=== PATIENT | male | born 1945 | race Caucasian/White ===

== ENCOUNTER 2024-06-05 08:17 | Emergency (ER) | payer OTHER, SELFPAY ==
[2024-06-05 08:45] VITALS: BP 113/84
[2024-06-05 09:09] LABS: Glucose - Point of Care 108 mg/dl (70-99)
[2024-06-05 09:13] VITALS: BP 130/70
[2024-06-05 09:36] VITALS: BMI 32.6
[2024-06-05 09:45] LABS: % Basophils 0.3 % (0-2); % Eosinophils 1.3 % (0-6); % Immature Granulocytes 0.3 % (0-0.5); % Lymphocytes 20.9 % (20.5-51.1); % Neutrophils 68.2 % (42.2-75.2); Absolute Eosinophils 0.1 10^3/uL (0-0.7); Absolute Lymphocytes 1.5 10^3/uL (1.2-3.4); Absolute Monocytes 0.6 10^3/uL (0.1-0.6); Absolute Neutrophils 4.8 10^3/uL (1.4-6.5); Hematocrit 39.6 % (39.0-52.0); Hemoglobin 13.7 g/dL (13.0-18.0); Mean Corp Hgb Conc. 34.6 g/dL (33.0-37.0); Mean Corpuscular Hgb 30.5 pg (27.0-31.0); Mean Corpuscular Volume 88.2 fL (80.0-94.0); Mean Platelet Volume 9.5 fL (7.4-10.4); Nucleated Red Blood Cells % 0 % (-); Platelet Count 202 10^3/uL (130-400); Red Blood Cell Count 4.49 10^6/uL (4.70-6.10); Red Cell Dist. Width 13.8 % (11.5-14.5); White Blood Cell Count 7.1 10^3/uL (4.8-10.8)
[2024-06-05 10:00] VITALS: BP 118/65
[2024-06-05 10:00] LABS: ALT (SGPT) 27 U/L (0-50); AST (SGOT) 26 U/L (17-59); Albumin 4.3 g/dl (3.5-5.0); Alkaline Phosphatase 67 U/L (38-126); Blood Urea Nitrogen 34 mg/dl (9-20); Carbon Dioxide 20 mmol/L (22-30); Estimated Creatinine Clearance 41 ml/min; Glucose 120 mg/dl (70-99); Sodium 137 mmol/L (135-145); Total Bilirubin 1.7 mg/dl (0.2-1.3); Total Protein 6.8 g/dl (6.3-8.2); eGFR 37.58
[2024-06-05] MEDS: NSS 1000 IV (10:13)
[2024-06-05] MEDS: ZOFRAN 4 MG IV (10:21)
[2024-06-05 10:27] LABS: Chloride 101 mmol/L (98-107)
[2024-06-05 10:30] LABS: TSH Reflex To Free T4 0.42 uIU/ml (0.47-4.68)
--- NOTE | 2024-06-05 10:32 | ED.GENMED ---
History of Present Illness
General
Chief Complaint: Abdominal Symptoms
Source: patient
Exam Limitations: none
Time Seen by Provider: 06/05/24 09:03
Nursing documentation reviewed up to this point in time: agreed with
History of Present Illness
History of Present Illness:
78-year-old male past medical history of hypertension hyperlipidemia, diabetes presenting to the emergency department today with concerns of lack of any oral intake of food over the past 4 weeks. He claims this is because the food is not appetizing
where he is currently living. He does not give any further explanation as to why he cannot retrieve food elsewhere. He claims that he would eat if the appropriate food was given to him. Denies any abdominal pain nausea vomiting diarrhea
constipation any thoughts of harming himself or others.
Past History
Past History
ED Past Medical History: HTN, Hypercholesterolemia and IDDM
ED Past Surgical History: Appendectomy
Social History
Tobacco: Former smoker
Alcohol: Occasional
Drug: None
Personal:
Living: alone
Employment: Other
Family History
Family History: Other
Review of Systems
Review of Systems
Allergies reviewed?: Yes
All Other Systems: ROS reviewed and negative except as documented in HPI and ROS
Phy Exam
Physical Exam
Physical Exam:
GENERAL: Alert , in no apparent distress
EYE: pupils equal and reactive
NECK: Supple, no significant adenopathy.
ENT: o/p clr, mmm.
CARDIAC: Regular rate and rhythm .
LUNGS: Clear breath sounds bilaterally, no acute respiratory distress, no wheezes/rales/rhonchi
ABDOMEN: Some abdominal distention some vague discomfort when palpating.
NEUROLOGICAL: Alert and oriented, no focal neuro deficits
SKIN: Warm and dry, skin intact.
MUSCULOSKELETAL: No edema, well perfused.
PSYCH: Normal and appropriate interaction.
Course
Orders/Labs/Results
Orders:
Orders
06/05/24 09:35
Complete Blood Count/With Diff Urgent
Comprehensive Metabolic Panel Urgent
Free T4 Urgent
Lipase Urgent
Comment: ADD ON
TSH Reflex To Free T4 Urgent
Comment: ADD ON
06/05/24 09:42
CT Abd/Pel (IV only)-DH only Urgent
Comment:
Reason For Exam: abd distension diffuse pain
CT Head W/o Iv Contrast Urgent
Comment:
Reason For Exam: ams
06/05/24 09:43
Add On- LAB Urgent
Tests Added?: tsh free t4
06/05/24 09:44
EKG [Electrocardiogram (*1)] Urgent
Reason for Study: Fatigue / Weakness
EKG- Treatment ONCE
06/05/24 10:06
0.9% Sodium Chloride 1000 ml [Nss] 1,000 ml IV BOLUS
Ondansetron Injectable [Zofran] 4 mg IV NOW STA
06/05/24 10:34
Add On- LAB Urgent
Tests Added?: lipase
06/05/24 11:13
Urinalysis Reflex To Culture Urgent
Date Specimen was Collected: 06/05/24
Time Specimen was Collected: 08:48
Urine Microscopic Reflex Cult Urgent
Abnormal Lab Results
06/05/24 06/05/24 06/05/24
09:07 09:35 11:13
RBC 4.49 L 10^6/uL
(4.70-6.10)
Carbon Dioxide 20 L mmol/L
(22-30)
BUN 34 H mg/dl
(9-20)
Creatinine 1.8 H mg/dL
(0.7-1.3)
Glucose 120 H mg/dl
(70-99)
Total Bilirubin 1.7 H mg/dl
(0.2-1.3)
Lipase 22 L U/L
(23-300)
TSH (Reflex) 0.42 L uIU/ml
(0.47-4.68)
Urine Ketones Trace A
(Negative)
Leukocyte Esterase Rfl Trace A
(Negative)
Urine Bacteria (Reflex) Few A
(Negative)
POC Glucose 108 H mg/dl
(70-99)
06/05/24 09:35
06/05/24 09:35
Vital Signs
Initial and Last Documented VS:
Initial Vital Signs
Temp Pulse Resp BP Pulse Ox
98.0 F 77 16 113/84 98
06/05/24 08:45 06/05/24 08:45 06/05/24 08:45 06/05/24 08:45 06/05/24 08:45
Last Documented Vital Signs
Temp Pulse Resp BP Pulse Ox
98.0 F 70 16 134/65 97
06/05/24 11:50 06/05/24 12:00 06/05/24 12:00 06/05/24 12:00 06/05/24 12:00
MDM/Problems Addressed
MDM/Problems Addressed:
78-year-old male presenting to the emergency department today with concerns of lack of oral intake of food over the past 4 weeks. Vital signs are normal on arrival he is in no distress she does have reproducible discomfort throughout the abdomen
with some distention. Labs showing elevated creatinine and BUN but not far from his baseline. Electrolytes without significant acute abnormalities. Patient no distress here CT scan did not show emergent findings. Normal vital signs throughout ER
stay. No evidence metabolic starvation he was advised to eat he was given food here he claims that he is physically able to eat as an outpatient he was given resources to be able to order food. Otherwise stable for discharge return precautions
given.
*Critical Care Note
Total Time (30-74mins, 75-104mins- exclusive of procedures): Not Applicable
ED Attending Note
-
Portions of this chart may have been created with voice recognition software.� Occasional wrong word or��sound alike� substitutions may have occurred due to the inherent limitations of voice recognition software.
Discharge Plan
Departure
Patient Disposition: Home (Routine Discharge)
Date of Disposition: 06/05/24
Time of Disposition: 12:39
Patient with high blood pressure during this ER visit?: No
Condition: Good
Covid-19: Not Applicable
Discharge Problem:
Decreased oral intake
Prescriptions:
No Action
omeprazole magnesium [Prilosec OTC] 20 MG tablet,delayed release (DR/EC)
20 mg PO DAILY
carvedilol 12.5 MG tablet
12.5 mg PO BID
lisinopril 20 mg Tablet
20 mg PO DAILY
therapeutic multivitamin Tablet
1 tab PO DAILY
aspirin 81 mg Tablet,Delayed Release (Dr/Ec)
81 mg PO DAILY
rosuvastatin 40 mg Tablet
40 mg PO DAILY
Farxiga 5 mg Tablet
5 mg PO DAILY
Patient Comments:
03/13/2023, patient unsure if they take this medication; pharmacy and [facility] records show that it was filled recently (02/20/2023) for a 30 day supply.
insulin aspart U-100 [Novolog FlexPen U-100 Insulin] 100 unit/mL (3 mL) Insulin Pen
12 unit SC AC Qty: 15 0RF
(DME) pen needle, diabetic [BD Benita 2nd Gen Pen Needle] 32 gauge x 5/32' needle
See Rx Instructions .Route Qty: 100 0RF
Rx Instructions:
As directed
(DME) Contour Next Test Strips Strip
Qty: 200 0RF
Rx Instructions:
As Directed
(DME) pen needle, diabetic [BD Benita 2nd Gen Pen Needle] 32 gauge x 5/32' needle
See Rx Instructions .Route Qty: 1200 0RF
Rx Instructions:
As directed
insulin glargine [Lantus Solostar U-100 Insulin] 100 unit/mL (3 mL) Insulin Pen
12 unit SC BID Qty: 15 0RF
Referrals:
Alessandra Ignacio MD [Family Provider] -
Activity Restrictions/Additional Instructions:
You came to the emergency department today with concerns of decreased oral intake. Here you had a reassuring assessment without emergent findings it is very important that you start to consume by mouth and follow-up closely with primary care
doctor. Return for any worsening, new or concerning symptoms.
Interventions
Interventions:
*Risk Screen - Suicide Last Done: 06/05/24 08:45
*General Assessment Last Done: 06/05/24 12:40
*Neglect/Abuse Screening Last Done: 06/05/24 08:45
ED- Fall Risk Assessment Last Done: 06/05/24 12:40
*ED COVID-19 Vaccine History Last Done: 06/05/24 12:40
*Nursing Disposition Last Done: 06/05/24 12:40
VD-Zxrift-Qxbwfoxafg Assessment Last Done: 06/05/24 11:38
Discharge Date and Time
Discharge Date/Time: 06/05/24 12:41
Print Language: ZIMBABWEAN
[2024-06-05 10:51] LABS: Lipase 22 U/L (23-300)
[2024-06-05 10:59] LABS: Free T4 1.23 ng/dl (0.78-2.19)
[2024-06-05 11:00] VITALS: BP 141/65
[2024-06-05 11:49] VITALS: BP 136/66
[2024-06-05 11:55] LABS: Urine Albumin Trace (Neg - Trace); Urine Bilirubin Negative (Negative); Urine Character Clear (Clear); Urine Color Yellow; Urine Glucose Negative (Negative); Urine Ketone Trace (Negative); Urine Leukocyte Trace (Negative); Urine Nitrite Negative (Negative); Urine Occult Blood Negative (Negative); Urine Specific Gravity 1.025 (<1.030); Urine Urobilinogen Negative (Neg - 1+)
[2024-06-05 12:00] VITALS: BP 134/65
[2024-06-05 12:12] LABS: Urine Bacteria Few (Negative); Urine Red Blood Cell None Seen /HPF (0-2); Urine Squamous Cell None seen /LPF (Few); Urine White Cell 0-2 /HPF (0-5)
== END 2024-06-05 12:41 | disposition home or self-care (01) ==
LOC: EMR 08:17
PROVIDERS: Emergency Medicine; EMERGENCY PHYSICIAN Emergency Medicine; FAMILY PHYSICIAN Internal Medicine
DX: R63.0 Anorexia (principal); R14.0 Abdominal distension (gaseous); R79.89 Other specified abnormal findings of blood chemistry; I10 Essential (primary) hypertension; E11.9 Type 2 diabetes mellitus without complications; E78.00 Pure hypercholesterolemia, unspecified; Z79.4 Long term (current) use of insulin; Z79.82 Long term (current) use of aspirin; Z87.891 Personal history of nicotine dependence; Z88.1 Allergy status to other antibiotic agents
CPT/HCPCS: 99285; 96361; 96374; 70450; 74177; 80053; 81003; 81015; 82962; 83690; 84439; 84443; 85025; 93005; Q9967

== ENCOUNTER 2024-06-07 16:28 | Emergency (ER) | payer OTHER, SELFPAY ==
[2024-06-07 16:37] VITALS: BP 152/77
[2024-06-07 16:49] LABS: Glucose - Point of Care 161 mg/dl (70-99)
--- NOTE | 2024-06-07 16:59 | ED.GENMED ---
ED Provider Triage
<Julisa Carbone NP - Last Filed: 06/07/24 17:09>
-
Patient seen by provider in Triage?: Seen in Triage
Attestation: A medical screening examination has been initiated by a qualified medical provider. Based on the assessment performed at this time, it has been determined that an emergent medical condition may exist and the patient has been informed
that further medical evaluation and possible additional diagnostic testing may be needed.
HPI: 78-year-old male with history of IDDM, HTN, HLD presents for
Friends with him: Shahid states when he missed an appointment at 330 today with [facility] internal medicine because he forgot about it, Mayelin Khanna [employer] called the patient to see if he was okay, when told Mayelin he was meeting with some friends and
Mayelin asked to speak to 1 of those friends. So Shahid spoke to Mayelin and she was concerned that his blood sugar levels were very low and they were supposed to bring Jens down here to have his 'levels checked.'
It is reported that pt is suicidal, Crisis has been consulted.
GENERAL: Alert , in no apparent distress
EYE: No visual abnormalities.
NECK: Trachea midline
ENT: No visible abnormalities.
LUNGS: No acute respiratory distress
NEUROLOGICAL: Alert and oriented
SKIN: Skin intact. No visible changes.
MUSCULOSKELETAL: Moving extremities normally
PSYCH: Normal and appropriate interaction.
This is a medical evaluation conducted in person to initiate diagnostic evaluation and provide initial therapeutics. Please see further documentation by the treating clinician.
History of Present Illness
<Julisa Carbone NP - Last Filed: 06/07/24 17:09>
General
Chief Complaint: Blood Sugar Problem
Time Seen by Provider: 06/07/24 17:22
<Neo Conroy MD - Last Filed: 06/08/24 15:42>
General
Source: patient
Exam Limitations: none
Nursing documentation reviewed up to this point in time: agreed with
History of Present Illness
History of Present Illness:
Patient with history of insulin-dependent diabetes, presents to ED for medical evaluation with 302 petition being filed by a friend, with concern for patient's safety. Patient has expressed suicidal thoughts, as he was recently scammed and is
currently in financial difficulties. He is currently in temporary housing, provided by local [facility]. Patient denies any pain. Patient wants to get his blood sugar checked. Denies chest pain or shortness of breath. Denies headache or dizziness.
[facility] police dept currently investigating the situation.
Past History
<Julisa Carbone NP - Last Filed: 06/07/24 17:09>
Past History
ED Past Medical History: HTN, Hypercholesterolemia and IDDM
ED Past Surgical History: Appendectomy
Social History
Tobacco: Former smoker
Alcohol: Occasional
Drug: None
Personal:
Living: alone
Employment: Other
Family History
Family History: Other
Review of Systems
<Neo Conroy MD - Last Filed: 06/08/24 15:42>
Review of Systems
Allergies reviewed?: Yes
All Other Systems: ROS reviewed and negative except as documented in HPI and ROS
Constitutional: Reports no symptoms
EENT: Reports no symptoms
Respiratory: Reports no symptoms
Cardiac: Reports no symptoms
ABD/GI: Reports no symptoms
: Reports no symptoms
Musculoskeletal: Reports no symptoms
Skin: Reports no symptoms
Neurological: Reports no symptoms
Psychiatric: Reports depression and suicidal
Phy Exam
<Neo Conroy MD - Last Filed: 06/08/24 15:42>
Physical Exam
Physical Exam:
Physical Exam
General: mild distress, not acutely ill. afebrile
Head: nc/at. eomi
Neck: supple. normal range of motion
Neuro: alert and oriented x 3. no focal neurological deficits
Skin: no rash
Psychiatric: well kept. interactive and cooperative but agitated.
Extremities: no edema. no calf tenderness.
Course
<Julisa Carbone, [employer] - Last Filed: 06/07/24 17:09>
Orders/Labs/Results
Orders:
Orders
06/07/24 16:42
1:1 Observation - Suicide/ Violent Behavior As Directed
Crisis Consult Urgent
Reason for Consult: depression, +SI
06/07/24 18:09
Complete Blood Count/With Diff Urgent
Comprehensive Metabolic Panel Urgent
06/07/24 23:00
Insulin Glargine Lantus [Lantus] 9 units Subcutaneous Insulin Syringe [Syringe-Insulin] 0 unit SC ONCE
06/07/24 23:52
Carvedilol [Coreg] 12.5 mg PO NOW STA
06/08/24 08:00
Insulin Glargine Lantus [Lantus] 12 units Subcutaneous Insulin Syringe [Syringe-Insulin] 0 unit SC DAILY
Lisinopril [Zestril] 20 mg PO DAILY
Pantoprazole [Protonix] 20 mg PO DAILY
06/08/24 09:09
Insulin Glargine Lantus [Lantus] 12 units Subcutaneous Insulin Syringe [Syringe-Insulin] 0 unit SC NOW
06/08/24 09:10
Rosuvastatin Calcium [Crestor] 40 mg PO NOW STA
06/08/24 09:14
Insulin Aspart [NOVOLOG vial] 6 units SC NOW STA
Abnormal Lab Results
06/07/24 06/07/24 06/08/24
16:47 18:09 00:23
RBC 4.66 L 10^6/uL
(4.70-6.10)
Absolute Monos (auto) 0.7 H 10^3/uL
(0.1-0.6)
Carbon Dioxide 18 L mmol/L
(30)
BUN 31 H mg/dl
(01-28)
Glucose 135 H mg/dl
()
POC Glucose 161 H mg/dl 123 H mg/dl
(99) (70-99)
06/08/24
08:27
RBC
Absolute Monos (auto)
Carbon Dioxide
BUN
Glucose
POC Glucose 108 H mg/dl
(99)
06/07/24 18:09
06/07/24 18:09
Vital Signs
Initial and Last Documented VS:
Initial Vital Signs
Temp Pulse Resp BP Pulse Ox
98.8 F 62 17 152/77 99
06/07/24 16:37 06/07/24 16:37 06/07/24 16:37 06/07/24 16:37 06/07/24 16:37
Last Documented Vital Signs
Temp Pulse Resp BP Pulse Ox
98.8 F 61 18 144/74 98
06/07/24 16:37 06/08/24 08:57 06/07/24 21:42 06/08/24 08:57 06/08/24 08:30
<Neo Conroy MD - Last Filed: 06/08/24 15:42>
Orders/Labs/Results
Orders:
Orders
06/07/24 16:42
1:1 Observation - Suicide/ Violent Behavior As Directed
Crisis Consult Urgent
Reason for Consult: depression, +SI
06/07/24 18:09
Complete Blood Count/With Diff Urgent
Comprehensive Metabolic Panel Urgent
06/07/24 23:00
Insulin Glargine Lantus [Lantus] 9 units Subcutaneous Insulin Syringe [Syringe-Insulin] 0 unit SC ONCE
06/07/24 23:52
Carvedilol [Coreg] 12.5 mg PO NOW STA
06/08/24 08:00
Insulin Glargine Lantus [Lantus] 12 units Subcutaneous Insulin Syringe [Syringe-Insulin] 0 unit SC DAILY
Lisinopril [Zestril] 20 mg PO DAILY
Pantoprazole [Protonix] 20 mg PO DAILY
06/08/24 09:09
Insulin Glargine Lantus [Lantus] 12 units Subcutaneous Insulin Syringe [Syringe-Insulin] 0 unit SC NOW
06/08/24 09:10
Rosuvastatin Calcium [Crestor] 40 mg PO NOW STA
06/08/24 09:14
Insulin Aspart [NOVOLOG vial] 6 units SC NOW STA
Abnormal Lab Results
06/07/24 06/07/24 06/08/24
16:47 18:09 00:23
RBC 4.66 L 10^6/uL
(4.70-6.10)
Absolute Monos (auto) 0.7 H 10^3/uL
(0.1-0.6)
Carbon Dioxide 18 L mmol/L
(-30)
BUN 31 H mg/dl
(9-20)
Glucose 135 H mg/dl
(70-99)
POC Glucose 161 H mg/dl 123 H mg/dl
(70-99) (70-99)
06/08/24
08:27
RBC
Absolute Monos (auto)
Carbon Dioxide
BUN
Glucose
POC Glucose 108 H mg/dl
(70-99)
06/07/24 18:09
06/07/24 18:09
Vital Signs
Initial and Last Documented VS:
Initial Vital Signs
Temp Pulse Resp BP Pulse Ox
98.8 F 62 17 152/77 99
06/07/24 16:37 06/07/24 16:37 06/07/24 16:37 06/07/24 16:37 06/07/24 16:37
Last Documented Vital Signs
Temp Pulse Resp BP Pulse Ox
98.8 F 61 18 144/74 98
06/07/24 16:37 06/08/24 08:57 06/07/24 21:42 06/08/24 08:57 06/08/24 08:30
<Neo Conroy MD - Last Filed: 06/08/24 15:42>
MDM/Problems Addressed
MDM/Problems Addressed:
302 petition filed by patient's friend, Shahid, with concern for his safety, due to irrational thought process with his current situation. I also believe that patient is currently in right state of mind, due to his current circumstances and without an
acute intervention, he may be in danger of harming himself.
<Neo Conroy MD - Last Filed: 06/08/24 15:42>
*Critical Care Note
Total Time (30-74mins, 75-104mins- exclusive of procedures): Not Applicable
ED Attending Note
<Julisa Carbone [employer] - Last Filed: 06/07/24 17:09>
-
Portions of this chart may have been created with voice recognition software.� Occasional wrong word or��sound alike� substitutions may have occurred due to the inherent limitations of voice recognition software.
Discharge Plan
Departure
Patient Disposition: Psych Facility
Date of Disposition: 06/07/24
Time of Disposition: 20:20
Discharge Problem:
Depression, Suicidal ideation
Prescriptions:
No Action
omeprazole magnesium [Prilosec OTC] 20 MG tablet,delayed release (DR/EC)
20 mg PO DAILY
carvedilol 12.5 MG tablet
12.5 mg PO BID
aspirin 81 mg Tablet,Delayed Release (Dr/Ec)
81 mg PO DAILY
rosuvastatin 40 mg Tablet
40 mg PO DAILY
insulin aspart U-100 [Novolog FlexPen U-100 Insulin] 100 unit/mL (3 mL) Insulin Pen
12 unit SC AC Qty: 15 0RF
trazodone 50 mg Tablet
50 mg PO HSPRN PRN (Reason: sleep)
lisinopril 20 mg Tablet
20 mg PO DAILY
insulin glargine [Lantus Solostar U-100 Insulin] 100 unit/mL (3 mL) Insulin Pen
9 unit SC HS
insulin glargine [Lantus Solostar U-100 Insulin] 100 unit/mL (3 mL) insulin pen
12 unit SC DAILY
Referrals:
Alessandra Ignacio MD [Family Provider] -
Interventions
Interventions:
*Risk Screen - Suicide Last Done: 06/07/24 16:40
*General Assessment Last Done: 06/07/24 16:40
*Neglect/Abuse Screening Last Done: 06/07/24 16:40
ED- Fall Risk Assessment Last Done: 06/08/24 09:30
*ED COVID-19 Vaccine History Last Done: 06/07/24 16:40
*Nursing Disposition Last Done: 06/08/24 09:30
ED- Neurological Assessment Last Done: 06/07/24 21:42
Discharge Date and Time
Discharge Date/Time: 06/08/24 09:30
Print Language: UGANDAN
[2024-06-07 18:17] LABS: % Basophils 0.4 % (0-2); % Eosinophils 5.4 % (0-6); % Immature Granulocytes 0.1 % (0-0.5); % Lymphocytes 27.5 % (20.5-51.1); % Monocytes 8.1 % (1.7-9.3); % Neutrophils 58.5 % (42.2-75.2); Absolute Eosinophils 0.4 10^3/uL (0-0.7); Absolute Lymphocytes 2.2 10^3/uL (1.2-3.4); Absolute Monocytes 0.7 10^3/uL (0.1-0.6); Absolute Neutrophils 4.8 10^3/uL (1.4-6.5); Hematocrit 41.8 % (39.0-52.0); Hemoglobin 14.2 g/dL (13.0-18.0); Mean Corpuscular Hgb 30.5 pg (27.0-31.0); Mean Corpuscular Volume 89.7 fL (80.0-94.0); Mean Platelet Volume 9.7 fL (7.4-10.4); Nucleated Red Blood Cells % 0 % (-); Platelet Count 244 10^3/uL (130-400); Red Blood Cell Count 4.66 10^6/uL (4.70-6.10); Red Cell Dist. Width 13.8 % (11.5-14.5); White Blood Cell Count 8.2 10^3/uL (4.8-10.8)
[2024-06-07 18:37] LABS: ALT (SGPT) 33 U/L (0-50); AST (SGOT) 34 U/L (17-59); Albumin 4.6 g/dl (3.5-5.0); Alkaline Phosphatase 67 U/L (38-126); Blood Urea Nitrogen 31 mg/dl (9-20); Calcium 9.4 mg/dl (8.4-10.2); Carbon Dioxide 18 mmol/L (22-30); Chloride 107 mmol/L (98-107); Glucose 135 mg/dl (70-99); Potassium 4.4 mmol/L (3.5-5.1); Sodium 139 mmol/L (135-145); Total Protein 7.4 g/dl (6.3-8.2); eGFR 55.53
[2024-06-07 21:42] VITALS: BP 133/65
[2024-06-07 22:04] LABS: Glucose - Point of Care 92 mg/dl (70-99)
[2024-06-08] MEDS: LANTUS 0.09 UNITS SC (00:20)
[2024-06-08] MEDS: COREG 12.5 MG PO (00:20)
[2024-06-08 00:24] LABS: Glucose - Point of Care 123 mg/dl (70-99)
[2024-06-08 08:29] LABS: Glucose - Point of Care 108 mg/dl (70-99)
[2024-06-08 08:30] VITALS: BP 144/74
[2024-06-08] MEDS: ZESTRIL 20 MG PO (08:57)
== END 2024-06-08 09:30 ==
LOC: EMR 16:28
PROVIDERS: Registered Nurse; EMERGENCY PHYSICIAN Emergency Medicine; FAMILY PHYSICIAN Internal Medicine
DX: R45.851 Suicidal ideations (principal); F32.A Depression, unspecified; G47.9 Sleep disorder, unspecified; Z59.89 Other problems related to housing and economic circumstances; Z59.86 Financial insecurity; E11.9 Type 2 diabetes mellitus without complications; E78.00 Pure hypercholesterolemia, unspecified; I10 Essential (primary) hypertension; Z59.01 Sheltered homelessness; Z87.891 Personal history of nicotine dependence; Z79.4 Long term (current) use of insulin; Z79.82 Long term (current) use of aspirin; Z88.1 Allergy status to other antibiotic agents
CPT/HCPCS: 99285; 96372; 80053; 82962; 85025

== ENCOUNTER 2024-06-18 23:02 | Observation (INO) | payer OTHER, SELFPAY ==
[2024-06-18 19:15] VITALS: BP 127/70
[2024-06-18 20:00] VITALS: BP 118/74
--- NOTE | 2024-06-18 20:00 | ED.GENMED ---
History of Present Illness
<Jose Sylvester PA-C - Last Filed: 06/18/24 22:28>
General
Chief Complaint: Change in Mental Status
Source: patient
Exam Limitations: none
Time Seen by Provider: 06/18/24 19:24
History of Present Illness
History of Present Illness:
78-year-old male insulin-dependent diabetic presents with friend who he currently lives with who states the patient has been more confused and usual starting today. He has been off and confused over the past several months. He was 302 for severe
depression and SI at the end of May. He spent 9 days at a psychiatric hospital. He was started on sertraline. Patient has no complaints currently when asked why he was here in the hospital he pointed to his friend and stated that she brought
me here.
Past History
<Jose Sylvester PA-C - Last Filed: 06/18/24 22:28>
Past History
ED Past Medical History: HTN, Hypercholesterolemia and IDDM
ED Past Surgical History: Appendectomy
Social History
Tobacco: Former smoker
Alcohol: Occasional
Drug: None
Personal:
Living: alone
Employment: Other
Family History
Family History: Other
Phy Exam
<Jose Sylvester PA-C - Last Filed: 06/18/24 22:28>
Physical Exam
Physical Exam:
General: Well-appearing male no acute respiratory distress
HEENT: Normocephalic atraumatic face is symmetric
Heart: Regular rate and rhythm no murmurs
Lungs: Clear no wheeze
Extremities: No cyanosis or edema
Neuro: Alert oriented to person and place and time. No drift on exam finger-nose [id number] intact. Able to identify all objects in the room. Speaks clearly without any aphasia or dysarthria. Had trouble doing serial sevens
Psychiatric exam: Flat affect but denying thoughts of harming self or others
Course
<Jose Sylvester PA-C - Last Filed: 06/18/24 22:28>
Orders/Labs/Results
Orders:
Orders
06/18/24 19:52
Urinalysis Reflex To Culture Urgent
Date Specimen was Collected: 06/18/24
Time Specimen was Collected: 19:59
06/18/24 19:59
CT Head W/o Iv Contrast Urgent
Comment:
Reason For Exam: confusion
06/18/24 20:01
COVID-19 Antigen Urgent
Source: Nasal Swab
Complete Blood Count/With Diff Urgent
Comprehensive Metabolic Panel Urgent
Influenza A+B Rapid Molecular Urgent
DI Source: Nasal Swab
Specimen Description:
06/18/24 21:13
Electrocardiogram (*1) Urgent
Reason for Study: Shortness of Breath
EKG- Treatment ONCE
CR Chest - 2 Views Urgent
Comment:
Reason For Exam: sob
Abnormal Lab Results
06/18/24
20:01
RBC 4.53 L 10^6/uL
(4.70-6.10)
Absolute Monos (auto) 0.7 H 10^3/uL
(0.1-0.6)
BUN 35 H mg/dl
(9-20)
Creatinine 1.5 H mg/dL
(0.7-1.3)
Glucose 135 H mg/dl
(70-99)
Total Bilirubin 1.6 H mg/dl
(0.2-1.3)
06/18/24 20:01
06/18/24 20:01
Vital Signs
Initial and Last Documented VS:
Initial Vital Signs
Temp Pulse Resp BP Pulse Ox
98.5 F 75 16 127/70 98
06/18/24 19:15 06/18/24 19:15 06/18/24 19:15 06/18/24 19:15 06/18/24 19:15
Last Documented Vital Signs
Temp Pulse Resp BP Pulse Ox
98.5 F 67 16 108/74 100
06/18/24 19:15 06/18/24 21:07 06/18/24 21:07 06/18/24 21:07 06/18/24 21:07
<Richie Rogers MD - Last Filed: 06/18/24 21:49>
Orders/Labs/Results
Orders:
Orders
06/18/24 19:52
Urinalysis Reflex To Culture Urgent
Date Specimen was Collected: 06/18/24
Time Specimen was Collected: 19:59
06/18/24 19:59
CT Head W/o Iv Contrast Urgent
Comment:
Reason For Exam: confusion
06/18/24 20:01
COVID-19 Antigen Urgent
Source: Nasal Swab
Complete Blood Count/With Diff Urgent
Comprehensive Metabolic Panel Urgent
Influenza A+B Rapid Molecular Urgent
DI Source: Nasal Swab
Specimen Description:
06/18/24 21:13
Electrocardiogram (*1) Urgent
Reason for Study: Shortness of Breath
EKG- Treatment ONCE
CR Chest - 2 Views Urgent
Comment:
Reason For Exam: sob
Abnormal Lab Results
06/18/24
20:01
RBC 4.53 L 10^6/uL
(4.70-6.10)
Absolute Monos (auto) 0.7 H 10^3/uL
(0.1-0.6)
BUN 35 H mg/dl
(9-20)
Creatinine 1.5 H mg/dL
(0.7-1.3)
Glucose 135 H mg/dl
(70-99)
Total Bilirubin 1.6 H mg/dl
(0.2-1.3)
06/18/24 20:01
06/18/24 20:01
Vital Signs
Initial and Last Documented VS:
Initial Vital Signs
Temp Pulse Resp BP Pulse Ox
98.5 F 75 16 127/70 98
06/18/24 19:15 06/18/24 19:15 06/18/24 19:15 06/18/24 19:15 06/18/24 19:15
Last Documented Vital Signs
Temp Pulse Resp BP Pulse Ox
98.5 F 67 16 108/74 100
06/18/24 19:15 06/18/24 21:07 06/18/24 21:07 06/18/24 21:07 06/18/24 21:07
<Jose Sylvester PA-C - Last Filed: 06/18/24 22:28>
MDM/Problems Addressed
Differential Diagnosis Includes:
Patient with change in mental status differential is large but can include infectious process electrolyte abnormality medication reaction or generalized cognitive decline. Also check CT of head
Labs pending
<Jose Sylvester PA-C - Last Filed: 06/18/24 22:28>
*Critical Care Note
Total Time (30-74mins, 75-104mins- exclusive of procedures): Not Applicable
<Jose Sylvester PA-C - Last Filed: 06/18/24 22:28>
Update Note
Update Note:
Patient reevaluated called back into the room as he was saying he was short of breath however O2 saturation was 100% did not appear to be in any respiratory distress. Chest x-ray done performed which was clear. CT of the head showed no acute
findings. EKG shows sinus rhythm without ischemic changes. Labs reviewed otherwise without significant finding. Upon further questioning of the friend who is taking care of the patient since leaving the psychiatric hospital he was very confused
today unable to perform simple tasks. They do not feel he is safe where he is staying with them as they go to work. Discussed with emergency room attending who saw the patient as well. Patient may benefit from case management involvement and
potential placement. Will keep in hospital for further evaluation
ED Attending Note
<Jose Sylvester PA-C - Last Filed: 06/18/24 22:28>
-
Portions of this chart may have been created with voice recognition software.� Occasional wrong word or��sound alike� substitutions may have occurred due to the inherent limitations of voice recognition software.
<Richie Rogers MD - Last Filed: 06/18/24 21:49>
ED Attending Note
Patient seen and examined by attending physician: Yes
I performed the substantive portion of visit, reviewed & personally made and approve the management plan that is documented in note by myself or DHARA.: Yes
ED Attending Note:
78-year-old male brought in for episodes of confusion. Had trouble finding his car issues with his keys. Patient has had memory issues over the last 6 months. Much worse the last week. He did start sertraline for depression. He is currently
living with his daughter's friend who has been somewhat caring for him.
On exam patient is nontoxic in no distress. He is alert and oriented x 3. He did have trouble with some simple math equations however. He is not focal. Lungs are clear and equal. Heart regular rate and rhythm mild midsystolic murmur. Warm and
dry perfusing well nonfocal.
Testing is unremarkable. I suspect he likely does have some mild dementia that has progressed slowly over the last 6 months. There may be a component of sertraline. He did briefly complain of some shortness of breath when he sat up and was
reevaluated. His lungs are clear pulse ox 100%. And symptoms quickly resolved.
This becomes mostly a ADL social service issue as patient has no family to care watch him. His daughters friend cannot take responsibility for him which is understandable. He will be admitted observation overnight with pending case management and
decisions on ongoing living situation.
Discharge Plan
Departure
Patient Disposition: Admit
Date of Disposition: 06/18/24
Time of Disposition: 22:27
Presentation/result/management discussed w/ accepting MD/DO: Hospitalist
Discharge Problem:
Altered mental status
Prescriptions:
No Action
omeprazole magnesium [Prilosec OTC] 20 MG tablet,delayed release (DR/EC)
20 mg PO DAILY
carvedilol 12.5 MG tablet
12.5 mg PO BID
aspirin 81 mg Tablet,Delayed Release (Dr/Ec)
81 mg PO DAILY
rosuvastatin 40 mg Tablet
40 mg PO DAILY
insulin aspart U-100 [Novolog FlexPen U-100 Insulin] 100 unit/mL (3 mL) Insulin Pen
12 unit SC AC Qty: 15 0RF
trazodone 50 mg Tablet
50 mg PO HSPRN PRN (Reason: sleep)
lisinopril 20 mg Tablet
20 mg PO DAILY
insulin glargine [Lantus Solostar U-100 Insulin] 100 unit/mL (3 mL) Insulin Pen
9 unit SC HS
insulin glargine [Lantus Solostar U-100 Insulin] 100 unit/mL (3 mL) insulin pen
12 unit SC DAILY
Referrals:
Krystin Mackay CRNP [Family Provider] -
Interventions
Interventions:
*General Assessment Last Done: 06/18/24 19:15
ED- Fall Risk Assessment Last Done: 06/18/24 19:29
*ED COVID-19 Vaccine History Last Done: 06/18/24 19:15
ED- Neurological Assessment Last Done: 06/18/24 19:29
ED Swallowing Screen Last Done: 06/18/24 19:29
Discharge Date and Time
Print Language: EAST [place]
[2024-06-18 20:12] LABS: % Basophils 0.5 % (0-2); % Eosinophils 3.8 % (0-6); % Immature Granulocytes 0.4 % (0-0.5); % Lymphocytes 30.8 % (20.5-51.1); % Monocytes 8.4 % (1.7-9.3); % Neutrophils 56.1 % (42.2-75.2); Absolute Eosinophils 0.3 10^3/uL (0-0.7); Absolute Lymphocytes 2.5 10^3/uL (1.2-3.4); Absolute Monocytes 0.7 10^3/uL (0.1-0.6); Absolute Neutrophils 4.5 10^3/uL (1.4-6.5); Hematocrit 39.8 % (39.0-52.0); Hemoglobin 13.8 g/dL (13.0-18.0); Mean Corp Hgb Conc. 34.7 g/dL (33.0-37.0); Mean Corpuscular Hgb 30.5 pg (27.0-31.0); Mean Corpuscular Volume 87.9 fL (80.0-94.0); Mean Platelet Volume 9.9 fL (7.4-10.4); Nucleated Red Blood Cells % 0 % (-); Platelet Count 218 10^3/uL (130-400); Red Blood Cell Count 4.53 10^6/uL (4.70-6.10); Red Cell Dist. Width 13.7 % (11.5-14.5); White Blood Cell Count 8.1 10^3/uL (4.8-10.8)
[2024-06-18 20:32] LABS: ALT (SGPT) 39 U/L (0-50); AST (SGOT) 36 U/L (17-59); Albumin 4.7 g/dl (3.5-5.0); Alkaline Phosphatase 77 U/L (38-126); Blood Urea Nitrogen 35 mg/dl (9-20); Calcium 9.7 mg/dl (8.4-10.2); Carbon Dioxide 22 mmol/L (22-30); Chloride 102 mmol/L (98-107); Glucose 135 mg/dl (70-99); Potassium 4.5 mmol/L (3.5-5.1); Sodium 137 mmol/L (135-145); Total Bilirubin 1.6 mg/dl (0.2-1.3); Total Protein 7.1 g/dl (6.3-8.2); eGFR 46.77
[2024-06-18 20:33] LABS: COVID-19 Antigen Negative (Negative)
[2024-06-18 21:07] VITALS: BP 108/74
--- NOTE | 2024-06-18 23:05 | HPS.HSE ---
Family Physician
-
Family Physician: FAHEEM Dickens
Chief Complaint
-
confusion
History of Present Illness
78-year-old male past medical history of CKD, diabetes, GERD, hypertension, hypercholesteremia, presenting with confusion starting today. Confusion is currently resolved but he was told to come to the hospital. Patient arrives with his friend who
states that patient has been having intermittent confusion for the past 5 months. She thinks this is more of a memory impairment. No low blood sugars.
He was recently 302ed for severe depression and suicidal ideation at the end of May. He spent 9 days at [facility]. He was started on sertraline. His mood is now significantly better.
He denies any symptoms at this time. Denies fevers or chills, cough, shortness of breath, nausea vomiting, abdominal pain, diarrhea or urinary symptoms.
He does not smoke or drink alcohol.
Medical History
Past Medical History
Past Medical History: Reports Other (CKD, diabetes, GERD, hypertension, hypercholesteremia)
Past Surgical History: Reports None
Social History
Tobacco: Non-smoker
Alcohol: None
Drug: None
Family History
Family History: Not pertinent
Allergies / Home Medications
Allergies reflects when Allergies were last updated in [employer].
Home Medications with original date entered in [employer]
Allergy/Medication List:
Allergies
Allergy/AdvReac Type Severity Reaction Status Date / Time
erythromycin base Allergy Unknown Verified 06/18/24 19:31
Home Medications
carvedilol 12.5 mg tablet 12.5 mg PO BID Blood Pressure 04/12/17
omeprazole magnesium 20 mg tablet,delayed release (Prilosec OTC) 20 mg PO DAILY Gastrointestinal Issue 04/12/17
aspirin 81 mg tablet,delayed release 81 mg PO DAILY Blood Clot Prevention/Tx 03/13/23
rosuvastatin 40 mg tablet 40 mg PO DAILY High Cholesterol 03/13/23
insulin aspart U-100 100 unit/mL (3 mL) subcutaneous pen (Novolog FlexPen U-100 Insulin aspart) 12 unit (0.12 mL) SC AC #15 mL 03/20/23
insulin glargine 100 unit/mL (3 mL) subcutaneous pen (Lantus Solostar U-100 Insulin) 9 unit SC HS 06/07/24
insulin glargine 100 unit/mL (3 mL) subcutaneous pen (Lantus Solostar U-100 Insulin) 12 unit SC DAILY Diabetes 06/07/24
lisinopril 20 mg tablet 20 mg PO DAILY 06/07/24
trazodone 50 mg tablet 50 mg PO HSPRN PRN sleep 06/07/24
Review of Systems
-
History Source: Patient
A 12 point ROS was completed and negative except as noted: Yes
Constitutional: Reports No Symptoms
EENT: Reports No Symptoms
Respiratory: Reports No Symptoms
Cardiac: Reports No Symptoms
Abdomen/GI: Reports No Symptoms
: Reports No Symptoms
Musculoskeletal: Reports No Symptoms
Skin: Reports No Symptoms
Neurological: Reports No Symptoms
Endocrine: Reports No Symptoms
Hematologic/Lymphatic: Reports No Symptoms
Psych: Reports No Symptoms
Physical Exam
Vital Signs
Vital Signs
Temp Pulse Resp BP Pulse Ox
98.5 F 67 16 108/74 100
06/18/24 19:15 06/18/24 21:07 06/18/24 21:07 06/18/24 21:07 06/18/24 21:07
Physical Exam
General: Well Developed, Well Nourished and No Apparent Distress
HEENT: NormoCephalic, Moist mucous membranes and Atraumatic
Respiratory: Clear
Cardiac: S1/S2 and Regular Rhythm; No Murmur or Rub
GI: Soft, Non Tender, Non Distended and Normal Bowel Sounds; No Organomegaly
Rectal: Deferred by Provider
Musculoskeletal: No Clubbing, No Cyanosis and No Edema
Skin: No Rash
Neuro: Nonfocal/grossly intact
Laboratory Results
-
06/18/24 20:01
06/18/24 20:01
Laboratory Results
Total Bilirubin 1.6 mg/dl (0.2-1.3) H 06/18/24 20:01
AST 36 U/L (17-59) 06/18/24 20:01
ALT 39 U/L (0-50) 06/18/24 20:01
Alkaline Phosphatase 77 U/L (38-126) 06/18/24 20:01
Data Reviewed
-
Lab Data: Labs Reviewed by me
Old Records: Reviewed
Impression/Plan
-
IMPRESSION:
PLAN:
# Chronic intermittent confusion likely developing cognitive impairment
-Currently not confused
-Labs normal
-CT head negative
-Chest x-ray shows no notable abnormalities, report pending
-Urinalysis pending
-Friend states that she and her are having difficulty caring for the patient so they are looking for case management input for placement
Depression
-Continue sertraline
Type 2 diabetes
-Continue Lantus 12 units
-Insulin sliding scale
Essential hypertension
-Continue Coreg
-Continue lisinopril
Hypercholesterolemia
-Continue statin
CKD 3
-Renal function at baseline
GERD
-Continue Pepcid
Full code
DVT prophylaxis�heparin
Diabetic diet
[2024-06-18 23:20] VITALS: BP 111/55
[2024-06-18 23:30] LABS: Urine Albumin Negative (Neg - Trace); Urine Bilirubin Negative (Negative); Urine Color Yellow; Urine Glucose Negative (Negative); Urine Ketone Negative (Negative); Urine Leukocyte Negative (Negative); Urine Nitrite Negative (Negative); Urine Occult Blood Negative (Negative); Urine Specific Gravity 1.015 (<1.030); Urine Urobilinogen Negative (Neg - 1+)
[2024-06-18 23:44] LABS: Urine Character Clear (Clear)
[2024-06-19 01:23] VITALS: BP 140/63; BMI 32.4
[2024-06-19 07:31] LABS: % Basophils 0.6 % (0-2); % Immature Granulocytes 0.3 % (0-0.5); % Lymphocytes 34.1 % (20.5-51.1); % Monocytes 9.3 % (1.7-9.3); % Neutrophils 51.7 % (42.2-75.2); Absolute Eosinophils 0.3 10^3/uL (0-0.7); Absolute Lymphocytes 2.3 10^3/uL (1.2-3.4); Absolute Monocytes 0.6 10^3/uL (0.1-0.6); Absolute Neutrophils 3.5 10^3/uL (1.4-6.5); Hematocrit 36.5 % (39.0-52.0); Mean Corp Hgb Conc. 35.6 g/dL (33.0-37.0); Mean Corpuscular Hgb 31.4 pg (27.0-31.0); Mean Corpuscular Volume 88.2 fL (80.0-94.0); Mean Platelet Volume 10.7 fL (7.4-10.4); Nucleated Red Blood Cells % 0 % (-); Platelet Count 202 10^3/uL (130-400); Red Blood Cell Count 4.14 10^6/uL (4.70-6.10); Red Cell Dist. Width 13.7 % (11.5-14.5); White Blood Cell Count 6.8 10^3/uL (4.8-10.8)
[2024-06-19 07:50] VITALS: BP 124/61
[2024-06-19 08:04] LABS: ALT (SGPT) 35 U/L (0-50); AST (SGOT) 34 U/L (17-59); Albumin 3.9 g/dl (3.5-5.0); Alkaline Phosphatase 79 U/L (38-126); Blood Urea Nitrogen 32 mg/dl (9-20); Calcium 9.4 mg/dl (8.4-10.2); Carbon Dioxide 22 mmol/L (22-30); Chloride 106 mmol/L (98-107); Estimated Creatinine Clearance 46 ml/min; Glucose 98 mg/dl (70-99); Potassium 4.4 mmol/L (3.5-5.1); Sodium 137 mmol/L (135-145); Total Bilirubin 1.5 mg/dl (0.2-1.3); Total Protein 6.6 g/dl (6.3-8.2); eGFR 46.77
[2024-06-19] MEDS: CRESTOR 80 MG PO (08:48)
[2024-06-19] MEDS: ZESTRIL 20 MG PO (08:48)
[2024-06-19] MEDS: PEPCID 20 MG PO (08:48)
[2024-06-19] MEDS: COREG 12.5 MG PO ×2 (08:50→20:25)
[2024-06-19] MEDS: HEPARIN 5000 UNITS SC ×2 (08:50→20:25)
[2024-06-19] MEDS: NOVOLOG FLEXPEN-LOW RESISTANCE SC ×3 (08:51→17:24)
[2024-06-19 08:53] LABS: Glucose - Point of Care 111 mg/dl (70-99)
[2024-06-19] MEDS: LANTUS 0.12 UNITS SC (08:54)
--- NOTE | 2024-06-19 10:03 | W.PN.HOSP.TC ---
Today's Communication/Plan
-
Psychiatry consulted, pending evaluation
Case management consulted
Assessment / Plan
Assessment / Plan
#Altered mental status
Currently not confused, potential developing cognitive impairment
Labs negative
A CT head negative
CT chest negative
UA pending
Case management consulted
Psychiatry consulted
#Depression
Continue sertraline
Continue to monitor for suicidal homicidal ideation
#Type 2 diabetes
Continue Lantus 12 units
Continue sliding scale insulin
#Essential hypertension
Continue Coreg
Continue lisinopril
#hyperCholesterolemia
Continue statin
#CKD 3
Currently at baseline
#GERD
Continue Pepcid
Full code
DVT prophylaxis�heparin
Continue diabetic diet
Anticipated Discharge: > 48 hours
Subjective/Interval History
-
Date of Service: June 19, 2024
Patient reports that he is confused why he is here. He is unsure how long he has been here. He is severely depressed with no motivation. He denies any suicidal or homicidal ideation
Objective Data
-
Labs:
Laboratory Results
06/19/24
06:24
WBC 6.8
Hgb 13.0
Hct 36.5 L
Plt Count 202
Sodium 137
Potassium 4.4
Chloride 106
Carbon Dioxide 22
BUN 32 H
Creatinine 1.5 H
Glucose 98
Calcium 9.4
Total Bilirubin 1.5 H
AST 34
ALT 35
Alkaline Phosphatase 79
Vital Signs:
Vital Signs
Temp Pulse Resp BP Pulse Ox
98.3 F 63 16 124/61 96
06/19/24 07:50 06/19/24 08:48 06/19/24 07:50 06/19/24 08:48 06/19/24 07:50
Review of Systems
-
History Source: Patient
Constitutional: Reports No Appetite and Sleep Disturbance
EENT: Reports No Symptoms Reported
Respiratory: Reports No Symptoms
Cardiac: Reports No Symptoms
Abdomen/GI: Reports No Symptoms
Psych: Reports Depressed and Sad
Physical Exam
-
General: Well Developed, Well Nourished, No Apparent Distress, Comfortable and Conversant
HEENT: Normocephalic and Atraumatic
Respiratory: Clear to Auscultation
Cardiac: Regular Rhythm and S1/S2
GI: Soft, Nontender, Nondistended and Normal Bowel Sounds
Musculoskeletal: No Clubbing, No Cyanosis and No Edema
Skin: Warm and Dry
Neuro: Awake and Alert
Psych: Depressed
Data Reviewed
-
Labs: Labs Reviewed by me and Discussed with Physician
Old Records: Reviewed
[2024-06-19 12:03] LABS: Glycohemoglobin (HgbA1c) 6.2 % (4.0-5.6)
[2024-06-19 12:28] LABS: Glucose - Point of Care 112 mg/dl (70-99)
--- NOTE | 2024-06-19 12:45 | W.PN.UPDATE ---
Update Note
Progress Note Update
I saw and evaluated the patient. I reviewed the resident�s note and agree with findings and plan as documented in the resident�s note.
No new complaints.
Gen: NAD, awake and alert
Eyes: EOMI, PERRLA, no scleral icterus.
Neck: supple.
CV: RRR, +S1/S2, no m/r/g.
Resp: CTAB, no rales, wheezes, or rhonchi.
Abd: +BS, soft, NT, ND
Skin: No rashes.
Neuro: CN 2-12 intact, non-focal.
Psych: Normal mood and affect.
Chronic intermittent confusion likely developing cognitive impairment:
-with underlying depression
-Currently not confused
-Labs normal
-CT head negative
-Chest x-ray shows no notable abnormalities, report pending
-There was no indication for urinalysis to be ordered but, nonetheless, it was negative
-Friend states that she and her are having difficulty caring for the patient so they are looking for case management input for placement
-psych c/s
-Continue sertraline
Type 2 diabetes
-Continue Lantus 12 units
-Insulin sliding scale
Essential hypertension
-Continue Coreg
-Continue lisinopril
Hypercholesterolemia
-Continue statin
CKD3a
-Renal function at baseline
GERD
-Continue Pepcid
Obesity due to excess calories
FULL/heparin
There is no medical indication for continued hospitalization. Case management aware.
--- NOTE | 2024-06-19 13:37 | CS.PSYCHR ---
Consult Summary - Psychiatry
-
Pt is an 78 yo male past medical history of CKD, diabetes, GERD, hypertension, hypercholesteremia, who presented with intermittent confusion, reportedly going on for several months, with memory impairment. Pt was recently admitted at [facility] on a 302 for severe depression, was there for 9 days, reportedly started on Sertraline, with improved mood. Pt seen standing by his bed, arranging his sheets. Pt stated he has been here for 3 days, although admitted last night. Pt
complains of not being fed here. Reviewed with nursing, who set pt up with the menu and connected him with the dining service. Pt is not able to give detailed information, is aware he has been on an antidepressant at home, but not able to give
specifics. No agitation or signs of psychosis on interview. Pt states he is going to watch the Superbowl, offers no active complaints.
Psych Hx: as noted above, started on Sertraline in May at [facility], does not confirmed
SH: unable to obtain
MSE: alert, calm, cooperative, with sensorium intact. Speech coherent, though not able to give detailed information, appears disoriented. No delusions or hallucinations evident. Mood good, affect stable/appropriate
Imp: Intermittent confusion, R/o delirium, likely dementia
Recent depressive episode, reportedly stabilized on Sertraline
Rec: Will continue Sertraline 50 mg daily, monitor response
Will follow
[2024-06-19 15:55] VITALS: BP 120/61
--- NOTE | 2024-06-19 15:56 | CM ---
Patient who lost his housing with Dx Chronic intermittent confusion likely developing cognitive impairment. PT/OT Pritials pending.
Met with patient and Cathy Gaines, friend/POA;
the patient had resided at [facility]. He had been scammed online out of $800,000 savings so had to leave [employer], and had been staying temporarily at his sabianist. Scammers made additional efforts to follow him in his car and on
his phone and Cathy shares that police have been involved. Patient then here in ED and made statement of thoughts of harming himself and was sent on a 302 to [facility], where he was for about 9 days, until discharged, which was not a good
experience. Patient now brought to hospital by his 2 POAs (Ladi Chacon, also POA ph [phone]) due to cognitive issues and need for placement.
The patient is . He had 2 children who of cystic fibrosis.
The patient had been assisted with ADLs and was ambulating independently without the use of an assistive device.
He has no DME, prior VN or SNF.
PCP - Krystin Mackay
Pharmacy - [facility] [address], [place]
KUMAR Letter completed with POA.
Discussed SNF options if patient has rehab needs. Provided NH List and reviewed ratings for local SNFs.
Suggested POA determine how much patient is receiving through SS or other sources to determine ability to private pay for LTC.
Discussed salvage determiner care placement options without skilled SNF needs; private pay SNF vs assisted living vs independent living.
Discussed that [facility] SNF may be most cost effective local SNF.
Plan follow up after seen by PT/OT.
[2024-06-19 16:42] LABS: Glucose - Point of Care 125 mg/dl (70-99)
[2024-06-19 21:20] LABS: Glucose - Point of Care 135 mg/dl (70-99)
[2024-06-19] MEDS: MELATONIN 5 MG PO (22:45)
[2024-06-19] MEDS: TUMS CHEWABLE TABLET 400 MG PO (22:45)
[2024-06-19 23:34] VITALS: BP 98/42
[2024-06-20 07:02] VITALS: BP 114/63
[2024-06-20 08:07] LABS: Glucose - Point of Care 106 mg/dl (70-99)
[2024-06-20] MEDS: NOVOLOG FLEXPEN-LOW RESISTANCE SC ×3 (08:15→17:20)
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
[2024-06-20 09:05] VITALS: BP 155/76; PULSE 63; O2SAT 97
[2024-06-20] MEDS: COREG 12.5 MG PO ×2 (09:11→20:51)
[2024-06-20] MEDS: CRESTOR 80 MG PO (09:11)
[2024-06-20] MEDS: ZESTRIL 20 MG PO (09:11)
[2024-06-20] MEDS: PEPCID 20 MG PO (09:12)
[2024-06-20] MEDS: HEPARIN 5000 UNITS SC ×2 (09:12→20:52)
[2024-06-20] MEDS: ZOLOFT 50 MG PO (09:12)
[2024-06-20] MEDS: LANTUS 0.12 UNITS SC (09:20)
[2024-06-20 10:48] VITALS: BP 122/58; PULSE 61; O2SAT 97
--- NOTE | 2024-06-20 10:55 | PTOTSP ---
pt currently demonstrates ability to complete simple ADLs, functional transfers, ambulation with supervision to no assistance. pt following simple one step directions to complete simple ADLs. no acute OT needs identified at this time, will sign off.
[2024-06-20 12:26] LABS: Glucose - Point of Care 127 mg/dl (70-99)
[2024-06-20 13:06] VITALS: BMI 32.4
--- NOTE | 2024-06-20 13:07 | PTOTSP ---
PATIENT O X 3, WAS ABLE TO MOBILIZE INDEPENDENTLY ON LEVEL SURFACES WELL ELEVATIONS REQUIRING NO FURTHER ACUTE CARE SKILLED P.T. AT THIS TIME. WILL DISCHARGE FROM P.T. SERVICES.
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
[2024-06-20 15:02] VITALS: BP 113/59
[2024-06-20 17:18] LABS: Glucose - Point of Care 108 mg/dl (70-99)
[2024-06-20 19:00] VITALS: BP 116/62
[2024-06-20 21:32] LABS: Glucose - Point of Care 109 mg/dl (70-99)
[2024-06-20 23:00] VITALS: BP 121/65
[2024-06-20] MEDS: MELATONIN 5 MG PO (23:05)
[2024-06-21 08:05] VITALS: BP 115/61
[2024-06-21 08:09] LABS: % Basophils 0.7 % (0-2); % Eosinophils 5.9 % (0-6); % Immature Granulocytes 0.2 % (0-0.5); % Lymphocytes 36.6 % (20.5-51.1); % Monocytes 9.4 % (1.7-9.3); % Neutrophils 47.2 % (42.2-75.2); Absolute Eosinophils 0.4 10^3/uL (0-0.7); Absolute Lymphocytes 2.2 10^3/uL (1.2-3.4); Absolute Monocytes 0.6 10^3/uL (0.1-0.6); Absolute Neutrophils 2.8 10^3/uL (1.4-6.5); Hematocrit 37.4 % (39.0-52.0); Hemoglobin 12.9 g/dL (13.0-18.0); Mean Corp Hgb Conc. 34.5 g/dL (33.0-37.0); Mean Corpuscular Hgb 30.4 pg (27.0-31.0); Mean Corpuscular Volume 88.2 fL (80.0-94.0); Mean Platelet Volume 10.3 fL (7.4-10.4); Nucleated Red Blood Cells % 0 % (-); Platelet Count 183 10^3/uL (130-400); Red Blood Cell Count 4.24 10^6/uL (4.70-6.10); Red Cell Dist. Width 13.5 % (11.5-14.5)
[2024-06-21] MEDS: COREG 12.5 MG PO ×2 (08:11→21:30)
[2024-06-21] MEDS: ZOLOFT 50 MG PO (08:11)
[2024-06-21] MEDS: CRESTOR 80 MG PO (08:11)
[2024-06-21] MEDS: ZESTRIL 20 MG PO (08:12)
[2024-06-21] MEDS: PEPCID 20 MG PO (08:12)
[2024-06-21] MEDS: HEPARIN 5000 UNITS SC ×2 (08:12→21:30)
[2024-06-21 08:14] LABS: Glucose - Point of Care 94 mg/dl (70-99)
[2024-06-21] MEDS: LANTUS 0.12 UNITS SC (08:15)
[2024-06-21] MEDS: NOVOLOG FLEXPEN-LOW RESISTANCE SC ×2 (08:15→17:58)
[2024-06-21 08:31] LABS: ALT (SGPT) 27 U/L (0-50); AST (SGOT) 26 U/L (17-59); Albumin 3.8 g/dl (3.5-5.0); Alkaline Phosphatase 74 U/L (38-126); Blood Urea Nitrogen 31 mg/dl (9-20); Calcium 9.3 mg/dl (8.4-10.2); Carbon Dioxide 23 mmol/L (22-30); Chloride 104 mmol/L (98-107); Estimated Creatinine Clearance 46 ml/min; Glucose 100 mg/dl (70-99); Potassium 4.5 mmol/L (3.5-5.1); Sodium 137 mmol/L (135-145); Total Bilirubin 1.4 mg/dl (0.2-1.3); Total Protein 6.2 g/dl (6.3-8.2); eGFR 46.77
[2024-06-21 08:49] LABS: Vitamin D, 25-OH*** 29.6 ng/mL (30-80)
[2024-06-21 09:02] LABS: TSH Reflex To Free T4 1.82 uIU/ml (0.47-4.68)
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
--- NOTE | 2024-06-21 12:09 | W.PN.UPDATE ---
Addendum entered and electronically signed by Mishel Ramos MD 06/21/24 13:03:
friend of the family expressed concern that patient had dementia. he scored 25/26 on the moca. he remembered one of the five words only w a prompt so strictly speaking it does not count but....he corrected himself on the trailmaking. it is in the
paper chart. this score does not constitute dementia. i would say there is mild cognitive impairment but i would not say he has dementia. for more comprehensive testing would need neuropsychiatric testing as an out patient.
Original Note:
Update Note
Progress Note Update
patient seen chart reviewed. patient looks very well this am. he is very cogent. i saw no evidence of confusion in my conversation with him. he told me about his children a boy and a girl who of cf. he kept abreast for many years of the
advances in cf treatment which arrived too late for his children. he has remained friends with two of his kids' close friends and they are a great support to him. he also told me of his years working for [employer] . 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 aatient had mri this am which prompted discussion of mri technology. noted results of mri which i did not discuss with him. the acute confusion has
now subsided. would continue w zoloft. at this point patient's mood seems euthymic. psych will sign off.
[2024-06-21 12:31] LABS: Glucose - Point of Care 160 mg/dl (70-99)
[2024-06-21] MEDS: NOVOLOG FLEXPEN-LOW RESISTANCE 1 UNITS SC (13:27)
[2024-06-21] MEDS: TYLENOL 650 MG PO (14:31)
[2024-06-21 15:54] LABS: Syphilis/T. pallidum Ab Reflex Negative (Negative)
[2024-06-21 15:55] VITALS: BP 115/60
[2024-06-21 17:01] LABS: Glucose - Point of Care 84 mg/dl (70-99)
[2024-06-21 17:39] LABS: Folate 9.9 ng/ml (2.76-20); Vitamin B12 505 pg/ml (239-931)
[2024-06-21 21:29] VITALS: BP 134/70
[2024-06-21] MEDS: MELATONIN 5 MG PO (21:30)
[2024-06-21 22:02] LABS: Glucose - Point of Care 107 mg/dl (70-99)
[2024-06-21 23:52] VITALS: BP 118/60
[2024-06-22] MEDS: ZESTRIL 20 MG PO (07:29)
[2024-06-22] MEDS: ASPIR LOW (ENTERIC COATED) 81 MG PO (07:29)
[2024-06-22] MEDS: ZOLOFT 50 MG PO (07:29)
[2024-06-22] MEDS: CRESTOR 80 MG PO (07:29)
[2024-06-22] MEDS: LANTUS 0.12 UNITS SC (07:29)
[2024-06-22] MEDS: VITAMIN D3 (cholecalciferol) 50 MCG PO (07:29)
[2024-06-22] MEDS: COREG 12.5 MG PO ×2 (07:29→19:52)
[2024-06-22] MEDS: PEPCID 20 MG PO (07:29)
[2024-06-22] MEDS: HEPARIN 5000 UNITS SC ×2 (07:30→19:52)
[2024-06-22 07:41] VITALS: BP 129/63
[2024-06-22 08:00] LABS: Glucose - Point of Care 106 mg/dl (70-99)
[2024-06-22] MEDS: NOVOLOG FLEXPEN-LOW RESISTANCE SC ×3 (08:05→16:38)
[2024-06-22] MEDS: TYLENOL 650 MG PO (09:20)
[2024-06-22 12:01] LABS: Glucose - Point of Care 140 mg/dl (70-99)
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
[2024-06-22 15:04] VITALS: BP 119/59
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
[2024-06-22 16:36] LABS: Glucose - Point of Care 108 mg/dl (70-99)
[2024-06-22] MEDS: MELATONIN 5 MG PO (20:51)
[2024-06-22 21:14] LABS: Glucose - Point of Care 116 mg/dl (70-99)
[2024-06-22 23:23] VITALS: BP 115/55
[2024-06-23 07:46] VITALS: BP 129/64
[2024-06-23 08:02] LABS: Glucose - Point of Care 96 mg/dl (70-99)
[2024-06-23] MEDS: NOVOLOG FLEXPEN-LOW RESISTANCE SC ×3 (08:10→16:45)
[2024-06-23] MEDS: ASPIR LOW (ENTERIC COATED) 81 MG PO (08:11)
[2024-06-23] MEDS: COREG 12.5 MG PO ×2 (08:11→20:35)
[2024-06-23] MEDS: CRESTOR 80 MG PO (08:11)
[2024-06-23] MEDS: ZOLOFT 50 MG PO (08:12)
[2024-06-23] MEDS: VITAMIN D3 (cholecalciferol) 50 MCG PO (08:12)
[2024-06-23] MEDS: HEPARIN 5000 UNITS SC ×2 (08:12→20:35)
[2024-06-23] MEDS: ZESTRIL 20 MG PO (08:12)
[2024-06-23] MEDS: PEPCID 20 MG PO (08:12)
[2024-06-23] MEDS: LANTUS 0.12 UNITS SC (08:17)
--- NOTE | 2024-06-23 10:45 | W.PN.HOSP.TC ---
Addendum entered and electronically signed by Neo Dyer MD 06/23/24 22:36:
Attending Addendum-
I saw and evaluated the patient. I reviewed the resident�s note and agree with findings and plan as documented in the resident�s note. Sub: NAEON No complaints. 'cathy doesn't want me at her place but i have no other place to go. i hope you find
something for me!' Full 12 point ROS reviewed and negative except as documented Exam: Vitals reviewed in chart GEN-NAD heart RRR lungs clear abd soft LE no edema Neuro MS 09/12 AAO x 3
Plan:
# Acute on Chronic intermittent confusion underlying mild cognitive impairment
- back to baseline mentation
-MRI brain 06/21- reviewed-No evidence of acute intracranial abnormality. Loss of flow void involving the right internal carotid artery, compatible with chronic occlusion.Mild to moderate diffuse atrophy
-folate TSH and vit b12- WNL
-psych c/s appreciated
-Continue sertraline
-urgently awaiting placement - AL
# Type 2 diabetes
-Continue Lantus 12 units
-Insulin sliding scale
-hba1c 6.2
# Chronic LOUIS sten
- no intervention as likely has collaterals
- cont asa and continue atorvastatin
# Essential hypertension
-Continue Coreg
-Continue lisinopril
# Vitamin D insufficiency
- cont new D3
# Hypercholesterolemia
-Continue atorvastatin
# CKD3a
-cr @ baseline
# GERD
-Continue Pepcid
Obesity due to excess calories
FULL/heparin
Dispo- unable to live on own apparently attempt to find AL/LTC- medically stable for DC at anytime
POA- Friend Cathy
Time spent coordinating care, review of plan of care with resident, personally reviewed records in EMR, med rec, consults, notes, labs, radiology, d/w nursing and CM� 36 mins
Original Note:
Today's Communication/Plan
-
Follow with CM for placement
Assessment / Plan
Assessment / Plan
Pt is an 78 yo male who who was brought in by two friend, Cathy and Shahid (who are his POA's) due to concerns of worsening confusion and memory impairment, reportedly going on for several months. Patient previously lived independently; however
during an online scam, he lost $800,000 of his savings, so he had to leave [place], and stay temporarily at his [employer]. Patient was recently admitted at [facility] on a 302 for severe depression, was there for 9 days, reportedly started on
Sertraline, with improved mood. No agitation or signs of psychosis during admission. Friends are concerned about patient's safety living alone and would like to consider placement into SNF or long-term care facility. The patient is . He
had 2 children who of cystic fibrosis.
Chronic conditions prior to admission:
CKD, diabetes, GERD, hypertension, hypercholesteremia
#Altered mental status/Possible cognitive impairment
Currently not confused, disoriented or agitated
His mood has improved during stay
His friend has found out that Jens has some savings left in his bank account and is searching available funds
Follows commands and provides appropriate answers
Labs negative for any acute pathology including electrolyte abnormalities-TSH normal
CT head negative
CT chest negative
U/A negative
Appreciate OT PT�patient does not need rehab
Case management involved; Case management has placed requests for LTC and awaiting financial review
Psychiatry signed off-MCI but no dementia, recommend continuing sertraline 50
-vitamin B12, folate normal
-vitamin D borderline normal-started vitamin D
Brain MRI:
Loss of flow void involving the right internal carotid artery, compatible with chronic occlusion.
Mild to moderate diffuse atrophy. Mild to moderate T2 and FLAIR white matter hyperintensities, commonly seen with aging and usually attributed to small vessel ischemic disease
#Right internal carotid occlusion
Started aspirin
#Depression
Continue sertraline
Continue to monitor for thoughts of self-harm
#Type 2 diabetes
Blood glucose well-controlled
Continue Lantus 12 units
Continue sliding scale insulin
Accu-Chek
#Essential hypertension
Continue Coreg
Continue lisinopril
#Hypercholesterolemia
Continue statin
#CKDIII
No signs of acute kidney injury
Currently at baseline
#GERD
Continue famotidine
DVT prophylaxis�heparin
Full code
Medically stable for discharge- awaiting LTC placement
Anticipated Discharge: Today
Subjective/Interval History
-
Date of Service: June 23, 2024
No compliants. Alert, oriented and not confused. Not agitated.
Objective Data
-
Vital Signs:
Vital Signs
Temp Pulse Resp BP Pulse Ox
97.9 F 60 20 129/64 96
06/23/24 07:46 06/23/24 08:12 06/23/24 07:46 06/23/24 08:12 06/23/24 07:46
I&O
06/22/24 06/23/24 06/24/24
06:59 06:59 06:59
Intake Total 840 / 840 1080 / 1080
Balance 840 / 840 1080 / 1080
Review of Systems
-
History Source: Patient
Constitutional: Reports No Appetite and Sleep Disturbance
EENT: Reports No Symptoms Reported
Respiratory: Reports No Symptoms
Cardiac: Reports No Symptoms
Abdomen/GI: Reports No Symptoms
Physical Exam
-
General: Well Developed, Well Nourished, No Apparent Distress, Comfortable and Conversant
HEENT: Normocephalic and Atraumatic
Respiratory: Clear to Auscultation
Cardiac: Regular Rhythm and S1/S2
GI: Soft, Nontender, Nondistended and Normal Bowel Sounds
Musculoskeletal: No Clubbing, No Cyanosis and No Edema
Skin: Warm and Dry
Neuro: Awake, Alert and Oriented (Oriented to time, place , person (does remember that I am one of the doctors))
Psych: Calm and Intact Judgement/Insight; Negative Confused or Agitated
[2024-06-23] MEDS: TYLENOL 650 MG PO ×2 (10:47→18:53)
--- NOTE | 2024-06-23 11:36 | CM ---
DAVE spoke w/ Amisha/[facility] agency on aging regarding pt's lack of housing. Amisha confirmed she has been following pt and speaking w/ Shahid BENITEZ. SKIPAugusto was provided three potential assisted living facilities ([facility], [facility],
and [facility]). Per Amisha, these facilities are within the pt's budget as he receives social security and a little pension per month that comes together to about $3,200/ month. Amisha stated she hasn't spoken w/ Shahid since she provided those
facilities.
DAVE attempted call to Cathy to follow up, left message
[2024-06-23 11:39] LABS: Glucose - Point of Care 146 mg/dl (70-99)
[2024-06-23 15:20] VITALS: BP 104/54
[2024-06-23 16:46] LABS: Glucose - Point of Care 111 mg/dl (70-99)
[2024-06-23 21:24] LABS: Glucose - Point of Care 125 mg/dl (70-99)
[2024-06-23] MEDS: MELATONIN 5 MG PO (22:22)
[2024-06-23 23:27] VITALS: BP 124/56
[2024-06-24 06:50] LABS: Hemoglobin 12.6 g/dL (13.0-18.0); Mean Corpuscular Hgb 30.6 pg (27.0-31.0); Mean Corpuscular Volume 87.4 fL (80.0-94.0); Mean Platelet Volume 10.4 fL (7.4-10.4); Platelet Count 172 10^3/uL (130-400); Red Blood Cell Count 4.12 10^6/uL (4.70-6.10); Red Cell Dist. Width 13.7 % (11.5-14.5); White Blood Cell Count 6.2 10^3/uL (4.8-10.8)
[2024-06-24 07:18] LABS: Blood Urea Nitrogen 26 mg/dl (9-20); Calcium 9.4 mg/dl (8.4-10.2); Carbon Dioxide 24 mmol/L (22-30); Chloride 102 mmol/L (98-107); Estimated Creatinine Clearance 49 ml/min; Glucose 105 mg/dl (70-99); Potassium 4.3 mmol/L (3.5-5.1); Sodium 134 mmol/L (135-145); eGFR 50.81
[2024-06-24 07:35] VITALS: BP 131/60
[2024-06-24] MEDS: NOVOLOG FLEXPEN-LOW RESISTANCE SC ×3 (08:00→17:17)
[2024-06-24] MEDS: ZOLOFT 50 MG PO (08:01)
[2024-06-24] MEDS: HEPARIN 5000 UNITS SC ×2 (08:01→20:14)
[2024-06-24] MEDS: VITAMIN D3 (cholecalciferol) 50 MCG PO (08:01)
[2024-06-24] MEDS: ZESTRIL 20 MG PO (08:01)
[2024-06-24] MEDS: CRESTOR 80 MG PO (08:01)
[2024-06-24] MEDS: COREG 12.5 MG PO ×2 (08:01→20:14)
[2024-06-24] MEDS: ASPIR LOW (ENTERIC COATED) 81 MG PO (08:01)
[2024-06-24] MEDS: PEPCID 20 MG PO (08:01)
[2024-06-24 08:02] LABS: Glucose - Point of Care 98 mg/dl (70-99)
[2024-06-24] MEDS: LANTUS 0.12 UNITS SC (08:02)
--- NOTE | 2024-06-24 08:24 | W.PN.HOSP.TC ---
Addendum entered and electronically signed by Neo Dyer MD 06/24/24 20:56:
Attending Addendum-
I saw and evaluated the patient. I reviewed the resident�s note and agree with findings and plan as documented in the resident�s note. Sub: No complaints. No episoed of confusion or hallucintions. Full 12 point ROS reviewed and negative except as
documented Exam: Vitals reviewed in chart GEN-NAD heart RRR lungs clear abd soft LE no edema Neuro MS 09/12 AAO x 3
Plan:
# Acute Delirium on Mild cognitive impairment
- back to baseline mentation
- MRI brain 06/21-No evidence of acute intracranial abnormality
- folate TSH and vit b12- WNL
- psych c/s appreciated
- Continue sertraline
- placement in AM
# Type 2 diabetes
-Continue Lantus 12 units
-Insulin sliding scale
-hba1c 6.2
# Chronic LOUIS sten
- no intervention
- cont asa and atorvastatin
# Essential hypertension
-Continue Coreg
-Continue lisinopril
# Vitamin D insufficiency
- cont new D3
# Hypercholesterolemia
-Continue atorvastatin
# CKD3a
-cr @ baseline
# GERD
-Continue Pepcid
Obesity due to excess calories
FULL/heparin
Dispo- unable to live on own apparently, requires AL/LTC- medically stable for DC x days- finally has bed available 06/25 at [facility]
POA- Friend Cathy
Time spent coordinating care, review of plan of care with resident, personally reviewed records in EMR, med rec, consults, notes, labs, radiology, d/w nursing and CM at great length� 51 mins
Original Note:
Today's Communication/Plan
-
Medically stable
Can be discharged as soon as placement is finalized
Assessment / Plan
Assessment / Plan
Pt is an 78 yo male who who was brought in by two friend, Cathy and Shahid (who are his POA's) due to concerns of worsening confusion and memory impairment, reportedly going on for several months. Patient previously lived independently; however
during an online scam, he lost $800,000 of his savings, so he had to leave [employer], and stay temporarily at his [employer]. Patient was recently admitted at [facility] on a 302 for severe depression, was there for 9 days, reportedly started on
Sertraline, with improved mood. No agitation or signs of psychosis during admission. Friends are concerned about patient's safety living alone and would like to consider placement into SNF or long-term care facility. The patient is . He
had 2 children who of cystic fibrosis.
Chronic conditions prior to admission:
CKD, diabetes, GERD, hypertension, hypercholesteremia
#Altered mental status/Possible cognitive impairment
Currently not confused, disoriented or agitated
Has 2 POA's; Cathy is medical POA and Shahid is financial POA
Follows commands and provides appropriate answers
Labs negative for any acute pathology including electrolyte abnormalities-TSH normal
CT head negative
CT chest negative
U/A negative
Appreciate OT PT�patient does not need rehab/SNF
Case management involved; anticipate placement tomorrow
Psychiatry signed off-MCI but no dementia, recommend continuing sertraline 50
-vitamin B12, folate normal
-vitamin D borderline normal-cont vitamin D
Brain MRI:
Loss of flow void involving the right internal carotid artery, compatible with chronic occlusion.
Mild to moderate diffuse atrophy. Mild to moderate T2 and FLAIR white matter hyperintensities, commonly seen with aging and usually attributed to small vessel ischemic disease
#Right internal carotid occlusion
Continue aspirin
Continue atorvastatin 80
#Depression
Mood is stable and slowly improving
Continue sertraline
#Type 2 diabetes
Blood glucose well-controlled
Continue Lantus 12 units
Continue sliding scale insulin
Accu-Chek
#Essential hypertension
Continue Coreg
Continue lisinopril
#Hypercholesterolemia
Continue atorvastatin 80
#CKDIII
No signs of acute kidney injury
Currently at baseline
#GERD
Continue famotidine
DVT prophylaxis�heparin
Full code
Medically stable for discharge- awaiting LTC placement tomorrow
Send medication to [facility]
Anticipated Discharge: 24 - 48 hours
Subjective/Interval History
-
Date of Service: June 24, 2024
Does not offer any complaints.
Objective Data
-
Labs:
Laboratory Results
06/24/24
06:05
WBC 6.2
Hgb 12.6 L
Hct 36.0 L
Plt Count 172
Sodium 134 L
Potassium 4.3
Chloride 102
Carbon Dioxide 24
BUN 26 H
Creatinine 1.4 H
Glucose 105 H
Calcium 9.4
Vital Signs:
Vital Signs
Temp Pulse Resp BP Pulse Ox
98.6 F 60 18 124/56 96
06/23/24 23:27 06/23/24 23:27 06/23/24 23:27 06/23/24 23:27 06/24/24 08:00
I&O
06/23/24 06/24/24 06/25/24
06:59 06:59 06:59
Intake Total 1080 / 1080 1160 / 1160
Balance 1080 / 1080 1160 / 1160
Review of Systems
-
History Source: Patient
Constitutional: Reports No Appetite and Sleep Disturbance
EENT: Reports No Symptoms Reported
Respiratory: Reports No Symptoms
Cardiac: Reports No Symptoms
Abdomen/GI: Reports No Symptoms
Physical Exam
-
General: Well Developed, Well Nourished, No Apparent Distress, Comfortable and Conversant
HEENT: Normocephalic and Atraumatic
Respiratory: Clear to Auscultation
Cardiac: Regular Rhythm and S1/S2
GI: Soft, Nontender, Nondistended and Normal Bowel Sounds
Musculoskeletal: No Clubbing, No Cyanosis and No Edema
Skin: Warm and Dry
Neuro: Awake, Alert and Oriented (Oriented to time, place , person (does remember that I am one of the doctors))
Psych: Calm, Intact Judgement/Insight and Other (Flat affect); Negative Confused or Agitated
[2024-06-24] MEDS: TYLENOL 650 MG PO ×2 (09:28→20:15)
[2024-06-24 12:28] LABS: Glucose - Point of Care 145 mg/dl (70-99)
[2024-06-24 15:35] VITALS: BP 120/56
[2024-06-24 17:09] LABS: Glucose - Point of Care 111 mg/dl (70-99)
--- NOTE | 2024-06-24 17:28 | CM ---
Spoke with Cathy friend POA and pt .
IMM given reviewed signed on chart.
Pt will be dc tomorrow to [facility] [phone].
Cathy will transport at 12noon.
Md aware.
PLAN To [facility] tomorrow. CM Please call [phone] for dc summary fax
[2024-06-24 17:33] LABS: Glucose - Point of Care 138 mg/dl (70-99)
[2024-06-24 21:10] LABS: Glucose - Point of Care 123 mg/dl (70-99)
[2024-06-24] MEDS: MELATONIN 5 MG PO (21:18)
[2024-06-24 22:45] VITALS: BP 123/63
[2024-06-25 07:35] VITALS: BP 127/63
--- NOTE | 2024-06-25 07:51 | W.PN.HOSP.TC ---
Today's Communication/Plan
-
Discharge today
Assessment / Plan
Assessment / Plan
Pt is an 78 yo male who who was brought in by two friend, Cathy and Shahid (who are his POA's) due to concerns of worsening confusion and memory impairment, reportedly going on for several months. Patient previously lived independently; however
during an online scam, he lost $800,000 of his savings, so he had to leave [employer], and stay temporarily at his [employer]. Patient was recently admitted at [facility] on a 302 for severe depression, was there for 9 days, reportedly started on
Sertraline, with improved mood. No agitation or signs of psychosis during admission. Friends are concerned about patient's safety living alone and would like to consider placement into SNF or long-term care facility. The patient is . He
had 2 children who of cystic fibrosis.
Chronic conditions prior to admission:
CKD, diabetes, GERD, hypertension, hypercholesteremia
#Altered mental status/Possible cognitive impairment
Currently not confused, disoriented or agitated
Has 2 POA's; Cathy is medical POA and Shahid is financial POA
Follows commands and provides appropriate answers
Labs negative for any acute pathology including electrolyte abnormalities-TSH normal
CT head negative
CT chest negative
U/A negative
Appreciate OT PT�patient does not need rehab/SNF
Case management involved; medically stable for discharge to [facility] today
Psychiatry signed off-MCI but no dementia, recommend continuing sertraline 50
-vitamin B12, folate normal
-vitamin D borderline normal-cont vitamin D
Brain MRI:
Loss of flow void involving the right internal carotid artery, compatible with chronic occlusion.
Mild to moderate diffuse atrophy. Mild to moderate T2 and FLAIR white matter hyperintensities, commonly seen with aging and usually attributed to small vessel ischemic disease
#Right internal carotid occlusion
Continue aspirin
Continue atorvastatin 80
#Depression
Mood is stable and slowly improving
Continue sertraline
#Type 2 diabetes
Blood glucose well-controlled
Continue Lantus 12 units
Continue sliding scale insulin
Accu-Chek
#Essential hypertension
Continue Coreg
Continue lisinopril
#Hypercholesterolemia
Continue atorvastatin 80
#CKDIII
No signs of acute kidney injury
Currently at baseline
#GERD
Continue famotidine
DVT prophylaxis�heparin
Full code
Medically stable for discharge-
Send medication to [facility]
Physical Exam
General: Obese, no acute distress
HEENT: Normocephalic, Atraumatic, EOMI, MMM
Respiratory: Clear to Auscultation bilaterally
Cardiac: Normal S1/S2, Regular Rate and Rhythm
GI: Soft, Nontender, Nondistended, Normal Bowel Sounds
Extremities: No Clubbing, Cyanosis, or Edema
Neuro: Nonfocal/Grossly Intact
Psych: Calm, Cooperative
Derm: No Visible lesions
Anticipated Discharge: Today
Subjective/Interval History
-
Date of Service: June 25, 2024
Patient denies chest pain, shortness of breath, or palpitations. No fever, no vomiting.
Objective Data
-
Vital Signs:
Vital Signs
Temp Pulse Resp BP Pulse Ox
97.5 F 67 18 123/63 98
06/24/24 22:45 06/24/24 22:45 06/24/24 22:45 06/24/24 22:45 06/24/24 22:45
I&O
06/24/24 06/25/24 06/26/24
06:59 06:59 06:59
Intake Total 1160 / 1160 840 / 840
Balance 1160 / 1160 840 / 840
[2024-06-25 08:02] LABS: Glucose - Point of Care 128 mg/dl (70-99)
[2024-06-25] MEDS: NOVOLOG FLEXPEN-LOW RESISTANCE SC ×2 (08:23→11:39)
--- NOTE | 2024-06-25 08:52 | CM ---
Patient going to [facility] please call report to [phone] and fax clinicals to [phone]. friend to transport at noon per prior CM. CM will continue to follow for discharge planning needs.
Plan; transfer to [facility];
[2024-06-25] MEDS: COREG 12.5 MG PO (09:21)
[2024-06-25] MEDS: ASPIR LOW (ENTERIC COATED) 81 MG PO (09:21)
[2024-06-25] MEDS: CRESTOR 80 MG PO (09:21)
[2024-06-25] MEDS: PEPCID 20 MG PO (09:22)
[2024-06-25] MEDS: HEPARIN 5000 UNITS SC (09:22)
[2024-06-25] MEDS: LANTUS 0.12 UNITS SC (09:22)
[2024-06-25] MEDS: ZESTRIL 20 MG PO (09:23)
[2024-06-25] MEDS: VITAMIN D3 (cholecalciferol) 50 MCG PO (09:23)
[2024-06-25] MEDS: ZOLOFT 50 MG PO (09:23)
[2024-06-25] MEDS: FLUSH (NSS) 1 FLUSH IV (09:23)
[2024-06-25 11:37] LABS: Glucose - Point of Care 135 mg/dl (70-99)
[2024-06-25 12:01] VITALS: BP 119/65
--- NOTE | 2024-06-26 09:22 | W.DCSUMMARY ---
Discharge Summary
Discharge Data
Date of Admission: 06/18/24
Date of Discharge: 06/25/24
-
Pending Results: No
Hospital Course
Patient is an 78 yo male who who was brought in by two friends, Cathy and Shahid (who are his POA's) due to concerns of depression, and worsening confusion and memory impairment, reportedly going on for several months. Patient had lost his savings
during an online scam and was temporarily living at his [employer]. Patient was recently admitted at [facility] on a 302 for severe depression, and started on Sertraline, with improved mood. Friends were concerned about patient's safety living
alone and wanted to consider placement into SNF or long-term care facility. Evaluation including labs, head CT, chest CT were negative for any acute pathology. TSH, vit B12 and folate were within normal limits. MRI brain showed chronic LOUIS
occlusion but no evidence of acute intracranial abnormality. Psychiatry was consulted and performed a MOCA test with a score of 25/26, indicating mild cognitive impairment but no dementia. Based on OT PT, patient did not need rehab/SNF. Patient
remained medically stable and at baseline mentation during stay but since there was a risk to patient living alone as well as not having a safe place to stay after discharge, CM looked for AL/LTC placement. Patient finally had a bed available on
06/25 at [facility]. Friend Cathy is aware of this placement.
Recommendations after discharge:
Continue newly started Vit D d/t borderline low vitamin D
Continue Sertraline 50
Continue newly started Atorvastatin 80 and Aspirin d/t chronic LOUIS occlusion
Continue rest of medications as before
Discharge Plan
-
Patient Disposition: Home (Routine Discharge)
Discharge Diagnosis/Procedures: Acute on Chronic intermittent confusion with underlying mild cognitive impairment
Condition: Good
Diet: Diabetic, Carb Controlled
Activity: No restrictions
Driving Restrictions: As prior to admission
Bathing Restrictions: None
Referrals:
Krystin Mackay CRNP [Family Provider] - in one week
Prescriptions:
New
aspirin 81 mg Tablet,Delayed Release (Dr/Ec)
81 mg PO DAILY 30 Days Qty: 30 0RF
sertraline 50 mg Tablet
50 mg PO DAILY Qty: 30 0RF
cholecalciferol (vitamin D3) 50 mcg (2,000 unit) Tablet
50 mcg PO DAILY Qty: 30 0RF
Continued
carvedilol 12.5 MG tablet
12.5 mg PO BID
lisinopril 20 mg Tablet
20 mg PO DAILY
atorvastatin 80 mg Tablet
80 mg PO DAILY
famotidine 20 mg Tablet
20 mg PO DAILY
insulin aspart U-100 [Novolog FlexPen U-100 Insulin] 100 unit/mL (3 mL) insulin pen
12 unit SC ACHS
Discontinued
sertraline
50 mg PO DAILY
Discharge Orders:
Discharge Patient (As Directed); Ordered 06/25/24
Ordered By: Travis Almanza
Discharge Date and Time
Discharge Date/Time: 06/25/24 14:33
Print Language: CITIZEN [place]
== END 2024-06-25 14:33 | disposition home or self-care (01) ==
LOC: 4 EAST ACU 23:02
PROVIDERS: Family Medicine; Physician Assistant; Psychiatry & Neurology Psychiatry; ADMITTING PHYSICIAN Hospitalist; ATTENDING PHYSICIAN Family Medicine; EMERGENCY PHYSICIAN Emergency Medicine; FAMILY PHYSICIAN Nurse Practitioner Adult Health; OTHER PHYSICIAN Psychiatry & Neurology Psychiatry
DX: G31.84 Mild cognitive impairment of uncertain or unknown etiology (principal); R41.82 Altered mental status, unspecified; Z87.891 Personal history of nicotine dependence; Z11.52 Encounter for screening for COVID-19; F32.A Depression, unspecified; E11.22 Type 2 diabetes mellitus with diabetic chronic kidney disease; I12.9 Hypertensive chronic kidney disease with stage 1 through stage 4 chronic kidney disease, or unspecified chronic kidney disease; E78.00 Pure hypercholesterolemia, unspecified; N18.31 Chronic kidney disease, stage 3a; K21.9 Gastro-esophageal reflux disease without esophagitis; Z60.2 Problems related to living alone; I65.21 Occlusion and stenosis of right carotid artery; I67.82 Cerebral ischemia; E55.9 Vitamin D deficiency, unspecified; Z79.4 Long term (current) use of insulin; Z79.899 Other long term (current) drug therapy; E66.09 Other obesity due to excess calories; Z68.32 Body mass index [BMI] 32.0-32.9, adult
CPT/HCPCS: 70450; 70551; 71046; 80048; 80053; 81003; 82306; 82607; 82746; 82962; 83036; 84443; 85025; 85027; 86780; 87502; 87811; 93005; 97116; 97162; 97166; 99285; G0378

== ENCOUNTER 2024-07-10 22:09 | Observation (INO) | payer OTHER, SELFPAY ==
[2024-07-10 18:18] VITALS: BP 136/67
--- NOTE | 2024-07-10 18:44 | ED.GENMED ---
History of Present Illness
General
Chief Complaint: Abnormal Lab Value
Source: patient and family
Exam Limitations: none
Time Seen by Provider: 07/10/24 18:39
History of Present Illness
History of Present Illness:
See MDM
Past History
Past History
ED Past Medical History: HTN, Hypercholesterolemia and IDDM
ED Past Surgical History: Appendectomy
Social History
Tobacco: Former smoker
Alcohol: Occasional
Drug: None
Personal:
Living: alone
Employment: Other
Family History
Family History: Other
Phy Exam
Physical Exam
Physical Exam:
See MDM
Course
Orders/Labs/Results
Orders:
Orders
07/10/24 18:32
CT Head W/o Iv Contrast Urgent
Comment:
Reason For Exam: confusion
07/10/24 19:00
Complete Blood Count/With Diff Urgent
Comprehensive Metabolic Panel Urgent
Urinalysis Reflex To Culture Urgent
Date Specimen was Collected: 07/10/24
Time Specimen was Collected: 18:55
Abnormal Lab Results
07/10/24
19:00
RBC 4.04 L 10^6/uL
(4.70-6.10)
Hgb 12.5 L g/dL
(13.0-18.0)
Hct 35.5 L %
(39.0-52.0)
BUN 23 H mg/dl
(9-20)
Creatinine 1.5 H mg/dL
(0.7-1.3)
Glucose 105 H mg/dl
(70-99)
07/10/24 19:00
07/10/24 19:00
Vital Signs
Initial and Last Documented VS:
Initial Vital Signs
Temp Pulse Resp BP Pulse Ox
98.4 F 64 18 136/67 98
07/10/24 18:18 07/10/24 18:18 07/10/24 18:18 07/10/24 18:18 07/10/24 18:18
Last Documented Vital Signs
Temp Pulse Resp BP Pulse Ox
98.4 F 73 16 130/65 98
07/10/24 18:18 07/10/24 20:53 07/10/24 20:53 07/10/24 20:53 07/10/24 20:53
MDM/Problems Addressed
Differential Diagnosis Includes:
HPI and MDM Narrative:
78-year-old male presenting for evaluation of altered mental status. His daughter at bedside states that he has been 'off' for several days. They are unsure if this is related to undiagnosed dementia. He lives independently at a facility but
apparently 5 days worth of his prescribed medicine over the past 48 hours. Due to the ongoing symptoms, they went to urgent care and had blood work drawn. He was sent to the emergency department for evaluation of elevated kidney enzymes. His
parent home medication prescription includes lisinopril, carvedilol, aspirin, vitamin D3, Crestor and omeprazole
Patient blames his altered mental status on age
Physical exam
General: Well appearing and non-toxic
HEENT: protecting airway
Neck: appears supple
CV: No evidence of cyanosis
Resp: No accessory muscle use
Abd: Non-distended
Extremities: No deformities
Neuro: alert. No focal deficits
Psych: Normal affect
Skin: Intact
Problems Addressed including Acute and Chronic Conditions affecting care:
1. Altered mental status
Acuity: acute
Prognosis: stable
Details: Potentially related to accidental drug overdose versus dementia
Updates
CT head negative. Labs without clinical significance. His elevated creatinine appears to be at baseline. Urinalysis negative. Will admit for case management evaluation for possible placement
Differential Diagnosis (but not limited to): Dementia, UTI, accidental drug overdose
Testing considered: EKG but has EKG at bedside performed at urgent care which is normal sinus rhythm
Drug therapy (if applicable): OTC meds, please see d/c instruction regarding Rx drugs
Amount and/or Complexity of Data Reviewed
Clinical info obtained from: Patient
External data reviewed: N/A
Labs I independently reviewed (but not limited to): Creatinine 1.5
Radiology: The CT scan was personally and independently reviewed. In addition, official CT report reviewed.
Pulse Ox: not hypoxic
EKG independently reviewed: N/A
Planned Giving Officer: N/A
Critical Care: N/A
Risk of Complication:
Social Determinants of health: Good social support
Discussed with other providers: Hospitalist
Escalation of Care includes Admit/Obs: given patient's inability to appropriately care for self, will admit for possible placement
Occasional wrong word or 'sound a like' substitutions may have occurred due to the inherent limitations of voice recognition software. Read the chart carefully and recognize, using context, where substitutions have occurred.
*Critical Care Note
Total Time (30-74mins, 75-104mins- exclusive of procedures): Not Applicable
ED Attending Note
-
Portions of this chart may have been created with voice recognition software.� Occasional wrong word or��sound alike� substitutions may have occurred due to the inherent limitations of voice recognition software.
Discharge Plan
Departure
Patient Disposition: Admit
Date of Disposition: 07/10/24
Time of Disposition: 21:15
Admit to: Med/Surg
Presentation/result/management discussed w/ accepting MD/DO: Hospitalist
Discharge Problem:
Confusion, Accidental overdose
Prescriptions:
No Action
carvedilol 12.5 MG tablet
12.5 mg PO BID
lisinopril 20 mg Tablet
20 mg PO DAILY
famotidine 20 mg Tablet
20 mg PO DAILY
insulin aspart U-100 [Novolog FlexPen U-100 Insulin] 100 unit/mL (3 mL) insulin pen
12 unit SC ACHS
aspirin 81 mg Tablet,Delayed Release (Dr/Ec)
81 mg PO DAILY 30 Days Qty: 30 0RF
cholecalciferol (vitamin D3) 50 mcg (2,000 unit) Tablet
50 mcg PO DAILY Qty: 30 0RF
rosuvastatin 40 mg Tablet
40 mg PO DAILY
Referrals:
Krystin Mackay CRNP [Family Provider] -
Interventions
Interventions:
*Risk Screen - Suicide Last Done: 07/10/24 18:18
*General Assessment Last Done: 07/10/24 18:18
*Neglect/Abuse Screening Last Done: 07/10/24 18:43
*ED COVID-19 Vaccine History Last Done: 07/10/24 18:18
Discharge Date and Time
Print Language: GE[place]GI[place]
[2024-07-10 19:09] VITALS: BP 134/121
[2024-07-10 19:18] VITALS: BMI 39.0
[2024-07-10 19:20] LABS: % Basophils 0.4 % (0-2); % Eosinophils 4.5 % (0-6); % Immature Granulocytes 0.3 % (0-0.5); % Lymphocytes 28.6 % (20.5-51.1); % Monocytes 7.9 % (1.7-9.3); % Neutrophils 58.3 % (42.2-75.2); Absolute Eosinophils 0.3 10^3/uL (0-0.7); Absolute Lymphocytes 1.9 10^3/uL (1.2-3.4); Absolute Monocytes 0.5 10^3/uL (0.1-0.6); Absolute Neutrophils 3.9 10^3/uL (1.4-6.5); Hematocrit 35.5 % (39.0-52.0); Hemoglobin 12.5 g/dL (13.0-18.0); Mean Corp Hgb Conc. 35.2 g/dL (33.0-37.0); Mean Corpuscular Hgb 30.9 pg (27.0-31.0); Mean Corpuscular Volume 87.9 fL (80.0-94.0); Mean Platelet Volume 9.5 fL (7.4-10.4); Nucleated Red Blood Cells % 0 % (-); Platelet Count 175 10^3/uL (130-400); Red Blood Cell Count 4.04 10^6/uL (4.70-6.10); Red Cell Dist. Width 13.8 % (11.5-14.5); White Blood Cell Count 6.7 10^3/uL (4.8-10.8)
[2024-07-10 19:28] LABS: Urine Albumin Negative (Neg - Trace); Urine Bilirubin Negative (Negative); Urine Character Clear (Clear); Urine Color Yellow; Urine Glucose Negative (Negative); Urine Ketone Negative (Negative); Urine Leukocyte Negative (Negative); Urine Nitrite Negative (Negative); Urine Occult Blood Negative (Negative); Urine Urobilinogen Negative (Neg - 1+)
--- NOTE | 2024-07-10 19:30 | EDRN ---
Patient ambulated into the restroom and back in bed resting comfortably with family friend at bedside
[2024-07-10 19:51] LABS: ALT (SGPT) 21 U/L (0-50); AST (SGOT) 27 U/L (17-59); Albumin 4.5 g/dl (3.5-5.0); Alkaline Phosphatase 67 U/L (38-126); Blood Urea Nitrogen 23 mg/dl (9-20); Calcium 9.7 mg/dl (8.4-10.2); Carbon Dioxide 25 mmol/L (22-30); Chloride 101 mmol/L (98-107); Estimated Creatinine Clearance 43 ml/min; Glucose 105 mg/dl (70-99); Potassium 4.4 mmol/L (3.5-5.1); Sodium 135 mmol/L (135-145); Total Bilirubin 1.3 mg/dl (0.2-1.3); Total Protein 6.7 g/dl (6.3-8.2); eGFR 46.77
--- NOTE | 2024-07-10 20:30 | EDRN ---
Patient was able to eat a turkey sandwich without issues, resting with family at bedside
[2024-07-10 20:40] VITALS: BP 130/65
[2024-07-10 20:53] VITALS: BP 130/65
--- NOTE | 2024-07-10 21:18 | HPS.HSE ---
Family Physician
<FAHEEM Bonner - Last Filed: 07/10/24 21:59>
-
Family Physician: FAHEEM Dickens
Chief Complaint
<FAHEEM Bonner - Last Filed: 07/10/24 21:59>
-
unintentional overdose
History of Present Illness
Patient is a 78-year-old male with past medical history significant for essential hypertension, hyperlipidemia, DM II, GERD, and CAD who presented to [facility] ED for evaluation of unintentional overdose. Patient friend Cathy and ELI at
bedside to assist with HPI. Patient reports he felt like he was going to as he ws unable to eat for a week but started eating today and now feels fine. Patients friend stated that patient is known to have eaten 3 meals the past 2 days and at
least 1 today. She reports filling patient medication life care planner on and when she returned today 5 full days of medication are missing. Patient does not recall taking 5 days worth of medication but the pill box has 2 days of medication
remaining. Patient denies any recent illness, fever, chills, cough, shortness of breath, chest pain, nausea, vomiting, constipation, diarrhea or urinary symptoms. Patient states he went golfing yesterday with a friend and did trip over a curb,
denies hitting head, any LOC or injury. Cathy reports that friend patient was accompanied with noticed a significant decline in ability to remember normal things he should know, she was unable to supply a example.
Medical History
<FAHEEM Bonner - Last Filed: 07/10/24 21:59>
Past Medical History
Past Medical History: Reports Other
Additional Past Medical History:
essential hypertension
hyperlipidemia
DM II
GERD
CAD
mild cognitive impairment
Hx colon polyps
Hx right carotid occlusion
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
Past Surgical History: Reports Other
Additional Past Surgical History:
hernia repair (2007)
appendectomy (1981)
Social History
Tobacco: Former Smoker
Alcohol: Occasional
Drug: None
Personal: Single
Living: Alone ([facility] )
Employment: Retired
Allergies / Home Medications
Allergies reflects when Allergies were last updated in [employer].
Home Medications with original date entered in [employer]
Allergy/Medication List:
Allergies
Allergy/AdvReac Type Severity Reaction Status Date / Time
erythromycin base Allergy 'i felt Verified 07/10/24 18:28
terrible'
Home Medications
carvedilol 12.5 mg tablet 12.5 mg PO BID Blood Pressure 04/12/17
lisinopril 20 mg tablet 20 mg PO DAILY 06/07/24
famotidine 20 mg tablet 20 mg PO DAILY 06/18/24
insulin aspart U-100 100 unit/mL (3 mL) subcutaneous pen (Novolog FlexPen U-100 Insulin aspart) 12 unit SC ACHS 06/18/24
aspirin 81 mg tablet,delayed release 81 mg PO DAILY 30 days #30 tabs 06/24/24
cholecalciferol (vitamin D3) 50 mcg (2,000 unit) tablet 50 mcg PO DAILY #30 tabs 06/24/24
rosuvastatin 40 mg tablet 40 mg PO DAILY 07/10/24
<Modesto Castaneda MD - Last Filed: 07/11/24 00:45>
Family History
Family History: Not pertinent
Review of Systems
<FAHEEM Bonner - Last Filed: 07/10/24 21:59>
-
History Source: Family
Constitutional: Reports No Symptoms
EENT: Reports No Symptoms
Respiratory: Reports No Symptoms
Cardiac: Reports No Symptoms
Abdomen/GI: Reports No Symptoms
: Reports No Symptoms
Musculoskeletal: Reports No Symptoms
Skin: Reports No Symptoms
Neurological: Reports No Symptoms
Endocrine: Reports No Symptoms
Hematologic/Lymphatic: Reports No Symptoms
Psych: Reports Other (confusion )
Physical Exam
<FAHEEM Bonner - Last Filed: 07/10/24 21:59>
Vital Signs
Vital Signs
Temp Pulse Resp BP Pulse Ox
98.4 F 73 16 130/65 98
07/10/24 18:18 07/10/24 20:53 07/10/24 20:53 07/10/24 20:53 07/10/24 20:53
Physical Exam
General: Well Developed, Well Nourished, No Apparent Distress, Comfortable and Conversant
HEENT: NormoCephalic, Moist mucous membranes, Atraumatic, Lillian Conjunctivae, Nose Appears Normal and Ears Appear Normal
Respiratory: Clear and Non Labored Respirations
Cardiac: S1/S2, Regular Rhythm and Murmur; No Rub or Gallop
Breast: Deferred by me
GI: Soft, Non Tender, Non Distended and Normal Bowel Sounds; No Organomegaly
Rectal: Deferred by Provider
Genito-urinary: Deferred by me
Musculoskeletal: No Clubbing, No Cyanosis and No Edema
Skin: No Rash
Neuro: Awake, Alert and Nonfocal/grossly intact
Psych: Calm and Confused
Laboratory Results
<FAHEEM Bonner - Last Filed: 07/10/24 21:59>
-
07/10/24 19:00
07/10/24 19:00
Laboratory Results
Total Bilirubin 1.3 mg/dl (0.2-1.3) 07/10/24 19:00
AST 27 U/L (17-59) 07/10/24 19:00
ALT 21 U/L (0-50) 07/10/24 19:00
Alkaline Phosphatase 67 U/L (38-126) 07/10/24 19:00
Data Reviewed
<FAHEEM Bonner - Last Filed: 07/10/24 21:59>
-
CT Scan: Report Reviewed by me (Head: No acute intracranial abnormality. No interval change in comparison to recent prior studies.)
Lab Data: Labs Reviewed by me (BUN 23, Creat 1.5, GFR 46.77)
Impression/Plan
<FAHEEM Bonner - Last Filed: 07/10/24 21:59>
-
IMPRESSION/PLAN:
#change in mental status 2/2 unintentional overdose
reported patient ingested 5 days worth of prescription medication in 48-hours
Head CT: No acute intracranial abnormality.
No interval change in comparison to recent prior studies.
- admit to telemetry
- consult PT/OT
- consult case mangement
#essential hypertension
- continue carvedilol and lisinopril
#hyperlipidemia
- continue rosuvastatin
#DM II
- AccuCheck AC & HS
- SSI
- continue insulin aspart
#GERD
- continue famotidine
#CAD
- continue aspirin
#mild cognitive impairment
- recent diagnosis
- follow up out patient
#Hx colon polyps
#Hx right carotid occlusion
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
Code status: full code
DVT Prophylaxis: lovenox sq
--- NOTE | 2024-07-10 21:32 | EDRN ---
Hospitalist at bedside working on admission
--- NOTE | 2024-07-10 22:06 | W.PN.UPDATE ---
Update Note
Progress Note Update
Patient seen in conjunction with FAHEEM. I agree with the findings on history and physical and concur with the assessment and plan.
Briefly, this is a 78-year-old male with past medical history significant for insulin-dependent diabetes, hypertension, hyperlipidemia, GERD presenting to the emergency department for ongoing confusion and mismanagement of his oral medications.
Patient was recently admitted to the hospital approximately 2 weeks ago with confusion and at the time was diagnosed with her early cognitive decline. He had extensive workup including vitamin panel, MRI, and psychiatric consult. Chronic ischemic
findings on the imaging but otherwise no identifiable cause of his cognitive deficit. He was discharged to independent living facility.
The staff members as well as his caregivers (friends were POA) identified that the patient has been mismanaging his medications. He apparently took 5 days worth of medications in 2 days over the last 5 days. Patient is aware of his memory issues
and confusion. He denies any acute physical changes such as shortness of breath cough or wheezing. He denies nausea vomiting or abdominal discomfort. He denies any urinary symptoms. He denies having any headache. There have been no significant
changes in his degree of mentation. He has a pleasant and cooperative demeanor.
His exam was nonfocal.
He was afebrile, hemodynamically stable with a blood pressure of 130/65 with a pulse of 73. UA was negative, CT of the head was negative, CBC was all within normal limits. Electrolytes were all within normal limits. BUN/creatinine were stably at
23 and 1.5 respectively. Glucose was not elevated.
Assessment and plan
Patient essentially returns to the emergency department for failure to manage at the independent living facility where he was discharged during his last admission.
- admit to med/surg obs
- continue usual medications
- no new TME w/u indicated
- PT evaluation
- CM for placement in assisted living
DVT PPX - lovenox sq
Code Status - Full Code
--- NOTE | 2024-07-10 22:44 | EDRN ---
Patient provided with a brief to change, no further complaints at this time
[2024-07-10 23:24] VITALS: BP 129/61; BMI 30.8
[2024-07-10] MEDS: NOVOLOG FLEXPEN SC (23:37)
[2024-07-10 23:39] LABS: Glucose - Point of Care 142 mg/dl (70-99)
[2024-07-11] MEDS: MELATONIN 3 MG PO (01:30)
[2024-07-11 07:21] LABS: Glucose - Point of Care 115 mg/dl (70-99)
[2024-07-11 07:40] VITALS: BP 149/70
--- NOTE | 2024-07-11 08:17 | W.PN.HOSP.TC ---
Today's Communication/Plan
-
see PN - placement
Assessment / Plan
Assessment / Plan
78yo M with PMHX of HTN, CAD, DM, HLD, apparent dementia brought to the hospital with concern for consusion. Had same issues 1 mo ago when he was admitted [facility] and workup, including MRI brain, showed no acute findings, but age-related changes.
Patient with Hx of loosing his savings due to online scam, and resulted depression.
As per POA - patient called yesterday to their POA saying that he did not eat for over a week and he has to go to the hospital, however patient was consuming his food as per POA. POA found that he took 2 days worth of medicine. He has progressive
dementia and POA concerned that patient needs independent living
A/P:
#Concern for acute metabolic encephalopathy, but rather presenting like worsening dementia
#unintentional medication overdose
Asymptomatic overdose. Obviously needs supervised settings for medication and assistance - CM consult
Outpatient neurology
Afebrile, urine without UTI, no respiratory symptoms and no leukocytosis
#MDD
not suicidal
Cont meds
#Essential HTN
#CAD, stable
#GERD
#HLD
cont home meds
DVT ppx lovenox
Full code
I have spent at least 56min reviewing chart, test results, communication to POA and providing direct patient care
Anticipated Discharge: Within 24 hours
Subjective/Interval History
-
Date of Service: July 11, 2024
Objective Data
-
Vital Signs:
Vital Signs
Temp Pulse Resp BP Pulse Ox
97.9 F 66 17 149/70 95
07/11/24 07:40 07/11/24 07:40 07/11/24 07:40 07/11/24 07:40 07/11/24 07:40
I&O
07/10/24 07/11/24 07/12/24
06:59 06:59 06:59
Intake Total 480 / 480
Balance 480 / 480
Review of Systems
-
History Source: Patient
All other systems: Reviewed and negative
Physical Exam
-
General: No Apparent Distress
HEENT: Normocephalic
Respiratory: Clear to Auscultation
Cardiac: Regular Rhythm and Murmur (midsystolic)
GI: Soft, Nontender and Nondistended
Genito-urinary: No Costovertebral Tender
Musculoskeletal: No Clubbing, No Cyanosis and No Edema
Neuro: Awake, Alert, Oriented and AO x 3
Psych: Calm
[2024-07-11] MEDS: NOVOLOG FLEXPEN SC ×3 (08:50→17:25)
[2024-07-11] MEDS: ZESTRIL 20 MG PO (08:52)
[2024-07-11] MEDS: VITAMIN D3 (cholecalciferol) 50 MCG PO (08:52)
[2024-07-11] MEDS: CRESTOR 40 MG PO (08:52)
[2024-07-11] MEDS: ASPIR LOW (ENTERIC COATED) 81 MG PO (08:52)
[2024-07-11] MEDS: COREG 12.5 MG PO ×2 (08:52→19:54)
[2024-07-11] MEDS: PEPCID 20 MG PO (08:52)
--- NOTE | 2024-07-11 10:10 | PTCARENOTE ---
Pt asking for medications, states he did have a bowel movement, pt c/o hard stool, reported to this nurse 'dug himself out'. Conversation was difficult to navigate d/t pt's forgetfulness...pt stating he did have BM but then stating he 'feels like he
may ' because his 'intestines are dry'. provider notified, N/O PRN, see MAR. encourage fluids. pt tolerated breakfast +BS x4 abd is round obese but soft and NT. CB in reach,
[2024-07-11] MEDS: MIRALAX 17 GRAMS PO (10:39)
[2024-07-11 11:14] LABS: Glucose - Point of Care 192 mg/dl (70-99)
--- NOTE | 2024-07-11 11:48 | PTCARENOTE ---
pt coming out to nurses station, agitated appears confused. asking if this nurse has 'gotten anything for [him] yet'. clarifying questions unsuccessful. pt reports he did have BM this morning and recalls this nurse did give him Mirlax but then is
agitated stating 'I'm just laying around here'. This nurse asked pt if he felt like he needed to move his bowels, pt stated no...this nurse attempted to ascertain what kind of intervention or medication pt is looking for he becomes more agitated and
stated 'I don't know you are the nurse you are supposed to know' pt frustrated and returns to his room with no clarification of symptoms or expectations. will reassess
--- NOTE | 2024-07-11 12:39 | PTCARENOTE ---
pt becoming more agitated, states he does not need to have a bowel movement but continues to complain his intestines are dry, and he is dying. full assessment repeated, he is able to answer year location name and . Pt denies any pain. Pt denies
SOB but states his 'breathing is shallow' LCTA B/L on RA 95%. murmur, pt reports is known by investigative assistant Dr. Donahue. abd round and distended, NT, +BS x4. pt reports no issues passing urine, reports last BM this morning was hard stool. skin CDI, no
edema. +PP b/l. pt appears to be having trouble articulating exactly what his chief complaint is, attending notified. CB in reach.
--- NOTE | 2024-07-11 12:51 | CM ---
Addendum entered by Meryl Cifuentes RN 07/11/24 16:17:
CM spoke with Merary at [facility]. She is attempting to send the DME over via email for CM to assist with completing.
Addendum entered by Meryl Cifuentes RN 07/11/24 13:15:
CM spoke with patient's POA and she is meeting with [facility] today for transition to Personal Care.
Original Note:
CM was consulted for Personal Care Placement. CM spoke with Merary from [facility] to assist with transition to Personal Care. Merary is requesting a DME be filled out for placement. Patient's POA will meet with [facility] and discuss transition to
Personal Care.
Merary stated that [facility] Personal Care RN will come to [facility] for evaluation.
CM will assist with DME form. CM will await fax.
[2024-07-11] MEDS: OMNIPAQUE 50 ML PO (13:43)
--- NOTE | 2024-07-11 14:15 | PTCARENOTE ---
pt complaining oral contrast is 'binding his body together' and causing his tongue to stick to the back of his teeth. pt states he will continue to attempt to complete contrast requirement
[2024-07-11 15:28] VITALS: BP 177/87
[2024-07-11 16:59] LABS: Glucose - Point of Care 115 mg/dl (70-99)
--- NOTE | 2024-07-11 17:26 | PTCARENOTE ---
pt wandering to roommate's side, wandering out to nurses station. Redirectable but limited retention
[2024-07-11] MEDS: LOVENOX 40 MG SC (17:49)
[2024-07-11 21:36] LABS: Glucose - Point of Care 118 mg/dl (70-99)
[2024-07-11] MEDS: MELATONIN 5 MG PO (21:39)
[2024-07-11] MEDS: NOVOLOG FLEXPEN 12 UNITS SC (22:48)
--- NOTE | 2024-07-11 23:19 | PTCARENOTE ---
2229- pt t/f from 1-acute to 424. pt ambulated to bed, belongings with pt at bs. pt Ox3, answers questions accurately however he continues to state his 'teeth are dry' and when offered a drink he states 'your not understanding my teeth are sticking
and dry and I need to get hydrated' again offered drink and he had a few sips, then repeats same thing. pt repeatedly coming out of room, redirected to room but limited retention. Bed alarm in place. pt agitated at times, yelling and is angry when
asked questions.
[2024-07-11 23:30] VITALS: BP 170/85
[2024-07-12] VITALS: BP 144/80
[2024-07-12 07:18] VITALS: BP 151/72
[2024-07-12 07:48] LABS: Glucose - Point of Care 87 mg/dl (70-99)
[2024-07-12] MEDS: CRESTOR 40 MG PO (09:11)
[2024-07-12] MEDS: ASPIR LOW (ENTERIC COATED) 81 MG PO (09:12)
[2024-07-12] MEDS: COREG 12.5 MG PO (09:13)
[2024-07-12] MEDS: PEPCID 20 MG PO (09:13)
[2024-07-12] MEDS: ZESTRIL 20 MG PO (09:15)
[2024-07-12] MEDS: VITAMIN D3 (cholecalciferol) 50 MCG PO (09:16)
[2024-07-12] MEDS: NOVOLOG FLEXPEN 12 UNITS SC ×2 (09:18→12:46)
--- NOTE | 2024-07-12 10:53 | W.PN.HOSP.TC ---
Today's Communication/Plan
-
medially stable for d/c to personal care level
Assessment / Plan
Assessment / Plan
78yo M with PMHX of HTN, CAD, DM, HLD, apparent dementia brought to the hospital with concern for confusion. Had same issues 1 mo ago when he was admitted [facility] and workup, including MRI brain, showed no acute findings, but age-related changes.
Patient with Hx of loosing his savings due to online scam, and resulted depression.
As per POA - patient called yesterday to their POA saying that he did not eat for over a week and he has to go to the hospital, however patient was consuming his food as per POA. POA found that he took 2 days worth of medicine. He has progressive
dementia and POA concerned that patient needs assisted living - CM started paperwork to transition to personal care.
Obviously patient with advancing dementia and will benefit from higher level of care. Otherwise - medically stable for d/c
A/P:
#Concern for acute metabolic encephalopathy, but rather presenting like worsening dementia
#unintentional medication overdose
Asymptomatic overdose. Obviously needs supervised settings for medication and assistance - CM consult
Outpatient neurology
Afebrile, urine without UTI, no respiratory symptoms and no leukocytosis
#MDD
not suicidal
Cont meds
#Constipation
#Abdominal tenderness
resolved
CT abd without acute findings
#Diverticulosis
High fiber diet
#Essential HTN
#CAD, stable
#GERD
#HLD
#BPH
cont home meds
watch for retention
start tamsulosin
DVT ppx lovenox
Full code
I have spent at least 36min reviewing chart, test results, communication to POA and providing direct patient care
Anticipated Discharge: Today
Subjective/Interval History
-
Date of Service: July 12, 2024
Objective Data
-
Vital Signs:
Vital Signs
Temp Pulse Resp BP Pulse Ox
98.8 F 61 18 151/72 97
07/12/24 07:18 07/12/24 09:13 07/12/24 07:18 07/12/24 09:13 07/12/24 07:18
I&O
07/11/24 07/12/24 07/13/24
06:59 06:59 06:59
Intake Total 480 / 480 1320 / 1320
Balance 480 / 480 1320 / 1320
Review of Systems
-
History Source: Patient
All other systems: Reviewed and negative
Physical Exam
-
General: No Apparent Distress
HEENT: Normocephalic
Respiratory: Clear to Auscultation
Cardiac: Regular Rhythm
GI: Soft, Nontender and Nondistended
Musculoskeletal: No Clubbing, No Cyanosis and No Edema
Psych: Calm
--- NOTE | 2024-07-12 11:00 | W.DCSUMMARY ---
Discharge Summary
Discharge Data
Date of Admission: 07/10/24
Date of Discharge: 07/12/24
-
Pending Results: No
Hospital Course
78yo M with PMHX of HTN, CAD, DM, HLD, apparent dementia brought to the hospital with concern for confusion. Had same issues 1 mo ago when he was admitted [facility] and workup, including MRI brain, showed no acute findings, but age-related changes.
Patient with Hx of loosing his savings due to online scam, and resulted depression.
As per POA - patient called yesterday to their POA saying that he did not eat for over a week and he has to go to the hospital, however patient was consuming his food as per POA. POA found that he took 2 days worth of medicine. He has progressive
dementia and POA concerned that patient needs assisted living - CM started paperwork to transition to personal care.
Obviously patient with advancing dementia and will benefit from higher level of care. Otherwise - medically stable for d/c
I have spent at least 36min reviewing chart, test results, communication to POA and providing direct patient care
Patient was managed for:
#Concern for acute metabolic encephalopathy, but rather presenting like worsening dementia
#unintentional medication overdose
#MDD
#Constipation
#Abdominal tenderness
#Diverticulosis
#Essential HTN
#CAD, stable
#GERD
#HLD
#BPH
Discharge Plan
-
Patient Disposition: Assisted Living
Discharge Diagnosis/Procedures: dementia
Diet: Other diet
Additional Diets: High fiber, use Metamucil daily
Activity: As tolerated
Driving Restrictions: No driving
Referrals:
Oren Valenzuela MD [Active] - in four to six weeks (Prostate hyperplasia)
Krystin Mackay CRNP [Family Provider] -
Prescriptions:
New
tamsulosin 0.4 mg Capsule
0.4 mg PO DAILY Qty: 30 0RF
Continued
carvedilol 12.5 MG tablet
12.5 mg PO BID
lisinopril 20 mg Tablet
20 mg PO DAILY
famotidine 20 mg Tablet
20 mg PO DAILY
insulin aspart U-100 [Novolog FlexPen U-100 Insulin] 100 unit/mL (3 mL) insulin pen
12 unit SC ACHS
aspirin 81 mg Tablet,Delayed Release (Dr/Ec)
81 mg PO DAILY 30 Days Qty: 30 0RF
cholecalciferol (vitamin D3) 50 mcg (2,000 unit) Tablet
50 mcg PO DAILY Qty: 30 0RF
rosuvastatin 40 mg Tablet
40 mg PO DAILY
Discharge Orders:
Discharge Patient (As Directed); Ordered 07/12/24
Ordered By: Anthony Hernandez
Discharge Date and Time
Print Language: CHINESE
--- NOTE | 2024-07-12 11:24 | CM ---
Addendum entered by Miroslava Huffman 07/12/24 12:33:
Call to [facility] to discuss transport time, scheduled for 5:00 p.m.
Original Note:
CM reviewed chart, DME forms faxed to [facility] [phone], able to accept patient today. Call to patients friend/POA to discuss transport needs. Report can be called to [phone]. CM will submit transport forms for
ambulance. CM will continue to follow for all discharge planning needs.
Plan; [facility], ambulance transport
Report: [phone]
[2024-07-12 11:41] VITALS: BP 114/68
[2024-07-12 11:44] LABS: Glucose - Point of Care 240 mg/dl (70-99)
[2024-07-12 15:16] VITALS: BP 121/62
[2024-07-12 16:28] LABS: Glucose - Point of Care 84 mg/dl (70-99)
[2024-07-12] MEDS: NOVOLOG FLEXPEN SC (16:34)
== END 2024-07-12 16:56 | disposition home or self-care (01) ==
LOC: 4 WEST ACU 22:09
PROVIDERS: ADMITTING PHYSICIAN Internal Medicine; ATTENDING PHYSICIAN Internal Medicine; EMERGENCY PHYSICIAN Student in an Organized Health Care Education/Training Program; FAMILY PHYSICIAN Nurse Practitioner Adult Health
DX: F03.93 Unspecified dementia, unspecified severity, with mood disturbance (principal); R79.89 Other specified abnormal findings of blood chemistry; R41.0 Disorientation, unspecified; F32.9 Major depressive disorder, single episode, unspecified; T50.911A Poisoning by multiple unspecified drugs, medicaments and biological substances, accidental (unintentional), initial encounter; Y92.099 Unspecified place in other non-institutional residence as the place of occurrence of the external cause; K21.9 Gastro-esophageal reflux disease without esophagitis; I25.10 Atherosclerotic heart disease of native coronary artery without angina pectoris; N40.0 Benign prostatic hyperplasia without lower urinary tract symptoms; K57.30 Diverticulosis of large intestine without perforation or abscess without bleeding; K59.00 Constipation, unspecified; I10 Essential (primary) hypertension; E78.00 Pure hypercholesterolemia, unspecified; E11.9 Type 2 diabetes mellitus without complications; Z86.0100 Personal history of colon polyps, unspecified; Z88.1 Allergy status to other antibiotic agents; Z60.2 Problems related to living alone; Z79.4 Long term (current) use of insulin; Z79.899 Other long term (current) drug therapy; Z79.82 Long term (current) use of aspirin; Z75.1 Person awaiting admission to adequate facility elsewhere; Z87.891 Personal history of nicotine dependence
CPT/HCPCS: 70450; 74176; 80053; 81003; 82962; 85025; 87070; 97162; 97166; 99285; G0378

== ENCOUNTER 2024-07-22 15:37 | Inpatient (IN) | payer OTHER, SELFPAY ==
[2024-07-14 20:00] VITALS: BMI 30.9
[2024-07-14 20:14] VITALS: BP 123/76
[2024-07-14 20:42] LABS: % Basophils 0.5 % (0-2); % Eosinophils 3.8 % (0-6); % Immature Granulocytes 0.1 % (0-0.5); % Lymphocytes 30.9 % (20.5-51.1); % Monocytes 7.2 % (1.7-9.3); % Neutrophils 57.5 % (42.2-75.2); Absolute Eosinophils 0.3 10^3/uL (0-0.7); Absolute Lymphocytes 2.4 10^3/uL (1.2-3.4); Absolute Monocytes 0.6 10^3/uL (0.1-0.6); Absolute Neutrophils 4.4 10^3/uL (1.4-6.5); Hematocrit 36.6 % (39.0-52.0); Hemoglobin 13.1 g/dL (13.0-18.0); Mean Corp Hgb Conc. 35.8 g/dL (33.0-37.0); Mean Corpuscular Hgb 31.2 pg (27.0-31.0); Mean Corpuscular Volume 87.1 fL (80.0-94.0); Mean Platelet Volume 9.8 fL (7.4-10.4); Nucleated Red Blood Cells % 0 % (-); Platelet Count 214 10^3/uL (130-400); Red Cell Dist. Width 14.2 % (11.5-14.5); White Blood Cell Count 7.7 10^3/uL (4.8-10.8)
[2024-07-14 20:56] LABS: ALT (SGPT) 21 U/L (0-50); AST (SGOT) 27 U/L (17-59); Albumin 4.5 g/dl (3.5-5.0); Alkaline Phosphatase 71 U/L (38-126); Blood Urea Nitrogen 30 mg/dl (9-20); Calcium 10.2 mg/dl (8.4-10.2); Carbon Dioxide 25 mmol/L (22-30); Chloride 102 mmol/L (98-107); Glucose 143 mg/dl (70-99); Potassium 4.4 mmol/L (3.5-5.1); Sodium 136 mmol/L (135-145); Total Bilirubin 1.3 mg/dl (0.2-1.3); Total Protein 7.2 g/dl (6.3-8.2); eGFR 40.25
[2024-07-14 21:01] LABS: Troponin I < 0.012 ng/ml
[2024-07-14 22:14] LABS: Glucose - Point of Care 117 mg/dl (70-99)
[2024-07-14 22:19] VITALS: BP 159/88
[2024-07-14 23:39] LABS: Urine Albumin 1+ (Neg - Trace); Urine Bilirubin Negative (Negative); Urine Character Clear (Clear); Urine Color Yellow; Urine Glucose Negative (Negative); Urine Ketone Negative (Negative); Urine Leukocyte 1+ (Negative); Urine Nitrite Negative (Negative); Urine Occult Blood 1+ (Negative); Urine Urobilinogen Negative (Neg - 1+)
[2024-07-15] VITALS (17 sets, daily range): BP systolic 141–188; BP diastolic 65–97
[2024-07-15 00:20] LABS: Urine Amorphous Seen
[2024-07-15 00:21] LABS: Urine Bacteria Moderate (Negative)
--- NOTE | 2024-07-15 03:45 | ED.GENMED ---
History of Present Illness
General
Chief Complaint: Breathing Problem
Time Seen by Provider: 07/14/24 22:36
History of Present Illness
History of Present Illness:
78-year-old male brought in by EMS for altered mental status. Patient lives alone and states that he was at restoration today. He had '3 episodes of dying while in restoration '. He was unable to elaborate what that meant. Upon arrival, he went
'unresponsive '. It took a brisk sternal rub to awaken the patient. When he came to, he repeated his story saying that he ' 3 times in charge '. Denies chest pain. He did state he had some shortness of breath. History is extremely limited
due to patient condition.
Past History
Past History
ED Past Medical History: HTN, Hypercholesterolemia and IDDM
ED Past Surgical History: Appendectomy
Social History
Tobacco: Former smoker
Alcohol: Occasional
Drug: None
Personal:
Living: alone
Employment: Other
Family History
Family History: Other
Review of Systems
Review of Systems
Unable to obtain full review of systems at this time due to: dementia (Questionable dementia. Patient does have a history of memory loss)
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
All Other Systems: Not applicable
Psychiatric: Reports anxiety
Phy Exam
General Physical Exam
General Presentation: well appearing and mild distress
General age: appears stated age
General Skin: warm and dry
General Habitus: elderly
General Mental: confused
General Hydration: appears well hydrated
ENT Exam
ENT Exam: EOMI, pharynx normal, neck supple and normocephalic
Eye Exam
Eye Exam: PERRL, cornea clear and conjunctiva normal
Cardiovascular Exam
Cardiovascular Exam: regular rate/rhythm, no edema, no murmur and normal peripheral pulses
Pulmonary Exam
Pulmonary Exam: lungs clear, no respiratory distress, no rales, no crackles, no rhonchi, no stridor, no wheezing and no cough
Gastrointestinal Exam
Gastrointestinal Exam: normal bowel sounds, non tender, soft, no organomegaly, no pulsatile mass and non distended
Neurological Exam
Neurological Exam: alert, no motor deficits and speech normal
Musculoskeletal Exam
Musculoskeletal Exam: full ROM and no edema
Skin Exam
Skin Exam: normal color, warm/dry, no rash and no petechia
Psychiatric Exam
Psychiatric Exam: labile
Scores
Heart Failure Risk
Heart Failure Risk Score: Not Applicable
Course
Orders/Labs/Results
Orders:
Orders
07/14/24 20:16
EKG [Electrocardiogram (*1)] Urgent
Reason for Study: Shortness of Breath
07/14/24 20:17
EKG- Treatment ONCE
07/14/24 20:26
Complete Blood Count/With Diff Urgent
Comprehensive Metabolic Panel Urgent
Troponin I Urgent
07/14/24 21:10
Chest [CR Chest - 2 Views ] Urgent
Comment:
Reason For Exam: SOB
07/14/24 23:30
Urinalysis Reflex To Culture Urgent
Date Specimen was Collected: 07/14/24
Time Specimen was Collected: 22:51
Urine Microscopic Reflex Cult Urgent
Urine Culture Urgent
DI Source: U
Specimen Description:
Date Specimen was Collected: 07/14/24
Time Specimen was Collected: 22:51
07/15/24 00:30
CT Head W/o Iv Contrast Urgent
Reason For Exam: AMS
07/15/24 04:06
0.9% Sodium Chloride 1000 ml [Nss] 1,000 ml IV BOLUS
07/15/24 04:09
CefTRIAXone [Rocephin] 1,000 mg IV NOW STA
07/15/24 04:24
Sterile Water [Sterile Water For Injection] 10 ml .[address]TE .[facility] ONE
07/15/24 04:56
Admit/Transfer Patient As Directed
Co-Sign Provider:
Level of Care: Observation services
Assign to:: Telemetry
Physician / Group: Jose Manuel
Diagnosis: Acute Encephalopathy
Reason for Telemetry: CVA/TIA
Date to Stop Telemetry: 07/18/24
Time to Stop Telemetry: 11:00
PRN Pain Medication Management As Directed
May give lesser potent ordered pain med per pt: Yes
preference::
Protocol:: Medication orders for pain may be administered in a
manner that supports deferring to patient preference
when the pt is:
- Requesting an ordered lesser potent pain medication.
Least to most potent pain medications are defined
as: acetaminophen < NSAID < tramadol < opioids
(morphine, oxycodone, hydromorphone).
- Requesting a lesser dose of the same medication IF
ORDERED.
- Requesting a less intrusive route of administration
if both routes are prescribed by the provider (PO <
IV).
07/15/24 04:57
Code Status As Directed
Resuscitation Status: Full Code
07/15/24 Breakfast
Regular
At Your Request: Limited, [employer] Required
07/15/24 06:17
Acetaminophen [Tylenol] 650 mg PO Q4HPRN PRN
Dextrose 50%-Water [Dextrose 50% Syringe] 12.5 grams IV [id number] PRN
Glucagon [GlucaGen] 1 mg IM PRN PRN
07/15/24 06:17
Case Management Consult ONCE
Case Management Consult: Discharge Planning
Consult Notification Routine
Specialty to Notify: Neurology
Date consulting provider notified: 07/15/24
Time consulting provider notified: 07:21
Notified:: Service
NEUROLOGY CONSULT Routine
Consulting Provider: Mitra Castaneda
Was physician already notified: No
Reason for consult: AMS
Activity As Directed
Activity Level: Ambulate
With Assistance
Bedside Glucose Monitoring As Directed
Frequency: AC&HS
Additional Instructions:: Change to q6h if pt on TPN, tube feeding or not eating
Bladder Scan As Directed
Follow Bladder Retention/Intermittent Cath Algorithm?: Yes
PRN if no void in __ hours: 6
Frequency: Per Retention Algorithm
If Bladder Scan Result >: 400
then:: Straight cath
I/O [Intake/ Output] As Directed
Frequency: Per unit guidelines
Neurological Checks As Directed
Frequency: q4h
Pneumatic Compression Sleeves As Directed
Type: Knee high
Straight Cath As Directed
Frequency: Per Retention Algorithm
Additional Instructions: straight cath as needed per acute urinary retention algorithm for 24 hrs
Additional Instructions: for bladder scan greater than 400 mL
Vital Signs As Directed
Frequency: Per unit guidelines
Weight As Directed
Frequency: Daily
Oxygen Therapy [O2 Therapy] [RESP] Routine
Titrate/Wean O2 to maintain O2 sat greater than (%): 94
Ot Eval And Treat Routine
PT Consult [Pt Eval And Treat] Routine
Activity Level: Ambulate
With Assistance
DX Deep Vein Thrombosis Video Routine
07/15/24 07:30
Insulin Aspart Corrective Low [Novolog Flexpen-Low Resistance] See Protocol SC AC
07/15/24 08:00
Aspirin Low Dose EC [Aspir Low (Enteric Coated)] 81 mg PO DAILY
Carvedilol [Coreg] 12.5 mg PO BID
Cholecalciferol (Vitamin D3) [VITAMIN D3 (cholecalciferol)] 50 mcg PO DAILY
Heparin 5,000 units SC Q12
Lisinopril [Zestril] 20 mg PO DAILY
Rosuvastatin Calcium [Crestor] 40 mg PO DAILY
Sertraline HCl [Zoloft] 50 mg PO DAILY
07/16/24 06:00
Basic Metabolic Panel IN AM
Complete Blood Count/No Diff IN AM
Glycohemoglobin (HgbA1c) IN AM
07/18/24 11:00
DC Protocol for Telemetry ONCE
Abnormal Lab Results
07/14/24 07/14/24 07/14/24
20:26 22:12 23:30
RBC 4.20 L 10^6/uL
(4.70-6.10)
Hct 36.6 L %
(39.0-52.0)
MCH 31.2 H pg
(27.0-31.0)
BUN 30 H mg/dl
(9-20)
Creatinine 1.7 H mg/dL
(0.7-1.3)
Glucose 143 H mg/dl
(70-99)
Ur Occult Blood Reflex 1+ A
(Negative)
Leukocyte Esterase Rfl 1+ A
(Negative)
Urine RBC 7-10 A /HPF
(0-2)
Urine Bacteria (Reflex) Moderate A
(Negative)
Urine Albumin (Reflex) 1+ A
(Neg - Trace)
POC Glucose 117 H mg/dl
(70-99)
07/14/24 20:26
07/14/24 20:26
Vital Signs
Initial and Last Documented VS:
Initial Vital Signs
Temp Pulse Resp BP Pulse Ox
98.5 F 73 18 123/76 99
07/14/24 20:14 07/14/24 20:14 07/14/24 20:14 07/14/24 20:14 07/14/24 20:14
Last Documented Vital Signs
Temp Pulse Resp BP Pulse Ox
98.5 F 60 11 141/65 97
07/14/24 20:14 07/15/24 07:02 07/15/24 07:02 07/15/24 07:02 07/15/24 07:02
*Radiology
Radiology exam reviewed: radiology read reviewed
*Pulse Oximetry
Patient hypoxic: no
*Critical Care Note
Total Time (30-74mins, 75-104mins- exclusive of procedures): 45 (Critical care statement: A total of 45 minutes of critical care time was provided for this patient. This time is separate from time utilized to perform the aforementioned documented
procedures. Aggregate critical care time includes only time during which I was engaged in work directl)
Update Note
Update Note:
Urinalysis is weakly positive for UTI. Will treat due to patient's confusion.
Glucose is [address] scan is negative[address]
BUN and creatinine are slightly elevated from baseline.
CT HEAD
IMPRESSION:
No acute hemorrhage, herniation, or hydrocephalus.
No calvarial fracture.
The visualized paranasal sinuses and mastoid air cells are clear.
ED Attending Note
-
Portions of this chart may have been created with voice recognition software.� Occasional wrong word or��sound alike� substitutions may have occurred due to the inherent limitations of voice recognition software.
Discharge Plan
Departure
Patient Disposition: Admit
Date of Disposition: 07/15/24
Time of Disposition: 04:08
Admit to: Telemetry
Presentation/result/management discussed w/ accepting MD/DO: Hospitalist
Condition: Good
Discharge Problem:
Acute alteration in mental status, Acute UTI
Interventions
Interventions:
*Risk Screen - Suicide Last Done: 07/14/24 20:14
*General Assessment Last Done: 07/14/24 20:14
*Neglect/Abuse Screening Last Done: 07/14/24 20:14
*ED- Fall Risk Assessment Last Done: 07/14/24 20:14
*ED COVID-19 Vaccine History Last Done: 07/14/24 20:14
ED- Cardiac Assessment Last Done: 07/15/24 03:07
ED- Pulmonary Assessment Last Done: 07/15/24 03:07
[2024-07-15] MEDS: NSS 1000 IV (04:29)
[2024-07-15] MEDS: ROCEPHIN 1000 MG IV (04:29)
--- NOTE | 2024-07-15 05:03 | HPS.HSE ---
Family Physician
-
Family Physician: FAHEEM Dickens
Chief Complaint
-
Altered Mental Status
History of Present Illness
Patient is an 78y M with PMH significant for senile dementia, major depression and DM-II who presents to ED for evaluation of altered mental status. History obtained from prior records and from ED staff / records. Patient presented today via
EMS reporting that he ' 3 times in nondenominational' today. He was unable to elaborate. During his ED evaluation, patient had repeated episodes of unresponsiveness. He appeared comfortable and his vitals remained stable - but he was unresponsive except
to noxious / painful stimuli.
Patient has had multiple recent admissions for mental status change here at (most recently 07/10 - 07/12) and was admitted to [facility] in May for severe depression.
Medical History
Past Medical History
Past Medical History: Reports Other
Additional Past Medical History:
essential hypertension
hyperlipidemia
DM II
GERD
CAD
mild cognitive impairment
Hx colon polyps
Hx right carotid occlusion
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
Past Surgical History: Reports Other
Additional Past Surgical History:
hernia repair (2007)
appendectomy (1981)
Social History
Tobacco: Former Smoker
Alcohol: Occasional
Drug: None
Personal: Single
Living: Alone ([facility] )
Employment: Retired
Family History
Family History: Not pertinent
Allergies / Home Medications
Allergies reflects when Allergies were last updated in [facility].
Home Medications with original date entered in [employer]
Allergy/Medication List:
Allergies
Allergy/AdvReac Type Severity Reaction Status Date / Time
erythromycin base Allergy 'i felt Verified 07/10/24 18:28
terrible'
Home Medications
carvedilol 12.5 mg tablet 12.5 mg PO BID Blood Pressure 04/12/17
lisinopril 20 mg tablet 20 mg PO DAILY 06/07/24
famotidine 20 mg tablet 20 mg PO DAILY 06/18/24
insulin aspart U-100 100 unit/mL (3 mL) subcutaneous pen (Novolog FlexPen U-100 Insulin aspart) 12 unit SC ACHS 06/18/24
aspirin 81 mg tablet,delayed release 81 mg PO DAILY 30 days #30 tabs 06/24/24
cholecalciferol (vitamin D3) 50 mcg (2,000 unit) tablet 50 mcg PO DAILY #30 tabs 06/24/24
rosuvastatin 40 mg tablet 40 mg PO DAILY 07/10/24
tamsulosin 0.4 mg capsule 0.4 mg PO DAILY #30 caps 07/12/24
Review of Systems
-
Unable to obtain full review of systems at this time due to: Patient Non-verbal
Physical Exam
Vital Signs
Vital Signs
Temp Pulse Resp BP Pulse Ox
98.5 F 73 12 167/78 98
07/14/24 20:14 07/15/24 04:30 07/15/24 04:30 07/15/24 04:00 07/15/24 04:30
Physical Exam
General: Other (78y M appears to be resting comfortably. Poorly responsive requirnig noxious / painful stimuli to elicit response.)
HEENT: Moist mucous membranes and PERRLA
Respiratory: Clear; No Wheezes, Rales or Rhonchi
Cardiac: S1/S2, Regular Rhythm and Murmur (II/ WILD)
GI: Soft, Non Tender, Non Distended and Normal Bowel Sounds
Musculoskeletal: No Clubbing, No Cyanosis and No Edema
Laboratory Results
-
07/14/24 20:26
07/14/24 20:26
Laboratory Results
Total Bilirubin 1.3 mg/dl (0.2-1.3) 07/14/24 20:26
AST 27 U/L (17-59) 07/14/24 20:26
ALT 21 U/L (0-50) 07/14/24 20:26
Alkaline Phosphatase 71 U/L (38-126) 07/14/24 20:26
Troponin I < 0.012 ng/ml 07/14/24 20:26
Impression/Plan
-
A/P: Patient is an 78Y m with PMH significant for recent cognitive decline / dementia and severe depression requiring hospitalization who presents to ED via EMS with unresponsive episodes and noting that he ' 3 times' in nondenominational today.
Acute Encephalopathy
Senile Dementia
Major Depression
- Observe overnight for further evaluation and treatment.
- Follow for any new symptoms / focal symptoms / etc.
- CT head with no acute findings in the ED this evening.;
- Had MRI brain in May without significant abnormality.
- Patient appears comfortable and all labs, vitals, etc are unremarkable.
- ? manifestation of worsening dementia and / or major depression.
- Follow for changes in responsiveness.
- Neuro evaluation for any additional recommendations - ? EEG to rule out absence type seizure, etc?
- Restart sertraline (was on this after psych hospitalization in May - but not during most recent visit here).
- Was reportedly placed in personal care after last hospitalization (07/12/24).
ASCVD
Carotid Stenosis / Chronic R Carotid Occlusion
Benign Hypertension
- Stable. Continue current medications.
DM-II
- Stable. Follow glucose and cover with SSI as needed.
CKD III
- Stable. Renal function is near known baseline.
- Follow for any changes.
Abnormal UA
- Neither urinalysis nor patient presentation is consistent with UTI.
- Observe off of further abx and follow for fevers, urinary complaints, etc.
BPH
- Hold tamsulosin acutely.
DVT Prophylaxis: Subcut Heparin
Code Status: Full
[2024-07-15] MEDS: HEPARIN 5000 UNITS SC ×2 (08:50→19:54)
[2024-07-15] MEDS: ASPIR LOW (ENTERIC COATED) 81 MG PO (08:51)
[2024-07-15] MEDS: VITAMIN D3 (cholecalciferol) 50 MCG PO (08:51)
[2024-07-15] MEDS: ZOLOFT 50 MG PO (08:51)
[2024-07-15] MEDS: CRESTOR 40 MG PO (08:51)
[2024-07-15] MEDS: COREG 12.5 MG PO ×2 (08:51→20:36)
[2024-07-15] MEDS: ZESTRIL 20 MG PO (08:51)
[2024-07-15 09:26] LABS: Glucose - Point of Care 141 mg/dl (70-99)
[2024-07-15] MEDS: NOVOLOG FLEXPEN-LOW RESISTANCE SC ×3 (09:26→18:03)
--- NOTE | 2024-07-15 09:45 | W.PN.HOSP.TC ---
Today's Communication/Plan
-
See plan
Assessment / Plan
Assessment / Plan
Impression
86 years old male with history of depression, mild cognitive decline, ASCVD, diabetes and chronic kidney disease stage IIIb presents with altered mental status.
Altered mental status
� Differential diagnosis severe depression with possible catatonic state, versus toxic metabolic encephalopathy
Other conditions:
ASCVD
Diabetes type 2
CKD stage III with baseline creatinine 1.5.
BPH
Plan:
Altered mental status
Presents with episodes of unresponsiveness. Noted for statement ' I have 3 times while in [facility]'
No evidence of distress.
Neurologic exam and admission with no focal abnormalities.
According to nursing notes of unresponsiveness alternating with normal cognitive state when patient was able to take his oral medications and food.
On my current exam patient is unresponsive to voice or sternal rub
Multiple brain imaging including CT scan with no acute abnormalities suggestive of possible organic problem.
Clinical presentation and workup is not consistent with acute metabolic abnormalities or infection
Recent TFT and B12 level within normal limits
Recent psychiatric assessment including MoCa score was not consistent with dementia, possibly mild cognitive abnormalities.
Patient is not on any sedative medications at home
Possibly depression with catatonic state
Check urine drug screen (reported intentional overdose with multiple pills over prior admissions)
Continue neurologic monitoring.
Neuropsychiatric evaluation.
Continue Zoloft (prescribed, although was not discharge on that)
ASCVD
Carotid stenosis/chronic right carotid occlusion
Benign hypertension.
Continue preadmission regimen including Coreg, lisinopril.
CKD stage III with baseline creatinine 1.5.
Continue lisinopril with caution monitor renal function
Diabetes type 2.
Recent hemoglobin A1c at 6
Preadmission regimen Lantus 12 units at bedtime.
Given current mental status and and predictable oral intake, hold standing dose of insulin
Continue basal bolus protocol
BPH.
Monitor for retention
Hold tamsulosin acutely
DVT Prophylaxis: Subcut Heparin
Code Status: Full
Anticipated Discharge: 24 - 48 hours
Subjective/Interval History
-
Date of Service: July 15, 2024
Objective Data
-
Vital Signs:
Vital Signs
Temp Pulse Resp BP Pulse Ox
98.5 F 62 16 169/73 99
07/14/24 20:14 07/15/24 08:00 07/15/24 08:55 07/15/24 08:00 07/15/24 07:30
Physical Exam
-
General: Well Developed and No Apparent Distress
HEENT: Normocephalic, Atraumatic and Moist Mucous Membranes
Respiratory: Clear to Auscultation
Cardiac: Regular Rhythm and S1/S2; Negative Murmur, Rub or Gallop
GI: Soft, Nontender, Nondistended and Normal Bowel Sounds; Negative Organomegaly
Rectal: Deferred by Provider
Musculoskeletal: No Clubbing, No Cyanosis and No Edema
Skin: Negative Rash
Neuro: Nonfocal/Grossly Intact
--- NOTE | 2024-07-15 10:54 | CM ---
Addendum entered by Meryl Cifuentes RN 07/15/24 15:14:
CM updated patient's POA Cathy.
Original Note:
CM received call from patient's POA Cathy who stated that she was not aware that patient was in the hospital. She spoke with [facility] saying that patient was driven to [facility] and at [facility] proceeded to not feel well. Patient was then
brought to the hospital.
POA is requesting call back from hospitalist with update.
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
[2024-07-15 11:14] LABS: Glucose - Point of Care 134 mg/dl (70-99)
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
[2024-07-15 11:43] LABS: B.E. -1.7 mmol/L; HCO3 21.9 mmol/L (21-28); O2 Saturation % 99.1 % (94-98); PCO2 33 mmHg (35-48); PO2 137 mmHg (83-108); pH 7.43 (7.35-7.45)
[2024-07-15 12:03] LABS: Amphetamines Negative (Negative); Barbiturates Negative (Negative); Benzodiazepines Negative (Negative); Buprenorphine Negative (Negative); Cocaine Negative (Negative); Marijuana Negative (Negative); Methadone Negative (Negative); Methamphetamines Negative (Negative); Opiates Negative (Negative); Phencyclidine Negative (Negative); Tricyclic Antidepressants Negative (Negative)
[2024-07-15 12:37] LABS: HDL Cholesterol 40 mg/dl; LDL Cholesterol, Calculated 56 mg/dl; Total Cholesterol 120 mg/dl (50-199); Triglyceride 122 mg/dl (10-149); Very Low Density Lipoprotein 24 mg/dl (0-30)
[2024-07-15 13:01] LABS: Creatine Phosphokinase 183 U/L (55-170)
--- NOTE | 2024-07-15 15:48 | CM ---
spoke with Thi at [facility] [phone]. Thi stated that patient was adjusting to moving into Personal Care. Yesterday, patient appeared increasingly anxious and upset with staff which was out of character for the patient. Patient
apparently called a [facility] friend to have him pick patient up to go to [facility] choir practice. Thi did not know who picked patient up from personal care. Patient while at [facility] was attended to by EMS. Patient's friend Shahid from [facility] called
[facility] stating that patient was at [facility].
Thi is requesting updates on patient's condition.
[2024-07-15] MEDS: APRESOLINE 10 MG IV (18:00)
--- NOTE | 2024-07-15 18:00 | PTCARENOTE ---
Addendum entered by Carmella Chand RN 07/15/24 20:20:
1800 checked blood sugar result 121, continue to monitor.
Original Note:
1715 Pt arrived from ER via stretcher, noted non responsive, may blink eyes when verbalize pt's name. Noted MD orders, place on telemetry (normal sinus rhythm) heart rate 70's. Pulse ox on room air 97%, afebrile, BP 183/97. Pt 's (POA) Cathy at
bedside.
1730 Pt unable to take po meds at this time. Notified Dr. hO regarding high BP, MD ordered Hydralyzine 10mg IV, given as ordered,continue to monitor closely.
[2024-07-15 18:02] LABS: Glucose - Point of Care 121 mg/dl (70-99)
[2024-07-15] MEDS: COREG PO (20:29)
[2024-07-15 21:25] LABS: Glucose - Point of Care 127 mg/dl (70-99)
[2024-07-16 03:09] VITALS: BP 146/74
[2024-07-16] MEDS: TYLENOL 650 MG PO (03:15)
[2024-07-16 06:00] VITALS: BMI 29.3
[2024-07-16 07:25] VITALS: BP 170/86
--- NOTE | 2024-07-16 07:31 | W.PN.NEURO.1 ---
Today's Communication / Plan
-
.
Subjective/Objective
Subjective Data
Date of Service: July 16, 2024
Neurology follow-up note.
24-hour events. Hypertensive, afebrile.
The patient continues to be unresponsive.
Brain MRI, EEG- pending.
CTA head-no basilar artery occlusion or stenosis.
According to EMG as per Thi at from [facility] the patient appeared increasingly anxious and upset with staff on 07/14/2024. Patient apparently called a [facility] friend to have him pick patient up to go to [facility] choir practice.
Thi did not know who picked patient up from personal care. Patient while at [facility] was attended to by EMS for unknown reasons.
LDL 56 ua tox-neg, CK�183
PMH: R ICA stenosis, HTN, DLP, DM, CKD, GERD, BPH, BMI 30, MDD, Vitamin D deficiency.
PSH: appendectomy, hernia repair
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
FH: lost to 2children to cystic fibrosis, retired , remote smoker; no history of excessive ETOH use
All: erythromycin, amlodipine, losartan.
ROS: Unable to obtain
General: Well developed. In no acute distress.
Cardio: Regular rate and rhythm without murmur. Extremities are without cyanosis or edema.
Neuro:
Mental Status: Eyes closed. Does not grimace to sternal rub. Does not follow requests(including looking up/down). No verbal output.
Cranial Nerves: Orthophoric primary gaze. Pupils are equally round and reactive to light. Positive corneals. No facial weakness.
Motor:quarding face with with arm drop test bilateral.
Reflexes: 2+ in upper and lower extremities. No clonus.
Sensory: Does not localize noxious stimuli. Does not grimace
Coordination: No tremors myoclonic movements.
Gait: deferred
Assessment and Plan:
I. Encephalopathy. Differential diagnosis includes vascular, vs ictal vs behavioral.
II. Chronic R ICA occlusion, mod L ICA stenosis.
III. MDD
-Aspiration precautions.
-Start Keppra before EEG is recorded. process technician is aware and is on the way.
-ASA 81 mg QD
-Brain MRI wo dawit stat.
-DVT prophylaxis.
I personally reviewed all radiology and labs along with past medical records pertinent to current medical problems. Time spent in patient care is 35 minutes.
Thank you for allowing us to participate in the care of this patient. We will continue to follow. Please do not hesitate to contact us with any questions or concerns.
Objective Data
Vital Signs
Temp Pulse Resp BP Pulse Ox
36.3 C 88 16 146/74 98
07/16/24 03:09 07/16/24 03:09 07/16/24 03:09 07/16/24 03:09 07/15/24 23:13
Sodium 136 mmol/L (135-145) 07/14/24 20:26
Potassium 4.4 mmol/L (3.5-5.1) 07/14/24 20:26
BUN 30 mg/dl (9-20) H 07/14/24 20:26
Glucose 143 mg/dl (70-99) H 07/14/24 20:26
Calcium 10.2 mg/dl (8.4-10.2) 07/14/24 20:26
LDL Cholesterol, Calc 56 mg/dl 07/15/24 12:00
Ur Buprenorphine Negative (Negative) 07/15/24 11:10
Patient Allergies
erythromycin base Allergy (Verified 07/10/24 18:28)
'i felt terrible'
Vital Signs and Labs
-
Vital Signs and Labs:
Vital Signs
Temp Pulse Resp BP Pulse Ox
36.8 C 78 18 163/79 97
07/16/24 11:34 07/16/24 11:34 07/16/24 11:34 07/16/24 11:34 07/16/24 11:34
Lab Results
07/16/24 06:45
07/16/24 06:45
Sodium 137 mmol/L (135-145) 07/16/24 06:45
Potassium 4.3 mmol/L (3.5-5.1) 07/16/24 06:45
BUN 23 mg/dl (9-20) H 07/16/24 06:45
Glucose 106 mg/dl (70-99) H 07/16/24 06:45
Calcium 9.9 mg/dl (8.4-10.2) 07/16/24 06:45
LDL Cholesterol, Calc 56 mg/dl 07/15/24 12:00
Ur Buprenorphine Negative (Negative) 07/15/24 11:10
Medications
-
Medications:
Generic Name Dose Route Start Last Admin
Trade Name Freq PRN Reason Stop Dose Admin
Acetaminophen 650 mg 07/15/24 06:17 07/16/24 03:15
Acetaminophen 325 Mg Tablet PO 08/12/24 06:16 650 mg
Q4HPRN PRN Administration
Mild Pain / Temp > 101
Aspirin 81 mg 07/15/24 08:00 07/16/24 10:28
Aspirin 81 Mg (Enteric Coated) Tablet PO 08/12/24 07:59 Not Given
DAILY [facility]
Carvedilol 12.5 mg 07/15/24 08:00 07/16/24 10:28
Carvedilol 12.5 Mg Tablet PO 08/12/24 07:59 Not Given
BID [facility]
Cholecalciferol 50 mcg 07/15/24 08:00 07/16/24 10:29
Cholecalciferol (Vitamin D3) 50 Mcg Tablet (2,000 Units) PO 08/12/24 07:59 Not Given
DAILY [facility]
Dextrose 12.5 grams 07/15/24 06:17
Dextrose 50% (0.5 Grams/Ml) 50 Ml Syringe IV 08/12/24 06:16
[id number] PRN
hypoglycemia
Protocol
Glucagon 1 mg 07/15/24 06:17
Glucagon 1 Mg Vial IM 08/12/24 06:16
PRN PRN
hypoglycemia
Protocol
Heparin Sodium 5,000 units 07/15/24 08:00 07/16/24 10:31
Heparin 5,000 Units/Ml 1 Ml Vial SC 08/12/24 07:59 5,000 units
Q12 [facility] Administration
Hydralazine HCl 10 mg 07/15/24 17:20 07/16/24 10:24
Hydralazine 20 Mg/Ml Vial IV 08/12/24 17:19 10 mg
Q4HPRN PRN Administration
SBP>160
Insulin Aspart 0 units 07/15/24 07:30 07/16/24 12:00
Insulin Aspart Low Resistance 300 Units/3 Ml Pen.Injctr SC 08/12/24 07:29 Not Given
AC [facility]
Protocol
Lisinopril 20 mg 07/15/24 08:00 07/16/24 10:29
Lisinopril 20 Mg Tablet PO 08/12/24 07:59 Not Given
DAILY [facility]
Rosuvastatin Calcium 40 mg 07/15/24 08:00 07/16/24 10:28
Rosuvastatin (Crestor) 40 Mg Tablet PO 08/12/24 07:59 Not Given
DAILY [facility]
Sertraline HCl 50 mg 07/15/24 08:00 07/16/24 10:29
Sertraline 50 Mg Tablet PO 08/12/24 07:59 Not Given
DAILY [facility]
Home Medications
-
Home Medications
carvedilol 12.5 mg tablet 12.5 mg PO BID Blood Pressure 04/12/17
lisinopril 20 mg tablet 20 mg PO DAILY 06/07/24
famotidine 20 mg tablet 20 mg PO DAILY 06/18/24
insulin aspart U-100 100 unit/mL (3 mL) subcutaneous pen (Novolog FlexPen U-100 Insulin aspart) 12 unit SC ACHS 06/18/24
aspirin 81 mg tablet,delayed release 81 mg PO DAILY 30 days #30 tabs 06/24/24
cholecalciferol (vitamin D3) 50 mcg (2,000 unit) tablet 50 mcg PO DAILY #30 tabs 06/24/24
rosuvastatin 40 mg tablet 40 mg PO DAILY 07/10/24
tamsulosin 0.4 mg capsule 0.4 mg PO DAILY #30 caps 07/12/24
[2024-07-16 07:34] LABS: Glucose - Point of Care 112 mg/dl (70-99)
[2024-07-16] MEDS: NOVOLOG FLEXPEN-LOW RESISTANCE SC ×3 (07:42→17:14)
[2024-07-16 07:53] LABS: Hematocrit 38.2 % (39.0-52.0); Hemoglobin 13.6 g/dL (13.0-18.0); Mean Corp Hgb Conc. 35.6 g/dL (33.0-37.0); Mean Corpuscular Hgb 31.1 pg (27.0-31.0); Mean Corpuscular Volume 87.4 fL (80.0-94.0); Mean Platelet Volume 10.3 fL (7.4-10.4); Platelet Count 199 10^3/uL (130-400); Red Blood Cell Count 4.37 10^6/uL (4.70-6.10); Red Cell Dist. Width 14.2 % (11.5-14.5); White Blood Cell Count 7.6 10^3/uL (4.8-10.8)
[2024-07-16 08:15] LABS: Blood Urea Nitrogen 23 mg/dl (9-20); Calcium 9.9 mg/dl (8.4-10.2); Carbon Dioxide 21 mmol/L (22-30); Chloride 102 mmol/L (98-107); Estimated Creatinine Clearance 48 ml/min; Glucose 106 mg/dl (70-99); Sodium 137 mmol/L (135-145); eGFR 55.53
[2024-07-16 08:21] LABS: Potassium 4.3 mmol/L (3.5-5.1)
[2024-07-16] MEDS: APRESOLINE 10 MG IV (10:24)
[2024-07-16] MEDS: ASPIR LOW (ENTERIC COATED) PO (10:28)
[2024-07-16] MEDS: COREG PO ×2 (10:28→19:24)
[2024-07-16] MEDS: CRESTOR PO (10:28)
[2024-07-16] MEDS: ZOLOFT PO (10:29)
[2024-07-16] MEDS: VITAMIN D3 (cholecalciferol) PO (10:29)
[2024-07-16] MEDS: ZESTRIL PO (10:29)
[2024-07-16] MEDS: HEPARIN 5000 UNITS SC ×2 (10:31→19:34)
[2024-07-16 11:34] VITALS: BP 163/79
[2024-07-16 11:55] LABS: Glucose - Point of Care 127 mg/dl (70-99)
[2024-07-16] MEDS: KEPPRA 1000 MG IV (13:34)
[2024-07-16 13:46] LABS: Ammonia < 9 umol/L (9-30)
--- NOTE | 2024-07-16 15:09 | PTCARENOTE ---
Assumed care of pt from previous nurse. pt only responsive at this time with sternal rubbing. Dr. Bellamy in to see pt. Pt awaiting EEG and results of MRI. Pt call robins is within reach, pt does not ring, rounding in place, bed alarm in place. will
cont to monitor.
[2024-07-16 15:15] VITALS: BP 154/81
--- NOTE | 2024-07-16 15:25 | W.PN.HOSP.TC ---
Addendum entered and electronically signed by Kalpesh Bellamy DO 07/16/24 17:37:
EEG and MRI were unremarkable. Question if this is catatonia as he has had episodes where, when responsive, has exhibited anxiety symptoms. Will trial Ativan 2 mg IV as needed x 1 for suspected catatonia to assess for improvement following
benzodiazepine
Original Note:
Today's Communication/Plan
-
MRI brain
EEG today
Antiepileptics per neuro
NIHSS/neurochecks
Consider LP, RPR
Assessment / Plan
Assessment / Plan
#Altered mental status
#Intermittent unresponsive states
-Differentials include acute CVA versus status epilepticus versus metabolic encephalopathy of unclear origin
-Infectious workup thus far unyielding; CT head unremarkable; no signs of hypercapnia; UDS negative; B12 and thyroid function normal
-No focal deficits on exam; has had intermittent episodes of unresponsiveness, other times where he communicates
-Multiple brain imaging including CT scan with no acute abnormalities suggestive of possible organic problem.
-Clinical presentation and workup is not consistent with acute metabolic abnormalities or infection
-Recent psychiatric assessment including MoCa score was not consistent with dementia, possibly mild cognitive abnormalities.
-Patient is not on any sedative medications at home; s/p psych eval with low suspicion for psychiatric process
-Does have a history of medication overdoses
-Neuro following, order EEG
Plan
-Ordered MRI brain without contrast
-Follow-up EEG results
-Antiepileptic regimen prior to EEG per neuro
-monitor neurochecks and NIHSS
-Consider LP, RPR if other testing unyielding
#ASCVD
#Carotid stenosis/chronic right carotid occlusion
-Home regimen includes aspirin and high intensity statin
-No signs of any acute vascular phenomenon at this time
-Continued on home medications when alert enough to swallow
#Benign hypertension
-No known history of hypertensive systemic disease
-Home regimen includes carvedilol and lisinopril
-Blood pressure currently elevated
-IV hydralazine as needed
#CKD stage III
-Baseline creatinine 1.5 per previous labs in system
-Unclear etiology, may be related with diabetes and hypertension
-No chronic acidemia, anemia, BMD noted
-Home medications include lisinopril, monitor closely with CKD
-Trend BMP
#IDDM 2
-Home regimen includes Lantus 12 units nightly; most recent A1c 6%
-Possibly related with CKD, no known history of neuropath; likely retinopathy
-Due to mental state and reduced oral intake Lantus currently held
-Continue with ISS and Accu-Cheks for now
#BPH
-Monitor for retention
-Hold tamsulosin acutely
DVT Prophylaxis: Subcut Heparin
Diet: Regular when mental status permits
Code Status: Full
Anticipated Discharge: > 48 hours
Subjective/Interval History
-
Date of Service: July 16, 2024
Seen and examined at the bedside. No acute events reported overnight. AFVSS this morning
Has had intermittent periods of unresponsiveness. Per nursing prior to breakfast was weaning bowel and able to communicate, after breakfast nonresponsive to sternal rub. Maintaining airway and breathing adequately
ROS limited by his mental state
Objective Data
-
Labs:
Laboratory Results
07/16/24
06:45
WBC 7.6
Hgb 13.6
Hct 38.2 L
Plt Count 199
Sodium 137
Potassium 4.3
Chloride 102
Carbon Dioxide 21 L
BUN 23 H
Creatinine 1.3
Glucose 106 H
Calcium 9.9
Vital Signs:
Vital Signs
Temp Pulse Resp BP Pulse Ox
98.3 F 78 18 163/79 97
07/16/24 11:34 07/16/24 11:34 07/16/24 11:34 07/16/24 11:34 07/16/24 11:34
I&O
07/15/24 07/16/24 07/17/24
06:59 06:59 07:59
Intake Total 240 / 240
Output Total 480 / 480
Balance -240 / -240
Review of Systems
-
Unable to obtain full review of systems at this time due to: Acuity
Physical Exam
-
General: Well Developed, Well Nourished and No Apparent Distress
HEENT: Normocephalic, Atraumatic and Moist Mucous Membranes
Respiratory: Clear to Auscultation and Non Labored Respirations
Cardiac: Regular Rhythm and S1/S2; Negative Murmur, Rub or Gallop
GI: Soft, Nontender, Nondistended and Normal Bowel Sounds
Musculoskeletal: No Clubbing, No Cyanosis and No Edema
Skin: Warm and Dry; Negative Rash
Neuro: Other (Nonresponsive to stimuli; opens eyes spontaneously x 1, PERRL; maintaining airway)
Psych: Calm
Data Reviewed
-
MRI: Discussed with Physician (Neurology)
Labs: Labs Reviewed by me
--- NOTE | 2024-07-16 16:30 | EEGC.RPT ---
Continuous EEG Report
Recording
Start Date of Data Reviewed: 07/16/24
End Date of Data Reviewed: 07/16/24
Report
TECHNICAL REMARKS: This is a technically satisfactory eighteen channel record employing 21 disc electrodes applied according to a measured international 10-20 electrode placement system. There were no significant technical difficulties. The study
was done on a [employer] System.
CLINICAL HISTORY: This is an 78-year-old man with unresponsiveness. This study was requested to look for epileptiform abnormalities.
STUDY DURATION: 23 min, 29 secs.
REPORT: At the onset of the EEG, the patient is awake. The background activity consists of 9.5-10 Hz, persistent, posteriorly dominant, moderate amplitude, symmetric and rhythmic activity that is reactive to eye-opening. Anteriorly, it consists of
a mixture of low voltage indeterminate activity and 20-25 Hz, persistent, low amplitude, symmetric and rhythmic activity. Stepwise intermittent photic stimulation (1-31 Hz) does not induce any abnormalities. Hyperventilation was not performed.
Drowsiness is characterized by low amplitude mixed frequency activity, decreased eye blinking, and muscle artifact.
IMPRESSION: This is a normal awake and drowsy EEG. There is no evidence of focal slowing or epileptiform activity. A normal EEG does not rule out epilepsy. If the clinical picture warrants, a sleep-deprived awake and sleep record may be helpful.
--- NOTE | 2024-07-16 16:33 | W.PN.UPDATE ---
Update Note
Progress Note Update
Routine EEG was normal.
Brain MRI showed no acute abnormalities.
Recommend psychiatry follow-up
Please recall neurology services any questions or concerns
Mitra Castaneda MD
Neurology.
[2024-07-16 16:53] LABS: Glucose - Point of Care 129 mg/dl (70-99)
[2024-07-16] MEDS: ATIVAN 2 MG IV (19:32)
[2024-07-16 19:33] VITALS: BP 146/77
--- NOTE | 2024-07-16 19:36 | PTCARENOTE ---
TT to Jennifer Seymour and Amy Quesada to update on pt presentation from obtunded to agitated. no new orders
--- NOTE | 2024-07-16 20:37 | PTCARENOTE ---
Neuro assessment performed at 1900. Patient is obtunded, not arousable to sternal rub. Pupils are a 2 and equal. Pupils are sluggish to light. PRN Ativan given for unresponsiveness/catatonia with no change in assessment after an hour. Patient is
normal sinus rhythm with heart rate in the 80`s on telemetry. Respirations are even and equal. Kenia Soto MENTAL TELEPATHIST made aware of assessment. No new orders. Bed alarm remains in place. Call robins in reach.
[2024-07-16 21:34] LABS: Glucose - Point of Care 124 mg/dl (70-99)
--- NOTE | 2024-07-16 23:27 | PTCARENOTE ---
Patient is more alert and arousable. Patient is now oriented x3, but still drowsy. Heart rate is in the 70`s, normal sinus rhythm. Respirations are equal and even. Pupils remain unchanged from last assessment. Bed alarm remains in place. Call robins
within reach.
[2024-07-16 23:45] VITALS: BP 117/62
[2024-07-17 03:33] VITALS: BP 127/76
[2024-07-17 06:00] VITALS: BMI 29.3
[2024-07-17 07:05] VITALS: BP 115/75
[2024-07-17 07:06] LABS: Glucose - Point of Care 105 mg/dl (70-99)
[2024-07-17] MEDS: NOVOLOG FLEXPEN-LOW RESISTANCE SC ×2 (07:08→16:22)
[2024-07-17 07:14] LABS: % Basophils 0.6 % (0-2); % Eosinophils 4.3 % (0-6); % Immature Granulocytes 0.4 % (0-0.5); % Lymphocytes 27.9 % (20.5-51.1); % Monocytes 8.7 % (1.7-9.3); % Neutrophils 58.1 % (42.2-75.2); Absolute Basophils 0.1 10^3/uL (0-0.2); Absolute Eosinophils 0.4 10^3/uL (0-0.7); Absolute Lymphocytes 2.5 10^3/uL (1.2-3.4); Absolute Monocytes 0.8 10^3/uL (0.1-0.6); Absolute Neutrophils 5.2 10^3/uL (1.4-6.5); Hematocrit 39.7 % (39.0-52.0); Hemoglobin 14.2 g/dL (13.0-18.0); Mean Corp Hgb Conc. 35.8 g/dL (33.0-37.0); Mean Corpuscular Hgb 31.4 pg (27.0-31.0); Mean Corpuscular Volume 87.8 fL (80.0-94.0); Mean Platelet Volume 10.2 fL (7.4-10.4); Nucleated Red Blood Cells % 0 % (-); Platelet Count 224 10^3/uL (130-400); Red Blood Cell Count 4.52 10^6/uL (4.70-6.10); Red Cell Dist. Width 14.3 % (11.5-14.5)
[2024-07-17 07:38] LABS: Blood Urea Nitrogen 27 mg/dl (9-20); Calcium 9.9 mg/dl (8.4-10.2); Carbon Dioxide 21 mmol/L (22-30); Chloride 103 mmol/L (98-107); Estimated Creatinine Clearance 42 ml/min; Glucose 105 mg/dl (70-99); Potassium 4.4 mmol/L (3.5-5.1); Sodium 136 mmol/L (135-145); eGFR 46.77
[2024-07-17] MEDS: ZOLOFT 50 MG PO (08:26)
[2024-07-17] MEDS: COREG 12.5 MG PO ×2 (08:26→19:46)
[2024-07-17] MEDS: HEPARIN 5000 UNITS SC ×2 (08:26→19:46)
[2024-07-17] MEDS: ZESTRIL 20 MG PO (08:26)
[2024-07-17] MEDS: ASPIR LOW (ENTERIC COATED) 81 MG PO (08:26)
[2024-07-17] MEDS: VITAMIN D3 (cholecalciferol) 50 MCG PO (08:26)
[2024-07-17] MEDS: CRESTOR 40 MG PO (08:26)
--- NOTE | 2024-07-17 09:53 | CM ---
Addendum entered by Miroslava Huffman 07/17/24 11:04:
CM met with patient and ELI Morgan, bedside. Cathy provided POA paperwork, copy made and will be scanned into chart. Per Cathy, patient was in independent living at [facility], recently transitioned to personal care. Cathy reports patient is ambulatory
without device. KUMAR form reviewed, refused to sign, requesting to speak to Hospitalist when able. CM will continue to follow for all discharge planning needs.
Original Note:
CM reviewed chart, patient recently discharged from Hospital last week to [facility]. Voicemail left for patients Cathy BENITEZ, to discuss KUMAR form. CM will continue to follow for all discharge planning needs.
Plan; return to [facility] likely
[facility]
Report: [phone]
[2024-07-17 11:06] VITALS: BP 90/54
--- NOTE | 2024-07-17 11:28 | W.PN.HOSP.TC ---
Addendum entered and electronically signed by Kalpesh Bellamy DO 07/17/24 13:52:
Patient's power of assistant prosecuting attorney brought in his advanced directive that states he is DNR. CODE STATUS changed in the system
Original Note:
Today's Communication/Plan
-
As needed Ativan, consider standing order
Further psych recommendations appreciated
IV maintenance fluid and encourage oral intake
Hold lisinopril
Assessment / Plan
Assessment / Plan
#Altered mental status
#Intermittent unresponsive states
-Concern for catatonia/psychiatric process; neurologic workup unremarkable; metabolic workup unyielding; no signs of infection
-No focal deficits on exam; has had intermittent episodes of unresponsiveness, other times where he communicates
-Recent psychiatric assessment including MoCa score was not consistent with dementia, possibly mild cognitive abnormalities.
-Patient is not on any sedative medications at home; states that he does have high anxiety at baseline
-Does have a history of medication overdoses
-Psychiatry follow
Plan
-Continue 2 mg IV Ativan as needed for unresponsiveness
-Consider 0.5 mg Ativan BID daily standing
-monitor neurochecks and NIHSS
#Hypotension
-Most recent blood pressure 90/54 mmHg, likely hypovolemic with unresponsiveness at times
-Will hold lisinopril for now; consider holding carvedilol if BP remains low
-Start IV maintenance fluids
-Trend BMP
#ASCVD
#Carotid stenosis/chronic right carotid occlusion
-Home regimen includes aspirin and high intensity statin
-No signs of any acute vascular phenomenon at this time
-Continued on home medications when alert enough to swallow
#Benign hypertension
-No known history of hypertensive systemic disease
-Home regimen includes carvedilol and lisinopril
-Blood pressure currently elevated
-IV hydralazine as needed
#CKD stage III
-Baseline creatinine 1.5 per previous labs in system
-Unclear etiology, may be related with diabetes and hypertension
-No chronic acidemia, anemia, BMD noted
-Home medications include lisinopril, monitor closely with CKD
-Trend BMP
#IDDM 2
-Home regimen includes Lantus 12 units nightly; most recent A1c 6%
-Possibly related with CKD, no known history of neuropath; likely retinopathy
-Due to mental state and reduced oral intake Lantus currently held
-Continue with ISS and Accu-Cheks for now
#BPH
-Monitor for retention
-Hold tamsulosin acutely
DVT Prophylaxis: Subcut Heparin
Diet: Regular when mental status permits
Code Status: Full
Anticipated Discharge: 24 - 48 hours
Subjective/Interval History
-
Date of Service: July 17, 2024
Seen and examined at the bedside. No acute events reported overnight. AFVSS this morning
As of time of my evaluation he was alert and responding to questions appropriately. States that over the last couple days he ' and went to hell' and it all started with extremely severe pain that he could not localize, states that it felt like
it was all over. Denies any chronic pain issues. States he does feel like he has high anxiety levels
He denies any acute complaints this morning
Objective Data
-
Labs:
Laboratory Results
07/17/24
06:29
WBC 9.0
Hgb 14.2
Hct 39.7
Plt Count 224
Sodium 136
Potassium 4.4
Chloride 103
Carbon Dioxide 21 L
BUN 27 H
Creatinine 1.5 H
Glucose 105 H
Calcium 9.9
Vital Signs:
Vital Signs
Temp Pulse Resp BP Pulse Ox
97.7 F 93 18 90/54 97
07/17/24 11:06 07/17/24 11:06 07/17/24 11:06 07/17/24 11:06 07/17/24 11:06
I&O
07/16/24 07/17/24 07/18/24
05:59 06:59 06:59
Intake Total 180 / 180
Output Total
Balance 180 / 180
Review of Systems
-
History Source: Patient
All other systems: Reviewed and negative
Physical Exam
-
General: Well Developed, Well Nourished and No Apparent Distress
HEENT: Normocephalic, Atraumatic and Moist Mucous Membranes
Respiratory: Clear to Auscultation and Non Labored Respirations
Cardiac: Regular Rhythm and S1/S2; Negative Murmur, Rub or Gallop
GI: Soft, Nontender, Nondistended and Normal Bowel Sounds
Musculoskeletal: No Clubbing, No Cyanosis and No Edema
Skin: Warm, Dry and Normal Turgor; Negative Rash
Neuro: AO x 3 and Nonfocal/Grossly Intact
Psych: Calm
[2024-07-17 11:42] LABS: Glucose - Point of Care 186 mg/dl (70-99)
[2024-07-17] MEDS: NSS 1000 IV ×2 (11:47→19:46)
[2024-07-17] MEDS: NOVOLOG FLEXPEN-LOW RESISTANCE 1 UNITS SC (11:49)
[2024-07-17 15:28] VITALS: BP 146/73
[2024-07-17] MEDS: ATIVAN 2 MG IV (15:47)
--- NOTE | 2024-07-17 16:07 | PTCARENOTE ---
Addendum entered by Davi Chapman RN 07/17/24 17:01:
Pt now alert and oriented, moving all extremities with no acute complaints at this time. Episode seems to have lasted about 2 hours.
Original Note:
PT informed nursing of patient being unresponsive. Pt is arousable to sternal rub with eyes slightly opening and mumbling 'I have a DNR,' before drifting back to sleep. VSS, respirations even and nonlabored. MD Bellamy made aware, instructed to give
PRN ativan dose. No further orders at this time.
[2024-07-17 16:21] LABS: Glucose - Point of Care 144 mg/dl (70-99)
[2024-07-17 16:56] LABS: Glucose - Point of Care 144 mg/dl (70-99)
[2024-07-17 19:24] VITALS: BP 127/57
[2024-07-17 22:06] LABS: Glucose - Point of Care 135 mg/dl (70-99)
[2024-07-17 23:47] VITALS: BP 117/53
[2024-07-18] VITALS (8 sets, daily range): BP systolic 124–154; BP diastolic 51–77; PULSE 73; O2SAT 98; BMI 30.3
[2024-07-18] MEDS: NSS 1000 IV ×3 (03:50→20:33)
[2024-07-18 07:17] LABS: Glucose - Point of Care 112 mg/dl (70-99)
[2024-07-18] MEDS: NOVOLOG FLEXPEN-LOW RESISTANCE SC (07:20)
[2024-07-18] MEDS: HEPARIN 5000 UNITS SC ×2 (08:14→20:34)
[2024-07-18] MEDS: VITAMIN D3 (cholecalciferol) 50 MCG PO (08:15)
[2024-07-18] MEDS: ASPIR LOW (ENTERIC COATED) 81 MG PO (08:15)
[2024-07-18] MEDS: ZOLOFT 50 MG PO (08:15)
[2024-07-18] MEDS: COREG 12.5 MG PO ×2 (08:15→20:34)
[2024-07-18] MEDS: CRESTOR 40 MG PO (08:15)
[2024-07-18 11:42] LABS: Glucose - Point of Care 297 mg/dl (70-99)
[2024-07-18] MEDS: NOVOLOG FLEXPEN-LOW RESISTANCE 3 UNITS SC (12:21)
--- NOTE | 2024-07-18 15:49 | W.PN.HOSP.TC ---
Today's Communication/Plan
-
Monitor for recurrent episodes of unresponsiveness.
Hold sedatives.
Psychiatry to reevaluate
IV fluids
Monitor oral intake.
Hold JUNIOR
Follow BMP
Assessment / Plan
Assessment / Plan
#Altered mental status
#Intermittent unresponsive states
-Concern for catatonia/psychiatric process; neurologic workup unremarkable; metabolic workup unyielding; no signs of infection
-No focal deficits on exam; has had intermittent episodes of unresponsiveness, other times where he communicates
-Recent psychiatric assessment including MoCa score was not consistent with dementia, possibly mild cognitive abnormalities.
-Patient is not on any sedative medications at home; states that he does have high anxiety at baseline
-Does have a history of medication overdoses
Unrevealing neurologic workup including EEG and MRI
07/18. Patient is alert awake and oriented. No focal neurologic findings on exam. Overall with flat affect and seems to be concerned only with bowel movement. He could not recall any episodes of unresponsiveness since admission. Nursing report
similar episodes day before which was self-limited. IV lorazepam had not been administered at that time
Hold further lorazepam.
Monitor cognitive status closely.
Will ask psychiatry to reevaluate
#Hypotension
-Most recent blood pressure 90/54 mmHg, likely hypovolemic with unresponsiveness at times
-Will hold lisinopril for now; consider holding carvedilol if BP remains low
Noted mild SIL with creatinine 1.5
Continue holding JUNIOR
IV fluids
Follow BMP.
#ASCVD
#Carotid stenosis/chronic right carotid occlusion
-Home regimen includes aspirin and high intensity statin
-No signs of any acute vascular phenomenon at this time
-Continued on home medications when alert enough to swallow
#Benign hypertension
-No known history of hypertensive systemic disease
-Home regimen includes carvedilol and lisinopril
-Blood pressure currently elevated
-IV hydralazine as needed
#CKD stage III
-Baseline creatinine 1.5 per previous labs in system
-Unclear etiology, may be related with diabetes and hypertension
-No chronic acidemia, anemia, BMD noted
-Home medications include lisinopril, monitor closely with CKD
-Trend BMP
#IDDM 2
-Home regimen includes Lantus 12 units nightly; most recent A1c 6%
-Possibly related with CKD, no known history of neuropath; likely retinopathy
-Due to mental state and reduced oral intake Lantus currently held
-Continue with ISS and Accu-Cheks for now
#BPH
-Monitor for retention
-Hold tamsulosin acutely
DVT Prophylaxis: Subcut Heparin
Diet: Regular when mental status permits
Code Status: Full
Anticipated Discharge: 24 - 48 hours
Subjective/Interval History
-
Date of Service: July 18, 2024
Objective Data
-
Vital Signs:
Vital Signs
Temp Pulse Resp BP Pulse Ox
98.3 F 63 18 124/51 94
07/18/24 11:15 07/18/24 11:15 07/18/24 11:15 07/18/24 11:15 07/18/24 11:15
I&O
07/17/24 07/18/24 07/19/24
06:59 06:59 06:59
Intake Total 420 / 1137 717 / 717
Output Total 200 / 500 300 / 300
Balance 220 / 637 417 / 417
Physical Exam
-
General: Well Developed and No Apparent Distress
HEENT: Normocephalic, Atraumatic and Moist Mucous Membranes
Respiratory: Clear to Auscultation
Cardiac: Regular Rhythm and S1/S2; Negative Murmur, Rub or Gallop
GI: Soft, Nontender, Nondistended and Normal Bowel Sounds; Negative Organomegaly
Rectal: Deferred by Provider
Musculoskeletal: No Clubbing, No Cyanosis and No Edema
Skin: Negative Rash
Neuro: Nonfocal/Grossly Intact
[2024-07-18 16:08] LABS: Glucose - Point of Care 153 mg/dl (70-99)
[2024-07-18] MEDS: NOVOLOG FLEXPEN-LOW RESISTANCE 1 UNITS SC (17:27)
[2024-07-18] MEDS: TYLENOL 650 MG PO (20:41)
[2024-07-18 21:51] LABS: Glucose - Point of Care 160 mg/dl (70-99)
[2024-07-19] VITALS (10 sets, daily range): BP systolic 134–179; BP diastolic 62–89; BMI 30.6
[2024-07-19] MEDS: NSS 1000 IV ×2 (06:24→16:20)
[2024-07-19 07:22] LABS: Glucose - Point of Care 125 mg/dl (70-99)
[2024-07-19] MEDS: NOVOLOG FLEXPEN-LOW RESISTANCE SC (07:23)
[2024-07-19] MEDS: APRESOLINE 10 MG IV (08:38)
[2024-07-19 08:43] LABS: Blood Urea Nitrogen 21 mg/dl (9-20); Carbon Dioxide 19 mmol/L (22-30); Chloride 108 mmol/L (98-107); Estimated Creatinine Clearance 64 ml/min; Glucose 105 mg/dl (70-99); Potassium 3.8 mmol/L (3.5-5.1); Sodium 137 mmol/L (135-145); eGFR > 60.00
[2024-07-19] MEDS: ASPIR LOW (ENTERIC COATED) PO ×2 (09:57→10:11)
[2024-07-19] MEDS: COREG PO ×3 (09:58→20:14)
[2024-07-19] MEDS: ZOLOFT PO ×2 (09:58→10:12)
[2024-07-19] MEDS: CRESTOR PO ×2 (09:58→10:11)
[2024-07-19] MEDS: HEPARIN 5000 UNITS SC ×2 (09:58→20:12)
[2024-07-19] MEDS: VITAMIN D3 (cholecalciferol) PO ×2 (10:00→10:11)
--- NOTE | 2024-07-19 10:01 | PTCARENOTE ---
At 0830, pt flatly stating 'I can't breathe'. Respirations were even and nonlabored, SpO2 96% on RA, pt in no apparent distress. A few minutes later, pt unresponsive, not arousable to sternal rub. BP 176/86, otherwise VSS. PRN IV hydralazine given.
Hospitalist and psychiatry notified, instructed to observe at this point. At 0930, pt now rousable to voice but still drowsy, stating he feels weak. Psychiatry in to see patient now.
--- NOTE | 2024-07-19 10:47 | W.PN.UPDATE ---
Update Note
Progress Note Update
Patient seen at bedside with Dr. Woo, chart reviewed, discussed with staff. Mr. Quintana had reportedly been doing fairly well since Thursday up until this morning when he had another 'episode' of what is being called unresponsiveness. It is reported
that patient was seen this AM, had vital signs done with hypertension noted. At this time, he was responding and interacting appropriately. Staff went to get his morning meds and when they returned, he began to withdraw and would not respond to his
name nor to sternal rub but to mumble. When staff pried his eyes open, he was looking at them but continued to not respond. No changes reported on telemetry. Psychiatry went to see him shortly after the episode began. Mr. Quintana did briefly open his
eyes to our voice. He gave very brief answers to our questions. He refused to open his eyes on command. He did report he was feeling weak all over, had tingling in his hands and feet and felt like he could not breathe. He denied any specific
anxiety/panic but did state he was scared of dying. He admits to feeling depressed but would not elaborate any further. He knows he is in the hospital. Does not appear to be disoriented nor are there any hallucinations, delusions, or paranoia
evident at this time. He is slow to respond, limited with answers, seemingly refusing to follow command but not necessarily unable to do so. I do question if the fluctuation in BP plays a role in these episodes. They do not appear to be primarily
psychiatric in nature nor do they appear to be catatonia. Benzodiazepines had been administered with previous episode with no change noted which would be the appropriate treatment for true catatonia. There does appear to be a depressive element and
possibly an anxiety component but it does not seem to explain these episodes entirely and continued work up would be warranted in my opinion.
Impression/Recommendations: Intermittent unresponsive episodes of unknown cause; Recent depressive episode, started on Sertraline. Will increase Zoloft in hopes to target depressive symptoms. This does not appear to be consistent with catatonia and
further investigation should continue. Psych will follow.
[2024-07-19 11:25] LABS: Glucose - Point of Care 164 mg/dl (70-99)
[2024-07-19] MEDS: NOVOLOG FLEXPEN-LOW RESISTANCE 1 UNITS SC ×2 (12:55→16:20)
--- NOTE | 2024-07-19 15:33 | CM ---
Chart reviewed. Care ongoing at this time. Per chart, cont to monitor for episodes of unresponsiveness.
Psych following at this time
Therapy recommending home PT at d/c
CM updated patient's friend/POA, Cathy, no definitive d/c date at this time. Cathy shared she or other POA, Shahid, will transport patient at d/c
[facility]
Report: [phone]

Plan: Return to [facility] when stable.
--- NOTE | 2024-07-19 15:33 | W.PN.HOSP.TC ---
Today's Communication/Plan
-
Another episode of unresponsiveness described by RN.
Currently awake, although seems to be lethargic and slow in response. Flat affect.
Psychiatry input appreciated
Assessment / Plan
Assessment / Plan
#Altered mental status
#Intermittent unresponsive states
-Concern for catatonia/psychiatric process; neurologic workup unremarkable; metabolic workup unyielding; no signs of infection
-No focal deficits on exam; has had intermittent episodes of unresponsiveness, other times where he communicates
-Recent psychiatric assessment including MoCa score was not consistent with dementia, possibly mild cognitive abnormalities.
-Patient is not on any sedative medications at home; states that he does have high anxiety at baseline
-Does have a history of medication overdoses
Unrevealing neurologic workup including EEG and MRI
07/18. Patient is alert awake and oriented. No focal neurologic findings on exam. Overall with flat affect and seems to be concerned only with bowel movement. He could not recall any episodes of unresponsiveness since admission. Nursing report
similar episodes day before which was self-limited. IV lorazepam had not been administered at that time
Hold further lorazepam.
Monitor cognitive status closely.
Will ask psychiatry to reevaluate
#Hypotension
-Most recent blood pressure 90/54 mmHg, likely hypovolemic with unresponsiveness at times
-Will hold lisinopril for now; consider holding carvedilol if BP remains low
Noted mild SIL with creatinine 1.5
Continue holding JUNIOR
IV fluids
Follow BMP.
#ASCVD
#Carotid stenosis/chronic right carotid occlusion
-Home regimen includes aspirin and high intensity statin
-No signs of any acute vascular phenomenon at this time
-Continued on home medications when alert enough to swallow
#Benign hypertension
-No known history of hypertensive systemic disease
-Home regimen includes carvedilol and lisinopril
-Blood pressure currently elevated
-IV hydralazine as needed
#CKD stage III
-Baseline creatinine 1.5 per previous labs in system
-Unclear etiology, may be related with diabetes and hypertension
-No chronic acidemia, anemia, BMD noted
-Home medications include lisinopril, monitor closely with CKD
-Trend BMP
#IDDM 2
-Home regimen includes Lantus 12 units nightly; most recent A1c 6%
-Possibly related with CKD, no known history of neuropath; likely retinopathy
-Due to mental state and reduced oral intake Lantus currently held
-Continue with ISS and Accu-Cheks for now
#BPH
-Monitor for retention
-Hold tamsulosin acutely
DVT Prophylaxis: Subcut Heparin
Diet: Regular when mental status permits
Code Status: Full
Anticipated Discharge: 24 - 48 hours
Subjective/Interval History
-
Date of Service: July 19, 2024
Objective Data
-
Labs:
Laboratory Results
07/19/24
05:58
Sodium 137
Potassium 3.8
Chloride 108 H
Carbon Dioxide 19 L
BUN 21 H
Creatinine 1.1
Glucose 105 H
Calcium 9.0
Vital Signs:
Vital Signs
Temp Pulse Resp BP Pulse Ox
98.6 F 69 18 158/70 99
07/19/24 15:05 07/19/24 15:05 07/19/24 15:05 07/19/24 15:05 07/19/24 15:05
I&O
07/18/24 07/19/24 07/20/24
06:59 06:59 06:59
Intake Total 420 / 1137 3117 / 3117 60 / 60
Output Total 200 / 500 2950 / 2950
Balance 220 / 637 167 / 167 60 / 60
Physical Exam
-
General: Well Developed and No Apparent Distress
HEENT: Normocephalic, Atraumatic and Moist Mucous Membranes
Respiratory: Clear to Auscultation
Cardiac: Regular Rhythm and S1/S2; Negative Murmur, Rub or Gallop
GI: Soft, Nontender, Nondistended and Normal Bowel Sounds; Negative Organomegaly
Rectal: Deferred by Provider
Musculoskeletal: No Clubbing, No Cyanosis and No Edema
Skin: Negative Rash
Neuro: Nonfocal/Grossly Intact
[2024-07-19 16:15] LABS: Glucose - Point of Care 158 mg/dl (70-99)
[2024-07-19 21:41] LABS: Glucose - Point of Care 95 mg/dl (70-99)
[2024-07-20 03:00] VITALS: BP 144/71
--- NOTE | 2024-07-20 04:25 | PTCARENOTE ---
Patient alert to lethargic. Orientation waxes and wanes--see neuro flow sheets. BP elevated. Patient refused his evening dose of Coreg. Evening blood sugar 95. NSR on telemetry; murmur heard on auscultation. IV fluids completed. Patient with poor PO
intake. This RN continues to encourage PO intake. Condom cath, size 25, intact draining clear yellow urine. Patient did not get OOB overnight. Patient changes positions independently. Bed in lowest position. Bed alarm on. Call robins and personal
belongings within reach
[2024-07-20 05:53] VITALS: BMI 30.1
[2024-07-20 07:00] VITALS: BP 147/81
[2024-07-20 07:19] LABS: Glucose - Point of Care 111 mg/dl (70-99)
[2024-07-20] MEDS: NOVOLOG FLEXPEN-LOW RESISTANCE SC ×3 (09:09→17:54)
[2024-07-20 10:59] LABS: Syphilis/T. pallidum Ab Reflex Negative (Negative)
[2024-07-20 11:00] VITALS: BP 178/89
[2024-07-20 11:30] LABS: Glucose - Point of Care 113 mg/dl (70-99)
[2024-07-20] MEDS: COREG PO (11:41)
[2024-07-20] MEDS: ASPIR LOW (ENTERIC COATED) PO (11:41)
[2024-07-20] MEDS: CRESTOR PO (11:41)
[2024-07-20] MEDS: VITAMIN D3 (cholecalciferol) PO (11:42)
[2024-07-20] MEDS: ZOLOFT PO (11:42)
[2024-07-20] MEDS: HEPARIN SC (11:42)
[2024-07-20 15:00] VITALS: BP 143/74
--- NOTE | 2024-07-20 16:04 | W.PN.UPDATE ---
Update Note
Progress Note Update
patient seen chart reviewed. discussed w nursing and with dr patricia. when i initially saw mr benavides w dr patricia he was not rousable. he remained still in his bed w eyes closed. attempted sternal rub shaking loud voice pressing against his arms
to no avail. i came back later with nursing and this time used small ice cubes against his arm and chest. i am not sure it was the cold that provoked a response as i was also beseeching him to help us to help him and mentioned psych
hospitalization but he opened his eyes and said 'i can't breathe' i pointed out to him that he did not appear to be in respiratory distress and his o2 sats were good. he then closed his eyes. the dx of catatonia has been raised although not much
impact from 2 mg ativan. given his pronouncement that he can't breathe in the face of no respiratory distress i am now wondering if this is psychosis. workup so far is negative. we do know he has hx of depression does this represent depression w
psychosis. will add risperdal one mg bid and the ativan one mg tid given ? catatonia . this is a low dose of ativan for catatonia but will start low for now. will follow
--- NOTE | 2024-07-20 16:07 | W.PN.HOSP.TC ---
Today's Communication/Plan
-
07/20: Discussed with psychiatry
Unresponsive on the first evaluation later responding to ice applied to the face by psychiatry. At time of responsiveness gives her statement: 'I cannot believe', although with no clinical evidence of respiratory distress. Later back to
unresponsiveness. Concern for possible psychosis. Plan is to start benzodiazepines and Risperdal.
Assessment / Plan
Assessment / Plan
#Altered mental status
#Intermittent unresponsive states
-Concern for catatonia/psychiatric process; neurologic workup unremarkable; metabolic workup unyielding; no signs of infection
-No focal deficits on exam; has had intermittent episodes of unresponsiveness, other times where he communicates
-Recent psychiatric assessment including MoCa score was not consistent with dementia, possibly mild cognitive abnormalities.
-Patient is not on any sedative medications at home; states that he does have high anxiety at baseline
-Does have a history of medication overdoses
Unrevealing neurologic workup including EEG and MRI
07/18. Patient is alert awake and oriented. No focal neurologic findings on exam. Overall with flat affect and seems to be concerned only with bowel movement. He could not recall any episodes of unresponsiveness since admission. Nursing report
similar episodes day before which was self-limited. IV lorazepam had not been administered at that time
Hold further lorazepam.
07/20: Discussed with psychiatry
Unresponsive on the first evaluation later responding to ice applied to the face by psychiatry. At time of responsiveness gives her statement: 'I cannot believe', although with no clinical evidence of respiratory distress. Later back to
unresponsiveness. Concern for possible psychosis. Plan is to start benzodiazepines and Risperdal.
#Hypotension
-Most recent blood pressure 90/54 mmHg, likely hypovolemic with unresponsiveness at times
-Will hold lisinopril for now; consider holding carvedilol if BP remains low
Noted mild SIL with creatinine 1.5
Continue holding JUNIOR
IV fluids
Follow BMP.
#ASCVD
#Carotid stenosis/chronic right carotid occlusion
-Home regimen includes aspirin and high intensity statin
-No signs of any acute vascular phenomenon at this time
-Continued on home medications when alert enough to swallow
#Benign hypertension
-No known history of hypertensive systemic disease
-Home regimen includes carvedilol and lisinopril
-Blood pressure currently elevated
-IV hydralazine as needed
#CKD stage III
-Baseline creatinine 1.5 per previous labs in system
-Unclear etiology, may be related with diabetes and hypertension
-No chronic acidemia, anemia, BMD noted
-Home medications include lisinopril, monitor closely with CKD
-Trend BMP
#IDDM 2
-Home regimen includes Lantus 12 units nightly; most recent A1c 6%
-Possibly related with CKD, no known history of neuropath; likely retinopathy
-Due to mental state and reduced oral intake Lantus currently held
-Continue with ISS and Accu-Cheks for now
#BPH
-Monitor for retention
-Hold tamsulosin acutely
DVT Prophylaxis: Subcut Heparin
Diet: Regular when mental status permits
Code Status: Full
Anticipated Discharge: 24 - 48 hours
Subjective/Interval History
-
Date of Service: July 20, 2024
Objective Data
-
Vital Signs:
Vital Signs
Temp Pulse Resp BP Pulse Ox
97.5 F 67 16 143/74 95
07/20/24 15:00 07/20/24 15:00 07/20/24 15:00 07/20/24 15:00 07/20/24 15:00
I&O
07/19/24 07/20/24 07/21/24
06:59 06:59 06:59
Intake Total 3117 / 3117 1540 / 1540
Output Total 2950 / 2950 2300 / 2300
Balance 167 / 167 -760 / -760
Physical Exam
-
General: Well Developed and No Apparent Distress
HEENT: Normocephalic, Atraumatic and Moist Mucous Membranes
Respiratory: Clear to Auscultation
Cardiac: Regular Rhythm and S1/S2; Negative Murmur, Rub or Gallop
GI: Soft, Nontender, Nondistended and Normal Bowel Sounds; Negative Organomegaly
Rectal: Deferred by Provider
Musculoskeletal: No Clubbing, No Cyanosis and No Edema
Skin: Negative Rash
Neuro: Nonfocal/Grossly Intact
[2024-07-20 16:53] LABS: Glucose - Point of Care 136 mg/dl (70-99)
[2024-07-20] MEDS: RISPERDAL 1 MG PO (19:55)
[2024-07-20] MEDS: HEPARIN 5000 UNITS SC (19:55)
[2024-07-20] MEDS: COREG 12.5 MG PO (19:56)
[2024-07-20 20:04] LABS: Arsenic, Blood <10.0 ug/L (<=12.0); Lead - Venous <2.0 ug/dL (<=4.9); Mercury, Blood <2.5 ug/L (<=10.0)
[2024-07-20 21:47] LABS: Glucose - Point of Care 122 mg/dl (70-99)
[2024-07-20] MEDS: ATIVAN 1 MG PO (22:12)
[2024-07-20 23:23] VITALS: BP 132/76
--- NOTE | 2024-07-21 03:01 | PTCARENOTE ---
Patient alert to lethargic. Oriented x 4 and anxious. Patient adherent to taking evening medications. BP elevated--scheduled coreg administered--BP responded positively AEB BP of 132/76. Patient independently changing positions in bed. Condom
catheter intact and draining clear, yellow urine. Bed in lowest position. Bed alarm on. Call robins and personal belongings within reach.
[2024-07-21 06:00] VITALS: BMI 29.3
[2024-07-21 07:00] VITALS: BP 134/78
[2024-07-21 07:27] LABS: Glucose - Point of Care 134 mg/dl (70-99)
[2024-07-21] MEDS: NOVOLOG FLEXPEN-LOW RESISTANCE SC ×2 (08:15→17:23)
[2024-07-21] MEDS: CRESTOR 40 MG PO (08:18)
[2024-07-21] MEDS: ZOLOFT 75 MG PO (08:18)
[2024-07-21] MEDS: ATIVAN 1 MG PO ×3 (08:18→21:54)
[2024-07-21] MEDS: HEPARIN 5000 UNITS SC ×2 (08:19→20:48)
[2024-07-21] MEDS: VITAMIN D3 (cholecalciferol) 50 MCG PO (08:19)
[2024-07-21] MEDS: ASPIR LOW (ENTERIC COATED) 81 MG PO (08:20)
[2024-07-21] MEDS: COREG 12.5 MG PO ×2 (08:20→20:48)
[2024-07-21] MEDS: RISPERDAL 1 MG PO ×2 (10:31→20:49)
--- NOTE | 2024-07-21 11:31 | W.PN.UPDATE ---
Update Note
Progress Note Update
patient seen chart reviewed. spoke with nursing who report mr benavides is at this point eating, he is conversant. he is known to me from prior admits so i have something to compare to.....i found him to be back to his normal self this morning. he
could not really explain the change in his behavior except to tell me that no matter what others thought he felt short of breath. letting that go and moving on to other issues he was able to tell me about his new living arrangement...the plusses
and minuses (he does not like the food) how he has arranged his room, the support of the three people closest to him. we branched out on the issue of food and he told me about the things he liked to cook and the things is mom used to cook that he
misses. all in all he was pretty much the douglas benavides i had known on the last admit. the only change is the risperdal and the ativan added to his meds. it would seem too soon for impact but i cannot argue with what i see here. would continue them
for a week or so then consider whether to slowly cut back and monitor. i don't know if his residence has a psychiatrist or psych technical writer and editor. perhaps that could be checked out and if not some psych followup found for him . will follow
[2024-07-21 11:59] LABS: Glucose - Point of Care 185 mg/dl (70-99)
[2024-07-21] MEDS: NOVOLOG FLEXPEN-LOW RESISTANCE 1 UNITS SC (12:21)
--- NOTE | 2024-07-21 14:36 | WOUNDNOTE ---
[facility] RN NOTE: Reviewed chart and met with patient. Per RN, Walker skin tear discovered after condom cath removed. Wound bed is pink, no erythema noted and patient denies pain. Wound was cleaned with saline and Vaseline applied. Patient turns easily
in bed and sacrum and heels are intact. He reports fair appetite. Orders, discharge and careplan updated. Will sign off.
[2024-07-21 15:00] VITALS: BP 111/51
--- NOTE | 2024-07-21 15:00 | W.PN.HOSP.TC ---
Today's Communication/Plan
-
Mental status improved and back to baseline with addition of standing dose of Risperdal and lorazepam.
Monitor for recurrence
PT assessment
Discharge planning
Will need outpatient follow-up with psychiatry.
Assessment / Plan
Assessment / Plan
#Altered mental status
#Intermittent unresponsive states
-Concern for catatonia/psychiatric process; neurologic workup unremarkable; metabolic workup unyielding; no signs of infection
-No focal deficits on exam; has had intermittent episodes of unresponsiveness, other times where he communicates
-Recent psychiatric assessment including MoCa score was not consistent with dementia, possibly mild cognitive abnormalities.
-Patient is not on any sedative medications at home; states that he does have high anxiety at baseline
-Does have a history of medication overdoses
Unrevealing neurologic workup including EEG and MRI
07/18. Patient is alert awake and oriented. No focal neurologic findings on exam. Overall with flat affect and seems to be concerned only with bowel movement. He could not recall any episodes of unresponsiveness since admission. Nursing report
similar episodes day before which was self-limited. IV lorazepam had not been administered at that time
Hold further lorazepam.
07/20: Discussed with psychiatry
Unresponsive on the first evaluation later responding to ice applied to the face by psychiatry. At time of responsiveness gives her statement: 'I cannot believe', although with no clinical evidence of respiratory distress. Later back to
unresponsiveness. Concern for possible psychosis.
Mental status improved and back to baseline with addition of standing dose of Risperdal and lorazepam on 07/20. Monitor for recurrent episodes.
#Hypotension
-Most recent blood pressure 90/54 mmHg, likely hypovolemic with unresponsiveness at times
-Will hold lisinopril for now; consider holding carvedilol if BP remains low
Noted mild SIL with creatinine 1.5
Continue holding JUNIOR
IV fluids
Follow BMP.
#ASCVD
#Carotid stenosis/chronic right carotid occlusion
-Home regimen includes aspirin and high intensity statin
-No signs of any acute vascular phenomenon at this time
-Continued on home medications when alert enough to swallow
#Benign hypertension
-No known history of hypertensive systemic disease
-Home regimen includes carvedilol and lisinopril
-Blood pressure currently elevated
-IV hydralazine as needed
#CKD stage III
-Baseline creatinine 1.5 per previous labs in system
-Unclear etiology, may be related with diabetes and hypertension
-No chronic acidemia, anemia, BMD noted
-Home medications include lisinopril, monitor closely with CKD
-Trend BMP
#IDDM 2
-Home regimen includes Lantus 12 units nightly; most recent A1c 6%
-Possibly related with CKD, no known history of neuropath; likely retinopathy
-Due to mental state and reduced oral intake Lantus currently held
-Continue with ISS and Accu-Cheks for now
#BPH
-Monitor for retention
-Hold tamsulosin acutely
DVT Prophylaxis: Subcut Heparin
Diet: Regular when mental status permits
Code Status: Full
Anticipated Discharge: 24 - 48 hours
Subjective/Interval History
-
Date of Service: July 21, 2024
Objective Data
-
Vital Signs:
Vital Signs
Temp Pulse Resp BP Pulse Ox
98.8 F 82 20 134/78 95
07/21/24 07:00 07/21/24 07:00 07/21/24 07:00 07/21/24 07:00 07/21/24 07:00
I&O
07/20/24 07/21/24 07/22/24
06:59 06:59 06:59
Intake Total 1540 / 1540 240 / 240 240 / 240
Output Total 2300 / 2300 1150 / 1150
Balance -760 / -760 -910 / -910 240 / 240
Physical Exam
-
General: Well Developed and No Apparent Distress
HEENT: Normocephalic, Atraumatic and Moist Mucous Membranes
Respiratory: Clear to Auscultation
Cardiac: Regular Rhythm and S1/S2; Negative Murmur, Rub or Gallop
GI: Soft, Nontender, Nondistended and Normal Bowel Sounds; Negative Organomegaly
Rectal: Deferred by Provider
Musculoskeletal: No Clubbing, No Cyanosis and No Edema
Skin: Negative Rash
Neuro: Nonfocal/Grossly Intact
[2024-07-21 16:22] VITALS: BP 121/62; PULSE 73
--- NOTE | 2024-07-21 16:22 | CM ---
Chart reviewed. Per chart, mental status improved and back to baseline.
Plan is for patient to return to [facility] w/ home PT
[facility]
Report: [phone]

Plan: Return to [facility] when stable.
[2024-07-21 16:42] LABS: Glucose - Point of Care 124 mg/dl (70-99)
[2024-07-21 21:43] LABS: Glucose - Point of Care 133 mg/dl (70-99)
[2024-07-21 23:05] VITALS: BP 116/60
--- NOTE | 2024-07-22 04:34 | PTCARENOTE ---
RN alerted by bed alarm. Upon entering room pt found to be attempting to get OOB. Pt states, 'I need to put my clothes on, what am I doing here.' Pt reoriented and educated. Pt back in bed, bed alarm in place.
[2024-07-22 06:00] VITALS: BMI 29.2
[2024-07-22 07:00] VITALS: BP 150/71
[2024-07-22 07:23] LABS: Glucose - Point of Care 144 mg/dl (70-99)
[2024-07-22] MEDS: NOVOLOG FLEXPEN-LOW RESISTANCE SC ×2 (09:15→14:22)
[2024-07-22] MEDS: ASPIR LOW (ENTERIC COATED) 81 MG PO (09:24)
[2024-07-22] MEDS: COREG 12.5 MG PO ×2 (09:24→20:28)
[2024-07-22] MEDS: RISPERDAL 1 MG PO ×2 (09:25→20:28)
[2024-07-22] MEDS: CRESTOR 40 MG PO (09:25)
[2024-07-22] MEDS: HEPARIN 5000 UNITS SC ×2 (09:25→20:28)
[2024-07-22] MEDS: ATIVAN 1 MG PO ×3 (09:25→22:19)
[2024-07-22] MEDS: VITAMIN D3 (cholecalciferol) 50 MCG PO (09:26)
[2024-07-22] MEDS: ZOLOFT 75 MG PO (09:26)
--- NOTE | 2024-07-22 12:37 | CM ---
print manager reviewed patient's chart and met with patient this am and patient is back to baseline per physician notes, patient had some difficult challenges both past and current with finances, and is being followed and assisted by several agencies
and case worker received a call from Johanna Ford with [facility] [employer] [phone] regarding patient's SSI checks. print manager made [facility] aware that patient is back to baseline and has a friend and POA who
can be contacted.
[facility]
Report: [phone]

Plan: Return to [facility] when stable.
[2024-07-22 12:58] LABS: Glucose - Point of Care 133 mg/dl (70-99)
--- NOTE | 2024-07-22 13:30 | PTCARENOTE ---
1300 DR. Ramos notified this RN that pt was not responding verbally or not moving at bedside. I entered room attempted to speak to pt, pt did open eyes briefly and noted pt did squeeze my hand. BP 115/56 pulse 60 resp 16, Pulse ox 95% on room
air. After about 15 minutes pt more awake and verbalizing. Pt did attempt to get OOB self. I assisted pt back in bed. DR. Ramos and DR. Oh notified.
--- NOTE | 2024-07-22 13:30 | W.PN.UPDATE ---
Update Note
Progress Note Update
patient has unfortunately reverted back to his non communicative state. he was at his baseline yesterday. this grant writer and nursing tried to get him to respond to no avail. will discuss with dr patricia. considering putting in an iv and increasing
ativan to 1 mg qid on the supposition that this is some version of depression/psychosis/catatonia and that perhaps his + response to ativan /risperdal combination has now worn off. he is at this point not able to take po. will wait until dr
belem sees him later today.
[2024-07-22 15:00] VITALS: BP 138/68
--- NOTE | 2024-07-22 15:38 | W.PN.HOSP.TC ---
Today's Communication/Plan
-
Noted with improvement of mental status and affect with introduction of Risperdal and standing dose of lorazepam. With recurrent episode again today on 07/22. He remains hemodynamically stable and nontoxic-appearing otherwise. Seen shortly after
this episode while ' waking up', remains with flat affect weak voice and no particular complaints. Will discuss with psychiatry for further options including medication adjustment possibly increasing dose of benzodiazepines
Patient's power of defense attorney has been updated over the phone today.
Assessment / Plan
Assessment / Plan
#Altered mental status
#Intermittent unresponsive states
-Concern for catatonia/psychiatric process; neurologic workup unremarkable; metabolic workup unyielding; no signs of infection
-No focal deficits on exam; has had intermittent episodes of unresponsiveness, other times where he communicates
-Recent psychiatric assessment including MoCa score was not consistent with dementia, possibly mild cognitive abnormalities.
-Patient is not on any sedative medications at home; states that he does have high anxiety at baseline
-Does have a history of medication overdoses
Unrevealing neurologic workup including EEG and MRI
07/18. Patient is alert awake and oriented. No focal neurologic findings on exam. Overall with flat affect and seems to be concerned only with bowel movement. He could not recall any episodes of unresponsiveness since admission. Nursing report
similar episodes day before which was self-limited. IV lorazepam had not been administered at that time
Hold further lorazepam.
07/20: Discussed with psychiatry
Unresponsive on the first evaluation later responding to ice applied to the face by psychiatry. At time of responsiveness gives her statement: 'I cannot believe', although with no clinical evidence of respiratory distress. Later back to
unresponsiveness. Concern for possible psychosis.
Noted with improvement of mental status and affect with introduction of Risperdal and standing dose of lorazepam. With recurrent episode again today on 07/22. He remains hemodynamically stable and nontoxic-appearing otherwise. Seen shortly after
this episode while ' waking up', remains with flat affect weak voice and no particular complaints. Will discuss with psychiatry for further options including medication adjustment possibly increasing dose of benzodiazepines
#Hypotension
-Most recent blood pressure 90/54 mmHg, likely hypovolemic with unresponsiveness at times
-Will hold lisinopril for now; consider holding carvedilol if BP remains low
Noted mild SIL with creatinine 1.5
Continue holding JUNIOR
IV fluids
Follow BMP.
#ASCVD
#Carotid stenosis/chronic right carotid occlusion
-Home regimen includes aspirin and high intensity statin
-No signs of any acute vascular phenomenon at this time
-Continued on home medications when alert enough to swallow
#Benign hypertension
-No known history of hypertensive systemic disease
-Home regimen includes carvedilol and lisinopril
-Blood pressure currently elevated
-IV hydralazine as needed
#CKD stage III
-Baseline creatinine 1.5 per previous labs in system
-Unclear etiology, may be related with diabetes and hypertension
-No chronic acidemia, anemia, BMD noted
-Home medications include lisinopril, monitor closely with CKD
-Trend BMP
#IDDM 2
-Home regimen includes Lantus 12 units nightly; most recent A1c 6%
-Possibly related with CKD, no known history of neuropath; likely retinopathy
-Due to mental state and reduced oral intake Lantus currently held
-Continue with ISS and Accu-Cheks for now
#BPH
-Monitor for retention
-Hold tamsulosin acutely
DVT Prophylaxis: Subcut Heparin
Diet: Regular when mental status permits
Code Status: Full
Anticipated Discharge: 24 - 48 hours
Subjective/Interval History
-
Date of Service: July 22, 2024
Objective Data
-
Vital Signs:
Vital Signs
Temp Pulse Resp BP Pulse Ox
97.6 F 78 18 116/60 96
07/21/24 23:05 07/21/24 23:05 07/21/24 23:05 07/21/24 23:05 07/21/24 23:05
I&O
07/21/24 07/22/24 07/23/24
06:59 06:59 06:59
Intake Total 240 / 240 960 / 1440 480 / 480
Output Total 1150 / 1150 900 / 1175 275 / 275
Balance -910 / -910 60 / 265 205 / 205
Physical Exam
-
General: Well Developed and No Apparent Distress
HEENT: Normocephalic, Atraumatic and Moist Mucous Membranes
Respiratory: Clear to Auscultation
Cardiac: Regular Rhythm and S1/S2; Negative Murmur, Rub or Gallop
GI: Soft, Nontender, Nondistended and Normal Bowel Sounds; Negative Organomegaly
Rectal: Deferred by Provider
Musculoskeletal: No Clubbing, No Cyanosis and No Edema
Skin: Negative Rash
Neuro: Nonfocal/Grossly Intact
--- NOTE | 2024-07-22 15:46 | W.PN.UPDATE ---
Update Note
Progress Note Update
returned to see patient this afternoon. he was awake and alert but confused. told me i had promised to come back and take him for a walk ...also told me a doctor took him and roommate and roommate's son last night for a stroll in a wheelchair. i
told him what had happened this morning and he said he just 'wanted to sleep'. i doubt this is or was the case but told him if that is what he wants he needs only to tell us and we will leave him alone. he was eating his meatloaf w enthusiasm. for
now will just monitor. i will order iv ativan . if there is another episode like this am we could try one mg to see how he responds.
[2024-07-22 18:11] LABS: Glucose - Point of Care 185 mg/dl (70-99)
[2024-07-22] MEDS: NOVOLOG FLEXPEN-LOW RESISTANCE 1 UNITS SC (18:19)
[2024-07-22 22:02] LABS: Glucose - Point of Care 167 mg/dl (70-99)
[2024-07-22 23:40] VITALS: BP 121/61
[2024-07-23 06:00] VITALS: BMI 29.8
[2024-07-23 07:30] VITALS: BP 148/77
[2024-07-23 07:45] LABS: Glucose - Point of Care 130 mg/dl (70-99)
[2024-07-23] MEDS: NOVOLOG FLEXPEN-LOW RESISTANCE SC ×2 (08:35→17:18)
[2024-07-23] MEDS: ATIVAN 1 MG PO ×3 (08:47→21:31)
[2024-07-23] MEDS: ASPIR LOW (ENTERIC COATED) 81 MG PO (08:47)
[2024-07-23] MEDS: ZOLOFT 75 MG PO (08:47)
[2024-07-23] MEDS: RISPERDAL 1 MG PO ×2 (08:47→20:38)
[2024-07-23] MEDS: CRESTOR 40 MG PO (08:47)
[2024-07-23] MEDS: VITAMIN D3 (cholecalciferol) 50 MCG PO (08:47)
[2024-07-23] MEDS: HEPARIN 5000 UNITS SC ×2 (08:47→17:19)
[2024-07-23] MEDS: HEPARIN SC (08:50)
[2024-07-23] MEDS: COREG 12.5 MG PO ×2 (08:55→20:38)
[2024-07-23] MEDS: PROTONIX 40 MG PO (11:36)
[2024-07-23 11:59] LABS: Glucose - Point of Care 201 mg/dl (70-99)
[2024-07-23 12:01] LABS: Blood Urea Nitrogen 25 mg/dl (9-20); Calcium 9.8 mg/dl (8.4-10.2); Carbon Dioxide 26 mmol/L (22-30); Chloride 101 mmol/L (98-107); Estimated Creatinine Clearance 57 ml/min; Glucose 236 mg/dl (70-99); Potassium 4.4 mmol/L (3.5-5.1); Sodium 136 mmol/L (135-145); eGFR > 60.00
[2024-07-23 12:07] LABS: Troponin I < 0.012 ng/ml
--- NOTE | 2024-07-23 12:19 | W.PN.HOSP.TC ---
Today's Communication/Plan
-
Medicines adjustment per psychiatry
Add PPI
Assessment / Plan
Assessment / Plan
78-year-old with altered mental status
Patient had his eyes closed but I asked him where he is [place] Then changed to that he was in the restroom. He told the nurse this morning that he has some heartburn symptoms no complaints to me regarding that.
Upset that his breakfast did not come for 3 hours after he ordered and that he cannot get hold of anybody.
Prefers to keep eyes closed.
CVS: S1-S2 normal
Chest: CTA B/L
Abdomen: Soft, NT / Bowel sounds present
Extremities: No edema
# Altered mental status with intermittent unresponsive states
Concern for catatonia/psychiatric process
Neurological workup unremarkable- including EEG and MRI
Metabolic workup unyielding and no signs of infection
Recent psychiatric assessment including MoCa score was not consistent with dementia, possibly mild cognitive abnormalities.
Patient is not on any sedative medications at home; states that he does have high anxiety at baseline
Does have a history of medication overdoses
'07/18. Patient is alert awake and oriented. No focal neurologic findings on exam. Overall with flat affect and seems to be concerned only with bowel movement. He could not recall any episodes of unresponsiveness since admission. Nursing report
similar episodes day before which was self-limited. IV lorazepam had not been administered at that time
Hold further lorazepam.
07/20: Discussed with psychiatry
Unresponsive on the first evaluation later responding to ice applied to the face by psychiatry. At time of responsiveness gives her statement: 'I cannot believe', although with no clinical evidence of respiratory distress. Later back to
unresponsiveness. Concern for possible psychosis.
Noted with improvement of mental status and affect with introduction of Risperdal and standing dose of lorazepam. With recurrent episode again today on 07/22. He remains hemodynamically stable and nontoxic-appearing otherwise. Seen shortly after
this episode while ' waking up', remains with flat affect weak voice and no particular complaints. '
Currently on Ativan 1 mg p.o. 3 times daily, 1 mg IV every 4 hours as needed, risperidone 1 mg p.o. twice daily, Zoloft 75 mg p.o. daily
Psychiatry managing medicines
# Gastritis- Add PPI. EKG sinus rhythm with PVCs. Troponin normal.
# Hypotension hold lisinopril
# Carotid stenosis and chronic right carotid occlusion-left carotid 43% -continue aspirin and statin
# Hypertension-blood pressure on the low side-normally takes Coreg 12.5 mg, lisinopril 20 mg as outpatient. Hold lisinopril secondary to hypotension
# ? CKD -hide CKD -creatinine 1.1 today
# Diabetes-hemoglobin A1c 6
outpatient regimen sees 12 units before meals and at bedtime-as per med list
Accu-Cheks and sliding scale coverage due to variable p.o. intake-sugars are stable
# Hyperlipidemia/atherosclerosis-continue statin
# Enlarged prostate-continue Flomax
# Diverticulosis
# Microscopic hematuria-outpatient follow-up
# DVT Prophylaxis-subcutaneous heparin
# Full code
Discussed with nursing at bedside
Anticipated Discharge: 24 - 48 hours
Subjective/Interval History
-
Date of Service: July 23, 2024
Objective Data
-
Labs:
Laboratory Results
07/23/24
11:28
Sodium 136
Potassium 4.4
Chloride 101
Carbon Dioxide 26
BUN 25 H
Creatinine 1.1
Glucose 236 H
Calcium 9.8
Vital Signs:
Vital Signs
Temp Pulse Resp BP Pulse Ox
97.8 F 76 18 148/77 96
07/23/24 07:30 07/23/24 08:55 07/23/24 07:30 07/23/24 08:55 07/23/24 07:30
I&O
07/22/24 07/23/24 07/24/24
06:59 06:59 06:59
Intake Total 960 / 1440 720 / 720
Output Total 900 / 1275 375 / 375
Balance 60 / 165 345 / 345
--- NOTE | 2024-07-23 13:36 | W.PN.UPDATE ---
Update Note
Progress Note Update
Psychiatry follow up. Chart reviewed. Concern for possible catatonic/depression/psychosis. Risperdal 1mg BID and Ativan 1mg TID added to zoloft 75mg daily on 07/20. It seems that patient showed initial response to this change but then returned to
possible catatonic state. Dr Ramos added an additional PRN Ativan 1mg IV order to see if he responds to it if presenting catatonic again.
At this time he is lying in bed. He is cooperative. Speech is impoverished and soft. He exhibits poverty of speech. He is oriented to self, month, his birthday. He states year is 2023. Per nursing oriented has been variable throughout the day.
Plan-continue current regimen for now and monitor clinical presentation closely. If presents catatonic, can try the IV Ativan PRN. Psychiatry will follow.
[2024-07-23] MEDS: NOVOLOG FLEXPEN-LOW RESISTANCE 2 UNITS SC (13:40)
[2024-07-23 15:00] VITALS: BP 140/70
[2024-07-23 16:37] LABS: Glucose - Point of Care 135 mg/dl (70-99)
[2024-07-23 22:04] LABS: Glucose - Point of Care 147 mg/dl (70-99)
[2024-07-23 23:00] VITALS: BP 120/61
[2024-07-24] MEDS: HEPARIN 5000 UNITS SC ×3 (02:03→17:29)
[2024-07-24 06:00] VITALS: BMI 29.1
[2024-07-24 07:30] VITALS: BP 160/80
[2024-07-24 07:30] LABS: Glucose - Point of Care 124 mg/dl (70-99)
[2024-07-24] MEDS: NOVOLOG FLEXPEN-LOW RESISTANCE SC (08:00)
[2024-07-24] MEDS: ZOLOFT 75 MG PO (08:01)
[2024-07-24] MEDS: PROTONIX 40 MG PO (08:01)
[2024-07-24] MEDS: ASPIR LOW (ENTERIC COATED) 81 MG PO (08:01)
[2024-07-24] MEDS: ATIVAN 1 MG PO (08:02)
[2024-07-24] MEDS: VITAMIN D3 (cholecalciferol) 50 MCG PO (08:02)
[2024-07-24] MEDS: CRESTOR 40 MG PO (08:02)
[2024-07-24] MEDS: RISPERDAL 1 MG PO ×2 (08:02→21:57)
[2024-07-24] MEDS: COREG 12.5 MG PO ×2 (09:18→22:05)
[2024-07-24 12:21] LABS: Glucose - Point of Care 198 mg/dl (70-99)
[2024-07-24] MEDS: NOVOLOG FLEXPEN-LOW RESISTANCE 1 UNITS SC ×2 (13:06→17:28)
[2024-07-24 15:08] VITALS: BP 119/59
--- NOTE | 2024-07-24 15:19 | W.PN.HOSP.TC ---
Today's Communication/Plan
-
Discharge planning
needs rehab
Assessment / Plan
Assessment / Plan
78-year-old with altered mental status
Patient was better today. He made eye contact and he also was able to answer questions for me. He thinks this is August 02, 2024. He is aware that he is at the hospital. Able to engage in some conversation. He thinks he is here because of his
dementia..
CVS: S1-S2 normal
Chest: CTA B/L
Abdomen: Soft, NT / Bowel sounds present
Extremities: No edema
# Altered mental status with intermittent unresponsive states
Concern for catatonia/psychiatric process
Neurological workup unremarkable- including EEG and MRI
Metabolic workup unyielding and no signs of infection
Recent psychiatric assessment including MoCa score was not consistent with dementia, possibly mild cognitive abnormalities.
Patient is not on any sedative medications at home; states that he does have high anxiety at baseline
Does have a history of medication overdoses
'07/18. Patient is alert awake and oriented. No focal neurologic findings on exam. Overall with flat affect and seems to be concerned only with bowel movement. He could not recall any episodes of unresponsiveness since admission. Nursing report
similar episodes day before which was self-limited. IV lorazepam had not been administered at that time
Hold further lorazepam.
07/20: Discussed with psychiatry
Unresponsive on the first evaluation later responding to ice applied to the face by psychiatry. At time of responsiveness gives her statement: 'I cannot believe', although with no clinical evidence of respiratory distress. Later back to
unresponsiveness. Concern for possible psychosis.
Noted with improvement of mental status and affect with introduction of Risperdal and standing dose of lorazepam. With recurrent episode again today on 07/22. He remains hemodynamically stable and nontoxic-appearing otherwise. Seen shortly after
this episode while ' waking up', remains with flat affect weak voice and no particular complaints. '
Currently on Ativan 1 mg p.o. 3 times daily, 1 mg IV every 4 hours as needed, risperidone 1 mg p.o. twice daily, Zoloft 75 mg p.o. daily
Psychiatry managing medicines
# Gastritis- Add PPI. EKG sinus rhythm with PVCs. Troponin normal.
# Hypotension hold lisinopril
# Carotid stenosis and chronic right carotid occlusion-left carotid 43% -continue aspirin and statin
# Hypertension-blood pressure on the low side-normally takes Coreg 12.5 mg, lisinopril 20 mg as outpatient. Hold lisinopril secondary to hypotension
# ? CKD -hide CKD -creatinine 1.1
# Diabetes-hemoglobin A1c 6
outpatient regimen sees 12 units before meals and at bedtime-as per med list
Accu-Cheks and sliding scale coverage due to variable p.o. intake-sugars are stable
# Hyperlipidemia/atherosclerosis-continue statin
# Enlarged prostate-continue Flomax
# Diverticulosis
# Microscopic hematuria-outpatient follow-up
# DVT Prophylaxis-subcutaneous heparin
# Full code
Discussed with nursing at bedside
Anticipated Discharge: Within 24 hours
Subjective/Interval History
-
Date of Service: July 24, 2024
Objective Data
-
Vital Signs:
Vital Signs
Temp Pulse Resp BP Pulse Ox
97.6 F 64 20 119/59 97
07/24/24 15:08 07/24/24 15:08 07/24/24 15:08 07/24/24 15:08 07/24/24 15:08
I&O
07/23/24 07/24/24 07/25/24
06:59 06:59 06:59
Intake Total 720 / 720 1320 / 1320
Output Total 375 / 375 1350 / 1350
Balance 345 / 345 -30 / -30
[2024-07-24 15:57] LABS: Glucose - Point of Care 198 mg/dl (70-99)
[2024-07-24] MEDS: ATIVAN PO ×2 (17:05→22:40)
[2024-07-24 21:00] LABS: Glucose - Point of Care 166 mg/dl (70-99)
[2024-07-24 21:56] VITALS: BP 153/77
[2024-07-24 23:11] VITALS: BP 147/69
[2024-07-25] MEDS: HEPARIN 5000 UNITS SC ×3 (01:35→16:17)
[2024-07-25 05:47] VITALS: BMI 28.9
[2024-07-25 07:00] VITALS: BP 133/70
[2024-07-25 07:10] LABS: Glucose - Point of Care 130 mg/dl (70-99)
[2024-07-25] MEDS: NOVOLOG FLEXPEN-LOW RESISTANCE SC ×2 (07:53→17:10)
[2024-07-25] MEDS: ASPIR LOW (ENTERIC COATED) 81 MG PO (09:13)
[2024-07-25] MEDS: COREG 12.5 MG PO ×2 (09:14→21:31)
[2024-07-25] MEDS: ATIVAN 1 MG PO ×3 (09:14→21:32)
[2024-07-25] MEDS: CRESTOR 40 MG PO (09:14)
[2024-07-25] MEDS: RISPERDAL 1 MG PO ×2 (09:15→21:32)
[2024-07-25] MEDS: ZOLOFT 75 MG PO (09:15)
[2024-07-25] MEDS: PROTONIX 40 MG PO (09:15)
[2024-07-25] MEDS: VITAMIN D3 (cholecalciferol) 50 MCG PO (09:15)
[2024-07-25 09:17] LABS: Hematocrit 36.8 % (39.0-52.0); Hemoglobin 13.2 g/dL (13.0-18.0); Mean Corp Hgb Conc. 35.9 g/dL (33.0-37.0); Mean Corpuscular Hgb 31.7 pg (27.0-31.0); Mean Corpuscular Volume 88.5 fL (80.0-94.0); Mean Platelet Volume 9.9 fL (7.4-10.4); Platelet Count 217 10^3/uL (130-400); Red Blood Cell Count 4.16 10^6/uL (4.70-6.10); Red Cell Dist. Width 14.3 % (11.5-14.5); White Blood Cell Count 8.6 10^3/uL (4.8-10.8)
[2024-07-25 10:09] LABS: Blood Urea Nitrogen 26 mg/dl (9-20); Calcium 9.8 mg/dl (8.4-10.2); Carbon Dioxide 24 mmol/L (22-30); Chloride 103 mmol/L (98-107); Estimated Creatinine Clearance 48 ml/min; Glucose 124 mg/dl (70-99); Potassium 4.6 mmol/L (3.5-5.1); Sodium 136 mmol/L (135-145); eGFR 55.53
[2024-07-25 11:59] LABS: Glucose - Point of Care 187 mg/dl (70-99)
[2024-07-25] MEDS: NOVOLOG FLEXPEN-LOW RESISTANCE 1 UNITS SC (12:26)
--- NOTE | 2024-07-25 14:42 | CM ---
distributor sales manager reviewed patient's chart and met with patient and per patient's friend Cathy plan is for patient to return to [facility] at discharge, nurse case manager reached out to Cathy and left message with physical therapy recommendations.
Plan; Await outcome of discussion with patient's friend, Cathy.
[2024-07-25 15:00] VITALS: BP 114/65
--- NOTE | 2024-07-25 15:59 | W.PN.HOSP.TC ---
Today's Communication/Plan
-
Maintain current dose of Risperdal and lorazepam.
Monitor for recurrent catatonic episodes.
Discharge planning
Assessment / Plan
Assessment / Plan
78-year-old with altered mental status
Patient was better today. He made eye contact and he also was able to answer questions for me. He thinks this is August 02, 2024. He is aware that he is at the hospital. Able to engage in some conversation. He thinks he is here because of his
dementia..
CVS: S1-S2 normal
Chest: CTA B/L
Abdomen: Soft, NT / Bowel sounds present
Extremities: No edema
# Altered mental status with intermittent unresponsive states
Concern for catatonia/psychiatric process
Neurological workup unremarkable- including EEG and MRI
Metabolic workup unyielding and no signs of infection
Recent psychiatric assessment including MoCa score was not consistent with dementia, possibly mild cognitive abnormalities.
Patient is not on any sedative medications at home; states that he does have high anxiety at baseline
Does have a history of medication overdoses
'07/18. Patient is alert awake and oriented. No focal neurologic findings on exam. Overall with flat affect and seems to be concerned only with bowel movement. He could not recall any episodes of unresponsiveness since admission. Nursing report
similar episodes day before which was self-limited. IV lorazepam had not been administered at that time
Hold further lorazepam.
07/20: Discussed with psychiatry
Unresponsive on the first evaluation later responding to ice applied to the face by psychiatry. At time of responsiveness gives her statement: 'I cannot believe', although with no clinical evidence of respiratory distress. Later back to
unresponsiveness. Concern for possible psychosis.
Noted with improvement of mental status and affect with introduction of Risperdal and standing dose of lorazepam. With recurrent episode again today on 07/22. He remains hemodynamically stable and nontoxic-appearing otherwise. Seen shortly after
this episode while ' waking up', remains with flat affect weak voice and no particular complaints. '
Currently on Ativan 1 mg p.o. 3 times daily, 1 mg IV every 4 hours as needed, risperidone 1 mg p.o. twice daily, Zoloft 75 mg p.o. daily
Psychiatry managing medicines
# Gastritis- Add PPI. EKG sinus rhythm with PVCs. Troponin normal.
# Hypotension hold lisinopril
# Carotid stenosis and chronic right carotid occlusion-left carotid 43% -continue aspirin and statin
# Hypertension-blood pressure on the low side-normally takes Coreg 12.5 mg, lisinopril 20 mg as outpatient. Hold lisinopril secondary to hypotension
# ? CKD -hide CKD -creatinine 1.1
# Diabetes-hemoglobin A1c 6
outpatient regimen sees 12 units before meals and at bedtime-as per med list
Accu-Cheks and sliding scale coverage due to variable p.o. intake-sugars are stable
# Hyperlipidemia/atherosclerosis-continue statin
# Enlarged prostate-continue Flomax
# Diverticulosis
# Microscopic hematuria-outpatient follow-up
# DVT Prophylaxis-subcutaneous heparin
# Full code
Discussed with nursing at bedside
Anticipated Discharge: Within 24 hours
Subjective/Interval History
-
Date of Service: July 25, 2024
Objective Data
-
Labs:
Laboratory Results
07/25/24
08:45
WBC 8.6
Hgb 13.2
Hct 36.8 L
Plt Count 217
Sodium 136
Potassium 4.6
Chloride 103
Carbon Dioxide 24
BUN 26 H
Creatinine 1.3
Glucose 124 H
Calcium 9.8
Vital Signs:
Vital Signs
Temp Pulse Resp BP Pulse Ox
98.2 F 74 20 114/65 95
07/25/24 15:00 07/25/24 15:00 07/25/24 15:00 07/25/24 15:00 07/25/24 15:00
I&O
07/24/24 07/25/24 07/26/24
06:59 06:59 06:59
Intake Total 1320 / 1320 600 / 600
Output Total 1350 / 1350 350 / 350
Balance -30 / -30 250 / 250
Physical Exam
-
General: Well Developed and No Apparent Distress
HEENT: Normocephalic, Atraumatic and Moist Mucous Membranes
Respiratory: Clear to Auscultation
Cardiac: Regular Rhythm and S1/S2; Negative Murmur, Rub or Gallop
GI: Soft, Nontender, Nondistended and Normal Bowel Sounds; Negative Organomegaly
Rectal: Deferred by Provider
Musculoskeletal: No Clubbing, No Cyanosis and No Edema
Skin: Negative Rash
Neuro: Nonfocal/Grossly Intact
[2024-07-25 16:36] LABS: Glucose - Point of Care 148 mg/dl (70-99)
[2024-07-25 21:05] LABS: Glucose - Point of Care 162 mg/dl (70-99)
[2024-07-25 23:09] VITALS: BP 110/57
[2024-07-26] MEDS: HEPARIN 5000 UNITS SC ×3 (00:11→16:27)
[2024-07-26 06:00] VITALS: BMI 28.8
[2024-07-26 07:30] LABS: Glucose - Point of Care 141 mg/dl (70-99)
[2024-07-26 07:35] VITALS: BP 136/74
[2024-07-26] MEDS: NOVOLOG FLEXPEN-LOW RESISTANCE SC ×2 (07:38→16:04)
[2024-07-26] MEDS: RISPERDAL 1 MG PO ×2 (09:13→20:46)
[2024-07-26] MEDS: CRESTOR 40 MG PO (09:13)
[2024-07-26] MEDS: ATIVAN 1 MG PO ×3 (09:13→21:39)
[2024-07-26] MEDS: COREG 12.5 MG PO ×2 (09:13→20:40)
[2024-07-26] MEDS: ASPIR LOW (ENTERIC COATED) 81 MG PO (09:13)
[2024-07-26] MEDS: PROTONIX 40 MG PO (09:13)
[2024-07-26] MEDS: ZOLOFT 75 MG PO (09:14)
[2024-07-26] MEDS: VITAMIN D3 (cholecalciferol) 50 MCG PO (09:14)
--- NOTE | 2024-07-26 11:14 | CM ---
post manager continues to follow with patient progress. Physical therapy evaluated patient and are recommending skilled placement. Patient's friend, Cathy wants patient to return to [facility] with physical therapy when stable, rn case management spoke
with Meryl at [facility] and she will be out today to evaluate patient between 3-4pm, and then make a decision, rn case management left message for Cathy with update.
Plan; Await evaluation from [facility] today between 3-4pm.
[2024-07-26 12:51] LABS: Glucose - Point of Care 203 mg/dl (70-99)
[2024-07-26] MEDS: NOVOLOG FLEXPEN-LOW RESISTANCE 2 UNITS SC (12:57)
[2024-07-26 15:32] VITALS: BP 104/64
[2024-07-26 16:01] LABS: Glucose - Point of Care 129 mg/dl (70-99)
--- NOTE | 2024-07-26 16:28 | W.PN.HOSP.TC ---
Today's Communication/Plan
-
Mental status improved with no recurrent unresponsive episodes over the last 48 hours.
Physical therapy assessment and discharge planning.
Assessment / Plan
Assessment / Plan
# Altered mental status with intermittent unresponsive states
Concern for catatonia/psychiatric process
Neurological workup unremarkable- including EEG and MRI
Metabolic workup unyielding and no signs of infection
Recent psychiatric assessment including MoCa score was not consistent with dementia, possibly mild cognitive abnormalities.
Patient is not on any sedative medications at home; states that he does have high anxiety at baseline
Does have a history of medication overdoses
Consideration of depression with psychotic features, catatonia
Currently on Ativan 1 mg p.o. 3 times daily, 1 mg IV every 4 hours as needed, risperidone 1 mg p.o. twice daily, Zoloft 75 mg p.o. daily
Psychiatry managing medicines
# Gastritis- Add PPI. EKG sinus rhythm with PVCs. Troponin normal.
# Hypotension hold lisinopril
# Carotid stenosis and chronic right carotid occlusion-left carotid 43% -continue aspirin and statin
# Hypertension-blood pressure on the low side-normally takes Coreg 12.5 mg, lisinopril 20 mg as outpatient. Hold lisinopril secondary to hypotension
# ? CKD -hide CKD -creatinine 1.1
# Diabetes-hemoglobin A1c 6
outpatient regimen sees 12 units before meals and at bedtime-as per med list
Accu-Cheks and sliding scale coverage due to variable p.o. intake-sugars are stable
# Hyperlipidemia/atherosclerosis-continue statin
# Enlarged prostate-continue Flomax
# Diverticulosis
# Microscopic hematuria-outpatient follow-up
# DVT Prophylaxis-subcutaneous heparin
# Full code
Discussed with nursing at bedside
Anticipated Discharge: 24 - 48 hours
Subjective/Interval History
-
Date of Service: July 26, 2024
Objective Data
-
Vital Signs:
Vital Signs
Temp Pulse Resp BP Pulse Ox
97.7 F 68 18 104/64 94
07/26/24 15:32 07/26/24 15:32 07/26/24 15:32 07/26/24 15:32 07/26/24 15:32
I&O
07/25/24 07/26/24 07/27/24
06:59 06:59 06:59
Intake Total 600 / 600 720 / 720
Output Total 350 / 350
Balance 250 / 250 720 / 720
Physical Exam
-
General: Well Developed and No Apparent Distress
HEENT: Normocephalic, Atraumatic and Moist Mucous Membranes
Respiratory: Clear to Auscultation
Cardiac: Regular Rhythm and S1/S2; Negative Murmur, Rub or Gallop
GI: Soft, Nontender, Nondistended and Normal Bowel Sounds; Negative Organomegaly
Rectal: Deferred by Provider
Musculoskeletal: No Clubbing, No Cyanosis and No Edema
Skin: Negative Rash
Neuro: Nonfocal/Grossly Intact
[2024-07-26 20:52] LABS: Glucose - Point of Care 232 mg/dl (70-99)
[2024-07-26] MEDS: SENOKOT-S 1 TABLET PO (21:39)
[2024-07-26 23:30] VITALS: BP 127/59
[2024-07-27] MEDS: HEPARIN 5000 UNITS SC ×3 (00:20→17:42)
--- NOTE | 2024-07-27 04:26 | DOWNTIME ---
There was a [employer] Client [employer] Downtime on 07/27/2024 from 0100 to 07/28/2023 at 0420 . Downtime documentation of patient's care, including medication administrations, has been reconciled in the electronic record per guidelines. Refer to the
patient's paper chart under the miscellaneous tab to see printed paper medication records and downtime forms.
[2024-07-27 05:57] VITALS: BMI 28.6
[2024-07-27 06:45] VITALS: BP 142/71
[2024-07-27 06:59] LABS: Glucose - Point of Care 121 mg/dl (70-99)
[2024-07-27] MEDS: NOVOLOG FLEXPEN-LOW RESISTANCE SC ×2 (07:26→16:45)
[2024-07-27] MEDS: ZOLOFT 75 MG PO (09:02)
[2024-07-27] MEDS: PROTONIX 40 MG PO (09:02)
[2024-07-27] MEDS: COREG 12.5 MG PO ×2 (09:02→21:22)
[2024-07-27] MEDS: RISPERDAL 1 MG PO ×2 (09:02→21:22)
[2024-07-27] MEDS: VITAMIN D3 (cholecalciferol) 50 MCG PO (09:03)
[2024-07-27] MEDS: ASPIR LOW (ENTERIC COATED) 81 MG PO (09:03)
[2024-07-27] MEDS: SENOKOT-S 1 TABLET PO ×2 (09:03→21:21)
[2024-07-27] MEDS: CRESTOR 40 MG PO (09:03)
[2024-07-27] MEDS: ATIVAN 1 MG PO (09:03)
--- NOTE | 2024-07-27 11:41 | W.PN.UPDATE ---
Update Note
Progress Note Update
patient seen chart reviewed. patient was interactive but he also appeared a bit sedated or dazed today. he complained of urinary dribbling and that bed was wet apprised nsg. will let dr patricia know may need urology consult. discussed w patient
that he seemed slowed although able to talk w me appropriately. will cut back the risperdal to total 1.5 mg daily beginning tomorrow and ativan to o.5 mg tid. of course there is risk that unresponsiveness could recur but on the other hand he might
be more interactive if not sedated. will follow
[2024-07-27 12:06] LABS: Glucose - Point of Care 222 mg/dl (70-99)
[2024-07-27] MEDS: NOVOLOG FLEXPEN-LOW RESISTANCE 2 UNITS SC (13:03)
--- NOTE | 2024-07-27 13:38 | W.PN.HOSP.TC ---
Today's Communication/Plan
-
Monitor for recurrent episodes of unresponsiveness with reduced dose of Risperdal and lorazepam.
Check UA and reflex to culture (had been incontinent)
Start metformin. Has been close to euglycemc of standing dose of insulin since this admission
[facility] at [facility]
Assessment / Plan
Assessment / Plan
# Altered mental status with intermittent unresponsive states
Concern for catatonia/psychiatric process
Neurological workup unremarkable- including EEG and MRI
Metabolic workup unyielding and no signs of infection
Recent psychiatric assessment including MoCa score was not consistent with dementia, possibly mild cognitive abnormalities.
Patient is not on any sedative medications at home; states that he does have high anxiety at baseline
Does have a history of medication overdoses
Consideration of depression with psychotic features, catatonia
No recurrent episodes of unresponsiveness at least for the last 3 to 4 days. Discussed with psychiatry. Patient seems to be oversedated, although interactive and appropriate. Regimen has been adjusted with reduction of lorazepam and Risperdal
dose.
Urinary incontinence
Afebrile
No urinary complaints
Will check UA and reflex to culture
# Gastritis- Add PPI. EKG sinus rhythm with PVCs. Troponin normal.
# Hypotension hold lisinopril
# Carotid stenosis and chronic right carotid occlusion-left carotid 43% -continue aspirin and statin
# Hypertension-blood pressure on the low side-normally takes Coreg 12.5 mg, lisinopril 20 mg as outpatient. Hold lisinopril secondary to hypotension
# ? CKD -hide CKD -creatinine 1.1
# Diabetes-hemoglobin A1c 6
Oral intake reduced due to cognitive issues.
Has not been on standing dose of insulin since admission.
Serial blood glucose readings close to euglycemia.
Will hold standing dose of insulin for now.
Start metformin
# Hyperlipidemia/atherosclerosis-continue statin
# Enlarged prostate-continue Flomax
# Diverticulosis
# Microscopic hematuria-outpatient follow-up
# DVT Prophylaxis-subcutaneous heparin
# Full code
Anticipated Discharge: Within 24 hours
Subjective/Interval History
-
Date of Service: July 27, 2024
Objective Data
-
Vital Signs:
Vital Signs
Temp Pulse Resp BP Pulse Ox
97.3 F 65 16 142/71 95
07/27/24 06:45 07/27/24 06:45 07/27/24 06:45 07/27/24 06:45 07/27/24 08:00
I&O
07/26/24 07/27/24 07/28/24
06:59 06:59 06:59
Intake Total 960 / 960
Balance 960 / 960
Physical Exam
-
General: Well Developed and No Apparent Distress
HEENT: Normocephalic, Atraumatic and Moist Mucous Membranes
Respiratory: Clear to Auscultation
Cardiac: Regular Rhythm and S1/S2; Negative Murmur, Rub or Gallop
GI: Soft, Nontender, Nondistended and Normal Bowel Sounds; Negative Organomegaly
Rectal: Deferred by Provider
Musculoskeletal: No Clubbing, No Cyanosis and No Edema
Skin: Negative Rash
Neuro: Nonfocal/Grossly Intact
[2024-07-27 14:24] VITALS: BP 138/72; PULSE 68
--- NOTE | 2024-07-27 15:08 | CM ---
stakeholder manager spoke with Meryl gibson [facility] and they are requesting that patient go to a skilled facility, options reviewed and they have selected [facility], [facility] and [facility], referrals sent to these facilities through
[employer].
Plan; Skilled placement.
[2024-07-27 15:36] VITALS: BP 115/71
[2024-07-27] MEDS: ATIVAN 0.5 MG PO ×2 (15:43→21:21)
[2024-07-27 16:42] LABS: Glucose - Point of Care 147 mg/dl (70-99)
[2024-07-27] MEDS: GLUCOPHAGE 500 MG PO (17:42)
[2024-07-27 19:13] VITALS: BP 141/72; PULSE 64; O2SAT 99
[2024-07-27 21:58] LABS: Urine Albumin Negative (Neg - Trace); Urine Bilirubin Negative (Negative); Urine Character Clear (Clear); Urine Color Yellow; Urine Glucose Negative (Negative); Urine Ketone Negative (Negative); Urine Leukocyte Negative (Negative); Urine Nitrite Negative (Negative); Urine Occult Blood Negative (Negative); Urine Urobilinogen Negative (Neg - 1+)
[2024-07-27 22:35] LABS: Glucose - Point of Care 165 mg/dl (70-99)
[2024-07-27 23:13] VITALS: BP 129/61
[2024-07-28 05:58] VITALS: BMI 28.9
[2024-07-28 07:46] VITALS: BP 139/71
[2024-07-28] MEDS: NOVOLOG FLEXPEN-LOW RESISTANCE SC ×2 (08:48→16:49)
[2024-07-28] MEDS: HEPARIN 5000 UNITS SC ×3 (08:49→16:46)
[2024-07-28] MEDS: ASPIR LOW (ENTERIC COATED) 81 MG PO (08:49)
[2024-07-28] MEDS: COREG 12.5 MG PO ×2 (08:49→20:33)
[2024-07-28] MEDS: VITAMIN D3 (cholecalciferol) 50 MCG PO (08:50)
[2024-07-28] MEDS: ZESTRIL 20 MG PO (08:50)
[2024-07-28] MEDS: CRESTOR 40 MG PO (08:50)
[2024-07-28] MEDS: ATIVAN 0.5 MG PO ×3 (08:50→21:10)
[2024-07-28] MEDS: RISPERDAL 0.5 MG PO (08:50)
[2024-07-28] MEDS: ZOLOFT 75 MG PO (08:51)
[2024-07-28] MEDS: SENOKOT-S 1 TABLET PO ×2 (08:51→20:37)
[2024-07-28] MEDS: PROTONIX 40 MG PO (08:51)
[2024-07-28] MEDS: GLUCOPHAGE 500 MG PO ×2 (08:51→16:46)
[2024-07-28 10:00] LABS: Glucose - Point of Care 166 mg/dl (70-99)
--- NOTE | 2024-07-28 10:18 | CM ---
Addendum entered by Cynthia Nunez 07/28/24 15:39:
Per Mendon at [facility] unless patient is doing much better in physical therapy they will not accept patient back, patient did not use DME at their facility per Meryl. At this time hospice case manager to proceed with [facility] all paperwork has been
signed and sent to [facility], .
Addendum entered by Cynthia Nunez 07/28/24 12:10:
distribution sales manager spoke with physician and they would like updated physical therapy notes completed on patient. They would like patient to return to [facility] at discharge.
Original Note:
distribution sales manager reviewed patient's chart and reviewed previous admissions and diagnosis and in order for patient to go to a skilled facility he needs an evaluation from [facility]/mission hospital before he can be transferred, patient has been at [facility] last month for 9 days on a 302, all paperwork needs to be submitted to the [facility] and they will come to [facility] to evaluate, hospice case manager spoke with Quinn in admissions at [facility] and they will accept him once state
evaluation has been completed.
Plan; All paperwork will be submitted to [facility] and then state.
--- NOTE | 2024-07-28 10:23 | W.PN.UPDATE ---
Addendum entered and electronically signed by Mishel Ramos MD 07/28/24 16:16:
spoke to friend jacklyn who is his contact and explained to her why the delay in his discharge .she agrees he is back to himself and she is anxious for dc.
Addendum entered and electronically signed by Mishel Ramos MD 07/28/24 12:20:
spoke with cm. [facility] the senior care where patient resides came to see him early this week and felt he was not ready. asked cm to have them reassess and in the meantime have pt check in w patient to see if how he is progressing. i would hate
to see a long wait for dc to [facility] if that can be avoided.
Original Note:
Update Note
Progress Note Update
patient seen chart reviewed. mr benavides looks quite better this am. he was more awake and alert. he was eating his breakfast with gusto and had on headphones to enable him to watch 'spider man'. he feels more alert and awake since the decrease in
ativan and risperdal. he would like to be on the way home. it seems to me that we can start making preparations for dc. noted ua relflex to culture ordered. ua was clear. he is aware of need to followup with urology re prostate issues after dc.
will seek out cm to see what is going on re return to his placement.
--- NOTE | 2024-07-28 11:47 | PN.CDI ---
Addendum entered and electronically signed by Blaise Oh MD 07/29/24 09:49:
CKD stage III with baseline creatinine 1.5.
Continue lisinopril with caution monitor renal function
Original Note:
CDI
- -
CDI:
Physician Documentation Request
Admit Date: 07/22/24 15:37
Dear Doctor Adriano,
Patient admitted with evaluation of altered mental state.
Creatinine results:
Laboratory Tests
07/14/24 07/16/24 07/17/24
20:26 06:45 06:29
Creatinine 1.7 H 1.3 1.5 H
07/23/24 07/25/24
11:28 08:45
Creatinine 1.1 1.3
Could you provide a diagnosis that supports the above lab abnormalities and additional evaluation, monitoring:
SIL
Abnormal lab value clinically insignificant
Other
Criteria for SIL*
1 Increase in serum creatinine by > or = to 0.3 mg/dL (> or = to 26.5 micromol/L) within 48 hours, OR
2 Increase in serum creatinine to > or = to 1.5 times baseline, which is known or presumed to have occurred within 7 days, OR
3 Urine volume < 0.5 nL/kg/hour for six hours
Use of terms such as suspected, likely, concern for, or probable (associated with a specific diagnosis that is being evaluated, monitored, or treated as if it exists) are acceptable and can be coded in the inpatient setting, when documented at the
time of discharge.
Thank you,
Maggie Coleman RN, BSN
CDI Specialist
tiger text
Please use your independent medical judgment in providing your response.
[2024-07-28 13:08] LABS: Glucose - Point of Care 254 mg/dl (70-99)
[2024-07-28] MEDS: NOVOLOG FLEXPEN-LOW RESISTANCE 3 UNITS SC (13:20)
[2024-07-28 15:00] VITALS: BP 103/51
--- NOTE | 2024-07-28 15:07 | W.PN.HOSP.TC ---
Today's Communication/Plan
-
Psychiatric status remains compensated well with Risperdal and lorazepam.
Physical therapy evaluation and treatment.
Disposition efforts
Assessment / Plan
Assessment / Plan
# Altered mental status with intermittent unresponsive states
Concern for catatonia/psychiatric process
Neurological workup unremarkable- including EEG and MRI
Metabolic workup unyielding and no signs of infection
Recent psychiatric assessment including MoCa score was not consistent with dementia, possibly mild cognitive abnormalities.
Patient is not on any sedative medications at home; states that he does have high anxiety at baseline
Does have a history of medication overdoses
Consideration of depression with psychotic features, catatonia
No recurrent episodes of unresponsiveness at least for the last 3 to 4 days. Discussed with psychiatry. Patient seems to be oversedated, although interactive and appropriate. Regimen has been adjusted with reduction of lorazepam and Risperdal
dose.
Urinary incontinence
Afebrile
No urinary complaints
Will check UA and reflex to culture
# Gastritis- Add PPI. EKG sinus rhythm with PVCs. Troponin normal.
# Hypotension hold lisinopril
# Carotid stenosis and chronic right carotid occlusion-left carotid 43% -continue aspirin and statin
# Hypertension-blood pressure on the low side-normally takes Coreg 12.5 mg, lisinopril 20 mg as outpatient. Hold lisinopril secondary to hypotension
# ? CKD -hide CKD -creatinine 1.1
# Diabetes-hemoglobin A1c 6
Oral intake reduced due to cognitive issues.
Has not been on standing dose of insulin since admission.
Serial blood glucose readings close to euglycemia.
Will hold standing dose of insulin for now.
Start metformin
# Hyperlipidemia/atherosclerosis-continue statin
# Enlarged prostate-continue Flomax
# Diverticulosis
# Microscopic hematuria-outpatient follow-up
# DVT Prophylaxis-subcutaneous heparin
# Full code
Anticipated Discharge: Within 24 hours
Subjective/Interval History
-
Date of Service: July 28, 2024
Objective Data
-
Vital Signs:
Vital Signs
Temp Pulse Resp BP Pulse Ox
98.1 F 64 12 139/71 96
07/28/24 07:46 07/28/24 07:46 07/28/24 07:46 07/28/24 08:49 07/28/24 08:00
I&O
07/27/24 07/28/24 07/29/24
06:59 06:59 06:59
Intake Total 960 / 960 0 / 0
Balance 960 / 960 0 / 0
Physical Exam
-
General: Well Developed and No Apparent Distress
HEENT: Normocephalic, Atraumatic and Moist Mucous Membranes
Respiratory: Clear to Auscultation
Cardiac: Regular Rhythm and S1/S2; Negative Murmur, Rub or Gallop
GI: Soft, Nontender, Nondistended and Normal Bowel Sounds; Negative Organomegaly
Rectal: Deferred by Provider
Musculoskeletal: No Clubbing, No Cyanosis and No Edema
Skin: Negative Rash
Neuro: Nonfocal/Grossly Intact
[2024-07-28 16:46] VITALS: BP 78/45; BP 95/49; BP 96/46; PULSE 69; O2SAT 95
[2024-07-28 16:50] LABS: Glucose - Point of Care 131 mg/dl (70-99)
[2024-07-28] MEDS: RISPERDAL 1 MG PO (21:10)
[2024-07-28 22:22] LABS: Glucose - Point of Care 115 mg/dl (70-99)
[2024-07-28 23:01] VITALS: BP 105/59
[2024-07-29] MEDS: HEPARIN 5000 UNITS SC ×3 (00:36→16:37)
[2024-07-29 06:00] VITALS: BMI 28.8
[2024-07-29 07:25] VITALS: BP 120/60
[2024-07-29 07:33] LABS: Glucose - Point of Care 122 mg/dl (70-99)
[2024-07-29] MEDS: NOVOLOG FLEXPEN-LOW RESISTANCE SC ×2 (07:37→16:35)
[2024-07-29] MEDS: CRESTOR 40 MG PO (08:06)
[2024-07-29] MEDS: RISPERDAL 0.5 MG PO (08:07)
[2024-07-29] MEDS: ATIVAN 0.5 MG PO ×2 (08:07→22:09)
[2024-07-29] MEDS: PROTONIX 40 MG PO (08:07)
[2024-07-29] MEDS: COREG 12.5 MG PO ×2 (08:07→22:16)
[2024-07-29] MEDS: ZOLOFT 75 MG PO (08:07)
[2024-07-29] MEDS: ASPIR LOW (ENTERIC COATED) 81 MG PO (08:07)
[2024-07-29] MEDS: GLUCOPHAGE 500 MG PO ×2 (08:08→16:37)
[2024-07-29] MEDS: VITAMIN D3 (cholecalciferol) 50 MCG PO (08:08)
[2024-07-29] MEDS: SENOKOT-S 1 TABLET PO ×2 (08:08→22:09)
[2024-07-29] MEDS: ZESTRIL 20 MG PO (08:08)
--- NOTE | 2024-07-29 11:06 | CM ---
annual greenhouse manager continues to follow with patient progress notes, physical therapy are still recommending skilled placement, per physicians they would prefer that patient return to [facility] at discharge. Meryl in admissions at
[facility] wants skilled placement for patient. annual greenhouse manager reached out to [facility]. and [facility] in process, caser spoke with Janeen at [facility] this morning, FED Assessment Request submitted, along with MA51, 2 forms completed to
release information to [facility], and [facility] along with H&P, med list, psychiatry evaluation, PT/OT notes, also submitted. annual greenhouse manager will wait on [facility] to schedule a time for them to come to the hospital to evaluate patient.
Plan; [facility] skilled placement.
--- NOTE | 2024-07-29 11:55 | W.PN.UPDATE ---
Update Note
Progress Note Update
patient seen chart reviewed. discussed with nursing. nursing felt patient was doing quite well. he is getting up on his own to br using walker. he is keeping self occupied during the day time watching shows. he and i talked about the snafu that is
keeping him here. need for 'level one' for admit to snf and his residence feeling he is not agile enough to return at this point. he did seem a little tired and said morning meds may be tiring him. we talked about cutting ativan to bid then
tapering off in the near future. spoke with jacklyn, patient's friend, who knows dave kerns who is actually going to visit patient in the next few days. patient is interested to meet him! psych will check in w him in the am to make sure no negatives
from decrease in ativan .
[2024-07-29 11:57] LABS: Glucose - Point of Care 197 mg/dl (70-99)
[2024-07-29] MEDS: NOVOLOG FLEXPEN-LOW RESISTANCE 1 UNITS SC (12:10)
--- NOTE | 2024-07-29 14:05 | CM ---
Call placed to Janeen Byrnes at [facility]. She stated someone would be out from their office on this coming 08/01/24 to complete the Level 2 Assessment. Update to DAVE .
[2024-07-29 14:10] VITALS: BP 82/45; BP 94/49; BP 95/44; BP 98/51
--- NOTE | 2024-07-29 14:26 | W.PN.HOSP.TC ---
Today's Communication/Plan
-
Continue current psychiatric regimen.
Continue supportive care
Physical therapy evaluation.
Pending placement to [facility] facility.
Assessment / Plan
Assessment / Plan
# Altered mental status with intermittent unresponsive states
Concern for catatonia/psychiatric process
Neurological workup unremarkable- including EEG and MRI
Metabolic workup unyielding and no signs of infection
Recent psychiatric assessment including MoCa score was not consistent with dementia, possibly mild cognitive abnormalities.
Patient is not on any sedative medications at home; states that he does have high anxiety at baseline
Does have a history of medication overdoses
Consideration of depression with psychotic features, catatonia
No recurrent episodes of unresponsiveness at least for the last 3 to 4 days. Discussed with psychiatry. Patient seems to be oversedated, although interactive and appropriate. Regimen has been adjusted with reduction of lorazepam and Risperdal
dose.
Urinary incontinence
Afebrile
No urinary complaints
Will check UA and reflex to culture
# Gastritis- Add PPI. EKG sinus rhythm with PVCs. Troponin normal.
# Hypotension hold lisinopril
# Carotid stenosis and chronic right carotid occlusion-left carotid 43% -continue aspirin and statin
# Hypertension-blood pressure on the low side-normally takes Coreg 12.5 mg, lisinopril 20 mg as outpatient. Hold lisinopril secondary to hypotension
# ? CKD-creatinine 1.1
# Diabetes-hemoglobin A1c 6
Oral intake reduced due to cognitive issues.
Has not been on standing dose of insulin since admission.
Serial blood glucose readings close to euglycemia.
Will hold standing dose of insulin for now.
Continue metformin
# Hyperlipidemia/atherosclerosis-continue statin
# Enlarged prostate-continue Flomax
# Diverticulosis
# Microscopic hematuria-outpatient follow-up
# DVT Prophylaxis-subcutaneous heparin
# Full code
Anticipated Discharge: 24 - 48 hours
Subjective/Interval History
-
Date of Service: July 29, 2024
Objective Data
-
Vital Signs:
Vital Signs
Temp Pulse Resp BP Pulse Ox
98.1 F 68 18 120/60 98
07/29/24 07:25 07/29/24 07:25 07/29/24 07:25 07/29/24 07:25 07/29/24 08:00
I&O
07/28/24 07/29/24 07/30/24
06:59 06:59 06:59
Intake Total 0 / 0 960 / 960
Output Total 450 / 450
Balance 0 / 0 510 / 510
Physical Exam
-
General: Well Developed and No Apparent Distress
HEENT: Normocephalic, Atraumatic and Moist Mucous Membranes
Respiratory: Clear to Auscultation
Cardiac: Regular Rhythm and S1/S2; Negative Murmur, Rub or Gallop
GI: Soft, Nontender, Nondistended and Normal Bowel Sounds; Negative Organomegaly
Rectal: Deferred by Provider
Musculoskeletal: No Clubbing, No Cyanosis and No Edema
Skin: Negative Rash
Neuro: Nonfocal/Grossly Intact
--- NOTE | 2024-07-29 14:57 | PTCARENOTE ---
Pt seen by PT/OT and his vitals was 95/60 and then dipped down even lower to the 80's when standing. The pt asked PT to go for a walk and PT had declined because of his dropping blood pressure. We did get the pt up into the bathroom and into the
chair. Will continue to monitor blood pressure, and if it gets better, will take him for a walk.
[2024-07-29 15:32] VITALS: BP 105/54
[2024-07-29 16:32] LABS: Glucose - Point of Care 135 mg/dl (70-99)
[2024-07-29] MEDS: RISPERDAL 1 MG PO (22:09)
[2024-07-29 22:28] LABS: Glucose - Point of Care 119 mg/dl (70-99)
[2024-07-30] MEDS: HEPARIN 5000 UNITS SC ×3 (01:44→16:31)
[2024-07-30 06:00] VITALS: BMI 29.0
[2024-07-30] MEDS: ASPIR LOW (ENTERIC COATED) 81 MG PO (07:50)
[2024-07-30] MEDS: PROTONIX 40 MG PO (07:51)
[2024-07-30] MEDS: ZOLOFT 75 MG PO (07:51)
[2024-07-30] MEDS: CRESTOR 40 MG PO (07:51)
[2024-07-30] MEDS: SENOKOT-S 1 TABLET PO ×2 (07:51→20:13)
[2024-07-30] MEDS: VITAMIN D3 (cholecalciferol) 50 MCG PO (07:51)
[2024-07-30] MEDS: ZESTRIL 20 MG PO (07:51)
[2024-07-30] MEDS: GLUCOPHAGE 500 MG PO ×2 (07:51→16:31)
[2024-07-30] MEDS: ATIVAN 0.5 MG PO ×2 (07:52→20:13)
[2024-07-30] MEDS: COREG 12.5 MG PO ×2 (07:52→20:22)
[2024-07-30] MEDS: RISPERDAL 0.5 MG PO (07:52)
[2024-07-30 07:59] VITALS: BP 131/69
[2024-07-30 08:08] LABS: Glucose - Point of Care 105 mg/dl (70-99)
[2024-07-30] MEDS: NOVOLOG FLEXPEN-LOW RESISTANCE SC ×2 (08:27→16:33)
[2024-07-30 12:12] LABS: Glucose - Point of Care 166 mg/dl (70-99)
--- NOTE | 2024-07-30 13:06 | W.PN.HOSP.TC ---
Today's Communication/Plan
-
pending disposition
Assessment / Plan
Assessment / Plan
# Altered mental status with intermittent unresponsive states
Concern for catatonia/psychiatric process
Neurological workup unremarkable- including EEG and MRI
Metabolic workup unyielding and no signs of infection
Recent psychiatric assessment including MoCa score was not consistent with dementia, possibly mild cognitive abnormalities.
Patient is not on any sedative medications at home; states that he does have high anxiety at baseline
Does have a history of medication overdoses
Consideration of depression with psychotic features, catatonia
No recurrent episodes of unresponsiveness at least for the last 3 to 4 days. Discussed with psychiatry. Patient seems to be oversedated, although interactive and appropriate. Regimen has been adjusted with reduction of lorazepam and Risperdal
dose.
#Urinary incontinence
some urinary incontinence
UA clear
# Gastritis- Add PPI. EKG sinus rhythm with PVCs. Troponin normal.
# Hypotension hold lisinopril
# Carotid stenosis and chronic right carotid occlusion-left carotid 43% -continue aspirin and statin
# Hypertension-blood pressure on the low side-normally takes Coreg 12.5 mg, lisinopril 20 mg as outpatient. Hold lisinopril secondary to hypotension
# ? CKD-creatinine 1.1
# Diabetes-hemoglobin A1c 6
Oral intake reduced due to cognitive issues.
Has not been on standing dose of insulin since admission.
Serial blood glucose readings close to euglycemia.
Will hold standing dose of insulin for now.
Continue metformin
# Hyperlipidemia/atherosclerosis-continue statin
# Enlarged prostate-continue Flomax
# Diverticulosis
# Microscopic hematuria-outpatient follow-up
# Constipation - miralax added to regimen
DVT Prophylaxis-subcutaneous heparin
Full code
Anticipated Discharge: Within 24 hours
Subjective/Interval History
-
Date of Service: July 30, 2024
no complains overnight
Objective Data
-
Vital Signs:
Vital Signs
Temp Pulse Resp BP Pulse Ox
98.1 F 66 18 131/69 96
07/30/24 07:59 07/30/24 07:59 07/30/24 07:59 07/30/24 07:59 07/30/24 07:59
I&O
07/29/24 07/30/24 07/31/24
06:59 06:59 06:59
Intake Total 960 / 960 720 / 720
Output Total 450 / 450
Balance 510 / 510 720 / 720
Review of Systems
-
Respiratory: Reports No Symptoms
Cardiac: Reports No Symptoms
Abdomen/GI: Reports Constipated
Physical Exam
-
General: Negative Morbidly Obese
HEENT: Negative Oxygen
Neuro: Awake, Alert and Oriented
Psych: Calm
[2024-07-30] MEDS: NOVOLOG FLEXPEN-LOW RESISTANCE 1 UNITS SC (13:26)
[2024-07-30] MEDS: MIRALAX 17 GRAMS PO (15:08)
[2024-07-30 15:26] VITALS: BP 119/61
[2024-07-30 16:34] LABS: Glucose - Point of Care 136 mg/dl (70-99)
[2024-07-30] MEDS: RISPERDAL 1 MG PO (21:57)
[2024-07-30 22:00] LABS: Glucose - Point of Care 128 mg/dl (70-99)
[2024-07-30 23:21] VITALS: BP 116/55
[2024-07-31] MEDS: HEPARIN 5000 UNITS SC ×3 (02:03→17:39)
[2024-07-31 06:00] VITALS: BMI 28.8
[2024-07-31 07:00] VITALS: BP 126/64
[2024-07-31 07:44] LABS: Glucose - Point of Care 109 mg/dl (70-99)
[2024-07-31] MEDS: NOVOLOG FLEXPEN-LOW RESISTANCE SC ×2 (08:00→12:21)
[2024-07-31] MEDS: ASPIR LOW (ENTERIC COATED) 81 MG PO (08:40)
[2024-07-31] MEDS: ATIVAN 0.5 MG PO ×2 (08:40→20:33)
[2024-07-31] MEDS: COREG 12.5 MG PO ×2 (08:40→20:37)
[2024-07-31] MEDS: RISPERDAL 0.5 MG PO (08:41)
[2024-07-31] MEDS: PROTONIX 40 MG PO (08:41)
[2024-07-31] MEDS: CRESTOR 40 MG PO (08:41)
[2024-07-31] MEDS: GLUCOPHAGE 500 MG PO ×2 (08:41→17:39)
[2024-07-31] MEDS: MIRALAX 17 GRAMS PO (08:41)
[2024-07-31] MEDS: SENOKOT-S 1 TABLET PO ×2 (08:41→20:37)
[2024-07-31] MEDS: VITAMIN D3 (cholecalciferol) 50 MCG PO (08:42)
[2024-07-31] MEDS: ZESTRIL 20 MG PO (08:42)
[2024-07-31] MEDS: ZOLOFT 75 MG PO (08:42)
[2024-07-31 11:59] LABS: Glucose - Point of Care 146 mg/dl (70-99)
--- NOTE | 2024-07-31 14:09 | W.PN.HOSP.TC ---
Today's Communication/Plan
-
ongoing placement effort
Assessment / Plan
Assessment / Plan
# Altered mental status with intermittent unresponsive states
Concern for catatonia/psychiatric process
Neurological workup unremarkable- including EEG and MRI
Metabolic workup unyielding and no signs of infection
Recent psychiatric assessment including MoCa score was not consistent with dementia, possibly mild cognitive abnormalities.
Patient is not on any sedative medications at home; states that he does have high anxiety at baseline
Does have a history of medication overdoses
Consideration of depression with psychotic features, catatonia
No recurrent episodes of unresponsiveness at least for the last 3 to 4 days. Discussed with psychiatry. Patient seems to be oversedated, although interactive and appropriate. Regimen has been adjusted with reduction of lorazepam and Risperdal
dose.
#Urinary incontinence
some urinary incontinence
UA clear
# Gastritis- Add PPI. EKG sinus rhythm with PVCs. Troponin normal.
# Hypotension hold lisinopril
# Carotid stenosis and chronic right carotid occlusion-left carotid 43% -continue aspirin and statin
# Hypertension-blood pressure on the low side-normally takes Coreg 12.5 mg, lisinopril 20 mg as outpatient. Hold lisinopril secondary to hypotension
# ? CKD-creatinine 1.1
# Diabetes-hemoglobin A1c 6
Oral intake reduced due to cognitive issues.
Has not been on standing dose of insulin since admission.
Serial blood glucose readings close to euglycemia.
Will hold standing dose of insulin for now.
Continue metformin
# Hyperlipidemia/atherosclerosis-continue statin
# Enlarged prostate-continue Flomax
# Diverticulosis
# Microscopic hematuria-outpatient follow-up
# Constipation - miralax added to regimen
DVT Prophylaxis-subcutaneous heparin
Full code
Anticipated Discharge: Today
Subjective/Interval History
-
Date of Service: July 31, 2024
Resting comfortably in bed
No events reported overnight
Objective Data
-
Vital Signs:
Vital Signs
Temp Pulse Resp BP Pulse Ox
98.3 F 68 18 126/64 93
07/31/24 07:00 07/31/24 07:00 07/31/24 07:00 07/31/24 07:00 07/31/24 08:45
I&O
07/30/24 07/31/24 08/01/24
06:59 06:59 06:59
Intake Total 720 / 720 1200 / 1200
Output Total 500 / 500
Balance 720 / 720 700 / 700
Review of Systems
-
Respiratory: Reports No Symptoms
Cardiac: Reports No Symptoms
Abdomen/GI: Reports No Symptoms
Physical Exam
-
General: Negative Morbidly Obese
HEENT: Negative Oxygen
Neuro: Awake, Alert and Oriented
Psych: Calm
[2024-07-31 15:00] VITALS: BP 105/57
[2024-07-31 16:05] VITALS: BP 105/57; BP 121/55; PULSE 66; O2SAT 96
--- NOTE | 2024-07-31 16:06 | CM ---
is project manager reviewed chart and spoke with Cathy patient's friend, and reviewed physical therapy notes and will have patient evaluated again tomorrow, to see if plan is still for skilled placement. Per [facility], Level II assessment
for skilled rehab placement to take place tomorrow, 08/01/24.
Plan; To follow with patient progress.
--- NOTE | 2024-07-31 16:51 | W.PN.UPDATE ---
Update Note
Progress Note Update
78 y/o man with history of depression was admitted for periods of unresponsiveness. Neuro work-up unremarkable.
He was awake in bed. Alert and oriented. Speech somewhat slow, but appropriate and goal-directed. Denies any mood disturbance now. He was happy to have walked with PT in the halls today.
Will continue him on Zoloft 75 mg. Ativan 0.5 mg. BID and Risperdal 0.5 mg. AM and 1 mg. HS.
Discussed with nurse who has no concerns and reports he is not overly sedated now.
As he is doing well, denies feeling sedated and has had no further episodes, will leave medication unchanged for now.
[2024-07-31 17:08] LABS: Glucose - Point of Care 171 mg/dl (70-99)
[2024-07-31] MEDS: NOVOLOG FLEXPEN-LOW RESISTANCE 1 UNITS SC (17:38)
[2024-07-31] MEDS: RISPERDAL 1 MG PO (21:06)
[2024-07-31 22:25] LABS: Glucose - Point of Care 167 mg/dl (70-99)
[2024-07-31 23:35] VITALS: BP 107/56
[2024-08-01] MEDS: HEPARIN 5000 UNITS SC ×3 (00:33→16:15)
[2024-08-01 06:00] VITALS: BMI 28.8
[2024-08-01 07:00] VITALS: BP 127/63
[2024-08-01 07:40] LABS: Glucose - Point of Care 119 mg/dl (70-99)
[2024-08-01] MEDS: NOVOLOG FLEXPEN-LOW RESISTANCE SC ×2 (07:43→16:06)
[2024-08-01] MEDS: CRESTOR 40 MG PO (07:45)
[2024-08-01] MEDS: GLUCOPHAGE 500 MG PO ×2 (07:45→16:15)
[2024-08-01] MEDS: PROTONIX 40 MG PO (07:45)
[2024-08-01] MEDS: ATIVAN 0.5 MG PO ×2 (07:45→20:32)
[2024-08-01] MEDS: SENOKOT-S 1 TABLET PO ×2 (07:45→20:32)
[2024-08-01] MEDS: VITAMIN D3 (cholecalciferol) 50 MCG PO (07:45)
[2024-08-01] MEDS: MIRALAX 17 GRAMS PO (07:45)
[2024-08-01] MEDS: ASPIR LOW (ENTERIC COATED) 81 MG PO (07:45)
[2024-08-01] MEDS: ZOLOFT 75 MG PO (07:46)
[2024-08-01] MEDS: COREG 12.5 MG PO ×2 (07:46→20:32)
[2024-08-01] MEDS: RISPERDAL 0.5 MG PO (07:46)
[2024-08-01] MEDS: ZESTRIL 20 MG PO (07:46)
[2024-08-01 11:47] LABS: Glucose - Point of Care 175 mg/dl (70-99)
[2024-08-01] MEDS: NOVOLOG FLEXPEN-LOW RESISTANCE 1 UNITS SC (12:27)
--- NOTE | 2024-08-01 12:40 | CM ---
Addendum entered by Cynthia Nunez 08/01/24 15:37:
Meeting with Meryl from [facility] and along with friend Cathy tomorrow at 4pm.
Addendum entered by Cynthia Nunez 08/01/24 12:44:
Meryl at [facility] [phone]
Original Note:
assistant case manager continues to follow with patient progress and pillowcase cleaner is waiting on a call from [facility] with a time to assess patient today. Call placed to [facility] and still waiting on assigned lead case manager to review
chart. assistant case manager, spoke with Meryl at [facility] who is not at work today who is available to reevaluate patient at anytime, plan is to proceed with skilled placement, physical therapy to continue to follow with patient.
Plan; Skilled placement waiting on level II to be completed.
[2024-08-01 12:41] VITALS: BP 102/57; PULSE 71; O2SAT 95
[2024-08-01 12:42] VITALS: BP 102/57
--- NOTE | 2024-08-01 12:44 | W.PN.HOSP.TC ---
Today's Communication/Plan
-
[facility]
Continue current psychiatric regimen
Continue PT assessments and treatment
Assessment / Plan
Assessment / Plan
# Altered mental status with intermittent unresponsive states
Concern for catatonia/psychiatric process
Neurological workup unremarkable- including EEG and MRI
Metabolic workup unyielding and no signs of infection
Recent psychiatric assessment including MoCa score was not consistent with dementia, possibly mild cognitive abnormalities.
Patient is not on any sedative medications at home; states that he does have high anxiety at baseline
Does have a history of medication overdoses
Consideration of depression with psychotic features, catatonia
No recurrent episodes of unresponsiveness at least for the last 3 to 4 days. Discussed with psychiatry. Patient seems to be oversedated, although interactive and appropriate. Regimen has been adjusted with reduction of lorazepam and Risperdal
dose.
#Urinary incontinence
some urinary incontinence
UA clear
# Gastritis- Add PPI. EKG sinus rhythm with PVCs. Troponin normal.
# Hypotension hold lisinopril
# Carotid stenosis and chronic right carotid occlusion-left carotid 43% -continue aspirin and statin
# Hypertension-blood pressure on the low side-normally takes Coreg 12.5 mg, lisinopril 20 mg as outpatient. Hold lisinopril secondary to hypotension
# ? CKD-creatinine 1.1
# Diabetes-hemoglobin A1c 6
Oral intake reduced due to cognitive issues.
Has not been on standing dose of insulin since admission.
Serial blood glucose readings close to euglycemia.
Will hold standing dose of insulin for now.
Continue metformin
# Hyperlipidemia/atherosclerosis-continue statin
# Enlarged prostate-continue Flomax
# Diverticulosis
# Microscopic hematuria-outpatient follow-up
# Constipation - miralax added to regimen
DVT Prophylaxis-subcutaneous heparin
Full code
Anticipated Discharge: 24 - 48 hours
Subjective/Interval History
-
Date of Service: August 01, 2024
Objective Data
-
Vital Signs:
Vital Signs
Temp Pulse Resp BP Pulse Ox
98.1 F 67 16 127/63 93
08/01/24 07:00 08/01/24 07:46 08/01/24 07:00 08/01/24 07:46 08/01/24 07:00
I&O
07/31/24 08/01/24 08/02/24
06:59 06:59 06:59
Intake Total 1200 / 1200 540 / 540
Output Total 500 / 500
Balance 700 / 700 540 / 540
Physical Exam
-
General: Negative Morbidly Obese
HEENT: Negative Oxygen
Neuro: Awake, Alert and Oriented
Psych: Calm
[2024-08-01 15:00] VITALS: BP 113/59
[2024-08-01 16:02] LABS: Glucose - Point of Care 147 mg/dl (70-99)
[2024-08-01] MEDS: RISPERDAL 1 MG PO (21:19)
[2024-08-01 22:19] LABS: Glucose - Point of Care 107 mg/dl (70-99)
[2024-08-01 23:25] VITALS: BP 107/54
[2024-08-02] MEDS: HEPARIN 5000 UNITS SC ×3 (00:08→16:18)
[2024-08-02 06:00] VITALS: BMI 28.8
[2024-08-02 07:29] LABS: Glucose - Point of Care 107 mg/dl (70-99)
[2024-08-02] MEDS: NOVOLOG FLEXPEN-LOW RESISTANCE SC ×2 (07:30→16:08)
[2024-08-02] MEDS: ATIVAN 0.5 MG PO ×2 (07:31→20:58)
[2024-08-02] MEDS: RISPERDAL 0.5 MG PO (07:31)
[2024-08-02] MEDS: ZOLOFT 75 MG PO (07:33)
[2024-08-02] MEDS: PROTONIX 40 MG PO (07:34)
[2024-08-02] MEDS: CRESTOR 40 MG PO (07:35)
[2024-08-02] MEDS: ASPIR LOW (ENTERIC COATED) 81 MG PO (07:35)
[2024-08-02] MEDS: SENOKOT-S 1 TABLET PO ×2 (07:35→20:58)
[2024-08-02] MEDS: VITAMIN D3 (cholecalciferol) 50 MCG PO (07:35)
[2024-08-02] MEDS: MIRALAX 17 GRAMS PO (07:36)
[2024-08-02] MEDS: GLUCOPHAGE 500 MG PO ×2 (07:36→16:18)
[2024-08-02] MEDS: ZESTRIL 20 MG PO (07:41)
[2024-08-02] MEDS: COREG 12.5 MG PO ×2 (07:41→20:58)
[2024-08-02 07:55] VITALS: BP 132/63
--- NOTE | 2024-08-02 11:10 | W.PN.UPDATE ---
Update Note
Progress Note Update
Patient seen chart reviewed, discussed with staff. Mr. Quintana reports doing well overall. He is anticipated for DC to SNF in the near future he tells me. Denies any specific issues or concerns. He is much more engaged than when we first met 2 weeks
ago. Denies feeling sedated and has had no further episodes of 'unresponsiveness'.
Impression/Recommendation: Depressive disorder, unspecified - continue Zoloft 75 mg. Ativan 0.5 mg. BID and Risperdal 0.5 mg. AM and 1 mg. HS. F/U as OP with PCP or Psych provider.
[2024-08-02 11:18] LABS: Glucose - Point of Care 180 mg/dl (70-99)
[2024-08-02] MEDS: NOVOLOG FLEXPEN-LOW RESISTANCE 1 UNITS SC (11:35)
--- NOTE | 2024-08-02 13:11 | CM ---
assembly manager reviewed patient's chart and met with patient and child support case officer received OBRA MH determination letter from the [facility] and faxed it to [facility], , and spoke with Kristin in admissions and they have a bed
available for patient today, child support case officer contacted patient's insurance and pending Auth is [id number]. Meeting with patient's friend, PT and Meryl from [facility] today.
Plan: Awaiting determination from patient's insurance on Auth for skilled placement.
[2024-08-02 15:42] VITALS: BP 108/59
[2024-08-02 15:46] VITALS: BP 108/59; PULSE 66; O2SAT 96
[2024-08-02 15:47] VITALS: BP 108/59; O2SAT 97
[2024-08-02 16:04] LABS: Glucose - Point of Care 141 mg/dl (70-99)
--- NOTE | 2024-08-02 16:05 | W.PN.HOSP.TC ---
Today's Communication/Plan
-
PT assessment
Disposition efforts
Assessment / Plan
Assessment / Plan
# Altered mental status with intermittent unresponsive states
Concern for catatonia/psychiatric process
Neurological workup unremarkable- including EEG and MRI
Metabolic workup unyielding and no signs of infection
Recent psychiatric assessment including MoCa score was not consistent with dementia, possibly mild cognitive abnormalities.
Patient is not on any sedative medications at home; states that he does have high anxiety at baseline
Does have a history of medication overdoses
Consideration of depression with psychotic features, catatonia
No recurrent episodes of unresponsiveness at least for the last 3 to 4 days. Discussed with psychiatry. Patient seems to be oversedated, although interactive and appropriate. Regimen has been adjusted with reduction of lorazepam and Risperdal
dose.
#Urinary incontinence
some urinary incontinence
UA clear
# Gastritis- Add PPI. EKG sinus rhythm with PVCs. Troponin normal.
# Hypotension hold lisinopril
# Carotid stenosis and chronic right carotid occlusion-left carotid 43% -continue aspirin and statin
# Hypertension-blood pressure on the low side-normally takes Coreg 12.5 mg, lisinopril 20 mg as outpatient. Hold lisinopril secondary to hypotension
# ? CKD-creatinine 1.1
# Diabetes-hemoglobin A1c 6
Oral intake reduced due to cognitive issues.
Has not been on standing dose of insulin since admission.
Serial blood glucose readings close to euglycemia.
Will hold standing dose of insulin for now.
Continue metformin
# Hyperlipidemia/atherosclerosis-continue statin
# Enlarged prostate-continue Flomax
# Diverticulosis
# Microscopic hematuria-outpatient follow-up
# Constipation - miralax added to regimen
DVT Prophylaxis-subcutaneous heparin
Full code
Anticipated Discharge: Within 24 hours
Subjective/Interval History
-
Date of Service: August 02, 2024
Objective Data
-
Vital Signs:
Vital Signs
Temp Pulse Resp BP Pulse Ox
97.8 F 67 18 108/59 92
08/02/24 15:42 08/02/24 15:42 08/02/24 15:42 08/02/24 15:42 08/02/24 15:42
I&O
08/01/24 08/02/24 08/03/24
06:59 06:59 06:59
Intake Total 540 / 540 960 / 960
Output Total 300 / 300 200 / 200
Balance 540 / 540 660 / 660 -200 / -200
Physical Exam
-
General: Negative Morbidly Obese
HEENT: Negative Oxygen
Neuro: Awake, Alert and Oriented
Psych: Calm
[2024-08-02] MEDS: RISPERDAL 1 MG PO (20:58)
[2024-08-02 21:24] LABS: Glucose - Point of Care 110 mg/dl (70-99)
[2024-08-02 23:00] VITALS: BP 108/52
[2024-08-03] MEDS: HEPARIN 5000 UNITS SC ×3 (00:15→16:36)
[2024-08-03 05:51] VITALS: BMI 29.1
[2024-08-03 07:34] LABS: Glucose - Point of Care 114 mg/dl (70-99)
[2024-08-03] MEDS: NOVOLOG FLEXPEN-LOW RESISTANCE SC ×2 (07:48→16:35)
[2024-08-03] MEDS: SENOKOT-S 1 TABLET PO ×2 (07:50→20:23)
[2024-08-03] MEDS: ZOLOFT 75 MG PO (07:50)
[2024-08-03] MEDS: VITAMIN D3 (cholecalciferol) 50 MCG PO (07:51)
[2024-08-03] MEDS: ATIVAN 0.5 MG PO ×2 (07:51→20:23)
[2024-08-03] MEDS: CRESTOR 40 MG PO (07:51)
[2024-08-03] MEDS: ASPIR LOW (ENTERIC COATED) 81 MG PO (07:51)
[2024-08-03] MEDS: GLUCOPHAGE 500 MG PO ×2 (07:51→16:36)
[2024-08-03] MEDS: MIRALAX 17 GRAMS PO (07:51)
[2024-08-03] MEDS: RISPERDAL 0.5 MG PO (07:51)
[2024-08-03] MEDS: PROTONIX 40 MG PO (07:51)
[2024-08-03] MEDS: ZESTRIL 20 MG PO (07:53)
[2024-08-03] MEDS: COREG 12.5 MG PO ×2 (07:56→20:23)
[2024-08-03 08:07] VITALS: BP 134/63
--- NOTE | 2024-08-03 10:42 | CM ---
validation manager received a call from Meryl at [facility], and per Meryl she informed Cathy, patient's friend that the only way they could accept patient back at [facility] would be if services were increased. validation manager is still awaiting final
determination from patient's insurance [employer], message left for patient's friend, Cathy with update.
Plan; Still no determination from patient's insurance [employer], per Meryl in admissions at [facility] they could only accept patient back with additional services and patient would have to be charged for these services. Update provided to patient's
physician.
[2024-08-03 11:41] LABS: Glucose - Point of Care 185 mg/dl (70-99)
[2024-08-03] MEDS: NOVOLOG FLEXPEN-LOW RESISTANCE 1 UNITS SC (11:48)
--- NOTE | 2024-08-03 13:32 | W.PN.UPDATE ---
Update Note
Progress Note Update
patient seen chart reviewed. discussed with nursing. mr benavides is looking well. he has had no further episodes of shall we say detachment at this point. he is looking forward to being dc he hopes later this week to snf. he tells me he had level two
earlier this week. the long awaited visit from our co founder & ceo mr kerns (see my notes last week) came today when i met mr kerns in the hallway and was able to introduce him to mr benavides. made no changes in patient's medications. he appears awake and
alert. will check in w him later this week.
[2024-08-03 15:47] VITALS: BP 104/54
--- NOTE | 2024-08-03 15:54 | W.PN.HOSP.TC ---
Today's Communication/Plan
-
Neuropsychiatric status stable with no new developments over the last 5 7 days.
Pending placement
Assessment / Plan
Assessment / Plan
# Altered mental status with intermittent unresponsive states
Concern for catatonia/psychiatric process
Neurological workup unremarkable- including EEG and MRI
Metabolic workup unyielding and no signs of infection
Recent psychiatric assessment including MoCa score was not consistent with dementia, possibly mild cognitive abnormalities.
Patient is not on any sedative medications at home; states that he does have high anxiety at baseline
Does have a history of medication overdoses
Consideration of depression with psychotic features, catatonia
No recurrent episodes of unresponsiveness at least for the last 3 to 4 days. Discussed with psychiatry. Patient seems to be oversedated, although interactive and appropriate. Regimen has been adjusted with reduction of lorazepam and Risperdal
dose.
#Urinary incontinence
some urinary incontinence
UA clear
# Gastritis- Add PPI. EKG sinus rhythm with PVCs. Troponin normal.
# Hypotension hold lisinopril
# Carotid stenosis and chronic right carotid occlusion-left carotid 43% -continue aspirin and statin
# Hypertension-blood pressure on the low side-normally takes Coreg 12.5 mg, lisinopril 20 mg as outpatient. Hold lisinopril secondary to hypotension
# ? CKD-creatinine 1.1
# Diabetes-hemoglobin A1c 6
Oral intake reduced due to cognitive issues.
Has not been on standing dose of insulin since admission.
Serial blood glucose readings close to euglycemia.
Will hold standing dose of insulin for now.
Continue metformin
# Hyperlipidemia/atherosclerosis-continue statin
# Enlarged prostate-continue Flomax
# Diverticulosis
# Microscopic hematuria-outpatient follow-up
# Constipation - miralax added to regimen
DVT Prophylaxis-subcutaneous heparin
Full code
Anticipated Discharge: Within 24 hours
Subjective/Interval History
-
Date of Service: August 03, 2024
Objective Data
-
Vital Signs:
Vital Signs
Temp Pulse Resp BP Pulse Ox
97.5 F 60 18 104/54 100
08/03/24 15:47 08/03/24 15:47 08/03/24 15:47 08/03/24 15:47 08/03/24 15:47
I&O
08/02/24 08/03/24 08/04/24
06:59 06:59 06:59
Intake Total 960 / 960 1200 / 1200
Output Total 300 / 300 350 / 350
Balance 660 / 660 850 / 850
Physical Exam
-
General: Negative Morbidly Obese
HEENT: Negative Oxygen
Neuro: Awake, Alert and Oriented
Psych: Calm
[2024-08-03 16:36] LABS: Glucose - Point of Care 112 mg/dl (70-99)
[2024-08-03 19:00] VITALS: BP 118/58
[2024-08-03] MEDS: RISPERDAL 1 MG PO (21:14)
[2024-08-03 21:41] LABS: Glucose - Point of Care 123 mg/dl (70-99)
[2024-08-03 23:00] VITALS: BP 98/55
[2024-08-04] MEDS: HEPARIN 5000 UNITS SC ×3 (00:16→17:50)
[2024-08-04 06:00] VITALS: BMI 29.1
[2024-08-04 07:49] LABS: Glucose - Point of Care 97 mg/dl (70-99)
[2024-08-04 07:55] VITALS: BP 129/66
[2024-08-04] MEDS: NOVOLOG FLEXPEN-LOW RESISTANCE SC ×2 (09:22→17:49)
[2024-08-04] MEDS: MIRALAX 17 GRAMS PO (09:22)
[2024-08-04] MEDS: ASPIR LOW (ENTERIC COATED) 81 MG PO (09:23)
[2024-08-04] MEDS: RISPERDAL 0.5 MG PO (09:23)
[2024-08-04] MEDS: ZESTRIL 20 MG PO (09:23)
[2024-08-04] MEDS: SENOKOT-S 1 TABLET PO ×2 (09:23→20:46)
[2024-08-04] MEDS: COREG 12.5 MG PO (09:23)
[2024-08-04] MEDS: ZOLOFT 75 MG PO (09:24)
[2024-08-04] MEDS: CRESTOR 40 MG PO (09:24)
[2024-08-04] MEDS: PROTONIX 40 MG PO (09:24)
[2024-08-04] MEDS: ATIVAN 0.5 MG PO ×2 (09:24→20:46)
[2024-08-04] MEDS: GLUCOPHAGE 500 MG PO ×2 (09:24→18:16)
[2024-08-04] MEDS: VITAMIN D3 (cholecalciferol) 50 MCG PO (09:26)
[2024-08-04 10:18] VITALS: BP 106/62; PULSE 71; O2SAT 96
--- NOTE | 2024-08-04 10:56 | W.PN.UPDATE ---
Update Note
Progress Note Update
patient seen chart reviewed. spoke with nursing hospitalist and cm. the patient is doing very well. he is pleasant and cooperative. there have been no further incidents of unresponsivity. he is experiencing no ill effects from psych meds. there
continues to be a stale mate re placement. cm tells me they are awating a decision from [facility] re snf. offered support to patient that someday he will be dc from . continue as currently.
--- NOTE | 2024-08-04 11:06 | CM ---
Addendum entered by Cynthia Nunez 08/04/24 14:53:
[facility] called to request updated clinicals all updated clinicals faxed to Afia at [facility], call placed to Ivan Landry to have Afia contact child support case officer as quickly as possible.
Addendum entered by Cynthia Nunez 08/04/24 11:13:
[facility] have accepted patient and personal consultant today is Shwetha [phone].
Original Note:
Chart reviewed and child support case officer reached out to [facility] this morning and spoke with Lindsey at [facility]. residential leasing manager asking [facility] if the is any update on determination for skilled placement for patient. Pending ref # [id number], and there is still no
determination from [facility]. Friend, Cathy updated.
Plan; To continue to follow up with [facility] to check on Auth for patient, pending ref # [id number].
[2024-08-04 12:27] LABS: Glucose - Point of Care 163 mg/dl (70-99)
[2024-08-04] MEDS: NOVOLOG FLEXPEN-LOW RESISTANCE 1 UNITS SC (12:49)
--- NOTE | 2024-08-04 15:14 | W.PN.HOSP.TC ---
Today's Communication/Plan
-
Pending placement
Assessment / Plan
Assessment / Plan
# Altered mental status with intermittent unresponsive states
Concern for catatonia/psychiatric process
Neurological workup unremarkable- including EEG and MRI
Metabolic workup unyielding and no signs of infection
Recent psychiatric assessment including MoCa score was not consistent with dementia, possibly mild cognitive abnormalities.
Patient is not on any sedative medications at home; states that he does have high anxiety at baseline
Does have a history of medication overdoses
Consideration of depression with psychotic features, catatonia
No recurrent episodes of unresponsiveness at least for the last 3 to 4 days. Discussed with psychiatry. Patient seems to be oversedated, although interactive and appropriate. Regimen has been adjusted with reduction of lorazepam and Risperdal
dose.
#Urinary incontinence
some urinary incontinence
UA clear
# Gastritis- Add PPI. EKG sinus rhythm with PVCs. Troponin normal.
# Hypotension hold lisinopril
# Carotid stenosis and chronic right carotid occlusion-left carotid 43% -continue aspirin and statin
# Hypertension-blood pressure on the low side-normally takes Coreg 12.5 mg, lisinopril 20 mg as outpatient. Hold lisinopril secondary to hypotension
# ? CKD-creatinine 1.1
# Diabetes-hemoglobin A1c 6
Oral intake reduced due to cognitive issues.
Has not been on standing dose of insulin since admission.
Serial blood glucose readings close to euglycemia.
Will hold standing dose of insulin for now.
Continue metformin
# Hyperlipidemia/atherosclerosis-continue statin
# Enlarged prostate-continue Flomax
# Diverticulosis
# Microscopic hematuria-outpatient follow-up
# Constipation - miralax added to regimen
DVT Prophylaxis-subcutaneous heparin
Full code
Anticipated Discharge: Within 24 hours
Subjective/Interval History
-
Date of Service: August 04, 2024
Objective Data
-
Vital Signs:
Vital Signs
Temp Pulse Resp BP Pulse Ox
98.1 F 68 20 129/66 97
08/04/24 07:55 08/04/24 07:55 08/04/24 07:55 08/04/24 07:55 08/04/24 11:05
I&O
08/03/24 08/04/24 08/05/24
06:59 06:59 06:59
Intake Total 1200 / 1200 840 / 840
Output Total 350 / 350 550 / 550
Balance 850 / 850 290 / 290
Physical Exam
-
General: Negative Morbidly Obese
HEENT: Negative Oxygen
Neuro: Awake, Alert and Oriented
Psych: Calm
[2024-08-04 15:55] VITALS: BP 115/57
[2024-08-04 17:23] LABS: Glucose - Point of Care 67 mg/dl (70-99)
[2024-08-04 17:47] LABS: Glucose - Point of Care 85 mg/dl (70-99)
[2024-08-04] MEDS: RISPERDAL 1 MG PO (21:08)
[2024-08-04] MEDS: COREG PO (21:13)
[2024-08-04 22:37] VITALS: BP 98/54
[2024-08-05] MEDS: HEPARIN 5000 UNITS SC ×3 (01:37→17:36)
[2024-08-05 05:41] LABS: Glucose - Point of Care 88 mg/dl (70-99)
[2024-08-05 05:50] VITALS: BMI 29.4
[2024-08-05 07:30] VITALS: BP 123/70
[2024-08-05] MEDS: NOVOLOG FLEXPEN-LOW RESISTANCE SC ×2 (07:41→17:22)
[2024-08-05 07:42] LABS: Glucose - Point of Care 110 mg/dl (70-99)
[2024-08-05] MEDS: VITAMIN D3 (cholecalciferol) 50 MCG PO (08:03)
[2024-08-05] MEDS: ZESTRIL 20 MG PO (08:03)
[2024-08-05] MEDS: ATIVAN 0.5 MG PO ×2 (08:03→20:17)
[2024-08-05] MEDS: CRESTOR 40 MG PO (08:03)
[2024-08-05] MEDS: ZOLOFT 75 MG PO (08:03)
[2024-08-05] MEDS: MIRALAX 17 GRAMS PO (08:03)
[2024-08-05] MEDS: PROTONIX 40 MG PO (08:03)
[2024-08-05] MEDS: ASPIR LOW (ENTERIC COATED) 81 MG PO (08:04)
[2024-08-05] MEDS: GLUCOPHAGE 500 MG PO ×2 (08:04→17:36)
[2024-08-05] MEDS: COREG 12.5 MG PO ×2 (08:04→20:17)
[2024-08-05] MEDS: RISPERDAL 0.5 MG PO (08:04)
[2024-08-05] MEDS: SENOKOT-S 1 TABLET PO ×2 (08:04→20:17)
[2024-08-05 11:59] LABS: Glucose - Point of Care 194 mg/dl (70-99)
[2024-08-05] MEDS: NOVOLOG FLEXPEN-LOW RESISTANCE 1 UNITS SC (12:03)
--- NOTE | 2024-08-05 13:03 | W.PN.UPDATE ---
Update Note
Progress Note Update
patient seen chart reviewed. patient remains in limbo as far as his disposition. he is trying to keep a good attitude being as active as he can be and 'enjoying' the benefits of our menu. the cheesesteak he reports was tasty. no changes made in his
medications no further incidents of unresponsiveness. psych will check in w him from time to time as we await resolution of disposition issue.
--- NOTE | 2024-08-05 14:45 | CM ---
SNF Auth still pending
--- NOTE | 2024-08-05 15:29 | W.PN.HOSP.TC ---
Today's Communication/Plan
-
Stable neurologic and psychiatric status on current medication regimen.
Pending placement to [facility] facility due to insurance authorization.
Assessment / Plan
Assessment / Plan
# Altered mental status with intermittent unresponsive states
Concern for catatonia/psychiatric process
Neurological workup unremarkable- including EEG and MRI
Metabolic workup unyielding and no signs of infection
Recent psychiatric assessment including MoCa score was not consistent with dementia, possibly mild cognitive abnormalities.
Patient is not on any sedative medications at home; states that he does have high anxiety at baseline
Does have a history of medication overdoses
Consideration of depression with psychotic features, catatonia
No recurrent episodes of unresponsiveness at least for the last 3 to 4 days. Discussed with psychiatry. Patient seems to be oversedated, although interactive and appropriate. Regimen has been adjusted with reduction of lorazepam and Risperdal
dose.
#Urinary incontinence
some urinary incontinence
UA clear
# Gastritis- Add PPI. EKG sinus rhythm with PVCs. Troponin normal.
# Hypotension hold lisinopril
# Carotid stenosis and chronic right carotid occlusion-left carotid 43% -continue aspirin and statin
# Hypertension-blood pressure on the low side-normally takes Coreg 12.5 mg, lisinopril 20 mg as outpatient. Hold lisinopril secondary to hypotension
# ? CKD-creatinine 1.1
# Diabetes-hemoglobin A1c 6
Oral intake reduced due to cognitive issues.
Has not been on standing dose of insulin since admission.
Serial blood glucose readings close to euglycemia.
Will hold standing dose of insulin for now.
Continue metformin
# Hyperlipidemia/atherosclerosis-continue statin
# Enlarged prostate-continue Flomax
# Diverticulosis
# Microscopic hematuria-outpatient follow-up
# Constipation - miralax added to regimen
DVT Prophylaxis-subcutaneous heparin
Full code
Anticipated Discharge: 24 - 48 hours
Subjective/Interval History
-
Date of Service: August 05, 2024
Objective Data
-
Vital Signs:
Vital Signs
Temp Pulse Resp BP Pulse Ox
97.8 F 70 16 123/70 95
08/05/24 07:30 08/05/24 07:30 08/05/24 07:30 08/05/24 08:03 08/05/24 07:30
I&O
08/04/24 08/05/24 08/06/24
06:59 06:59 06:59
Intake Total 840 / 840 1200 / 1200
Output Total 550 / 550
Balance 290 / 290 1200 / 1200
Physical Exam
-
General: Negative Morbidly Obese
HEENT: Negative Oxygen
Neuro: Awake, Alert and Oriented
Psych: Calm
[2024-08-05 16:00] VITALS: BP 126/68
--- NOTE | 2024-08-05 16:02 | CM ---
TC from [facility] form [employer]
Reference# [id number]
skilled rehab request denied.
Appeals number [phone], option 2
Peer to peer expires 08/08/24 by 12 pm- needs to be referred to daycare director on Thursday.
[2024-08-05 17:18] LABS: Glucose - Point of Care 130 mg/dl (70-99)
[2024-08-05] MEDS: RISPERDAL 1 MG PO (21:05)
[2024-08-05 22:11] LABS: Glucose - Point of Care 117 mg/dl (70-99)
[2024-08-05 23:35] VITALS: BP 105/59
[2024-08-06] MEDS: HEPARIN 5000 UNITS SC ×3 (01:33→16:42)
[2024-08-06 06:00] VITALS: BMI 29.2
[2024-08-06] MEDS: TYLENOL 650 MG PO (06:11)
[2024-08-06 07:23] LABS: Glucose - Point of Care 117 mg/dl (70-99)
[2024-08-06 07:25] VITALS: BP 90/58
[2024-08-06] MEDS: NOVOLOG FLEXPEN-LOW RESISTANCE SC ×2 (07:29→16:35)
--- NOTE | 2024-08-06 07:29 | W.PN.HOSP.TC ---
Today's Communication/Plan
-
Discharge planning
Assessment / Plan
Assessment / Plan
Physical exam:
General: Well Developed, Well Nourished and No Apparent Distress
HEENT: Normocephalic, Atraumatic and Moist Mucous Membranes
Respiratory: Clear to Auscultation; Negative Wheezes, Rales or Rhonchi
Cardiac: Regular Rhythm and S1/S2
GI: Soft, Nontender and Nondistended
Musculoskeletal: No Clubbing, No Cyanosis and No Edema
Neuro: Awake, Alert and Oriented
Psych: Calm
A/P:
# Altered mental status with intermittent unresponsive states
Concern for catatonia/psychiatric process
Neurological workup unremarkable- including EEG and MRI
Metabolic workup unyielding and no signs of infection
Recent psychiatric assessment including MoCa score was not consistent with dementia, possibly mild cognitive abnormalities.
Patient is not on any sedative medications at home; states that he does have high anxiety at baseline
Does have a history of medication overdoses
Consideration of depression with psychotic features, catatonia
No recurrent episodes of unresponsiveness at least for the last 3 to 4 days. Discussed with psychiatry. Patient seems to be oversedated, although interactive and appropriate. Regimen has been adjusted with reduction of lorazepam and Risperdal
dose.
Discussed with POA at bedside today
social media content manager working on discharge disposition
#Urinary incontinence
some urinary incontinence
UA clear
# Gastritis- Add PPI. EKG sinus rhythm with PVCs. Troponin normal.
# Hypotension hold lisinopril
# Carotid stenosis and chronic right carotid occlusion-left carotid 43% -continue aspirin and statin
# Hypertension-blood pressure on the low side-normally takes Coreg 12.5 mg, lisinopril 20 mg as outpatient. Hold lisinopril secondary to hypotension
# ? CKD-creatinine 1.1
# Diabetes-hemoglobin A1c 6
Oral intake reduced due to cognitive issues.
Has not been on standing dose of insulin since admission.
Serial blood glucose readings close to euglycemia.
Will hold standing dose of insulin for now.
Continue metformin
# Hyperlipidemia/atherosclerosis-continue statin
# Enlarged prostate-continue Flomax
# Diverticulosis
# Microscopic hematuria-outpatient follow-up
# Constipation - miralax added to regimen
DVT Prophylaxis-subcutaneous heparin
Full code
Anticipated Discharge: 24 - 48 hours
Subjective/Interval History
-
Date of Service: August 06, 2024
Feels well. No new complaint
Objective Data
-
Vital Signs:
Vital Signs
Temp Pulse Resp BP Pulse Ox
97.6 F 63 18 105/59 96
08/05/24 23:35 08/05/24 23:35 08/05/24 23:35 08/05/24 23:35 08/05/24 23:35
I&O
08/05/24 08/06/24 08/07/24
06:59 06:59 06:59
Intake Total 1200 / 1200 1080 / 1080
Output Total 1000 / 1000
Balance 1200 / 1200 80 / 80
[2024-08-06] MEDS: SENOKOT-S 1 TABLET PO ×2 (08:06→20:38)
[2024-08-06] MEDS: ZOLOFT 75 MG PO (08:06)
[2024-08-06] MEDS: CRESTOR 40 MG PO (08:06)
[2024-08-06] MEDS: ASPIR LOW (ENTERIC COATED) 81 MG PO (08:07)
[2024-08-06] MEDS: PROTONIX 40 MG PO (08:07)
[2024-08-06] MEDS: VITAMIN D3 (cholecalciferol) 50 MCG PO (08:08)
[2024-08-06] MEDS: RISPERDAL 0.5 MG PO (08:08)
[2024-08-06] MEDS: ATIVAN 0.5 MG PO ×2 (08:08→20:38)
[2024-08-06] MEDS: GLUCOPHAGE 500 MG PO ×2 (08:08→16:41)
[2024-08-06] MEDS: MIRALAX 17 GRAMS PO (08:09)
[2024-08-06] MEDS: COREG PO (08:10)
[2024-08-06] MEDS: ZESTRIL PO (08:10)
[2024-08-06 10:03] VITALS: BP 100/53
--- NOTE | 2024-08-06 10:28 | CM ---
Addendum entered by Cynthia Nunez 08/06/24 12:43:
Per Meryl admissions at [facility] they cannot accept on weekend, and dependency case manager will need to follow up on Thursday, dependency case manager did reach out to Cathy patient's friend with update, patient friend, Shahid will provide transportation on Thursday to
[facility] in [place], with a pick pulling machine tender time of 12:30am, Meryl at [facility] made aware of plan transfer on Thursday.
Original Note:
case resource manager spoke with patient and patient's friend, Cathy this am, and patient was denied skilled rehab, plan is for patient to return to [facility] were patient came from and pay the extra costs for increased services hopefully today if [facility]
can accept patient, DME form completed and signed by physician and faxed to Tiffany at , message left for Tiffany at [phone].
Plan; Waiting for determination from [facility] to see if they will accept patient today, patient's friend Cathy will transport patient.
[2024-08-06 11:31] LABS: Glucose - Point of Care 159 mg/dl (70-99)
[2024-08-06] MEDS: NOVOLOG FLEXPEN-LOW RESISTANCE 1 UNITS SC (11:51)
[2024-08-06 15:00] VITALS: BP 101/57
[2024-08-06 16:31] LABS: Glucose - Point of Care 111 mg/dl (70-99)
[2024-08-06] MEDS: COREG 12.5 MG PO (20:38)
[2024-08-06 21:25] LABS: Glucose - Point of Care 123 mg/dl (70-99)
[2024-08-06] MEDS: RISPERDAL 1 MG PO (22:01)
[2024-08-06 23:02] VITALS: BP 109/56
[2024-08-07] MEDS: HEPARIN 5000 UNITS SC ×4 (00:42→22:00)
[2024-08-07 07:00] VITALS: BP 126/65
[2024-08-07 08:04] LABS: Glucose - Point of Care 110 mg/dl (70-99)
[2024-08-07] MEDS: NOVOLOG FLEXPEN-LOW RESISTANCE SC ×2 (08:28→16:36)
--- NOTE | 2024-08-07 08:57 | W.PN.HOSP.TC ---
Today's Communication/Plan
-
Discharge planning
Assessment / Plan
Assessment / Plan
Physical exam:
General: Well Developed, Well Nourished and No Apparent Distress
HEENT: Normocephalic, Atraumatic and Moist Mucous Membranes
Respiratory: Clear to Auscultation; Negative Wheezes, Rales or Rhonchi
Cardiac: Regular Rhythm and S1/S2
GI: Soft, Nontender and Nondistended
Musculoskeletal: No Clubbing, No Cyanosis and No Edema
Neuro: Awake, Alert and Oriented
Psych: Calm
A/P:
# Altered mental status with intermittent unresponsive states
Concern for catatonia/psychiatric process
Neurological workup unremarkable- including EEG and MRI
Metabolic workup unyielding and no signs of infection
Recent psychiatric assessment including MoCa score was not consistent with dementia, possibly mild cognitive abnormalities.
Patient is not on any sedative medications at home; states that he does have high anxiety at baseline
Does have a history of medication overdoses
Consideration of depression with psychotic features, catatonia
No recurrent episodes of unresponsiveness at least for the last 3 to 4 days. Discussed with psychiatry. Patient seems to be oversedated, although interactive and appropriate. Regimen has been adjusted with reduction of lorazepam and Risperdal
dose.
Discussed with POA at bedside today
dealer sales manager working on discharge disposition
#Urinary incontinence
some urinary incontinence
UA clear
# Gastritis- Add PPI. EKG sinus rhythm with PVCs. Troponin normal.
# Hypotension hold lisinopril
# Carotid stenosis and chronic right carotid occlusion-left carotid 43% -continue aspirin and statin
# Hypertension-blood pressure on the low side-normally takes Coreg 12.5 mg, lisinopril 20 mg as outpatient. Hold lisinopril secondary to hypotension
# ? CKD-creatinine 1.1
# Diabetes-hemoglobin A1c 6
Oral intake reduced due to cognitive issues.
Has not been on standing dose of insulin since admission.
Serial blood glucose readings close to euglycemia.
Will hold standing dose of insulin for now.
Continue metformin
# Hyperlipidemia/atherosclerosis-continue statin
# Enlarged prostate-continue Flomax
# Diverticulosis
# Microscopic hematuria-outpatient follow-up
# Constipation - miralax added to regimen
DVT Prophylaxis-subcutaneous heparin
Full code
Anticipated Discharge: Within 24 hours
Subjective/Interval History
-
Date of Service: August 07, 2024
Patient doing well today. No new complaints
Objective Data
-
Vital Signs:
Vital Signs
Temp Pulse Resp BP Pulse Ox
97.9 F 72 20 126/65 94
08/07/24 07:00 08/07/24 07:00 08/07/24 07:00 08/07/24 07:00 08/07/24 07:00
I&O
08/06/24 08/07/24 08/08/24
06:59 06:59 06:59
Intake Total 1080 / 1080 1080 / 1080
Output Total 1000 / 1000 400 / 400
Balance 80 / 80 680 / 680
[2024-08-07 09:28] VITALS: BP 106/55; PULSE 85; O2SAT 94
[2024-08-07] MEDS: RISPERDAL 0.5 MG PO (09:44)
[2024-08-07] MEDS: GLUCOPHAGE 500 MG PO ×2 (09:44→17:46)
[2024-08-07] MEDS: ZOLOFT 75 MG PO (09:44)
[2024-08-07] MEDS: CRESTOR 40 MG PO (09:44)
[2024-08-07] MEDS: PROTONIX 40 MG PO (09:44)
[2024-08-07] MEDS: ASPIR LOW (ENTERIC COATED) 81 MG PO (09:44)
[2024-08-07] MEDS: MIRALAX 17 GRAMS PO (09:44)
[2024-08-07] MEDS: VITAMIN D3 (cholecalciferol) 50 MCG PO (09:45)
[2024-08-07] MEDS: COREG 12.5 MG PO (09:45)
[2024-08-07] MEDS: ZESTRIL 20 MG PO (09:45)
[2024-08-07] MEDS: SENOKOT-S 1 TABLET PO ×2 (09:45→20:48)
[2024-08-07] MEDS: ATIVAN 0.5 MG PO ×2 (09:53→20:48)
[2024-08-07 11:32] LABS: Glucose - Point of Care 168 mg/dl (70-99)
[2024-08-07] MEDS: NOVOLOG FLEXPEN-LOW RESISTANCE 1 UNITS SC (12:26)
[2024-08-07 15:00] VITALS: BP 106/55
[2024-08-07 15:40] LABS: Glucose - Point of Care 114 mg/dl (70-99)
[2024-08-07 20:30] VITALS: BP 80/44
[2024-08-07] MEDS: COREG PO (20:48)
[2024-08-07 20:51] VITALS: BP 102/56
[2024-08-07] MEDS: RISPERDAL 1 MG PO (22:02)
[2024-08-07 23:00] VITALS: BP 98/48
[2024-08-08 02:41] LABS: Glucose - Point of Care 126 mg/dl (70-99)
[2024-08-08] MEDS: HEPARIN 5000 UNITS SC (05:15)
[2024-08-08 07:25] VITALS: BP 129/59
[2024-08-08 07:31] LABS: Glucose - Point of Care 107 mg/dl (70-99)
[2024-08-08] MEDS: NOVOLOG FLEXPEN-LOW RESISTANCE SC ×2 (09:15→11:34)
[2024-08-08] MEDS: PROTONIX 40 MG PO (09:20)
[2024-08-08] MEDS: CRESTOR 40 MG PO (09:20)
[2024-08-08] MEDS: GLUCOPHAGE 500 MG PO (09:20)
[2024-08-08] MEDS: SENOKOT-S 1 TABLET PO (09:21)
[2024-08-08] MEDS: VITAMIN D3 (cholecalciferol) 50 MCG PO (09:21)
[2024-08-08] MEDS: ATIVAN 0.5 MG PO (09:21)
[2024-08-08] MEDS: ZESTRIL 20 MG PO (09:21)
[2024-08-08] MEDS: ASPIR LOW (ENTERIC COATED) 81 MG PO (09:21)
[2024-08-08] MEDS: ZOLOFT 75 MG PO (09:22)
[2024-08-08] MEDS: MIRALAX 17 GRAMS PO (09:22)
[2024-08-08] MEDS: COREG 12.5 MG PO (09:27)
[2024-08-08] MEDS: RISPERDAL 0.5 MG PO (09:27)
--- NOTE | 2024-08-08 11:04 | CM ---
clinical business manager continues to follow with patient progress notes and case reviewer spoke with Meryl in admissions at [facility] this am, and DME form along with Medication list faxed to Meryl in admissions. Patient has a 12:30 pick
up by friend, Shahid. Per [facility] they do not require transfer form however copy sent with patient.
Plan; Patient to transfer to [facility] today.
[2024-08-08 11:28] LABS: Glucose - Point of Care 149 mg/dl (70-99)
[2024-08-08 11:35] VITALS: BP 121/65
--- NOTE | 2024-08-08 15:42 | W.DS.TRANS ---
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
-
Discharge Instructions:
Discharge Diagnosis/Procedures Depression.
Diet Regular
Instructions:
Stand-Alone Forms:
Changes to Home Medications: Yes
Discharge Medications:
DC Medications w/original date entered in [facility]
carvedilol 12.5 mg tablet 12.5 mg PO DAILY Blood Pressure 04/12/17
lisinopril 20 mg tablet 20 mg PO DAILY 06/07/24
aspirin 81 mg tablet,delayed release 81 mg PO DAILY 30 days #30 tabs 06/24/24
cholecalciferol (vitamin D3) 50 mcg (2,000 unit) tablet 50 mcg PO DAILY #30 tabs 06/24/24
rosuvastatin 40 mg tablet 40 mg PO DAILY 07/10/24
tamsulosin 0.4 mg capsule 0.4 mg PO DAILY #30 caps 07/12/24
omeprazole 20 mg tablet,delayed release 20 mg PO DAILY 07/17/24
lorazepam 0.5 mg tablet 0.5 mg PO TID #30 tabs 07/27/24
risperidone 0.5 mg tablet 0.5 mg PO DAILY #30 tabs 07/27/24
risperidone 1 mg tablet 1 mg PO HS #30 tabs 07/27/24
sertraline 50 mg tablet 75 mg (1.5 x 50 mg) PO DAILY #30 tabs 07/27/24
metformin 500 mg tablet 500 mg PO BID@0800,1700 #60 tabs 08/01/24
Home Medication Changes
Risperdal and lorazepam had been initiated.
Metformin started
Insulin discontinued
Pending Results: No
== END 2024-08-08 13:14 | DRG 885 ==
LOC: 4 WEST ACU 15:37
PROVIDERS: Hospitalist; Internal Medicine; Student in an Organized Health Care Education/Training Program; ADMITTING PHYSICIAN Hospitalist; ATTENDING PHYSICIAN Internal Medicine; CONSULT PHYSICIAN Psychiatry & Neurology Neurology; EMERGENCY PHYSICIAN Student in an Organized Health Care Education/Training Program; FAMILY PHYSICIAN Nurse Practitioner Adult Health; OTHER PHYSICIAN Psychiatry & Neurology Psychiatry
DX: F32.3 Major depressive disorder, single episode, severe with psychotic features (principal); F06.1 Catatonic disorder due to known physiological condition; E78.00 Pure hypercholesterolemia, unspecified; I12.9 Hypertensive chronic kidney disease with stage 1 through stage 4 chronic kidney disease, or unspecified chronic kidney disease; N18.30 Chronic kidney disease, stage 3 unspecified; E11.22 Type 2 diabetes mellitus with diabetic chronic kidney disease; N40.0 Benign prostatic hyperplasia without lower urinary tract symptoms; K21.9 Gastro-esophageal reflux disease without esophagitis; I25.10 Atherosclerotic heart disease of native coronary artery without angina pectoris; N39.498 Other specified urinary incontinence; N40.1 Benign prostatic hyperplasia with lower urinary tract symptoms; I65.23 Occlusion and stenosis of bilateral carotid arteries; Z87.891 Personal history of nicotine dependence; Z79.4 Long term (current) use of insulin; Z79.82 Long term (current) use of aspirin; Z79.899 Other long term (current) drug therapy; Z79.84 Long term (current) use of oral hypoglycemic drugs
CPT/HCPCS: 70450; 70496; 70498; 70551; 71046; 80048; 80053; 80061; 80306; 81003; 81015; 82140; 82175; 82550; 82805; 82962; 83655; 83735; 83825; 84484; 85025; 85027; 86780; 87086; 93005; 95816; 96361; 96374; 97116; 97163; 97166; 97530; 97535; 99291; Q9967

== ENCOUNTER 2024-09-22 10:50 | Inpatient (IN) | payer OTHER, SELFPAY ==
[2024-09-20 18:27] VITALS: BP 113/64
[2024-09-20 18:44] LABS: % Basophils 0.5 % (0-2); % Eosinophils 1.4 % (0-6); % Immature Granulocytes 0.3 % (0-0.5); % Lymphocytes 26.1 % (20.5-51.1); % Monocytes 8.7 % (1.7-9.3); Absolute Basophils 0.1 10^3/uL (0-0.2); Absolute Eosinophils 0.1 10^3/uL (0-0.7); Absolute Lymphocytes 2.7 10^3/uL (1.2-3.4); Absolute Monocytes 0.9 10^3/uL (0.1-0.6); Absolute Neutrophils 6.4 10^3/uL (1.4-6.5); Hematocrit 36.9 % (39.0-52.0); Hemoglobin 13.3 g/dL (13.0-18.0); Mean Corpuscular Hgb 31.8 pg (27.0-31.0); Mean Corpuscular Volume 88.3 fL (80.0-94.0); Mean Platelet Volume 9.9 fL (7.4-10.4); Nucleated Red Blood Cells % 0 % (-); Platelet Count 236 10^3/uL (130-400); Red Blood Cell Count 4.18 10^6/uL (4.70-6.10); Red Cell Dist. Width 13.8 % (11.5-14.5); White Blood Cell Count 10.2 10^3/uL (4.8-10.8)
[2024-09-20 19:04] LABS: ALT (SGPT) 17 U/L (0-50); AST (SGOT) 21 U/L (17-59); Alkaline Phosphatase 86 U/L (38-126); Blood Urea Nitrogen 25 mg/dl (9-20); Calcium 10.2 mg/dl (8.4-10.2); Carbon Dioxide 23 mmol/L (22-30); Chloride 107 mmol/L (98-107); Glucose 150 mg/dl (70-99); Sodium 142 mmol/L (135-145); Total Bilirubin 1.1 mg/dl (0.2-1.3); Total Protein 7.8 g/dl (6.3-8.2); eGFR 32.91
[2024-09-20 22:50] VITALS: BP 125/61
--- NOTE | 2024-09-20 23:00 | ED.GENMED ---
History of Present Illness
General
Chief Complaint: Change in Mental Status
Time Seen by Provider: 09/20/24 23:00
History of Present Illness
History of Present Illness:
TIME OF INITIAL ENCOUNTER: 11 PM
HPI: Patient presents with worsening confusion. I spoke to the POA at bedside (of note patient's daughters have related to cystic fibrosis), POA indicates that the patient would pull the call robins multiple times per day recently indicating
that he needs help getting dressed however he is already dressed. He seemed more confused. The patient was recently here with anxiety related issues and medications were adjusted and he was doing well up until the last day or 2. He has had poor
p.o. intake. POA just feels that he appears unwell.
EXAM:
GENERAL: Flat affect
HEENT: Slightly dry oral mucosa, some mucus noted to the lid margin of the left eye
CARDIOVASCULAR: No murmurs, normal heart rate, regular rhythm, No chest wall tenderness
PULMONARY: No respiratory distress, breath sounds are clear and equal
ABDOMEN: Soft with no peritoneal signs, no tenderness
NEUROLOGIC: Appears generally weak in all extremities
PSYCHIATRIC: The patient has some trouble answering simple questions, he is not certain of the month, he knows he is at [facility] but cannot tell me why he is here
EXTREMITIES: Nontender, 1+ bilateral edema, moves all extremities equally
SKIN: No rash, no lesions
NUMBER AND COMPLEXITY OF PROBLEMS ADDRESSED AT THE ENCOUNTER
� Chronic conditions affecting care: Memory impairment, high blood pressure, IDDM
� Acute Exacerbation and/or Progression of Chronic Illness: This is an acute problem
� Differential Diagnosis includes: Dehydration, SIL, psychogenic
AMOUNT AND/OR COMPLEXITY OF DATA TO BE REVIEWED AND ANALYZED
� I performed an independent evaluation of and my interpretation is:
EKG:
CT:
X-rays:
Laboratory Studies: White count normal, hemoglobin normal, BUN 25, creatinine 2.0, sodium 142
Other:
� Review of other/old records: I reviewed records, the patient was admitted with change in mental status with periods of unresponsiveness that was felt to be related to depression with psychotic features. At that time he was
seen by neurology and psychiatry. He had extensive workup. Psychiatry recommended starting Risperdal and Ativan
� Clinical information was obtained by an independent historian: I spoke to the POA
� Prescriptions/Medications Considered but not given:
� Further testing considered but not performed: I reviewed MRI of the brain July 2024 which showed no acute abnormality
RISK OF COMPLICATIONS AND/OR MORBIDITY OR MORTALITY OF PATIENT MANAGEMENT
� Social determinants of health affecting care: Resides at independent living
� Discussion with other providers: Hospitalist, Dr. Castaneda for admission
� Escalation of care including admission/observation vs risk of discharge considered: I spoke to the POA extensively bedside. She is very concerned about his overall mental status. This could be psychogenic in nature however
meds have been recently adjusted and renal function has worsened. Currently, it does not appear that he can safely be discharged back to independent living.
ANY OTHER UPDATES:
Past History
Past History
ED Past Medical History: HTN, Hypercholesterolemia and IDDM
ED Past Surgical History: Appendectomy
Social History
Tobacco: Former smoker
Alcohol: Occasional
Drug: None
Personal:
Living: alone
Employment: Other
Family History
Family History: Other
Phy Exam
Physical Exam
Physical Exam:
See HPI
Course
Orders/Labs/Results
Orders:
Orders
09/20/24 18:34
Complete Blood Count/With Diff Urgent
Comprehensive Metabolic Panel Urgent
09/20/24 23:54
0.9% Sodium Chloride 1000 ml [Nss] 1,000 ml IV BOLUS
Abnormal Lab Results
09/20/24
18:34
RBC 4.18 L 10^6/uL
(4.70-6.10)
Hct 36.9 L %
(39.0-52.0)
MCH 31.8 H pg
(27.0-31.0)
Absolute Monos (auto) 0.9 H 10^3/uL
(0.1-0.6)
BUN 25 H mg/dl
(9-20)
Creatinine 2.0 H mg/dL
(0.7-1.3)
Glucose 150 H mg/dl
(70-99)
09/20/24 18:34
09/20/24 18:34
Vital Signs
Initial and Last Documented VS:
Initial Vital Signs
Temp Pulse Resp BP Pulse Ox
36.8 C 77 16 113/64 97
09/20/24 18:27 09/20/24 18:27 09/20/24 18:27 09/20/24 18:27 09/20/24 18:27
Last Documented Vital Signs
Temp Pulse Resp BP Pulse Ox
36.8 C 65 17 124/65 97
09/20/24 18:27 09/21/24 00:15 09/21/24 00:15 09/21/24 00:00 09/21/24 00:15
*Critical Care Note
Total Time (30-74mins, 75-104mins- exclusive of procedures): Not Applicable
ED Attending Note
-
Portions of this chart may have been created with voice recognition software.� Occasional wrong word or��sound alike� substitutions may have occurred due to the inherent limitations of voice recognition software.
Discharge Plan
Departure
Patient Disposition: Admit
Date of Disposition: 09/20/24
Time of Disposition: 23:58
Presentation/result/management discussed w/ accepting MD/DO: Hospitalist
Discharge Problem:
Acute confusion
Prescriptions:
No Action
carvedilol 12.5 MG tablet
12.5 mg PO DAILY
lisinopril 20 mg Tablet
20 mg PO DAILY
aspirin 81 mg Tablet,Delayed Release (Dr/Ec)
81 mg PO DAILY 30 Days Qty: 30 0RF
cholecalciferol (vitamin D3) 50 mcg (2,000 unit) Tablet
50 mcg PO DAILY Qty: 30 0RF
rosuvastatin 40 mg Tablet
40 mg PO DAILY
tamsulosin 0.4 mg Capsule
0.4 mg PO DAILY Qty: 30 0RF
omeprazole 20 mg Tablet,Delayed Release (Dr/Ec)
20 mg PO DAILY
lorazepam 0.5 mg Tablet
0.5 mg PO TID Qty: 30 0RF
sertraline 50 mg Tablet
75 mg PO DAILY Qty: 30 0RF
risperidone 1 mg Tablet
1 mg PO HS Qty: 30 0RF
risperidone 0.5 mg Tablet
0.5 mg PO DAILY Qty: 30 0RF
metformin 500 mg Tablet
500 mg PO BID@0800,1700 Qty: 60 0RF
Referrals:
Krystin Mackay CRNP [Family Provider] -
Interventions
Interventions:
*Risk Screen - Suicide Last Done: 09/20/24 18:27
*General Assessment Last Done: 09/20/24 18:27
*ED COVID-19 Vaccine History Last Done: 09/20/24 18:27
ED- Pulmonary Assessment Last Done: 09/20/24 23:00
ED- Neurological Assessment Last Done: 09/20/24 23:00
ED- Cardiac Assessment Last Done: 09/20/24 23:00
Discharge Date and Time
Print Language: [place] CITIZ[place]
[2024-09-20 23:30] VITALS: BP 130/66
[2024-09-21] VITALS (7 sets, daily range): BP systolic 108–147; BP diastolic 51–69; PULSE 59; O2SAT 96; BMI 27.0
[2024-09-21] MEDS: NSS 1000 IV ×2 (00:19→02:54)
--- NOTE | 2024-09-21 00:55 | HPS.HSE ---
Family Physician
-
Family Physician: FAHEEM Dickens
Chief Complaint
-
Confusion
History of Present Illness
This is a 78-year-old male with past medical history significant for depression, type 2 diabetes, senile dementia presenting to the emergency department for worsening confusion at his independent living.
Patient is on that he has pieces of the POA who stated that the patient was pulling the cart for help in his room several times. He apparently was doing this and asking to get dressed but was already dressed. He performed his about 20 times today.
There is not much additional history and patient is unable to provide much. However when I did speak to the patient he was alert and oriented x 3 and knows what the president is. He does lack some insight. He states that he is here to get
checked out on what is going wrong. He was calm and we just wanted to go to the bed that is warmer. He denied having any pain. Denied any nausea or vomiting. He denied having any headache. He had no other symptoms.
He was recently admitted here and had some separate issues that improved with Risperdal and benzos. He remains on those medications. Patient is unable to provide any additional history. Records indicate that he has had multiple recent admissions
for altered mental status travels down, and at [facility] in May for severe depression.
In the emergency department he had a temp of 98.3, blood pressure 120/65 with a pulse of 65 and he was satting 97% on room air. CBC was unremarkable. Electrolytes were normal. Creatinine was elevated at 2.0 compared to his baseline of 1.
Medical History
Past Medical History
Past Medical History: Reports Other
Additional Past Medical History:
essential hypertension
hyperlipidemia
DM II
GERD
CAD
mild cognitive impairment
Hx colon polyps
Hx right carotid occlusion
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
Past Surgical History: Reports Other
Additional Past Surgical History:
hernia repair (2007)
appendectomy (1981)
Social History
Tobacco: Former Smoker
Alcohol: Occasional
Drug: None
Personal: Single
Living: Alone ([facility] living )
Employment: Retired
Family History
Family History: Not pertinent
Allergies / Home Medications
Allergies reflects when Allergies were last updated in [employer].
Home Medications with original date entered in [employer]
Allergy/Medication List:
Allergies
Allergy/AdvReac Type Severity Reaction Status Date / Time
erythromycin base Allergy 'i felt Verified 09/20/24 18:30
terrible'
Home Medications
carvedilol 12.5 mg tablet 12.5 mg PO DAILY Blood Pressure 04/12/17
lisinopril 20 mg tablet 20 mg PO DAILY 06/07/24
aspirin 81 mg tablet,delayed release 81 mg PO DAILY 30 days #30 tabs 06/24/24
cholecalciferol (vitamin D3) 50 mcg (2,000 unit) tablet 50 mcg PO DAILY #30 tabs 06/24/24
rosuvastatin 40 mg tablet 40 mg PO DAILY 07/10/24
tamsulosin 0.4 mg capsule 0.4 mg PO DAILY #30 caps 07/12/24
omeprazole 20 mg tablet,delayed release 20 mg PO DAILY 07/17/24
lorazepam 0.5 mg tablet 0.5 mg PO TID #30 tabs 07/27/24
risperidone 0.5 mg tablet 0.5 mg PO DAILY #30 tabs 07/27/24
risperidone 1 mg tablet 1 mg PO HS #30 tabs 07/27/24
sertraline 50 mg tablet 75 mg (1.5 x 50 mg) PO DAILY #30 tabs 07/27/24
metformin 500 mg tablet 500 mg PO BID@0800,1700 #60 tabs 08/01/24
Review of Systems
-
Constitutional: Reports No Symptoms
EENT: Reports No Symptoms
Respiratory: Reports No Symptoms
Cardiac: Reports No Symptoms
Abdomen/GI: Reports No Symptoms
: Reports No Symptoms
Musculoskeletal: Reports No Symptoms
Skin: Reports No Symptoms
Neurological: Reports No Symptoms
Endocrine: Reports No Symptoms
Hematologic/Lymphatic: Reports No Symptoms
Psych: Reports No Symptoms
Physical Exam
Vital Signs
Vital Signs
Temp Pulse Resp BP Pulse Ox
98.3 F 65 17 124/65 97
09/20/24 18:27 09/21/24 00:15 09/21/24 00:15 09/21/24 00:00 09/21/24 00:15
Physical Exam
General: Other (78y M appears to be resting comfortably. Poorly responsive requirnig noxious / painful stimuli to elicit response.)
HEENT: Moist mucous membranes and PERRLA
Respiratory: Clear; No Wheezes, Rales or Rhonchi
Cardiac: S1/S2, Regular Rhythm and Murmur (II/ WILD)
GI: Soft, Non Tender, Non Distended and Normal Bowel Sounds
Musculoskeletal: No Clubbing, No Cyanosis and No Edema
Neuro: AO x 3 and Nonfocal/grossly intact
Hematologic/Lymphatic: No Lymphadenopathy
Psych: Calm
Laboratory Results
-
09/20/24 18:34
09/20/24 18:34
Laboratory Results
Total Bilirubin 1.1 mg/dl (0.2-1.3) 09/20/24 18:34
AST 21 U/L (17-59) 09/20/24 18:34
ALT 17 U/L (0-50) 09/20/24 18:34
Alkaline Phosphatase 86 U/L (38-126) 09/20/24 18:34
Data Reviewed
-
Lab Data: Labs Reviewed by me
Old Records: Reviewed
Impression/Plan
-
IMPRESSION:
Patient with history of dementia and behavioral difficulties with multiple recent admissions for altered mental status usually typified by confusion and improved on Resporal and benzos presents to the emergency department with an episode of
confusion where he was repeatedly asking to get dressed even though he was dressed. This occurred about 20 times and was brought to the emergency department. In the emergency department he has been calm. He has been cooperative. He was alert and
oriented x 3. He he did not know the month he thought it was August. He knew the president. And he had some insight as to why he is here but does not know the exact details. His vital signs were stable. His exam was benign. His labs were mostly
unchanged from prior except for a rising creatinine to 2.0.
PLAN:
Altered mental status -behavioral change, he is not encephalopathic currently alert and oriented x 3 and knows the president. No focal neurological deficits. No signs of acute infection.
- admit to med/surg obs
- check flu/covid and u/a
- observe on current medications for recurrence of altered behavior
- if altered and patient has negative viral and u/a testing consider psych consult
- continue risperdal and benzo per prior
- Will continue his usual medications for hypertension, diabetes and BPH.
Renal insufficiency -mild acute worsening of his renal function. Creatinine now 2.0 from a baseline of 1
- IV fluids
- Bladder scan to rule out retention
- Avoid nephrotoxin
- Reevaluate in a.m.
DVT prophylaxis with heparin s/q
CODE STATUS DNR
[2024-09-21 02:34] LABS: COVID-19 Antigen Negative (Negative)
[2024-09-21 03:51] LABS: Urine Albumin 3+ (Neg - Trace); Urine Bilirubin Negative (Negative); Urine Character Clear (Clear); Urine Color Yellow; Urine Glucose Negative (Negative); Urine Ketone Negative (Negative); Urine Leukocyte Negative (Negative); Urine Nitrite Negative (Negative); Urine Occult Blood 4+ (Negative); Urine Urobilinogen Negative (Neg - 1+)
[2024-09-21 04:19] LABS: Urine Granular Cast >15 /LPF (0)
[2024-09-21 04:20] LABS: Urine Bacteria Few (Negative)
[2024-09-21] MEDS: TYLENOL PO ×2 (05:09→16:55)
[2024-09-21 07:10] LABS: Blood Urea Nitrogen 25 mg/dl (9-20); Calcium 9.2 mg/dl (8.4-10.2); Carbon Dioxide 28 mmol/L (22-30); Chloride 110 mmol/L (98-107); Estimated Creatinine Clearance 35 ml/min; Glucose 105 mg/dl (70-99); Potassium 3.5 mmol/L (3.5-5.1); Sodium 141 mmol/L (135-145)
[2024-09-21] MEDS: PROTONIX 40 MG PO (08:06)
[2024-09-21] MEDS: FLOMAX 0.4 MG PO (08:06)
[2024-09-21] MEDS: CRESTOR 40 MG PO (08:06)
[2024-09-21] MEDS: HEPARIN 5000 UNITS SC ×3 (08:06→20:13)
[2024-09-21] MEDS: COREG 12.5 MG PO ×2 (08:06→20:15)
[2024-09-21] MEDS: ZOLOFT 75 MG PO (08:06)
[2024-09-21] MEDS: TYLENOL 650 MG PO ×3 (08:06→20:03)
[2024-09-21] MEDS: RISPERDAL 0.5 MG PO (08:06)
[2024-09-21 08:08] LABS: Glucose - Point of Care 118 mg/dl (70-99)
[2024-09-21] MEDS: NOVOLOG FLEXPEN-LOW RESISTANCE SC ×3 (08:11→17:31)
--- NOTE | 2024-09-21 08:38 | W.PN.HOSP.TC ---
Today's Communication/Plan
-
Bladder scan
IV fluids
Labs in the morning
Please update home medication list
PT/OT
Assessment / Plan
Assessment / Plan
Gen-awake, alert, slow to respond, somewhat oriented, NAD
HEENT-NC, AT, anicteric, clear oral mm
Neck-supple
CV-reg, no M, +S1/S2
Lungs-clear B/L
Abd-soft, NT, ND
Ext-no edema
Musculoskeletal-no cyanosis, clubbing
Skin-warm and dry
Neuro-grossly non-focal
Psych-calm, cooperative
Acute metabolic encephalopathy -likely due to volume depletion, SIL. Appears to be improving with supportive measures. Does have underlying cognitive impairment, suspected dementia.
SIL -suspect due to volume depletion. Hold JUNIOR inhibitor. Check bladder scan.
Urinalysis does show microscopic hematuria. Recommend outpatient follow-up.
Essential hypertension -stable.
CAD -stable.
GERD
DM 2 without hyperglycemia -hold metformin. Use low resistance aspart scale insulin.
BPH
DNR
Dispo -back to assisted living when medically stable.
Anticipated Discharge: Within 24 hours
Subjective/Interval History
-
Date of Service: September 21, 2024
Patient seen and examined. No complaints.
Objective Data
-
Labs:
Laboratory Results
09/21/24
06:02
Sodium 141
Potassium 3.5
Chloride 110 H
Carbon Dioxide 28
BUN 25 H
Creatinine 1.7 H
Glucose 105 H
Calcium 9.2
Vital Signs:
Vital Signs
Temp Pulse Resp BP Pulse Ox
97.8 F 107 16 147/68 96
09/21/24 03:53 09/21/24 03:53 09/21/24 03:53 09/21/24 03:53 09/21/24 08:00
I&O
09/20/24 09/21/24 09/22/24
06:59 06:59 06:59
Intake Total 400 / 400
Balance 400 / 400
Review of Systems
-
History Source: Patient
All other systems: Reviewed and negative
[2024-09-21] MEDS: 0.45%NACL 1000 IV ×2 (09:53→18:11)
[2024-09-21] MEDS: KCL 20 MEQ PO (09:53)
[2024-09-21 11:55] LABS: Glucose - Point of Care 139 mg/dl (70-99)
[2024-09-21] MEDS: ASPIR LOW (ENTERIC COATED) 81 MG PO (12:57)
--- NOTE | 2024-09-21 15:40 | CM ---
Alert awake forgetful patient who lives at assisted living [facility].He is under personal care .STACY letter given all questions answered signed on chart.Spoke with medical POA Cathy she said pt needs more assistance then [facility] can provide.PT Ot said return to assisted living . 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 She requested SNFs [facility]. he has legal rep Carie Hernandez. STACY reviewed with pt and Cathy .
NO VN hx / No SNF history
[facility]
PCP DR Justice Horn
PLAN Dc planning ongoing. Wants SNF Needs auth
[2024-09-21 17:09] LABS: Glucose - Point of Care 122 mg/dl (70-99)
[2024-09-21] MEDS: ATIVAN 0.5 MG PO (20:14)
[2024-09-21] MEDS: RISPERDAL 1 MG PO (20:22)
[2024-09-21 21:14] LABS: Glucose - Point of Care 128 mg/dl (70-99)
[2024-09-22] MEDS: TYLENOL PO ×3 (00:56→13:02)
[2024-09-22 05:38] VITALS: BMI 27.3
[2024-09-22 07:33] VITALS: BP 154/82
[2024-09-22 08:04] LABS: Glucose - Point of Care 106 mg/dl (70-99)
[2024-09-22] MEDS: NOVOLOG FLEXPEN-LOW RESISTANCE SC ×3 (08:06→16:57)
[2024-09-22 08:13] LABS: Blood Urea Nitrogen 17 mg/dl (9-20); Calcium 9.2 mg/dl (8.4-10.2); Carbon Dioxide 24 mmol/L (22-30); Chloride 108 mmol/L (98-107); Estimated Creatinine Clearance 43 ml/min; Glucose 104 mg/dl (70-99); Potassium 3.5 mmol/L (3.5-5.1); Sodium 141 mmol/L (135-145); eGFR 50.49
[2024-09-22] MEDS: ZOLOFT 75 MG PO (08:14)
[2024-09-22] MEDS: KCL 20 MEQ PO ×2 (08:15→10:25)
[2024-09-22] MEDS: FLOMAX 0.4 MG PO (08:15)
[2024-09-22] MEDS: ASPIR LOW (ENTERIC COATED) 81 MG PO (08:15)
[2024-09-22] MEDS: PROTONIX 40 MG PO (08:15)
[2024-09-22] MEDS: TYLENOL 650 MG PO ×3 (08:15→21:02)
[2024-09-22] MEDS: CRESTOR 40 MG PO (08:15)
[2024-09-22] MEDS: COREG 12.5 MG PO ×2 (08:15→21:02)
[2024-09-22] MEDS: RISPERDAL 0.5 MG PO (08:15)
[2024-09-22] MEDS: HEPARIN 5000 UNITS SC ×2 (08:16→16:57)
--- NOTE | 2024-09-22 10:19 | W.PN.HOSP.TC ---
Today's Communication/Plan
-
Give additional KCl
Discharge planning
Assessment / Plan
Assessment / Plan
Gen-awake, alert, slow to respond, somewhat oriented, NAD
HEENT-NC, AT, anicteric, clear oral mm
Neck-supple
CV-reg, no M, +S1/S2
Lungs-clear B/L
Abd-soft, NT, ND
Ext-no edema
Musculoskeletal-no cyanosis, clubbing
Skin-warm and dry
Neuro-grossly non-focal
Psych-calm, cooperative
Acute metabolic encephalopathy -likely due to volume depletion, SIL. Appears to be improving with supportive measures. Does have underlying cognitive impairment, suspected dementia. Suspect mental status back to baseline.
SIL -suspect due to volume depletion. Hold JUNIOR inhibitor. No significant retention on bladder scan. SIL improved.
Urinalysis does show microscopic hematuria. Recommend outpatient follow-up.
Relative hypokalemia, potassium 3.5, increase potassium dose.
Essential hypertension -stable.
CAD -stable.
GERD
DM 2 without hyperglycemia -hold metformin. Use low resistance aspart scale insulin.
BPH
DNR
Dispo -medically stable for discharge. Case management looking into SNF as he needs higher level of care than can be provided in assisted living.
Anticipated Discharge: Within 24 hours
Subjective/Interval History
-
Date of Service: September 22, 2024
Patient seen and examined. No complaints.
Objective Data
-
Labs:
Laboratory Results
09/22/24
07:31
Sodium 141
Potassium 3.5
Chloride 108 H
Carbon Dioxide 24
BUN 17
Creatinine 1.4 H
Glucose 104 H
Calcium 9.2
Vital Signs:
Vital Signs
Temp Pulse Resp BP Pulse Ox
98.4 F 65 20 154/82 98
09/22/24 07:33 09/22/24 08:15 09/22/24 07:33 09/22/24 08:15 09/22/24 08:00
I&O
09/21/24 09/22/24 09/23/24
06:59 06:59 06:59
Intake Total 400 / 400 2580 / 2580
Output Total 1725 / 1725
Balance 400 / 400 855 / 855
Review of Systems
-
History Source: Patient
All other systems: Reviewed and negative
--- NOTE | 2024-09-22 10:56 | CM ---
Cathy BENITEZ requested SNF for pt.
She requested SNFs [facility].
Referral in care port .
Will need auth.
PLAN To SNf after located and auth obtained
[2024-09-22 11:54] LABS: Glucose - Point of Care 146 mg/dl (70-99)
--- NOTE | 2024-09-22 12:35 | CM ---
Addendum entered by Keara Decker 09/22/24 16:11:
liaison with [facility], reviewed referral and anticipate no bed available until next week if able to accept. They will review for possible memory care unit and update CM with decision. CM called to Liaison with [facility] and awaiting confirmation of bed
availability, possible bed thursday. Will need to call to confirm bed.
Plan; SNF; will need auth. confirm bed availability
Addendum entered by Keara Decker 09/22/24 16:05:
Patient POA notified that [facility] would accept patient pending available bed when ready for discharge. Cathy requested CM check with [facility] to clarify if they would accept patient and if not available would like to proceed with [facility]. CM will continue to
follow for discharge planning needs.
Original Note:
Cathy, Patient POA indicated that she was calling for update, referrals were sent to [facility], [facility], [facility] and [facility]. No responses as of yet. CM called to Liaison for [facility], and she is reviewing options. CM called back to Cathy but was unable to leave
message. CM will continue to follow for discharge planning needs.
Plan; SNF
[2024-09-22 15:02] VITALS: BP 182/80
[2024-09-22 16:31] VITALS: BP 135/85
[2024-09-22 16:50] LABS: Glucose - Point of Care 97 mg/dl (70-99)
[2024-09-22] MEDS: RISPERDAL 1 MG PO (21:02)
[2024-09-22 21:47] LABS: Glucose - Point of Care 115 mg/dl (70-99)
[2024-09-22 23:55] VITALS: BP 126/69
[2024-09-23] MEDS: TYLENOL PO ×4 (00:37→15:11)
[2024-09-23] MEDS: HEPARIN 5000 UNITS SC ×3 (00:39→16:39)
[2024-09-23 06:00] VITALS: BMI 27.2
[2024-09-23 07:29] LABS: Blood Urea Nitrogen 14 mg/dl (9-20); Calcium 9.5 mg/dl (8.4-10.2); Carbon Dioxide 23 mmol/L (22-30); Chloride 108 mmol/L (98-107); Estimated Creatinine Clearance 43 ml/min; Glucose 108 mg/dl (70-99); Potassium 3.8 mmol/L (3.5-5.1); Sodium 141 mmol/L (135-145); eGFR 50.49
[2024-09-23 07:32] LABS: Glucose - Point of Care 106 mg/dl (70-99)
[2024-09-23 07:55] VITALS: BP 151/76
[2024-09-23] MEDS: NOVOLOG FLEXPEN-LOW RESISTANCE SC ×3 (08:34→16:45)
[2024-09-23] MEDS: CRESTOR 40 MG PO (08:35)
[2024-09-23] MEDS: RISPERDAL 0.5 MG PO (08:35)
[2024-09-23] MEDS: FLOMAX 0.4 MG PO (08:35)
[2024-09-23] MEDS: TYLENOL 650 MG PO (08:35)
[2024-09-23] MEDS: ASPIR LOW (ENTERIC COATED) 81 MG PO (08:35)
[2024-09-23] MEDS: COREG 12.5 MG PO (08:35)
[2024-09-23] MEDS: PROTONIX 40 MG PO (08:35)
[2024-09-23] MEDS: ZOLOFT 75 MG PO (08:40)
[2024-09-23] MEDS: KCL 40 MEQ PO (10:18)
--- NOTE | 2024-09-23 10:37 | CM ---
Patient seen at bedside
Attempted to reach Cahty BENITEZ, but voicemail full
Spoke with Cynthia liaison regarding bed availability at [facility], she will get back to CM
may need to add additional referrals
PLAN: SNF, pending bed availability, will need to obtain ins auth
[2024-09-23 13:07] LABS: Glucose - Point of Care 141 mg/dl (70-99)
--- NOTE | 2024-09-23 14:47 | W.PN.HOSP.TC ---
Today's Communication/Plan
-
Discharge planning
Assessment / Plan
Assessment / Plan
Gen-awake, alert, slow to respond, somewhat oriented, NAD
HEENT-NC, AT, anicteric, clear oral mm
Neck-supple
CV-reg, no M, +S1/S2
Lungs-clear B/L
Abd-soft, NT, ND
Ext-no edema
Musculoskeletal-no cyanosis, clubbing
Skin-warm and dry
Neuro-grossly non-focal
Psych-calm, cooperative
Acute metabolic encephalopathy -likely due to volume depletion, SIL. Appears to be improving with supportive measures. Does have underlying cognitive impairment, suspected dementia. Suspect mental status back to baseline.
SIL -suspect due to volume depletion. Hold JUNIOR inhibitor. No significant retention on bladder scan. SIL improved.
Urinalysis does show microscopic hematuria. Recommend outpatient follow-up.
Essential hypertension -stable.
CAD -stable.
GERD
DM 2 without hyperglycemia -hold metformin. Use low resistance aspart scale insulin.
BPH
DNR
Dispo -medically stable for discharge. Case management looking into SNF as he needs higher level of care than can be provided in assisted living.
Anticipated Discharge: Today
Subjective/Interval History
-
Date of Service: September 23, 2024
Patient seen and examined. No complaints.
Objective Data
-
Labs:
Laboratory Results
09/23/24
05:59
Sodium 141
Potassium 3.8
Chloride 108 H
Carbon Dioxide 23
BUN 14
Creatinine 1.4 H
Glucose 108 H
Calcium 9.5
Vital Signs:
Vital Signs
Temp Pulse Resp BP Pulse Ox
98.7 F 63 14 151/76 95
09/23/24 07:55 09/23/24 07:55 09/23/24 07:55 09/23/24 07:55 09/23/24 07:55
I&O
09/22/24 09/23/24 09/24/24
06:59 06:59 06:59
Intake Total 2580 / 2580 360 / 360 480 / 480
Output Total 1725 / 1725 1350 / 1350 0 / 0
Balance 855 / 855 -990 / -990 480 / 480
Review of Systems
-
History Source: Patient
All other systems: Reviewed and negative
[2024-09-23 15:55] VITALS: BP 92/57
[2024-09-23 16:46] LABS: Glucose - Point of Care 126 mg/dl (70-99)
[2024-09-23] MEDS: RISPERDAL 1 MG PO (20:29)
[2024-09-23] MEDS: COREG PO (20:36)
[2024-09-23 21:18] LABS: Glucose - Point of Care 125 mg/dl (70-99)
[2024-09-23 23:30] VITALS: BP 134/63
[2024-09-24] MEDS: HEPARIN 5000 UNITS SC ×3 (00:18→17:05)
[2024-09-24 07:17] VITALS: BP 140/72
[2024-09-24 08:07] LABS: Glucose - Point of Care 123 mg/dl (70-99)
[2024-09-24] MEDS: NOVOLOG FLEXPEN-LOW RESISTANCE SC ×3 (08:31→17:04)
[2024-09-24] MEDS: CRESTOR 40 MG PO (08:32)
[2024-09-24] MEDS: FLOMAX 0.4 MG PO (08:32)
[2024-09-24] MEDS: KCL 40 MEQ PO (08:32)
[2024-09-24] MEDS: COREG 12.5 MG PO ×2 (08:32→21:29)
[2024-09-24] MEDS: ZOLOFT 75 MG PO (08:33)
[2024-09-24] MEDS: RISPERDAL 0.5 MG PO (08:33)
[2024-09-24] MEDS: ASPIR LOW (ENTERIC COATED) 81 MG PO (08:33)
[2024-09-24] MEDS: PROTONIX 40 MG PO (08:33)
--- NOTE | 2024-09-24 10:22 | CM ---
DAVE spoke with Jens's friend, Cathy, to discuss SNF transfer. No beds currently available at [facility], [facility], or [facility].
Carie Hernandez, and eldercare senior attorney is assisting with the Medicaid application per Cathy.
Plan: CM to continue to follow for SNF placement. Will need [employer] authorization once an available bed has been identified.
--- NOTE | 2024-09-24 12:07 | W.PN.HOSP.TC ---
Today's Communication/Plan
-
Discharge planning
Bowel regimen
Assessment / Plan
Assessment / Plan
Gen-awake, alert, slow to respond, somewhat oriented, NAD
HEENT-NC, AT, anicteric, clear oral mm
Neck-supple
CV-reg, no M, +S1/S2
Lungs-clear B/L
Abd-soft, NT, ND
Ext-no edema
Musculoskeletal-no cyanosis, clubbing
Skin-warm and dry
Neuro-grossly non-focal
Psych-calm, cooperative
Acute metabolic encephalopathy -likely due to volume depletion, SIL. Appears to be improving with supportive measures. Does have underlying cognitive impairment, suspected dementia. Suspect mental status back to baseline. Patient lacks insight,
asking questions as to why he is still in the hospital, does not know why he is here. We discussed his diagnosis and prognosis as well as plan of care. Despite my explanation, he still does not comprehend.
SIL -suspect due to volume depletion. Hold JUNIOR inhibitor. No significant retention on bladder scan. SIL improved.
Urinalysis does show microscopic hematuria. Recommend outpatient follow-up.
Essential hypertension -stable.
CAD -stable.
GERD
DM 2 without hyperglycemia -hold metformin. Use low resistance aspart scale insulin.
BPH
DNR
Dispo -medically stable for discharge. Case management looking into SNF as he needs higher level of care than can be provided in assisted living.
Anticipated Discharge: Within 24 hours
Subjective/Interval History
-
Date of Service: September 24, 2024
Patient seen and examined. No complaints.
Objective Data
-
Vital Signs:
Vital Signs
Temp Pulse Resp BP Pulse Ox
98.4 F 58 16 140/72 96
09/24/24 07:17 09/24/24 07:17 09/24/24 07:17 09/24/24 07:17 09/24/24 07:17
I&O
09/23/24 09/24/24 09/25/24
06:59 06:59 06:59
Intake Total 360 / 360 720 / 720
Output Total 1350 / 1350 450 / 450
Balance -990 / -990 270 / 270
Review of Systems
-
History Source: Patient
All other systems: Reviewed and negative
[2024-09-24 12:24] LABS: Glucose - Point of Care 146 mg/dl (70-99)
[2024-09-24] MEDS: MIRALAX 17 GRAMS PO (12:33)
[2024-09-24 15:05] VITALS: BP 139/65
[2024-09-24 17:03] LABS: Glucose - Point of Care 135 mg/dl (70-99)
[2024-09-24] MEDS: SENOKOT-S PO (20:09)
[2024-09-24 20:15] VITALS: BP 114/57
[2024-09-24 21:14] LABS: Glucose - Point of Care 113 mg/dl (70-99)
[2024-09-24] MEDS: RISPERDAL 1 MG PO (21:22)
[2024-09-25] MEDS: HEPARIN 5000 UNITS SC ×4 (00:01→23:29)
[2024-09-25] MEDS: ATIVAN 0.5 MG PO (00:40)
[2024-09-25 00:42] VITALS: BP 152/70
--- NOTE | 2024-09-25 05:51 | PTCARENOTE ---
Pt stating this AM he feels as though he has difficulty breathing at HS, stating he 'feels like he stops breathing at times'. Pulse ox 97% RA at this time.
[2024-09-25 07:11] LABS: Glucose - Point of Care 113 mg/dl (70-99)
[2024-09-25 07:15] VITALS: BP 140/74
[2024-09-25] MEDS: NOVOLOG FLEXPEN-LOW RESISTANCE SC ×3 (07:23→16:55)
[2024-09-25] MEDS: PROTONIX 40 MG PO (07:55)
[2024-09-25] MEDS: ZOLOFT 75 MG PO (07:55)
[2024-09-25] MEDS: COREG 12.5 MG PO (07:55)
[2024-09-25] MEDS: ASPIR LOW (ENTERIC COATED) 81 MG PO (07:55)
[2024-09-25] MEDS: RISPERDAL 0.5 MG PO (07:55)
[2024-09-25] MEDS: CRESTOR 40 MG PO (07:55)
[2024-09-25] MEDS: MIRALAX 17 GRAMS PO (07:56)
[2024-09-25] MEDS: KCL 40 MEQ PO (07:56)
[2024-09-25] MEDS: SENOKOT-S 1 TABLET PO ×2 (07:56→21:54)
[2024-09-25] MEDS: FLOMAX 0.4 MG PO (07:56)
--- NOTE | 2024-09-25 11:23 | W.PN.HOSP.TC ---
Today's Communication/Plan
-
Discharge planning
Assessment / Plan
Assessment / Plan
Gen-awake, alert, slow to respond, somewhat oriented, NAD
HEENT-NC, AT, anicteric, clear oral mm
Neck-supple
CV-reg, no M, +S1/S2
Lungs-clear B/L
Abd-soft, NT, ND
Ext-no edema
Musculoskeletal-no cyanosis, clubbing
Skin-warm and dry
Neuro-grossly non-focal
Psych-calm, cooperative
Acute metabolic encephalopathy -likely due to volume depletion, SIL. Appears to be improving with supportive measures. Does have underlying cognitive impairment, suspected dementia. Suspect mental status back to baseline. Patient lacks insight.
Although he consumed breakfast this morning, he could not remember that.
SIL -suspect due to volume depletion. Lisinopril on hold. No significant retention on bladder scan. SIL improved.
Urinalysis does show microscopic hematuria. Recommend outpatient follow-up.
Essential hypertension -stable.
CAD -stable.
GERD
DM 2 without hyperglycemia -hold metformin for SIL. Use low resistance aspart scale insulin.
BPH
DNR
Dispo -medically stable for discharge. Case management looking into SNF as he needs higher level of care than can be provided in assisted living.
Anticipated Discharge: Within 24 hours
Subjective/Interval History
-
Date of Service: September 25, 2024
Patient seen and examined. No complaints.
Objective Data
-
Vital Signs:
Vital Signs
Temp Pulse Resp BP Pulse Ox
98 F 62 18 140/74 97
09/25/24 07:15 09/25/24 07:55 09/25/24 07:15 09/25/24 07:55 09/25/24 08:10
I&O
09/24/24 09/25/24 09/26/24
06:59 06:59 06:59
Intake Total 720 / 720 880 / 880 720 / 720
Output Total 450 / 450 1730 / 1730 225 / 225
Balance 270 / 270 -850 / -850 495 / 495
Review of Systems
-
History Source: Patient
All other systems: Reviewed and negative
[2024-09-25 11:43] LABS: Glucose - Point of Care 123 mg/dl (70-99)
[2024-09-25 15:05] VITALS: BP 140/67
--- NOTE | 2024-09-25 15:43 | CM ---
CM following re: d/c planning.
Plan for SNF; [facility] may be able to accept per [employer], pending d/c.
CM continuing to follow, will need auth at d/c.
[2024-09-25 16:52] LABS: Glucose - Point of Care 138 mg/dl (70-99)
[2024-09-25 21:25] LABS: Glucose - Point of Care 112 mg/dl (70-99)
[2024-09-25] MEDS: RISPERDAL 1 MG PO (21:54)
[2024-09-25] MEDS: COREG PO (21:55)
[2024-09-25 23:13] VITALS: BP 126/56
--- NOTE | 2024-09-26 03:34 | PTCARENOTE ---
Pt stating 'SOB at HS, stating he feels like he stops breathing at times'. Checked pulse ox 97%. DELIVERY SPECIALIST aware.
[2024-09-26 07:05] VITALS: BP 146/77
[2024-09-26 08:00] LABS: Glucose - Point of Care 112 mg/dl (70-99)
[2024-09-26] MEDS: NOVOLOG FLEXPEN-LOW RESISTANCE SC ×2 (08:22→12:21)
[2024-09-26] MEDS: ASPIR LOW (ENTERIC COATED) 81 MG PO (08:39)
[2024-09-26] MEDS: KCL 40 MEQ PO (08:39)
[2024-09-26] MEDS: PROTONIX 40 MG PO (08:39)
[2024-09-26] MEDS: SENOKOT-S 1 TABLET PO (08:39)
[2024-09-26] MEDS: FLOMAX 0.4 MG PO (08:40)
[2024-09-26] MEDS: ZOLOFT 75 MG PO (08:40)
[2024-09-26] MEDS: CRESTOR 40 MG PO (08:41)
[2024-09-26] MEDS: RISPERDAL 0.5 MG PO (08:41)
[2024-09-26] MEDS: COREG 12.5 MG PO (08:41)
[2024-09-26] MEDS: HEPARIN 5000 UNITS SC ×3 (08:41→23:02)
[2024-09-26] MEDS: MIRALAX 17 GRAMS PO (08:43)
--- NOTE | 2024-09-26 12:13 | CM ---
Cynthia Salgado indicated bed available for pt.
Cathy Taryn [phone] notified she agreed with SNF . IMM reviewed and emailed to her [email or web address].
[employer]ia [employer] obtained auth for 7 days from 09/27/24 to 10/04/24 certification # [id number] NRD fax to [phone].
Cynthia Salgado given information .
Cathy or Shahid will transport pt to SNF .
[facility]
report [phone]
[phone]
PLAN To [facility] 09/27/24
[2024-09-26 12:19] LABS: Glucose - Point of Care 114 mg/dl (70-99)
--- NOTE | 2024-09-26 14:08 | W.PN.HOSP.TC ---
Today's Communication/Plan
-
Assessment / Plan
Assessment / Plan
Gen-awake, alert, slow to respond, somewhat oriented, NAD
HEENT-NC, AT, anicteric, clear oral mm
Neck-supple
CV-reg, no M, +S1/S2
Lungs-clear B/L
Abd-soft, NT, ND
Ext-no edema
Musculoskeletal-no cyanosis, clubbing
Skin-warm and dry
Neuro-grossly non-focal
Psych-calm, cooperative
Acute metabolic encephalopathy -likely due to volume depletion, SIL. improving with supportive measures. Does have underlying cognitive impairment, suspected dementia. Mental status appears back to baseline. Medically stable for discharge to
SNF.
SIL -suspect due to volume depletion. Lisinopril on hold. No significant retention on bladder scan. SIL improved.
Urinalysis does show microscopic hematuria. Recommend outpatient follow-up.
Essential hypertension -stable blood pressure well-controlled with carvedilol alone, will continue liberalize blood pressure goals to avoid hypotension
CAD -stable.
GERD -continue daily PPI
DM 2 without hyperglycemia -hold metformin for SIL. Sliding scale insulin ordered but he has not required any this admission. Recommend outpatient follow-up for ongoing monitoring of diabetic regimen, will continue to hold metformin at discharge
BPH -continue Flomax
DNR
Dispo -medically stable for discharge. Case management looking into SNF as he needs higher level of care than can be provided in assisted living.
Anticipated Discharge: 24 - 48 hours
Subjective/Interval History
-
Date of Service: September 26, 2024
Patient was seen and examined at bedside this morning. No complaints other than not able to find golf to watch on TV. He is eager to get out of the hospital.
Objective Data
-
Vital Signs:
Vital Signs
Temp Pulse Resp BP Pulse Ox
97.9 F 64 16 146/77 96
09/26/24 07:05 09/26/24 07:05 09/26/24 07:05 09/26/24 07:05 09/26/24 07:05
I&O
09/25/24 09/26/24 09/27/24
06:59 06:59 06:59
Intake Total 880 / 880 1200 / 1200
Output Total 1730 / 1730 925 / 925
Balance -850 / -850 275 / 275
Review of Systems
-
History Source: Patient
All other systems: Reviewed and negative
Physical Exam
-
General: No Apparent Distress
[2024-09-26 15:05] VITALS: BP 129/63
[2024-09-26 16:11] LABS: Glucose - Point of Care 161 mg/dl (70-99)
[2024-09-26] MEDS: NOVOLOG FLEXPEN-LOW RESISTANCE 1 UNITS SC (16:28)
[2024-09-26] MEDS: COREG PO ×2 (19:22→19:47)
[2024-09-26] MEDS: SENOKOT-S PO ×2 (19:22→19:48)
[2024-09-26 19:47] LABS: Glucose - Point of Care 127 mg/dl (70-99)
--- NOTE | 2024-09-26 19:52 | W.PN.UPDATE ---
Update Note
Progress Note Update
-Requested to assess the patient at bedside Reported. Patient is not responding to verbal or painful stimuli. Vital sign within normal baseline, afebrile. bs 127.
Per nursing staff, patient woke up for a second after long sternal rub and then back to the same condition not responding.
-During assessment time patient is not responding to verbal or painful stimuli, multiple tries by me and nursing staff and with no responses. Vital signs still stable.
-CBC, BMP, ammonia level, abg ordered, ua, and head CT ordered.
-Will hold Sentiment for tonight
-CBC, BMP, ammonia level, abg with unremarkable results. CT with no evidence of acute intracranial abnormality.
Abnormal UA result received will start ceftriaxone q 24hrs. C&S is pending.
--- NOTE | 2024-09-26 19:52 | PTCARENOTE ---
Patient found in room unarousable to painful stimuli. Patient breathing, vital signs and blood sugar stable. Patient woke up for a second pushing RN saying 'go away'. RN notified covering provider Sera Luciano. Covering provider at bedside. Per
previous admission notes this isnt first time this type of event has occured.
[2024-09-26 20:14] LABS: % Basophils 0.5 % (0-2); % Eosinophils 2.8 % (0-6); % Immature Granulocytes 0.3 % (0-0.5); % Lymphocytes 24.5 % (20.5-51.1); % Monocytes 7.9 % (1.7-9.3); Absolute Basophils 0.1 10^3/uL (0-0.2); Absolute Eosinophils 0.3 10^3/uL (0-0.7); Absolute Lymphocytes 2.3 10^3/uL (1.2-3.4); Absolute Monocytes 0.7 10^3/uL (0.1-0.6); Absolute Neutrophils 5.9 10^3/uL (1.4-6.5); Hemoglobin 13.2 g/dL (13.0-18.0); Mean Corp Hgb Conc. 35.7 g/dL (33.0-37.0); Mean Corpuscular Hgb 31.2 pg (27.0-31.0); Mean Corpuscular Volume 87.5 fL (80.0-94.0); Mean Platelet Volume 9.7 fL (7.4-10.4); Nucleated Red Blood Cells % 0 % (-); Platelet Count 201 10^3/uL (130-400); Red Blood Cell Count 4.23 10^6/uL (4.70-6.10); Red Cell Dist. Width 14.1 % (11.5-14.5); White Blood Cell Count 9.2 10^3/uL (4.8-10.8)
[2024-09-26 20:25] LABS: Ammonia < 9 umol/L (9-30)
[2024-09-26 20:48] LABS: Blood Urea Nitrogen 21 mg/dl (9-20); Calcium 10.1 mg/dl (8.4-10.2); Carbon Dioxide 20 mmol/L (22-30); Chloride 106 mmol/L (98-107); Estimated Creatinine Clearance 46 ml/min; Glucose 126 mg/dl (70-99); Potassium 4.4 mmol/L (3.5-5.1); Sodium 136 mmol/L (135-145); eGFR 55.19
[2024-09-26 20:51] LABS: B.E. -1.9 mmol/L; HCO3 22.2 mmol/L (21-28); O2 Saturation % 96.2 % (94-98); PCO2 35 mmHg (35-48); PO2 86 mmHg (83-108); pH 7.41 (7.35-7.45)
[2024-09-26] MEDS: RISPERDAL PO (21:11)
[2024-09-26 21:16] LABS: Glucose - Point of Care 125 mg/dl (70-99)
--- NOTE | 2024-09-26 22:00 | PTCARENOTE ---
Patient awake at this time, AAOx3. This RN notified covering provider Sera Luciano who is aware.
[2024-09-26 23:34] VITALS: BP 131/65
[2024-09-27 00:32] LABS: Urine Albumin 2+ (Neg - Trace); Urine Bilirubin Negative (Negative); Urine Character Clear (Clear); Urine Color Yellow; Urine Glucose Negative (Negative); Urine Ketone Negative (Negative); Urine Leukocyte 1+ (Negative); Urine Nitrite Positive (Negative); Urine Occult Blood 3+ (Negative); Urine Specific Gravity 1.025 (<1.030); Urine Urobilinogen 1+ (Neg - 1+)
[2024-09-27 00:51] LABS: Urine Squamous Cell 0-2 /LPF (Few)
[2024-09-27 00:52] LABS: Urine Red Blood Cell None Seen /HPF (0-2)
[2024-09-27 00:53] LABS: Urine Bacteria Many (Negative)
[2024-09-27] MEDS: ROCEPHIN 1000 MG IV (02:03)
[2024-09-27] MEDS: STERILE WATER FOR INJECTION 10 ML IV (02:04)
[2024-09-27 07:25] VITALS: BP 144/77
[2024-09-27] MEDS: RISPERDAL 0.5 MG PO (07:57)
[2024-09-27] MEDS: HEPARIN 5000 UNITS SC (07:57)
[2024-09-27] MEDS: CRESTOR 40 MG PO (07:58)
[2024-09-27] MEDS: SENOKOT-S 1 TABLET PO (07:58)
[2024-09-27] MEDS: ASPIR LOW (ENTERIC COATED) 81 MG PO (07:58)
[2024-09-27] MEDS: PROTONIX 40 MG PO (07:58)
[2024-09-27] MEDS: FLOMAX 0.4 MG PO (07:58)
[2024-09-27] MEDS: ZOLOFT 75 MG PO (07:58)
[2024-09-27] MEDS: COREG 12.5 MG PO (07:58)
[2024-09-27] MEDS: MIRALAX 17 GRAMS PO (08:05)
[2024-09-27] MEDS: NOVOLOG FLEXPEN-LOW RESISTANCE SC ×2 (08:12→12:37)
[2024-09-27 08:13] LABS: Glucose - Point of Care 108 mg/dl (70-99)
--- NOTE | 2024-09-27 11:59 | CM ---
indicated pt was ready for dc today .
Spoke with Cathy ELI she agrees with dc to [facility] today .She will transport pt at 4 pm today.
[employer]ia [employer] obtained auth for 7 days from 09/27/24 to 10/04/24 certification # [id number] NRD fax to [phone].
Cynthia Salgado given information .
Cathy will transport pt to [facility] at 4 pm .
[place]
report [phone]
[phone]
PLAN To [facility]
[2024-09-27 12:33] LABS: Glucose - Point of Care 139 mg/dl (70-99)
--- NOTE | 2024-09-27 13:23 | W.DCSUMMARY ---
Discharge Summary
Discharge Data
Date of Admission: 09/22/24
Date of Discharge: 09/27/24
Total time spent discharging patient (in min): 40
-
Pending Results: No
Hospital Course
Mr. Quintana is a 79-year-old male with a medical history of imy-vubjmum-xckxvcwaa type 2 diabetes mellitus, senile dementia, CAD, carotid artery disease, hypertension, and GERD who presented from his independent living facility due to worsening
confusion. He was found to have an SIL with a creatinine of 2.0 at the time of admission. This was likely prerenal due to dehydration and ultimately resolved with IV fluids. His mental status did wax and wane during this admission which is likely
a symptom of his dementia. His urinalysis showed bacteriuria and microscopic hematuria. He was afebrile and without leukocytosis. He was started empirically on antibiotics for possible urinary tract infection considering his change in mental
status, although he did not complain of any urinary symptoms. He was medically stable at time of hospital discharge. He will be given a prescription for Augmentin to complete a total 7-day course. He will need to follow-up closely with his
primary care physician for potential adjustments to his medication regimen including his psychiatric medications as they may contribute to his waxing and waning mental status.
Gen-awake, alert, slow to respond, somewhat oriented, NAD
HEENT-NC, AT, anicteric, clear oral mm
Neck-supple
CV-reg, no M, +S1/S2
Lungs-clear B/L
Abd-soft, NT, ND
Ext-no edema
Musculoskeletal-no cyanosis, clubbing
Skin-warm and dry
Neuro-grossly non-focal
Psych-calm, cooperative
Discharge Plan
-
Patient Disposition: Group Home/SNF
Discharge Diagnosis/Procedures: Acute metabolic encephalopathy, SIL, UTI
Diet: Diabetic, Carb Controlled
Activity: As tolerated
Activity Restrictions/Additional Instructions:
Mr. Quintana is a 79-year-old male with a medical history of wde-vzwdthy-wipfyxdyy type 2 diabetes mellitus, senile dementia, CAD, carotid artery disease, hypertension, and GERD who presented from his independent living facility due to worsening
confusion. He was found to have an SIL with a creatinine of 2.0 at the time of admission. This was likely prerenal due to dehydration and ultimately resolved with IV fluids. His mental status did wax and wane during this admission which is likely
a symptom of his dementia. His urinalysis showed bacteriuria and microscopic hematuria. He was afebrile and without leukocytosis. He was started empirically on antibiotics for possible urinary tract infection considering his change in mental
status, although he did not complain of any urinary symptoms. He was medically stable at time of hospital discharge. He will be given a prescription for Augmentin to complete a total 7-day course. He will need to follow-up closely with his
primary care physician for potential adjustments to his medication regimen including his psychiatric medications as they may contribute to his waxing and waning mental status.
Referrals:
Krystin Mackay CRNP [Family Provider] -
Prescriptions:
New
tamsulosin 0.4 mg Capsule
0.4 mg PO DAILY 30 Days Qty: 30 0RF
amoxicillin-pot clavulanate [Augmentin] 500-125 mg tablet
1 tab PO BID 6 Days Qty: 12 0RF
Continued
carvedilol 12.5 MG tablet
12.5 mg PO BID
aspirin 81 mg Tablet,Delayed Release (Dr/Ec)
81 mg PO DAILY 30 Days Qty: 30 0RF
cholecalciferol (vitamin D3) 50 mcg (2,000 unit) Tablet
50 mcg PO DAILY Qty: 30 0RF
rosuvastatin 40 mg Tablet
40 mg PO DAILY
omeprazole 20 mg Tablet,Delayed Release (Dr/Ec)
20 mg PO DAILY
sertraline 50 mg Tablet
75 mg PO DAILY Qty: 30 0RF
risperidone 1 mg Tablet
1 mg PO HS Qty: 30 0RF
risperidone 0.5 mg Tablet
0.5 mg PO DAILY Qty: 30 0RF
metformin 500 mg Tablet
500 mg PO BID@0800,1700 Qty: 60 0RF
lorazepam 0.5 mg Tablet
0.5 mg PO BID PRN (Reason: Anxiety )
Discharge Orders:
Discharge Patient (As Directed); Ordered 09/27/24
Ordered By: Amadou Uribe
Discharge Date and Time
Print Language: GREENLANDIC
[2024-09-27 15:59] VITALS: BP 94/59
== END 2024-09-27 18:12 | DRG 71 ==
LOC: 4 EAST ACU 10:50
PROVIDERS: Hospitalist; Nurse Practitioner Family; Student in an Organized Health Care Education/Training Program; ADMITTING PHYSICIAN Internal Medicine; ATTENDING PHYSICIAN Internal Medicine; EMERGENCY PHYSICIAN Emergency Medicine; FAMILY PHYSICIAN Nurse Practitioner Adult Health
DX: G93.41 Metabolic encephalopathy (principal); F03.94 Unspecified dementia, unspecified severity, with anxiety; N17.9 Acute kidney failure, unspecified; N39.0 Urinary tract infection, site not specified; I25.10 Atherosclerotic heart disease of native coronary artery without angina pectoris; K21.9 Gastro-esophageal reflux disease without esophagitis; E11.9 Type 2 diabetes mellitus without complications; E86.0 Dehydration; R31.29 Other microscopic hematuria; Z79.84 Long term (current) use of oral hypoglycemic drugs; I10 Essential (primary) hypertension; Z86.0100 Personal history of colon polyps, unspecified; Z87.891 Personal history of nicotine dependence; Z66 Do not resuscitate; E78.00 Pure hypercholesterolemia, unspecified; N40.0 Benign prostatic hyperplasia without lower urinary tract symptoms; Z79.82 Long term (current) use of aspirin; Z11.52 Encounter for screening for COVID-19
CPT/HCPCS: 36600; 70450; 80048; 80053; 81003; 81015; 82140; 82805; 82962; 83735; 85025; 87086; 87502; 87811; 96360; 97116; 97163; 97167; 97530; 97535; 99284

== ENCOUNTER 2024-10-04 18:45 | Observation (INO) | payer OTHER, SELFPAY ==
[2024-10-04] VITALS (11 sets, daily range): BP systolic 121–163; BP diastolic 58–82; BMI 28.6
[2024-10-04 10:28] LABS: % Basophils 0.5 % (0-2); % Eosinophils 3.3 % (0-6); % Immature Granulocytes 0.3 % (0-0.5); % Lymphocytes 21.2 % (20.5-51.1); % Monocytes 6.2 % (1.7-9.3); % Neutrophils 68.5 % (42.2-75.2); Absolute Eosinophils 0.3 10^3/uL (0-0.7); Absolute Lymphocytes 1.6 10^3/uL (1.2-3.4); Absolute Monocytes 0.5 10^3/uL (0.1-0.6); Absolute Neutrophils 5.2 10^3/uL (1.4-6.5); Hematocrit 36.4 % (39.0-52.0); Hemoglobin 13.2 g/dL (13.0-18.0); Mean Corp Hgb Conc. 36.3 g/dL (33.0-37.0); Mean Corpuscular Hgb 31.9 pg (27.0-31.0); Mean Corpuscular Volume 87.9 fL (80.0-94.0); Nucleated Red Blood Cells % 0 % (-); Platelet Count 180 10^3/uL (130-400); Red Blood Cell Count 4.14 10^6/uL (4.70-6.10); Red Cell Dist. Width 13.9 % (11.5-14.5); White Blood Cell Count 7.6 10^3/uL (4.8-10.8)
[2024-10-04 10:35] LABS: Urine Albumin 3+ (Neg - Trace); Urine Bilirubin Negative (Negative); Urine Character Clear (Clear); Urine Color Yellow; Urine Glucose Negative (Negative); Urine Ketone Negative (Negative); Urine Leukocyte Negative (Negative); Urine Nitrite Negative (Negative); Urine Occult Blood 4+ (Negative); Urine Specific Gravity 1.025 (<1.030); Urine Urobilinogen Negative (Neg - 1+)
[2024-10-04 10:39] LABS: Lactic Acid 1.1 mmol/L (0.7-2.0)
[2024-10-04 10:45] LABS: ALT (SGPT) 18 U/L (0-50); AST (SGOT) 27 U/L (17-59); Albumin 4.4 g/dl (3.5-5.0); Alkaline Phosphatase 79 U/L (38-126); Blood Urea Nitrogen 31 mg/dl (9-20); Calcium 9.9 mg/dl (8.4-10.2); Carbon Dioxide 30 mmol/L (22-30); Chloride 102 mmol/L (98-107); Glucose 152 mg/dl (70-99); Lipase 73 U/L (23-300); Potassium 3.6 mmol/L (3.5-5.1); Sodium 137 mmol/L (135-145); Total Bilirubin 1.6 mg/dl (0.2-1.3); Total Protein 7.1 g/dl (6.3-8.2); eGFR 55.19
[2024-10-04 10:57] LABS: Troponin I 0.032 ng/ml
--- NOTE | 2024-10-04 14:00 | ED.GENMED ---
History of Present Illness
<Jeovany Farnsworth Jr., PA-C - Last Filed: 10/06/24 23:06>
General
Chief Complaint: Change in Mental Status
Source: patient
Exam Limitations: none
Time Seen by Provider: 10/04/24 10:10
Nursing documentation reviewed up to this point in time: agreed with
History of Present Illness
History of Present Illness:
79-year-old male past medical history of diabetes, hypertension hyperlipidemia presenting to the emergency department from his nursing facility with concerns of changes in level of consciousness this morning yesterday. He is had a few episodes
where he seems to be unable to speak or respond. They tend to last for few minutes at a time. They deny any significant change in vital signs. He seemed to go back to his baseline in between episodes. Here he is able to respond with simple
questioning he knows where he is, the date and current events. He denies any specific pain.
Past History
<Jeovany Farnsworth Jr., PA-C - Last Filed: 10/06/24 23:06>
Past History
ED Past Medical History: HTN, Hypercholesterolemia and IDDM
ED Past Surgical History: Appendectomy
Social History
Tobacco: Former smoker
Alcohol: Occasional
Drug: None
Personal:
Living: alone
Employment: Other
Family History
Family History: Other
Review of Systems
<Jeovany Farnsworth Jr., PA-C - Last Filed: 10/06/24 23:06>
Review of Systems
Allergies reviewed?: Yes
All Other Systems: ROS reviewed and negative except as documented in HPI and ROS
Phy Exam
<Jeovany Farnsworth Jr., PA-C - Last Filed: 10/06/24 23:06>
Physical Exam
Physical Exam:
GENERAL: Alert , in no apparent distress
EYE: pupils equal and reactive
NECK: Supple, no significant adenopathy.
ENT: o/p clr, mmm.
CARDIAC: Regular rate and rhythm .
LUNGS: Clear breath sounds bilaterally, no acute respiratory distress, no wheezes/rales/rhonchi
ABDOMEN: Soft, without focal tenderness, no r/g, no cvat
NEUROLOGICAL: Alert and oriented, no focal neuro deficits
SKIN: Warm and dry, skin intact.
MUSCULOSKELETAL: No edema, well perfused.
PSYCH: Normal and appropriate interaction.
Course
<Jeovany Farnsworth Jr., PA-Kayla - Last Filed: 10/06/24 23:06>
Orders/Labs/Results
Orders:
Orders
10/04/24 10:01
Electrocardiogram (*1) Urgent
Reason for Study: Other
Other Reason for Exam: ams
EKG- Treatment ONCE
10/04/24 10:11
EKG- Treatment ONCE
Chest [CR Chest - 2 Views ] Urgent
Comment:
Reason For Exam: aMS
10/04/24 10:17
Complete Blood Count/With Diff Urgent
Comprehensive Metabolic Panel Urgent
Lactic Acid Urgent
Lipase Urgent
Troponin I Urgent
Urinalysis Reflex To Culture Urgent
Date Specimen was Collected: 10/04/24
Time Specimen was Collected: 10:14
Urine Microscopic Reflex Cult Urgent
Urine Culture Urgent
DI Source: U
Specimen Description:
Date Specimen was Collected: 10/04/24
Time Specimen was Collected: 10:14
10/04/24 12:11
CT Head W/o Iv Contrast Urgent
Comment:
Reason For Exam: AMS
10/04/24 13:43
EEG Routine Urgent
Reason for Exam: possible seizure
10/04/24 Dinner
Regular
At Your Request: Non-Participating
Does patient need a safe tray?: No
10/04/24 18:12
Admit/Transfer Patient As Directed
Co-Sign Provider:
Level of Care: Observation services
Assign to:: Medical/Surgical
Physician / Group: Hiram Parks
Diagnosis: altered mental status
PRN Pain Medication Management As Directed
May give lesser potent ordered pain med per pt: Yes
preference::
Protocol:: Medication orders for pain may be administered in a
manner that supports deferring to patient preference
when the pt is:
- Requesting an ordered lesser potent pain medication.
Least to most potent pain medications are defined
as: acetaminophen < NSAID < tramadol < opioids
(morphine, oxycodone, hydromorphone).
- Requesting a lesser dose of the same medication IF
ORDERED.
- Requesting a less intrusive route of administration
if both routes are prescribed by the provider (PO <
IV).
10/04/24 18:15
Code Status As Directed
Resuscitation Status: Do not resuscitate
Reached after discussion with pt or family/Healthcare POA: Yes
Decision communicated with: friend/POA
DNR Bracelet Application ONCE
10/04/24 20:00
Acetaminophen [Tylenol] 650 mg PO Q6HPRN PRN
Carvedilol [Coreg] 12.5 mg PO BID
Lorazepam [Ativan] 0.5 mg PO BIDPRN PRN
10/04/24 20:00
Case Management Consult ONCE
Case Management Consult: Discharge Planning
Comment: Cathy (friend) at bedside reported that patient POC was to covert to LTC at [facility], he was already
in LTC bed and was no longer there for rehab, the plan was for him to stay and not return to
[facility].
Activity As Directed
Activity Level: With Assistance
Vital Signs As Directed
Frequency: Per unit guidelines
Weight As Directed
Frequency: Daily
Comment: on admission
Pt Eval And Treat Routine
Activity Level: With Assistance
DX Deep Vein Thrombosis Video Routine
10/04/24 22:00
Atorvastatin [Lipitor] 80 mg PO HS
Tamsulosin [Flomax] 0.4 mg PO HS
10/05/24 00:00
Heparin 5,000 units SC Q8
10/05/24 08:00
Aspirin Low Dose EC [Aspir Low (Enteric Coated)] 81 mg PO DAILY
Cholecalciferol (Vitamin D3) [VITAMIN D3 (cholecalciferol)] 50 mcg PO DAILY
METFORMIN HCl [Glucophage] 500 mg PO BID@0800,1700
Pantoprazole [Protonix] 40 mg PO DAILY
Sertraline HCl [Zoloft] 75 mg PO DAILY
Abnormal Lab Results
10/04/24
10:17
RBC 4.14 L 10^6/uL
(4.70-6.10)
Hct 36.4 L %
(39.0-52.0)
MCH 31.9 H pg
(27.0-31.0)
BUN 31 H mg/dl
(9-20)
Glucose 152 H mg/dl
(70-99)
Total Bilirubin 1.6 H mg/dl
(0.2-1.3)
Ur Occult Blood Reflex 4+ A
(Negative)
Urine Bacteria (Reflex) Many A
(Negative)
Urine Albumin (Reflex) 3+ A
(Neg - Trace)
10/04/24 10:17
10/04/24 10:17
Vital Signs
Initial and Last Documented VS:
Initial Vital Signs
Pulse Resp
59 14
10/04/24 10:01 10/04/24 10:01
Last Documented Vital Signs
Temp Pulse Resp BP Pulse Ox
98.3 F 63 18 116/65 94
10/07/24 07:00 10/07/24 09:53 10/07/24 09:53 10/07/24 09:53 10/07/24 09:53
<Neo Conroy MD - Last Filed: 10/07/24 12:48>
Orders/Labs/Results
Orders:
Orders
10/04/24 10:01
Electrocardiogram (*1) Urgent
Reason for Study: Other
Other Reason for Exam: ams
EKG- Treatment ONCE
10/04/24 10:11
EKG- Treatment ONCE
Chest [CR Chest - 2 Views ] Urgent
Comment:
Reason For Exam: aMS
10/04/24 10:17
Complete Blood Count/With Diff Urgent
Comprehensive Metabolic Panel Urgent
Lactic Acid Urgent
Lipase Urgent
Troponin I Urgent
Urinalysis Reflex To Culture Urgent
Date Specimen was Collected: 10/04/24
Time Specimen was Collected: 10:14
Urine Microscopic Reflex Cult Urgent
Urine Culture Urgent
DI Source: U
Specimen Description:
Date Specimen was Collected: 10/04/24
Time Specimen was Collected: 10:14
10/04/24 12:11
CT Head W/o Iv Contrast Urgent
Comment:
Reason For Exam: AMS
10/04/24 13:43
EEG Routine Urgent
Reason for Exam: possible seizure
10/04/24 Dinner
Regular
At Your Request: Non-Participating
Does patient need a safe tray?: No
10/04/24 18:12
Admit/Transfer Patient As Directed
Co-Sign Provider:
Level of Care: Observation services
Assign to:: Medical/Surgical
Physician / Group: Htay, Hiram
Diagnosis: altered mental status
PRN Pain Medication Management As Directed
May give lesser potent ordered pain med per pt: Yes
preference::
Protocol:: Medication orders for pain may be administered in a
manner that supports deferring to patient preference
when the pt is:
- Requesting an ordered lesser potent pain medication.
Least to most potent pain medications are defined
as: acetaminophen < NSAID < tramadol < opioids
(morphine, oxycodone, hydromorphone).
- Requesting a lesser dose of the same medication IF
ORDERED.
- Requesting a less intrusive route of administration
if both routes are prescribed by the provider (PO <
IV).
10/04/24 18:15
Code Status As Directed
Resuscitation Status: Do not resuscitate
Reached after discussion with pt or family/Healthcare POA: Yes
Decision communicated with: friend/POA
DNR Bracelet Application ONCE
10/04/24 20:00
Acetaminophen [Tylenol] 650 mg PO Q6HPRN PRN
Carvedilol [Coreg] 12.5 mg PO BID
Lorazepam [Ativan] 0.5 mg PO BIDPRN PRN
10/04/24 20:00
Case Management Consult ONCE
Case Management Consult: Discharge Planning
Comment: Cathy (friend) at bedside reported that patient POC was to covert to LTC at [facility], he was already
in LTC bed and was no longer there for rehab, the plan was for him to stay and not return to
[facility].
Activity As Directed
Activity Level: With Assistance
Vital Signs As Directed
Frequency: Per unit guidelines
Weight As Directed
Frequency: Daily
Comment: on admission
Pt Eval And Treat Routine
Activity Level: With Assistance
DX Deep Vein Thrombosis Video Routine
10/04/24 22:00
Atorvastatin [Lipitor] 80 mg PO HS
Tamsulosin [Flomax] 0.4 mg PO HS
10/05/24 00:00
Heparin 5,000 units SC Q8
10/05/24 08:00
Aspirin Low Dose EC [Aspir Low (Enteric Coated)] 81 mg PO DAILY
Cholecalciferol (Vitamin D3) [VITAMIN D3 (cholecalciferol)] 50 mcg PO DAILY
METFORMIN HCl [Glucophage] 500 mg PO BID@0800,1700
Pantoprazole [Protonix] 40 mg PO DAILY
Sertraline HCl [Zoloft] 75 mg PO DAILY
Abnormal Lab Results
10/04/24
10:17
RBC 4.14 L 10^6/uL
(4.70-6.10)
Hct 36.4 L %
(39.0-52.0)
MCH 31.9 H pg
(27.0-31.0)
BUN 31 H mg/dl
(9-20)
Glucose 152 H mg/dl
(70-99)
Total Bilirubin 1.6 H mg/dl
(0.2-1.3)
Ur Occult Blood Reflex 4+ A
(Negative)
Urine Bacteria (Reflex) Many A
(Negative)
Urine Albumin (Reflex) 3+ A
(Neg - Trace)
10/04/24 10:17
10/04/24 10:17
Vital Signs
Initial and Last Documented VS:
Initial Vital Signs
Pulse Resp
59 14
10/04/24 10:01 10/04/24 10:01
Last Documented Vital Signs
Temp Pulse Resp BP Pulse Ox
98.3 F 63 18 116/65 94
10/07/24 07:00 10/07/24 09:53 10/07/24 09:53 10/07/24 09:53 10/07/24 09:53
<Jeovany Farnsworth Jr., PA-C - Last Filed: 10/06/24 23:06>
MDM/Problems Addressed
MDM/Problems Addressed:
79-year-old male presenting to the emergency department after having altering levels of consciousness at his nursing facility. They claim that he intermittently will not answer and is not responding. Here his vital signs are normal as patient is
no distress he is answering simple questions and seems to be at his baseline. Labs without acute abnormalities. Cardiac workup normal. Head CT negative chest x-ray normal EKG normal. At this point no evidence for no explanation of patient's
symptoms. This could be psychiatric. Otherwise the possibility of neurologic cause was considered. The case was discussed with neurology the recommended EEG.
<Jeovany Farnsworth Jr., PA-C - Last Filed: 10/06/24 23:06>
*Critical Care Note
Total Time (30-74mins, 75-104mins- exclusive of procedures): Not Applicable
<Neo Conroy MD - Last Filed: 10/07/24 12:48>
Update Note
Update Note:
Patient with an unremarkable In ED. Unfortunately, rehab facility, where he would have been discharged today, does not feel comfortable taking the patient back. After discussion with case management, decision made to admit patient to [facility] today, with hopes of obtaining formal PT/OT evaluation tomorrow, and return patient back to his primary assisted living residence.
ED Attending Note
<Jeovany Farnsworth Jr., PA-C - Last Filed: 10/06/24 23:06>
-
Portions of this chart may have been created with voice recognition software.� Occasional wrong word or��sound alike� substitutions may have occurred due to the inherent limitations of voice recognition software.
Discharge Plan
Departure
Patient Disposition: Admit
Date of Disposition: 10/04/24
Time of Disposition: 14:49
Presentation/result/management discussed w/ accepting MD/DO: Hospitalist
Patient with high blood pressure during this ER visit?: No
Condition: Good
Covid-19: Not Applicable
Discharge Problem:
Mental status alteration, Dementia
Interventions
Interventions:
*Risk Screen - Suicide Last Done: 10/04/24 20:30
*General Assessment Last Done: 10/04/24 10:07
*Neglect/Abuse Screening Last Done: 10/04/24 10:07
*ED- Fall Risk Assessment Last Done: 10/04/24 10:07
*ED COVID-19 Vaccine History Last Done: 10/04/24 10:07
*Nursing Disposition Last Done: 10/04/24 20:05
ED- Neurological Assessment Last Done: 10/04/24 10:06
Discharge Date and Time
Discharge Date/Time: 10/04/24 20:05
--- NOTE | 2024-10-04 14:43 | EEG.RPT ---
Electroencephalogram Report
Recording
Date of EE10/04/24
Type of EEG: Routine
Length of EEG recordin minutes
Done with Video Recording: Yes
Patient Status: Emergency Room
Recording Conditions: Awake and Drowsy
Hyperventilation Performed: No
Photic Stimulation Performed: Yes
Report
LESS THAN 1 HOUR EEG REPORT
EEG INTERPRETATION:
Mildly abnormal study for age based generalized slowing demonstrated bihemispherically equally.
CLINICAL CORRELATION:
Although normative values not been established for a person of this advanced age the patient�s symmetry of the background suggests that this study was suggestive of mild bihemispheric cortical dysfunction. No epileptiform features were demonstrated.
In comparison with an EEG read by my colleague in July 2024, the study suggests greater slowing than that study demonstrated.
Clinical correlation is advised.
METHODS:
A 21-channel digital electroencephalogram (EEG) was performed in the ED. The 10/20 international system of electrode placement was used with ECG and lateral/vertical eye movements recorded. The [employer] quantitative EEG analysis system was performed.
IMPRESSION(S):
Quality of study
Good
Background
Low amplitude
Anterior-posterior voltage gradient differentiation: Fair
Theta frequency maximal background demonstrated
Sleep
Drowsiness present
Hyperventilation
Not performed
Photic Stimulation
Failed to activate the record
ECG
Normal rhythm
Abnormal Activity
None
--- NOTE | 2024-10-04 16:09 | CM ---
CM called to Liaison at [facility] she indicated that patient was not able to return to the [facility] due to concerns about behaviors. CM called to the patient friend who was unaware of the patient's return to the hospital and was calling to the SNF to obtain
information. CM will see patient and send updated referrals to [facility] and [facility].
--- NOTE | 2024-10-04 17:07 | HPS.HSE ---
Family Physician
-
Family Physician: Carmine Sarah
Chief Complaint
-
change in mental status
History of Present Illness
Patient is a 78-year-old male with past medical history significant for essential hypertension, hyperlipidemia, DM II, GERD, CAD and mild cognitive impairment who presented to [facility] ED for evaluation of change in mental status. Patient with recent
hospitalization for SIL and was empirically treated for UTI for worsening confusion. During hospitalization it was documented that mental status waxed and weaned and was suspected to be secondary to dementia. Patient was discharged to [facility] for
acute rehab stay. Today scheduled as last day when facility sent patient to ED for 2 days of intermittent periods of patient being unable to speak or respond. They reported the episodes would last a few minutes and then patient would return to
baseline. No reports of fever, chills, cough, shortness of breath, chest pain, nausea, vomiting, constipation, diarrhea or urinary symptoms.
Medical History
Past Medical History
Past Medical History: Reports Other
Additional Past Medical History:
essential hypertension
hyperlipidemia
DM II
GERD
CAD
mild cognitive impairment
Hx colon polyps
Hx right carotid occlusion
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
Past Surgical History: Reports Other
Additional Past Surgical History:
hernia repair (2007)
appendectomy (1981)
Social History
Tobacco: Former Smoker
Alcohol: Occasional
Drug: None
Personal: Single
Living: Alone ([facility] )
Employment: Retired
Family History
Family History: Not pertinent
Allergies / Home Medications
Allergies reflects when Allergies were last updated in [facility] [employer].
Home Medications with original date entered in [employer]
Allergy/Medication List:
Allergies
Allergy/AdvReac Type Severity Reaction Status Date / Time
erythromycin base Allergy 'i felt Verified 09/20/24 18:30
terrible'
Home Medications
carvedilol 12.5 mg tablet 12.5 mg PO BID Blood Pressure 04/12/17
aspirin 81 mg tablet,delayed release 81 mg PO DAILY 30 days #30 tabs 06/24/24
cholecalciferol (vitamin D3) 50 mcg (2,000 unit) tablet 50 mcg PO DAILY #30 tabs 06/24/24
omeprazole 20 mg tablet,delayed release 20 mg PO DAILY Gastrointestinal Issue 07/17/24
risperidone 0.5 mg tablet 0.5 mg PO DAILY #30 tabs 07/27/24
risperidone 1 mg tablet 1 mg PO HS #30 tabs 07/27/24
sertraline 50 mg tablet 75 mg (1.5 x 50 mg) PO DAILY #30 tabs 07/27/24
metformin 500 mg tablet 500 mg PO BID@0800,1700 #60 tabs 08/01/24
lorazepam 0.5 mg tablet 0.5 mg PO BIDPRN PRN Anxiety 09/21/24
amoxicillin 500 mg-potassium clavulanate 125 mg tablet (Augmentin) 1 tab PO BID 6 days #12 tabs 09/27/24
acetaminophen 325 mg tablet (Tylenol) 650 mg PO Q6HPRN PRN mild pain 10/04/24
atorvastatin 80 mg tablet (Lipitor) 80 mg PO HS 10/04/24
bisacodyl 10 mg rectal suppository (Dulcolax (bisacodyl)) [address] DAILYPRN PRN if no bm aftr mom 10/04/24
magnesium hydroxide 400 mg/5 mL oral suspension (Milk of Magnesia) 2,400 mg PO DAILYPRN PRN if no bm by 3rd day 10/04/24
sodium phosphates 19 gram-7 gram/118 mL enema (Fleet Enema) [address] DAILY if no bm aftr dulcolax 10/04/24
tamsulosin 0.4 mg capsule 0.4 mg PO HS 10/04/24
Review of Systems
-
Unable to obtain full review of systems at this time due to: Dementia
Physical Exam
Vital Signs
Vital Signs
Temp Pulse Resp BP Pulse Ox
97.9 F 69 20 141/63 99
10/04/24 10:03 10/04/24 15:15 10/04/24 15:15 10/04/24 15:00 10/04/24 15:54
Physical Exam
General: Well Developed, Well Nourished and Obese
HEENT: NormoCephalic, Moist mucous membranes, Atraumatic, [place] Conjunctivae, Nose Appears Normal and Ears Appear Normal
Respiratory: Clear
Cardiac: S1/S2 and Regular Rhythm
Breast: Deferred by me
GI: Soft, Non Tender, Non Distended and Normal Bowel Sounds; No Organomegaly
Rectal: Deferred by Provider
Genito-urinary: Deferred by me
Musculoskeletal: No Clubbing, No Cyanosis and No Edema
Neuro: Awake and AO x 3
Psych: Apparent Dementia (patient waxes and weans during assessment ) and Other (restless)
Laboratory Results
-
10/04/24 10:17
10/04/24 10:17
Laboratory Results
Lactic Acid 1.1 mmol/L (0.7-2.0) 10/04/24 10:17
Total Bilirubin 1.6 mg/dl (0.2-1.3) H 10/04/24 10:17
AST 27 U/L (17-59) 10/04/24 10:17
ALT 18 U/L (0-50) 10/04/24 10:17
Alkaline Phosphatase 79 U/L (38-126) 10/04/24 10:17
Troponin I 0.032 ng/ml 10/04/24 10:17
Lipase 73 U/L (23-300) 10/04/24 10:17
Data Reviewed
-
Diagnostic Radiology: Report Reviewed by me (CXR: Hypoaerated lungs without consolidation.)
CT Scan: Report Reviewed by me (Head: No acute intracranial abnormality.)
Lab Data: Labs Reviewed by me
Impression/Plan
-
IMPRESSION/PLAN:
#altered mental status with behavioral changes (no signs of infection) likely 2/2 dementia decline
facility reporting patient with intermittent inability to speak or respond for last 24-hours
Labs unremarkable
CXR: Hypoaerated lungs without consolidation.
Head CT: No acute intracranial abnormality.
EKG: SINUS BRADYCARDIA
INFERIOR INFARCT , AGE UNDETERMINED
NONSPECIFIC T WAVE ABNORMALITY
- Admit to med/surg
- Consult case management
- Consult PT/OT
- Consult Neurology for possible seizure
#essential hypertension
- continue carvedilol
#hyperlipidemia
- continue atorvastatin
#DM II
- continue metformin
#GERD
- continue omeprazole
#CAD
- continue aspirin
#mild cognitive impairment
- continue lorazepam and sertraline
- hold risperidone
Code status: DNR
DVT prophylaxis: heparin sq
[2024-10-04 17:29] LABS: Urine Squamous Cell 0-2 /LPF (Few)
[2024-10-04 17:31] LABS: Urine Amorphous Seen; Urine Bacteria Many (Negative); Urine Red Blood Cell 0-2 /HPF (0-2); Urine White Cell 0-2 /HPF (0-5)
--- NOTE | 2024-10-04 19:09 | W.PN.UPDATE ---
Update Note
Progress Note Update
This note serves as an addendum to the H&P by parent educator DHARA
Alexa Silva
HPI
79M former smoker HX Dementia, CAD, NIDDM, HTN CKD3a, recent admmission ( 09/22/24 - 09/27/24) for UTI, TME, SIL was DC'd from SNF to LTC facility @ [facility] seent to ER for AMS.
- few episodes where he seems to be unable to speak or respond few mins
- no significant change in vital signs
Vital Signs
Temp Pulse Resp BP Pulse Ox
97.9 F 69 20 151/72 98
10/04/24 10:03 10/04/24 15:15 10/04/24 15:15 10/04/24 17:10 10/04/24 17:15
PE
Gen:Not toxic looking , not interactive
HEENT: JOSE
Neck: supple
Lungs: CTA
Cor: RRR S1 S2
Abdomen: soft benign
HEMATOLOGY NURSE EDUCATOR: awake and alert , NFND
MS: no edema
Psych: Flat affect
Abnormal Lab
10/04/24
10:17
RBC 4.14 L
Hct 36.4 L
MCH 31.9 H
BUN 31 H
Glucose 152 H
Total Bilirubin 1.6 H
Ur Occult Blood Reflex 4+ A
Urine Bacteria (Reflex) Many A
Urine Albumin (Reflex) 3+ A
EKG
SINUS BRADYCARDIA
INFERIOR INFARCT , AGE UNDETERMINED
NONSPECIFIC T WAVE ABNORMALITY
ABNORMAL ECG
WHEN COMPARED WITH ECG OF 23-JUL-2024 09:52,
PREMATURE VENTRICULAR COMPLEXES ARE NO LONGER PRESENT
NONSPECIFIC T WAVE ABNORMALITY NOW EVIDENT IN LATERAL LEADS
Confirmed by JAMI JAMES MD ([id number]) on 10/04/2024 10:10:46 AM
Last hospitalist admission: 09/22/24 - 09/27/24
DC Dxs: TME, SIL, UTI
ASSESSMENT & PLAN
AMS with fluctuating level of wakefulness
DDX: Over sedation ( Risperidone, Lorazepam ) vs.progressive dementia ( Fronto temporal vs Alzheimer) vs. less likely non convulsive Sz
No significant evidence of acute infective process. NEG UA. NEG CXR
NEG HCT, Stable CKD3a
HX Cognitive disorder : Likely Dementia > MCI
Of note: Facility reporting patient with intermittent inability to speak or respond for last 24-hours
- Fall precaution
- Hold Risperidone for now
- c/w PRN Lorazepam
- c/w Sertraline
- Neurologist consult ? EEG
- PT /OT
- CRM consult
Essential HTN
- c/w carvedilol
HLD
- c/w atorvastatin
DMT2
- c/w metformin
- add ISS low
HX CAD
- continue aspirin
DVT Px: SQH
DNR
OBS MS
[2024-10-04 19:33] LABS: Venous Blood Gas B.E. 5.5 mmol/L (-4 to +4); Venous Blood Gas HCO3 31.6 mmol/L (22-27); Venous Blood Gas O2 Sat % 89.8 %; Venous Blood Gas pCO2 51 mmHg (35-48); Venous Blood Gas pO2 55 mmHg (30-50)
[2024-10-04 20:55] LABS: Glucose - Point of Care 109 mg/dl (70-99)
--- NOTE | 2024-10-04 21:07 | W.PN.UPDATE ---
Update Note
Progress Note Update
RN notified patient had a witnessed fall, advised RN to take VS
Rapid response was called as patient became unresponsive and was responsive with sternal rub with in seconds.
Patient was noted to be walking to the bathroom and noted he was placing himself slowly to the ground, without hitting head or any other body part. No new bruises, cuts, edema or redness noted.
Patient is slow to response with few pauses , Oriented to his name and , unable to tell me where he was. follows commands (baseline on admission)
He also reported some chest pains without short of breath, HR regular with faint heart murmur, Lungs clear, +abd soft, non tender, will order EKG labs
EKG lab result noted. Bladder scan > 400 will order to straight cath. Fall precautions addressed with RN.
fall likely due to imbalance due to sedations. Meds are on hold.
[2024-10-04] MEDS: LIPITOR PO ×2 (21:17→21:27)
[2024-10-04] MEDS: COREG PO ×2 (21:18→21:27)
[2024-10-04] MEDS: FLOMAX PO ×2 (21:21→21:27)
[2024-10-04 21:26] LABS: Hematocrit 37.5 % (39.0-52.0); Hemoglobin 13.6 g/dL (13.0-18.0); Mean Corp Hgb Conc. 36.3 g/dL (33.0-37.0); Mean Corpuscular Hgb 31.3 pg (27.0-31.0); Mean Corpuscular Volume 86.2 fL (80.0-94.0); Mean Platelet Volume 9.7 fL (7.4-10.4); Platelet Count 195 10^3/uL (130-400); Red Blood Cell Count 4.35 10^6/uL (4.70-6.10); Red Cell Dist. Width 13.8 % (11.5-14.5); White Blood Cell Count 8.7 10^3/uL (4.8-10.8)
[2024-10-04 21:35] LABS: ALT (SGPT) 18 U/L (0-50); AST (SGOT) 30 U/L (17-59); Albumin 4.6 g/dl (3.5-5.0); Alkaline Phosphatase 83 U/L (38-126); Blood Urea Nitrogen 25 mg/dl (9-20); Calcium 9.9 mg/dl (8.4-10.2); Carbon Dioxide 24 mmol/L (22-30); Chloride 103 mmol/L (98-107); Estimated Creatinine Clearance 62 ml/min; Glucose 120 mg/dl (70-99); Magnesium 2.1 mg/dl (1.6-2.3); Potassium 3.6 mmol/L (3.5-5.1); Sodium 136 mmol/L (135-145); Total Bilirubin 1.6 mg/dl (0.2-1.3); Total Protein 7.2 g/dl (6.3-8.2); eGFR > 60.00
[2024-10-04 21:46] LABS: Troponin I 0.031 ng/ml
[2024-10-04] MEDS: HEPARIN 5000 UNITS SC (23:55)
--- NOTE | 2024-10-05 02:49 | PTCARENOTE ---
Pt transferred to at 2009. Pt pulled over from stretcher to bed. Pt continues to have episodes of unresponsiveness coming in and out of responsiveness. Pt does respond to sternal rubs. Pt AAOx1, no c/o pain. Call robins within reach.
--- NOTE | 2024-10-05 03:16 | FALL ---
Description of Fall:
Pt seen by nursing staff standing between bathroom door and waste bin. Pt then noted to slowly lower self on floor, placed both hands on floor and slowly lowered head unto hands. Pt laying on floor on his left side with head towards entrance of room
and feet towards window.
Injuries Noted:
None
Action Taken:
Fall Precautions
Name of Provider Notified: Alondra Mohan
--- NOTE | 2024-10-05 03:20 | RR ---
A Rapid Response was called on this patient on 10/04/24 at 2054, please see Rapid Response form.
[2024-10-05 06:00] VITALS: BMI 24.2
--- NOTE | 2024-10-05 07:47 | CON.NEURO ---
Neuro Assessment/Plan
Assessment
Recurrent gait dysfunction with patient having significantly full bladder and previously diagnosed with mild cognitive impairment
Patient most likely experienced a vasovagal event coupled by either cognitive dysfunction and/or significant major depression. The patient additionally may be experiencing orthostatic hypotension
Plan
Check orthostatic blood pressures
Check blood work for additional metabolic abnormalities
If the patient does demonstrate significant orthostasis, provide abdominal binder, encourage fluids
Patient may require midodrine if significant orthostasis is found
Rehabilitation evaluations
Formal neuropsychological testing as outpatient
Will follow peripherally
Consultation
Order
Date of Consultation: 10/05/24
Requesting Provider: Hospitalist
Reason for Consult: Gait dysfunction
Subjective/Objective
Subjective Data
Date of Service: October 05, 2024
Adapted from my colleague's consultation note:
'Date of Consultation: 07/15/24
Requesting Provider: Antolin Richard DO
Reason for Consult: encephalopathy
HPI: This is an 78-year-old man who presented to [facility] on 07/14/2024 with encephalopathy.
Based on EMR: 'During his ED evaluation, patient had repeated episodes of unresponsiveness. He appeared comfortable and his vitals remained stable - but he was unresponsive except to noxious / painful stimuli'
The patient was witnessed to have breakfast independently prior not been responsive early in the morning.
He has experienced episodes of dyspnea, claiming he cannot breathe and needs hospitalization. Despite multiple hospital visits and tests, no respiratory issues have been identified. The patient has also been exhibiting signs of depression since the
scam occurred.
Jens has been experiencing occasional confusion, particularly at night, and has been relocated from independent living to personal care living due to his declining cognitive function. Over the past 6 months, he has demonstrated difficulty with
navigation and occasionally struggles to use his cell phone.
There is no history of head trauma, encephalitis, meningitis, or seizures.
Mr. Senft was recently admitted to [facility] in May for severe depression.
Assessment and Plan:
I. Encephalopathy. Differential diagnosis includes vascular, vs ictal vs behavioral.
II. Chronic R ICA occlusion, mod L ICA stenosis.
III. MDD
-Aspiration precautions.
-Start Keppra before EEG is recorded. setup technician is aware and is on the way.
-ASA 81 mg QD
-Brain MRI wo dawit stat. '
Subsequent EEG was unremarkable. MRI of brain was unremarkable. The patient was advised undergo psychiatric follow-up.
Patient returned to this hospital's emergency department on 10/04/2024, after recent hospitalization for urinary tract infection and toxic metabolic encephalopathy as well as acute renal insufficiency, with a change in mental status beginning 1 day
prior to his presentation. The patient was having intermittent episodes of reduced responsiveness prior to admission.
Overnight, the patient had an episode of a witnessed fall. The patient was found to have a bladder scan greater than 400 at that time. He was not described as having seizure-like activity. The patient was slow to respond at the time.
No warning prior to falling. No recall for events.
Objective Data
Vital Signs
Temp Pulse Resp BP Pulse Ox
36.3 C 60 14 163/75 95
10/04/24 23:30 10/04/24 23:30 10/04/24 23:30 10/04/24 23:30 10/04/24 23:30
Lab Results
10/04/24 21:05
10/04/24 21:05
Sodium 136 mmol/L (135-145) 10/04/24 21:05
Potassium 3.6 mmol/L (3.5-5.1) 10/04/24 21:05
BUN 25 mg/dl (9-20) H 10/04/24 21:05
Glucose 120 mg/dl (70-99) H 10/04/24 21:05
Calcium 9.9 mg/dl (8.4-10.2) 10/04/24 21:05
Patient Allergies
erythromycin base Allergy (Verified 09/20/24 18:30)
'i felt terrible'
Review of Systems
-
Unable to obtain full review of systems at this time due to: Dementia
History Source: Patient
All other systems: Reviewed and negative
Physical Exam
-
General: No Apparent Distress and Appears Stated Age
Eyes: Round OU, [place] Conjunctivae and No Ptosis
HEENT: Anicteric and Moist Mucous Membranes
Neck: Full Range of Motion
Respiratory: No Dyspnea
Cardiac: No JVD
GI: Non-distended
Skin: Unremarkable
Extremities: No Clubbing, No Cyanosis and No Edema
Psych: Negative Intact Judgement/Insight
Extended Neurological Exam
Mood & Affect: Depressed and Other (Mildly agitated)
Attention Span & Concentration: Awake, Alert, Interactive (Intermittently interactive and at times refusing examiners requests), Moderate Difficulty with 2 Step Request and Other (Mild difficulty with single step requests)
Memory: Able to Recall (Own name, month and year) and Unable to Recall Personal History
Tremor: Hand Tremor Absent and Head Tremor Absent
Involuntary Movement: None
Speech: Quality Unremarkable and Moderately Reduced Output
Cranial Nerve II: Left Eye: Pupillary Reactivity Unremarkable, Pupillary Size Unremarkable and Visual Beltre Intact
Cranial Nerve II: Right Eye: Pupillary Reactivity Unremarkable, Pupillary Size Unremarkable and Visual Beltre Intact
Cranial Nerves III, IV, : Extraocular Movement: Grossly Intact
Cranial Nerve V: Facial Sensation: Unable to Assess
Cranial Nerve VII: Facial Symmetry: Normal Facial Symmetry
Cranial Nerve VIII: Hearing: Unremarkable Hearing to Normal Conversational Volume
Cranial Nerves IX, X: Palate Movement: Palate Elevation Symmetric
Cranial Nerve XI: Shoulder Shrug: Unremarkable
Cranial Nerve XII: Tongue Protusion: Midline
Muscle Strength, Overall: Spontaneously Moves
Muscle Bulk & Tone: Bulk Unremarkable and Tone Unremarkable
Pronator Drift: No Drift in Upper Extremities and No Drift in Lower Extremities
Deep Tendon Reflexes: Trace Throughout
Cold Sensation: Unable to Assess
Vibration Sensation: Unable to Assess
Touch Sensation: Unremarkable
Coordination: Reaches for Objects without Difficulty
Babinski Sign: Absent Bilaterally
Gait & Station: Unable to Assess
Data Reviewed
-
CT Head: Report Reviewed and Image Reviewed
Orthostatic Testing: Ordered and Report Reviewed
Labs: Report Reviewed
Reviewed with: Physician and Patient
Old Records: Summarized
Medications
-
Active Medications
Generic Name Dose Route Start Last Admin
Trade Name Freq PRN Reason Stop Dose Admin
Acetaminophen 650 mg 10/04/24 20:00
Acetaminophen 325 Mg Tablet PO 11/01/24 19:59
Q6HPRN PRN
mild pain
Aspirin 81 mg 10/05/24 08:00
Aspirin 81 Mg (Enteric Coated) Tablet PO 11/02/24 07:59
DAILY [facility]
Atorvastatin Calcium 80 mg 10/04/24 22:00 10/04/24 21:27
Atorvastatin (Lipitor) 80 Mg Tablet PO 11/01/24 21:59 Not Given
HS [facility]
Carvedilol 12.5 mg 10/04/24 20:00 10/04/24 21:27
Carvedilol 12.5 Mg Tablet PO 11/01/24 19:59 Not Given
BID [facility]
Cholecalciferol 50 mcg 10/05/24 08:00
Cholecalciferol (Vitamin D3) 50 Mcg Tablet (2,000 Units) PO 11/02/24 07:59
DAILY [facility]
Heparin Sodium 5,000 units 10/05/24 00:00 10/04/24 23:55
Heparin 5,000 Units/Ml 1 Ml Vial SC 11/02/24 00:00 5,000 units
Q8 [facility] Administration
Lorazepam 0.5 mg 10/04/24 20:00
Lorazepam 0.5 Mg Tablet PO 11/01/24 19:59
BIDPRN PRN
Anxiety
Metformin HCl 500 mg 10/05/24 08:00
Metformin 500 Mg Regular Release Tablet PO 11/02/24 07:59
BID@0800,1700 [facility]
Pantoprazole Sodium 40 mg 10/05/24 08:00
Pantoprazole 40 Mg Delayed Release Tablet PO 11/02/24 07:59
DAILY [facility]
Sertraline HCl 75 mg 10/05/24 08:00
Sertraline 50 Mg Tablet PO 11/02/24 07:59
DAILY [facility]
Sodium Chloride 0 flush 10/04/24 21:00
Sodium Chloride 0.9% (Flush) Syringe IV 11/01/24 20:59
PER PROTOCOL [facility]
Tamsulosin HCl 0.4 mg 10/04/24 22:00 10/04/24 21:27
Tamsulosin 0.4 Mg Capsule PO 11/01/24 21:59 Not Given
HS [facility]
Home Medications
�Medication �Instructions �Recorded
carvedilol 12.5 mg tablet 12.5 mg PO BID Blood Pressure 04/12/17
aspirin 81 mg tablet,delayed 81 mg PO DAILY 30 days #30 tabs 06/24/24
release
cholecalciferol (vitamin D3) 50 50 mcg PO DAILY #30 tabs 06/24/24
mcg (2,000 unit) tablet
omeprazole 20 mg tablet,delayed 20 mg PO DAILY Gastrointestinal 07/17/24
release Issue
risperidone 0.5 mg tablet 0.5 mg PO DAILY #30 tabs 07/27/24
risperidone 1 mg tablet 1 mg PO HS #30 tabs 07/27/24
sertraline 50 mg tablet 75 mg (1.5 x 50 mg) PO DAILY #30 07/27/24
tabs
metformin 500 mg tablet 500 mg PO BID@0800,1700 #60 tabs 08/01/24
lorazepam 0.5 mg tablet 0.5 mg PO BIDPRN PRN Anxiety 09/21/24
amoxicillin 500 mg-potassium 1 tab PO BID 6 days #12 tabs 09/27/24
clavulanate 125 mg tablet
(Augmentin)
acetaminophen 325 mg tablet 650 mg PO Q6HPRN PRN mild pain 10/04/24
(Tylenol)
atorvastatin 80 mg tablet (Lipitor) 80 mg PO HS 10/04/24
bisacodyl 10 mg rectal suppository 10 mg VT DAILYPRN PRN if no bm 10/04/24
(Dulcolax (bisacodyl)) aftr mom
magnesium hydroxide 400 mg/5 mL 2,400 mg PO DAILYPRN PRN if no bm 10/04/24
oral suspension (Milk of Magnesia) by 3rd day
sodium phosphates 19 gram-7 118 ml VT DAILY if no bm aftr 10/04/24
gram/118 mL enema (Fleet Enema) dulcolax
tamsulosin 0.4 mg capsule 0.4 mg PO HS 10/04/24
Past History
Past History
ED Past Medical History: CAD, GERD, HTN, Hypercholesterolemia, NIDDM, Psychiatric (Major depression) and Other (Mild cognitive impairment, colonic polyps, right carotid occlusion, left carotid artery stenosis, CKD 3A)
ED Past Surgical History: Appendectomy and Other (hernia repair (2007))
Social History
Tobacco: Former smoker
Alcohol: Occasional
Drug: None
Personal:
Living: alone
Employment: Other
Family History
Family History: Other (Reviewed and noncontributory)
[2024-10-05 08:19] VITALS: BP 127/65
[2024-10-05] MEDS: ZOLOFT 75 MG PO (09:28)
[2024-10-05] MEDS: GLUCOPHAGE 500 MG PO ×2 (09:29→16:25)
[2024-10-05] MEDS: PROTONIX 40 MG PO (09:29)
[2024-10-05] MEDS: ASPIR LOW (ENTERIC COATED) 81 MG PO (09:29)
[2024-10-05] MEDS: COREG 12.5 MG PO ×2 (09:29→20:01)
[2024-10-05] MEDS: HEPARIN 5000 UNITS SC ×3 (09:30→22:59)
[2024-10-05] MEDS: VITAMIN D3 (cholecalciferol) 50 MCG PO (09:30)
--- NOTE | 2024-10-05 12:34 | CM ---
Addendum entered by Miroslava Huffman 10/06/24 08:23:
Late entry from 10/05/24:
CM received call from patients Cathy BENITEZ. Cathy reports she is aware that [facility] is unable to provide care patient needs, requesting referrals to SNF that will accept MA, patient will transition to LTC. Cathy reports patient was 302 about 3-4
months ago, Cathy reports they were instructed to do this by the police to get patient away from scammers, patient was not a danger to himself or others and feels 302ing the patient was a mistake. Cathy reports the [facility] previously came out to
complete a level 2 assessment. Cathy reports patient has had no other psychiatric stays. Cathy reports they are working with an trademark attorney, Carie Hernandez [employer]. will obtain level [address] ref[address] for patient[address]
Original Note:
CM reviewed chart, patient seen sitting in chair. CM placed call to patients friend, Cathy, arley requesting return call. Patient will require psych eval for level two assessment to be completed by [facility] for SNF placement. CM confirmed with
liaison from [facility], patient was not LTC, there for short term rehab, unable to accept patient back. CM will continue to follow for all discharge planning needs.
Plan; likely SNF placement, will require level two from [facility]
--- NOTE | 2024-10-05 15:50 | PTOTSP ---
Speech Language Pathology
Pt seen for clinical bedside swallow evaluation. P.O. trials of puree, regular solids, and thin liquids provided. Adequate mastication, bolus formation, and A-P transit noted with no oral residue. No overt signs of aspiration.
Recommend:
(1) Regular solids/thin liquids
(2) General aspiration precautions
(3) Meds as tolerated
(4) HUMAN SERVICES SUPERVISOR to sign off. Please reconsult as indicated
--- NOTE | 2024-10-05 16:07 | CON.MD ---
Consultation - Medical
-
this consult was done on october 05 at one pm. total time spent 50 minutes. patient seen chart reviewed. spoke with nursing and with dr carson. the patient is well known to this insurance underwriter sales. he has been seen on several admits to . he is an 78 yr old man
w hx of cognitive decline. he was admitted for change in mental status. he was noted to be confused by staff in [place]. He fell after admit but fall was witnessed and he did not strike his head. when initially seen by this insurance underwriter sales in winter of 2024
he had also been admitted for confusion and there was some ? of dementia as he had not bee diagnosed in the past. this insurance underwriter sales did find him to have some degree of cognitive decline but he was still able to carry on a conversation where he was very
engaged. he wound up dc'ed to a [place]. his mpoa's did not feel he could safely return home and he did not object. he has had several readmits since then to in pt here at as well as ER visits. he was here for nearly the whole month of july 2024.
that admit was aslo due to change in mental status. he appeared near catatonic at times and would lie in bed eyes closed completely unresponsive even to sternal rub. this did not improve with 2 mg doses of ativan which is a rx for catatonia. in
the end this insurance underwriter sales felt his condition might be major depression w psychosis and he did respond to zoloft and risperdal and was dc at end of july on those meds. at that time he was also noted to make isolated statements that were not logical or
based in fact. today when i spoke to him while he was ox3 his demeanor was very different from what i had come to know on the past as his baseline. he was very detached. his complained that he had been given a dirty bed 'just look at the sheets'
he said that his sandwich was not 'well constructed' and had fallen apart and that the ice cream container could not be opened. he seemed to believe this was deliberate and appeared rather suspicious. he did not engage in any small talk which is
unusual from mr benavides on a good day. he could not tell me why her was here. he is currently taking zoloft 75 mg per day and ativan prn. he was not taking risperdal it seems.
past psych hx patient had one psych admit for depression after losing all of his life savings in a scam. see above
medical hx htn hld gerd niddm obesity carotid stenosis w obstruction on the left non rheumatic aortic sten qtc 433 bradycardia abn ecg hgb 13.6 cr one glucose 120 ua nl
fh non contributory
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 see above re scam where he lost life savings resides in [place]
substance abuse none
mse laert ox3 confused faraway look in his eyes poor eye contact affect constricted mood vexed no si no overt psychosis been seemed paranoid cognitive impairment noted in the past insight judgment lacking
dx major depression w psychosis w possible superimposed delirium
plan would continue to assess re causes of delirium. would add risperdal o.5 mg bid which helped in the past. check vit b12 folate and vit d as well as tsh if not already done. continue zoloft will follow
--- NOTE | 2024-10-05 16:12 | DOWNTIME ---
There was a [employer] Client Professor In Family Studies Downtime on 10/05/2024 from 1230 to 10/05/2024 at 1550. Downtime documentation of patient's care, including medication administrations, has been reconciled in the electronic record per guidelines. Refer to the
patient's paper chart under the miscellaneous tab to see printed paper medication records and downtime forms.
[2024-10-05 16:14] VITALS: BP 102/54; BP 123/62; BP 86/56; PULSE 68; PULSE 81; O2SAT 98
[2024-10-05 16:36] VITALS: BP 134/64
--- NOTE | 2024-10-05 16:39 | W.PN.HOSP.TC ---
Today's Communication/Plan
-
Follow-up for urinary retention and orthostatic hypotension
Follow psych recommendations regarding dementia/depression
Assessment / Plan
Assessment / Plan
Impression
Patient is an 78-year-old man with history of cognitive decline who has been admitted to [facility] multiple times, last admission in July 2024 was discharged to correction. Patient fell from his bed, did not strike his head but he was
noted to be confused by staff and correction and he was referred to the ER.
He was evaluated with a head CT, that showed no acute intracranial abnormality. He was able to answer simple questions in the ER and was stable but then he had a fall in the ER and was evaluated for any seizure activity which was negative. His
labs looked good and he was hemodynamically stable.
Admitted for psychiatric evaluation, in the past had major depression with hospital admission following a scam in which he lost all his life saving. He was started on Zoloft and risperidone for his catatonia symptoms to which he responded well but
is not currently taking the medication.
Has a flat affect, suspicious about the situation. Element of delirium superimposed on underlying depression/psychosis
Assessment/plan
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
Admitted with cognitive decline/altered mental status
Patient patient does not remember any details or events that led to his admission
Neurology consult appreciated-head CT and EEG was unremarkable, does not suspect any acute neurological issue/organic nervous system pathology
Psychiatric consult appreciated-patientDetached, complaining about food and sheets, appeared suspicious that everything was deliberate, did not engage in small talk, could not remember the events leading to admission, could not remember the place,
as per psych evaluation patient seems to have major depression with psychosis with possible superimposed delirium-added Risperdal 0.5 mg twice daily which helped in the past,
check vitamin B12 folate and vitamin D levels,
continue Zoloft for depression
#Recurrent falls most likely secondary to vasovagal event
Orthostatic vitals positive
PT/OT
Add abdominal binder, patient does not need midodrine for now
Continue to monitor blood pressure
# Recurrent urinary retention
Bladder scan and straight cath protocol
#Progressive dementia
#Other stable medical conditions
Essential hypertension
Hyperlipidemia
[id number] diabetes mellitus
GERD
Obesity
Carotid stenosis
Nonrheumatic aortic stenosis
CODE STATUS-DNR
DVT prophylaxis heparin
Anticipated Discharge: > 48 hours
Subjective/Interval History
-
Date of Service: October 05, 2024
Patient is oriented to name, place and person. He is unable to remember events that brought him to the hospital. Constricted affect, does not engage in conversation but denies any active issues at this time
Objective Data
-
Vital Signs:
Vital Signs
Temp Pulse Resp BP Pulse Ox
98.3 F 62 16 134/64 98
10/05/24 16:36 10/05/24 16:36 10/05/24 16:36 10/05/24 16:36 10/05/24 16:36
I&O
10/04/24 10/05/24 10/06/24
06:59 06:59 06:59
Output Total 450 / 450
Balance -450 / -450
Review of Systems
-
Unable to obtain full review of systems at this time due to: Dementia
Physical Exam
-
General: Well Developed, Well Nourished and No Apparent Distress
Respiratory: Clear to Auscultation; Negative Wheezes, Rales or Rhonchi
Cardiac: Regular Rhythm and S1/S2; Negative Murmur, Rub or Gallop
GI: Soft, Nontender, Nondistended and Normal Bowel Sounds
Musculoskeletal: No Clubbing, No Cyanosis and No Edema
Skin: Warm and Dry
Neuro: Awake and AO x 3
Psych: Apparent Dementia
--- NOTE | 2024-10-05 17:44 | W.PN.UPDATE ---
Update Note
Progress Note Update
Seen and examined by me independently in collaboration with the registered medical assistant.
Lab data and imaging data reviewed.
Addendum as below :
Intermittent episodes of change in mental status and unresponsiveness-suspected more psychiatric than neurological. Appreciate neurology and psychiatry input.
Follow for recurrent urinary retention and for orthostatic hypotension
[2024-10-05] MEDS: RISPERDAL 0.5 MG PO (20:01)
[2024-10-05] MEDS: LIPITOR 80 MG PO (22:58)
[2024-10-05] MEDS: FLOMAX 0.4 MG PO (22:59)
[2024-10-05 23:44] VITALS: BP 113/68
[2024-10-06 06:00] VITALS: BMI 24.7
[2024-10-06 06:20] VITALS: BP 113/60; BP 121/57; BP 133/75; PULSE 67; PULSE 76; PULSE 79
[2024-10-06 07:00] VITALS: BP 150/77
--- NOTE | 2024-10-06 08:13 | W.PN.HOSP.TC ---
Addendum entered and electronically signed by Oscar Israel MD 10/06/24 12:58:
Seen and examined by me independently in collaboration with the medical record retrieval specialist.
Lab data and imaging data reviewed.
Addendum as below :
Patient with flat affect not much conversive today. I saw a completed breakfast tray.
He voices no specific complaint.
Per RN no episodes of unresponsiveness.
Thought was bit sedated. Discussed with the psychiatry today who will decrease the dose of Risperdal.
Appreciate neurology input. No further recommendations.
PT report noted-needs rehab.
Start discharge plan.
Original Note:
Today's Communication/Plan
-
Follow psych recommendations
Normal vitamin B12, folate and vitamin D levels
Follow TSH levels
Assessment / Plan
Assessment / Plan
Impression
Patient is an 78-year-old man with history of cognitive decline who has been admitted to [facility] multiple times, last admission in July 2024 was discharged to [facility]. Patient fell from his bed, did not strike his head but he was
noted to be confused by staff and [facility] and he was referred to the ER.
He was evaluated with a head CT, that showed no acute intracranial abnormality. He was able to answer simple questions in the ER and was stable but then he had a fall in the ER and was evaluated for any seizure activity which was negative. His
labs looked good and he was hemodynamically stable.
Admitted for psychiatric evaluation, in the past had major depression with hospital admission following a scam in which he lost all his life saving. He was started on Zoloft and risperidone for his catatonia symptoms to which he responded well but
is not currently taking the medication.
Has a flat affect, suspicious about the situation. Element of delirium superimposed on underlying depression/psychosis
Assessment/plan
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
Admitted with cognitive decline/altered mental status
Patient has a flat affect, does not speak much and does not want to be bothered
Neurology consult appreciated-head CT and EEG was unremarkable, does not suspect any acute neurological issue/organic nervous system pathology
Psychiatric consult appreciated-major depression with psychosis with possible superimposed delirium-added Risperdal 0.5 mg twice daily which helped in the past,
Follow vitamin D, folate and vitamin B-12 levels
And Zoloft and Risperdal
#Recurrent falls most likely secondary to vasovagal event
Orthostatic vitals positive
PT/OT
Add abdominal binder, patient does not need midodrine for now
Continue to monitor blood pressure
# Recurrent urinary retention
Bladder scan and straight cath protocol
Urine culture no growth
#Progressive dementia
#Other stable medical conditions
Essential hypertension
Hyperlipidemia
Lot-dxkipos-xdtpgwlal diabetes mellitus
GERD
Obesity
Carotid stenosis
Nonrheumatic aortic stenosis
CODE STATUS-DNR
DVT prophylaxis heparin
Anticipated Discharge: 24 - 48 hours
Subjective/Interval History
-
Date of Service: October 06, 2024
Patient has a flat affect, does not want to talk and does not want to answer any questions.
Objective Data
-
Labs:
Laboratory Results
10/06/24
07:03
Sodium Pending
Potassium Pending
Chloride Pending
Carbon Dioxide Pending
BUN Pending
Creatinine Pending
Glucose Pending
Calcium Pending
Vital Signs:
Vital Signs
Temp Pulse Resp BP Pulse Ox
98.5 F 65 14 113/68 95
10/05/24 23:44 10/05/24 23:44 10/05/24 23:44 10/05/24 23:44 10/05/24 23:44
I&O
10/05/24 10/06/24 10/07/24
06:59 06:59 06:59
Intake Total 960 / 960
Output Total 450 / 450
Balance -450 / -450 960 / 960
Review of Systems
-
Unable to obtain full review of systems at this time due to: Dementia
Physical Exam
-
General: No Apparent Distress and Other (Perfect)
Respiratory: Clear to Auscultation; Negative Wheezes, Rales or Rhonchi
Cardiac: Regular Rhythm, S1/S2 and Murmur (Continue systolic murmur in aortic area)
GI: Soft, Nontender, Nondistended and Normal Bowel Sounds
Musculoskeletal: No Clubbing, No Cyanosis and No Edema
Skin: Warm and Dry
Neuro: Awake and Nonfocal/Grossly Intact
Psych: Calm
[2024-10-06] MEDS: RISPERDAL 0.5 MG PO (08:53)
[2024-10-06] MEDS: PROTONIX 40 MG PO (08:53)
[2024-10-06] MEDS: VITAMIN D3 (cholecalciferol) 50 MCG PO (08:53)
[2024-10-06] MEDS: COREG 12.5 MG PO ×2 (08:54→19:42)
[2024-10-06] MEDS: ASPIR LOW (ENTERIC COATED) 81 MG PO (08:54)
[2024-10-06] MEDS: ZOLOFT 75 MG PO (08:56)
[2024-10-06] MEDS: GLUCOPHAGE 500 MG PO ×2 (08:57→17:28)
[2024-10-06] MEDS: HEPARIN 5000 UNITS SC ×3 (08:57→23:56)
[2024-10-06 09:05] LABS: Blood Urea Nitrogen 23 mg/dl (9-20); Calcium 9.7 mg/dl (8.4-10.2); Carbon Dioxide 28 mmol/L (22-30); Chloride 103 mmol/L (98-107); Estimated Creatinine Clearance 56 ml/min; Glucose 134 mg/dl (70-99); Potassium 3.4 mmol/L (3.5-5.1); Sodium 137 mmol/L (135-145); eGFR > 60.00
[2024-10-06 09:22] LABS: Vitamin D, 25-OH*** 49.9 ng/mL (30-80)
[2024-10-06 10:36] LABS: TSH Reflex To Free T4 1.57 uIU/ml (0.47-4.68)
[2024-10-06 12:12] LABS: Folate 3.8 ng/ml (2.76-20); Vitamin B12 751 pg/ml (239-931)
--- NOTE | 2024-10-06 12:21 | W.PN.UPDATE ---
Addendum entered and electronically signed by Mishel Ramos MD 10/06/24 12:31:
noted ua with hematuria 4plus and albuminuria 3 plus. have ordered repeat.
Original Note:
Update Note
Progress Note Update
patient seen chart reviewed. discussed with nursing cm and dr carson. the patient was rather out of it this am. he told me he had not yet had breakfast although a half eaten breakfast tray was at the bedside. i pointed this out to him but he looked
at me blankly. i asked him if he wanted to continue to eat it but again little response. i offered him the opportunity to look at the lunch menu and choose something and i could order for him as it was after twelve but he told me he couldn't do
that. he was oriented to person and time but could not tell me where he was. while he improved last admit with risperdal it is possible the starting dose was too high and i have decreased to o.25 mg bid. i don't see any obvious abnormalities in
labs tsh b12 folate vit d are wnl. two head ct's done since september 26 show no new findings. this is such a change from the man i encountered when i first met him at in winter 2023 and even at the end of his hospital stay in july when he really
reconstituted reasonably wel and there is no clear reason why he deteriorated so fast even if this is dementia. will increase zoloft to 100 mg. it could be depression. . will continue to follow.
--- NOTE | 2024-10-06 12:34 | CM ---
Addendum entered by Johanna Pickett 10/06/24 15:50:
CM spoke with patients POAugusto, Cathy, discussed patient admitted under observation status, STACY in chart. Cathy requesting CM to discuss with [facility] [employer] Fin[employer], Carie Hernandez, as it may be difficult for patient to obtain MA due to financial
situation. Discussed with Cathy patient has been accepted by [facility], [facility], [facility].
Original Note:
CM reviewed chart, consult received for discharge planning. Multiple referrals placed for STR with transition to LTC. Level two previously completed from prior admission. Patient will require insurance auth once accepting facility found. CM will
update patients POA, Cathy, on accepting facilities. Psych following. CM will continue to follow for all discharge planning needs.
Plan; SNF once accepting facility found, will need insurance auth.
[2024-10-06 15:00] VITALS: BP 124/58
[2024-10-06 16:55] VITALS: BP 115/60; BP 118/62; BP 127/64; PULSE 60; O2SAT 96
[2024-10-06] MEDS: RISPERDAL 0.25 MG PO (19:43)
[2024-10-06] MEDS: LIPITOR 80 MG PO (21:17)
[2024-10-06] MEDS: FLOMAX 0.4 MG PO (21:17)
[2024-10-06 23:10] VITALS: BP 142/69
[2024-10-07 06:00] VITALS: BMI 25.1
[2024-10-07 07:00] VITALS: BP 145/67; BP 95/63; PULSE 72; PULSE 77
--- NOTE | 2024-10-07 07:54 | W.PN.HOSP.TC ---
Addendum entered and electronically signed by Oscar Israel MD 10/07/24 14:25:
Seen and examined by me independently in collaboration with the medical safety director.
Lab data and imaging data reviewed.
Addendum as below :
Patient had another episode of brief unresponsiveness. Resolved by the time we went up to evaluate him. He was awake and oriented to self. He was appropriate in his replies to the questions but does not hold a conversation. He is very flat and
does not want to be bothered with the questions at this time.
Hemodynamically stable. Not hypoxic. Not toxic. No distress.
I suspect his recurrent episodes of brief unresponsiveness and his mood dysfunction may be more functional. Appreciate neurology input.
Continue with antidepressants and psychopharmacotherapy per psychiatry. He might benefit inpatient psychiatry treatments.
Original Note:
Today's Communication/Plan
-
Abdominal binder
Compressive therapy
Midodrine with holding parameters
Hold risperidone
Continue Zoloft
Assessment / Plan
Assessment / Plan
Impression
Patient is an 78-year-old man with history of cognitive decline who has been admitted to [facility] multiple times, last admission in July [facility]24 [facility] Patient fell from his bed, did not strike his head but he was
noted to be confused by staff and prison and he was referred to the ER.
He was evaluated with a head CT, that showed no acute intracranial abnormality. He was able to answer simple questions in the ER and was stable but then he had a fall in the ER and was evaluated for any seizure activity which was negative. His
labs looked good and he was hemodynamically stable.
Admitted for psychiatric evaluation, in the past had major depression with hospital admission following a scam in which he lost all his life saving. He was started on Zoloft and risperidone for his catatonia symptoms to which he responded well but
is not currently taking the medication.
Has a flat affect, suspicious about the situation. Element of delirium superimposed on underlying depression/psychosis
Assessment/plan
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
Admitted with cognitive decline/altered mental status
Patient has a flat affect, does not speak much and does not want to be bothered
Neurology consult appreciated-head CT and EEG was unremarkable, does not suspect any acute neurological issue/organic nervous system pathology
Psychiatric consult appreciated-major depression with psychosis with possible superimposed delirium-added Risperdal 0.5 mg twice daily which helped in the past,
Vitamin D, vitamin B12, folate and TSH levels normal
Psych feels that it is more likely related to some medical illness rather than psychiatric illness-held risperidone
Continue Zoloft 100 mg daily
#Recurrent falls most likely secondary to vasovagal event
Orthostatic vitals positive
Abdominal binder, compressive therapy, midodrine with holding parameters
Fall precautions
PT/OT
# Recurrent urinary retention
Bladder scan and straight cath protocol
Urine culture no growth
Had straight cath done 10/05, today bladder scan showed 312 mL of urine
#Progressive dementia
#Other stable medical conditions
Essential hypertension
Hyperlipidemia
Glo-xfwckfc-uvxgsgmnj diabetes mellitus
GERD
Obesity
Carotid stenosis
Nonrheumatic aortic stenosis
CODE STATUS-DNR
DVT prophylaxis heparin
Anticipated Discharge: > 48 hours
Subjective/Interval History
-
Date of Service: October 07, 2024
Patient had an episode of unresponsiveness this morning, which is not unusual for the patient, remained hemodynamically stable with normal oxygenation
Seems to be very depressed, mostly nonverbal communicates with simple 2 word responses
Objective Data
-
Vital Signs:
Vital Signs
Temp Pulse Resp BP Pulse Ox
98.6 F 60 20 142/69 95
10/06/24 23:10 10/06/24 23:10 10/06/24 23:10 10/06/24 23:10 10/06/24 23:10
I&O
10/06/24 10/07/2425
06:59 06:59 06:59
Intake Total 960 / 960 240 / 240
Balance 960 / 960 240 / 240
Review of Systems
-
All other systems: Reviewed and negative
Physical Exam
-
General: No Apparent Distress, Comfortable and Other (Flat affect, appropriate limited response to questions, does not want to talk)
Respiratory: Clear to Auscultation; Negative Wheezes, Rales or Rhonchi
Cardiac: Regular Rhythm and S1/S2; Negative Murmur, Rub or Gallop
GI: Soft, Nontender, Nondistended and Normal Bowel Sounds
Musculoskeletal: No Clubbing, No Cyanosis and No Edema
Skin: Warm and Dry
Neuro: Awake and No Motor Deficits
Psych: Calm
[2024-10-07 09:05] LABS: Urine Albumin 2+ (Neg - Trace); Urine Bilirubin Negative (Negative); Urine Character Clear (Clear); Urine Color Yellow; Urine Glucose Negative (Negative); Urine Ketone Negative (Negative); Urine Leukocyte Negative (Negative); Urine Nitrite Negative (Negative); Urine Occult Blood Negative (Negative); Urine Urobilinogen Negative (Neg - 1+)
[2024-10-07 09:53] VITALS: BP 116/65
[2024-10-07 10:50] LABS: Urine Mucus Moderate; Urine Squamous Cell 0-2 /LPF (Few)
[2024-10-07 10:52] LABS: Urine Hyaline Cast 0-2 /LPF (0-2); Urine White Cell 0-2 /HPF (0-5)
[2024-10-07 10:54] LABS: Urine Bacteria Few (Negative); Urine Calcium Oxalate Crystals Seen
[2024-10-07] MEDS: ZOLOFT 100 MG PO (11:39)
[2024-10-07] MEDS: ASPIR LOW (ENTERIC COATED) 81 MG PO (11:39)
[2024-10-07] MEDS: RISPERDAL 0.25 MG PO (11:39)
[2024-10-07] MEDS: PROTONIX 40 MG PO (11:39)
[2024-10-07] MEDS: VITAMIN D3 (cholecalciferol) 50 MCG PO (11:40)
[2024-10-07] MEDS: HEPARIN 5000 UNITS SC ×2 (11:40→17:43)
[2024-10-07] MEDS: COREG 12.5 MG PO ×2 (11:40→20:17)
[2024-10-07] MEDS: GLUCOPHAGE 500 MG PO ×2 (11:40→17:42)
--- NOTE | 2024-10-07 11:57 | CM ---
Chart reviewed and case loader operator met with patient this morning left a message for Cathy BENITEZ for patient and reached out to elder care galley boy, Carie Hernandez [phone], to discuss case, case loader operator will be able to obtain authorization for skilled
placement however for prison placement will need to a payment source (private Pay or alf R[facility]), will review with Cathy and [place].
Plan; Placement.
[2024-10-07 12:11] VITALS: BP 132/69; BP 139/72; PULSE 65
--- NOTE | 2024-10-07 12:55 | W.PN.UPDATE ---
Update Note
Progress Note Update
patient seen chart reviewed. discussed with nursing. also received a text from dr carson this am re psych hospitalization. i have no objection to this eventually but mr benavides appeared to me today to be more medically ill. this is not the typical
unresponsiveness i have observed with him. nursing tells me he has had several incidents of hypotension this am where his bp plummeted and he was symptomatic almost falling on two occasions. do not feel at this moment he can go to psych i am going
to stop risperdal for today until bp issue is settled. he will be seen by psych tomorrow
[2024-10-07 16:18] VITALS: BP 129/65
[2024-10-07 17:47] LABS: Glucose - Point of Care 132 mg/dl (70-99)
[2024-10-07] MEDS: FLOMAX 0.4 MG PO (20:18)
[2024-10-07] MEDS: LIPITOR 80 MG PO (20:18)
[2024-10-07 23:13] VITALS: BP 128/61
[2024-10-08 00:25] VITALS: BP 100/76; BP 125/60; BP 86/51; PULSE 65; PULSE 70; PULSE 72
[2024-10-08] MEDS: HEPARIN 5000 UNITS SC ×4 (00:31→23:51)
[2024-10-08 06:00] VITALS: BMI 24.8
--- NOTE | 2024-10-08 06:07 | PTCARENOTE ---
Patient bladder scan around 5:40 am 404. Patient refused to attempt to urinate. Patient initially agreed to be straight cathed but once cath started to be placed patient became agitated and refused. Patient agreed to attempt to urinate when wakes up
for the day.
[2024-10-08 07:00] VITALS: BP 127/66
--- NOTE | 2024-10-08 07:35 | W.PN.HOSP.TC ---
Addendum entered and electronically signed by Oscar Israel MD 10/08/24 14:00:
Seen and examined by me independently in collaboration with the medical sales specialist.
Lab data and imaging data reviewed.
Addendum as below :
Patient seems very depressed and does not hold conversations. He says yes and no. Very flat affect. No further unresponsive episodes. Vital signs stable. No distress.
Medically stable for discharge. He will require rehab at discharge.
I would wait psychiatry recommendations regarding treatment of his severe depression.
Original Note:
Today's Communication/Plan
-
Candidate for inpatient psych unit
Conduct MMSE scale
Assessment / Plan
Assessment / Plan
Impression
Patient is an 78-year-old man with history of cognitive decline who has been admitted to [facility] multiple times, last admission in July 2024 was discharged to shelter. Patient fell from his bed, did not strike his head but he was
noted to be confused by staff and shelter and he was referred to the ER.
He was evaluated with a head CT, that showed no acute intracranial abnormality. He was able to answer simple questions in the ER and was stable but then he had a fall in the ER and was evaluated for any seizure activity which was negative. His
labs looked good and he was hemodynamically stable.
Admitted for psychiatric evaluation, in the past had major depression with hospital admission following a scam in which he lost all his life saving. He was started on Zoloft and risperidone for his catatonia symptoms to which he responded well but
is not currently taking the medication.
Has a flat affect, suspicious about the situation. Element of delirium superimposed on underlying depression/psychosis
Assessment/plan
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
Admitted with cognitive decline/altered mental status
Psych consult appreciated-major depression, refusing food and eating and limited amounts-Patient admits to being depressive but does not respond to previous questions about suicidal thoughts-considering inpatient psych unit
Neurology consult appreciated-head CT and EEG was unremarkable, does not suspect any acute neurological issue/organic nervous system pathology
Continue Zoloft 100 mg
#Recurrent falls most likely secondary to vasovagal event
Orthostatic vitals positive
Abdominal binder, compressive therapy, midodrine with holding parameters
Fall precautions
PT/OT
# Recurrent urinary retention
Bladder scan and straight cath protocol
Urine culture no growth
10/08, bladder scan 404 mL of urine
#Progressive dementia-conducted MMSE
#Other stable medical conditions
Essential hypertension
Hyperlipidemia
Bmz-grdcwod-knlvihgvr diabetes mellitus
GERD
Obesity
Carotid stenosis
Nonrheumatic aortic stenosis
CODE STATUS-DNR
DVT prophylaxis heparin
Anticipated Discharge: 24 - 48 hours
Subjective/Interval History
-
Date of Service: October 08, 2024
Patient has a flat affect and sad mood. This morning, he had a visit from his power of commercial attorney Cathy who was able to talk to him, his responses were appropriate. Appears visibly depressed
Objective Data
-
Labs:
Laboratory Results
10/08/24
06:00
WBC Pending
Hgb Pending
Hct Pending
Plt Count Pending
Sodium Pending
Potassium Pending
Chloride Pending
Carbon Dioxide Pending
BUN Pending
Creatinine Pending
Glucose Pending
Calcium Pending
Vital Signs:
Vital Signs
Temp Pulse Resp BP Pulse Ox
98.0 F 60 16 128/61 98
10/07/24 23:13 10/07/24 23:13 10/07/24 23:13 10/07/24 23:13 10/07/24 23:13
I&O
10/07/24 10/08/24 10/09/24
06:59 06:59 06:59
Intake Total 240 / 240
Output Total 250 / 250
Balance 240 / -10 -250 / -250
Review of Systems
-
All other systems: Reviewed and negative
Physical Exam
-
General: No Apparent Distress, Comfortable and Other
[2024-10-08 08:18] LABS: Hematocrit 35.7 % (39.0-52.0); Hemoglobin 12.6 g/dL (13.0-18.0); Mean Corp Hgb Conc. 35.3 g/dL (33.0-37.0); Mean Corpuscular Hgb 31.6 pg (27.0-31.0); Mean Corpuscular Volume 89.5 fL (80.0-94.0); Mean Platelet Volume 10.1 fL (7.4-10.4); Platelet Count 188 10^3/uL (130-400); Red Blood Cell Count 3.99 10^6/uL (4.70-6.10); White Blood Cell Count 7.9 10^3/uL (4.8-10.8)
[2024-10-08 09:02] LABS: Blood Urea Nitrogen 24 mg/dl (9-20); Calcium 9.6 mg/dl (8.4-10.2); Carbon Dioxide 27 mmol/L (22-30); Chloride 103 mmol/L (98-107); Estimated Creatinine Clearance 51 ml/min; Glucose 110 mg/dl (70-99); Potassium 3.6 mmol/L (3.5-5.1); Sodium 138 mmol/L (135-145); eGFR > 60.00
--- NOTE | 2024-10-08 09:55 | CM ---
Chart reviewed. Plan is for patient to admit to SNF w/ transition to LTC.
Spoke w/ patient's POA, Cathy, regarding facilities. CM reviewed accepting facilities, Cathy shared her first option would be [facility] and [facility] would be the second option.
Spoke w/ Mackenzie/[facility] admissions, shared she will review patient information again then let CM know if facility can still accept
Will need auth prior to d/c
Plan: SNF w/ transition to LTC
[2024-10-08] MEDS: COREG 12.5 MG PO ×2 (10:09→20:32)
[2024-10-08] MEDS: ASPIR LOW (ENTERIC COATED) 81 MG PO (10:09)
[2024-10-08] MEDS: GLUCOPHAGE 500 MG PO ×2 (10:09→18:30)
[2024-10-08] MEDS: PROTONIX 40 MG PO (10:09)
[2024-10-08] MEDS: ZOLOFT 100 MG PO (10:09)
[2024-10-08] MEDS: VITAMIN D3 (cholecalciferol) 50 MCG PO (10:09)
--- NOTE | 2024-10-08 10:51 | W.PN.UPDATE ---
Update Note
Progress Note Update
Patient is very poorly communicative with significant paucity of speech. Affect is flat and mood sad. He either does not reply or uses one worded answers. He does acknowledge he is depressed. He did not answer questions regarding suicidality .
However he nodded when I asked him if he is interested in psychiatric hospitalization.
Given the severity of his depression inpatient treatment would be indicated if he would be accepted.
Will discuss with Dr. Israel.
[2024-10-08 15:51] VITALS: BP 132/63
[2024-10-08 20:25] VITALS: BP 130/68
[2024-10-08] MEDS: FLOMAX 0.4 MG PO (21:44)
[2024-10-08] MEDS: LIPITOR 80 MG PO (21:44)
[2024-10-08 23:40] VITALS: BP 106/68; BP 127/70; BP 90/57; PULSE 65; PULSE 71; PULSE 78
[2024-10-09 06:00] VITALS: BMI 25.0
[2024-10-09 07:00] VITALS: BP 119/62
--- NOTE | 2024-10-09 07:45 | W.PN.HOSP.TC ---
Addendum entered and electronically signed by Oscar Israel MD 10/09/24 15:46:
Seen and examined by me independently in collaboration with the medical center manager.
Lab data and imaging data reviewed.
Addendum as below :
Medically stable for discharge to rehab when bed available.
Original Note:
Today's Communication/Plan
-
Discharge planning to skilled rehab
Assessment / Plan
Assessment / Plan
Impression
Patient is an 78-year-old man with history of cognitive decline who has been admitted to [facility] multiple times, last admission in July 2024 was discharged to snf. Patient fell from his bed, did not strike his head but he was
noted to be confused by staff and snf and he was referred to the ER.
He was evaluated with a head CT, that showed no acute intracranial abnormality. He was able to answer simple questions in the ER and was stable but then he had a fall in the ER and was evaluated for any seizure activity which was negative. His
labs looked good and he was hemodynamically stable. Evaluated by neurology, no acute pathology, deferred to psychiatry.
Admitted for psychiatric evaluation, in the past had major depression with hospital admission following a scam in which he lost all his life saving.
.
Assessment/plan
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
He had flat affect and an element of psychosis in the initial evaluation, risperidone started briefly, had an episode of catatonia, risperidone discontinued by psychiatry, currently being managed for major depression-Zoloft dose increased to 100 mg
Patient was initially refusing meals and was not responding to suicide risk assessment-inpatient psych was recommended-now patient responsive denies any suicidal ideation-still poor intake of food
Psych consult appreciated-at this point psych does not recommend any inpatient psych unit-PT OT recommended [id number] go back to his assisted living following that
Neurology consult appreciated-head CT and EEG was unremarkable, does not suspect any acute neurological issue/organic nervous system pathology
Continue Zoloft 100 mg
#Recurrent falls most likely secondary to vasovagal event
Orthostatic vitals positive
Abdominal binder, compressive therapy, midodrine with holding parameters
Fall precautions
PT/OT
# Recurrent urinary retention
Bladder scan and straight cath protocol
Urine culture no growth
# Dementia
-MMSE score 25/30, appropriate and responsive-does not qualify for dementia at this time-psych consult appreciated-demented mild cognitive loss but not significant dementia
#Other stable medical conditions
Essential hypertension
Hyperlipidemia
Wqr-wokusfq-hayfteeve diabetes mellitus
GERD
Obesity
Carotid stenosis
Nonrheumatic aortic stenosis
CODE STATUS-DNR
DVT prophylaxis heparin
Anticipated Discharge: 24 - 48 hours
Subjective/Interval History
-
Date of Service: October 09, 2024
Patient is more communicative today, we discussed weather, patient smiling with the nurse, seems more responsive
Objective Data
-
Labs:
Laboratory Results
10/09/24
07:02
Sodium Pending
Potassium Pending
Chloride Pending
Carbon Dioxide Pending
BUN Pending
Creatinine Pending
Glucose Pending
Calcium Pending
Vital Signs:
Vital Signs
Temp Pulse Resp BP Pulse Ox
98.2 F 65 18 127/70 96
10/08/24 23:40 10/08/24 23:40 10/08/24 23:40 10/08/24 23:40 10/08/24 23:40
I&O
10/08/24 10/09/24 10/10/24
06:59 06:59 06:59
Intake Total 960 / 960
Output Total 250 / 250
Balance -250 / -250 960 / 960
Review of Systems
-
All other systems: Reviewed and negative
Physical Exam
-
General: No Apparent Distress and Conversant
HEENT: Anicteric
Respiratory: Clear to Auscultation; Negative Wheezes, Rales or Rhonchi
Cardiac: Regular Rhythm and S1/S2; Negative Murmur, Rub or Gallop
GI: Soft, Nontender, Nondistended and Normal Bowel Sounds
Musculoskeletal: No Clubbing, No Cyanosis and No Edema
Skin: Warm and Dry
Neuro: Awake and AO x 3
Psych: Calm
[2024-10-09] MEDS: PROTONIX 40 MG PO (08:21)
[2024-10-09] MEDS: ASPIR LOW (ENTERIC COATED) 81 MG PO (08:21)
[2024-10-09] MEDS: COREG 12.5 MG PO ×2 (08:21→20:05)
[2024-10-09] MEDS: ZOLOFT 100 MG PO (08:23)
[2024-10-09] MEDS: HEPARIN 5000 UNITS SC ×3 (08:23→23:12)
[2024-10-09] MEDS: VITAMIN D3 (cholecalciferol) 50 MCG PO (08:24)
[2024-10-09] MEDS: GLUCOPHAGE 500 MG PO ×2 (08:24→18:00)
[2024-10-09 08:28] LABS: Blood Urea Nitrogen 26 mg/dl (9-20); Carbon Dioxide 27 mmol/L (22-30); Chloride 103 mmol/L (98-107); Estimated Creatinine Clearance 47 ml/min; Glucose 115 mg/dl (70-99); Potassium 4.3 mmol/L (3.5-5.1); Sodium 138 mmol/L (135-145); eGFR 55.19
--- NOTE | 2024-10-09 10:27 | W.PN.UPDATE ---
Update Note
Progress Note Update
Patient is doing better than when I saw him yesterday. He was more communicative , stated he was worried about his medical condition as well as to where he was going to go next. He admitted to depression but denied hopelessness or suicidal thoughts.
Today he was not interested in mental health unit nor was his guardian who was present for most of the interview. He feels the Zoloft helps. Cognitively he has deficit in immediate recal but still recalled 3 numbers out of 5. Was fully oriented in
all sphers , dis well on general knowledge and simple calculations.
He in my opinion has mild cognitive loss but not significant dementia.
At this point he and guardian are interested in assisted living. I recommend he receives psychiatric F/U there.
[2024-10-09 15:00] VITALS: BP 116/65
[2024-10-09] MEDS: FLOMAX 0.4 MG PO (23:13)
[2024-10-09] MEDS: LIPITOR 80 MG PO (23:13)
[2024-10-09 23:41] VITALS: BP 133/71; BP 81/56; BP 98/59; PULSE 67; PULSE 71; PULSE 78
[2024-10-10 06:00] VITALS: BMI 24.4
[2024-10-10 07:00] VITALS: BP 136/72
[2024-10-10] MEDS: ZOLOFT 100 MG PO (08:30)
[2024-10-10] MEDS: PROTONIX 40 MG PO (08:30)
[2024-10-10] MEDS: GLUCOPHAGE 500 MG PO ×2 (08:31→17:28)
[2024-10-10] MEDS: ASPIR LOW (ENTERIC COATED) 81 MG PO (08:31)
[2024-10-10] MEDS: COREG 12.5 MG PO ×2 (08:31→20:25)
[2024-10-10] MEDS: VITAMIN D3 (cholecalciferol) 50 MCG PO (08:31)
[2024-10-10] MEDS: HEPARIN 5000 UNITS SC ×3 (08:32→23:12)
--- NOTE | 2024-10-10 09:08 | CM ---
Addendum entered by Sara Lyle 10/10/24 15:42:
Auth approved beginning today, 10/10 with next review on 10/16
Cert number [id number]
Per Mackenzie, would like to admit patient tomorrow morning
Updated Cathy, agreeable to plan
[facility]
Report: [phone]

Plan: D/c to [facility] SNF tomorrow
Addendum entered by Sara Lyle 10/10/24 11:53:
Per Mackenzie, [facility] able to accept for both SNF and LTC.
Left Cathy BENITEZ, a message to inform of acceptance.
Auth initiated in [employer], pended at this time and requires a medical review
Will fax clinicals to [facility] when updated PT/OT notes are made available. Therapy aware of needed updated eval
Original Note:
CM followed up w/ Mackenzie/[facility] admissions regarding acceptance for SNF and LTC. Per Mackenzie, she did reach out to her team this morning to discuss patient and if able to accept. Will let CM know once a decision is made.
[2024-10-10 11:48] VITALS: BP 108/60; BP 119/54; PULSE 60; PULSE 65
[2024-10-10 12:29] VITALS: BP 106/63; BP 131/69; BP 86/54; PULSE 69; PULSE 70; PULSE 78
--- NOTE | 2024-10-10 15:30 | W.PN.HOSP.TC ---
Addendum entered and electronically signed by Neo Dyer MD 10/10/24 20:43:
Attending Addendum-
I saw and evaluated the patient. I reviewed the resident�s note and agree with findings and plan as documented in the resident�s note. Sub: patient poor historian. has periods of not responding. appears to do it purposely. no complaints. Full 12
point ROS reviewed and negative except as documented Exam: Vitals reviewed in chart GEN-NAD heart RRR lungs clear abd soft LE no edema psych calm Neuro AAO x 3
Plan:
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
He had flat affect and an element of psychosis in the initial evaluation, risperidone started briefly, had an episode of catatonia, risperidone discontinued by psychiatry, currently being managed for major depression
denies any suicidal ideation-still poor intake of food
psych does not recommend any inpatient psych unit-PT OT recommended [id number] go back to his assisted living following that
Neurology consult appreciated-head CT and EEG was unremarkable, does not suspect any acute neurological issue/organic nervous system pathology
Continue Zoloft 100 mg
#Recurrent falls most likely secondary to vasovagal event
Orthostatic vitals positive
Abdominal binder, compressive therapy, midodrine with holding parameters
Fall precautions
PT/OT
# Recurrent urinary retention
Bladder scan and straight cath protocol
Urine culture no growth
# mild cognitive impairment
-MMSE score 25/30, appropriate and responsive-does not qualify for dementia at this time-psych consult appreciated-demented mild cognitive loss but not significant dementia
Other stable medical conditions
Essential hypertension
Hyperlipidemia
BPH
Qsm-joqnatj-viklbqqsr diabetes mellitus
GERD
Obesity
Carotid stenosis
Nonrheumatic aortic stenosis
CODE STATUS-DNR
DVT prophylaxis heparin
[facility]
Time spent coordinating care, review of plan of care with resident, personally reviewed records in EMR, med rec, consults, notes, labs, radiology, d/w nursing � 51 mins
Original Note:
Today's Communication/Plan
-
Awaiting SNF placement
Assessment / Plan
Assessment / Plan
Impression
Patient is an 78-year-old man with history of cognitive decline who has been admitted to [facility] multiple times, last hospitalization for UTI/confusion and discharged to acute rehab at [facility]. Patient was nonresponsive and had a fall,
presented to the ER for further evaluation.
Awaiting SNF placement
Assessment/plan
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
Neurology consulted
EEG, CT head unremarkable
Psych consulted-recommended outpatient psychiatry follow-up
Patient had a history of major depression, was using Zoloft and risperidone at some point.
No suicidal ideation at this time.
Zoloft increased to 100 mg, continue
#Recurrent falls most likely secondary to vasovagal event
Orthostatic vitals positive
Abdominal binder, compressive therapy, midodrine as needed with holding parameters
Fall precautions
PT/OT�recommended SNF placement
# Recurrent urinary retention
Bladder scan and straight cath protocol
Urine culture no growth
# Dementia
-MMSE score 25/30, appropriate and responsive-does not qualify for dementia at this time-psych consult appreciated-demented mild cognitive loss but not significant dementia
#Other stable medical conditions
Essential hypertension
Hyperlipidemia
Rrn-duuujpo-kqycjhijz diabetes mellitus
GERD
Obesity
Carotid stenosis
Nonrheumatic aortic stenosis
CODE STATUS-DNR
DVT prophylaxis heparin
Anticipated Discharge: Within 24 hours
Subjective/Interval History
-
Date of Service: October 10, 2024
Flat affect
Objective Data
-
Vital Signs:
Vital Signs
Temp Pulse Resp BP Pulse Ox
98 F 61 16 136/72 97
10/10/24 11:48 10/10/24 07:00 10/10/24 07:00 10/10/24 07:00 10/10/24 07:00
I&O
10/09/24 10/10/24 10/11/24
06:59 06:59 06:59
Intake Total 960 / 960 720 / 720
Balance 960 / 960 720 / 720
Physical Exam
-
General: Well Developed and Well Nourished
HEENT: Normocephalic and Atraumatic
Respiratory: Clear to Auscultation
Cardiac: Regular Rhythm and S1/S2
GI: Soft, Nontender, Nondistended and Normal Bowel Sounds
Skin: Warm and Dry
Neuro: Awake, Alert, Oriented and AO x 3
Psych: Calm and Other (Nonresponsive sometimes)
[2024-10-10 16:16] VITALS: BP 122/68
[2024-10-10] MEDS: LIPITOR 80 MG PO (21:17)
[2024-10-10] MEDS: FLOMAX 0.4 MG PO (21:17)
[2024-10-10 23:37] VITALS: BP 136/65
[2024-10-11 06:00] VITALS: BMI 24.3
[2024-10-11 06:39] VITALS: BP 121/73; BP 145/79; BP 89/57; PULSE 65; PULSE 68; PULSE 76
[2024-10-11 07:04] VITALS: BP 146/75
--- NOTE | 2024-10-11 09:20 | W.PN.HOSP.TC ---
Addendum entered and electronically signed by Neo Dyer MD 10/11/24 22:27:
Attending Addendum-
I saw and evaluated the patient. I reviewed the resident�s note and agree with findings and plan as documented in the resident�s note. Sub: patient poor historian. has periods of not responding purposely. no complaints. Full 12 point ROS reviewed
and negative except as documented Exam: Vitals reviewed in chart GEN-NAD heart RRR lungs clear abd soft LE no edema psych calm Neuro AAO x 3
Plan:
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
He had flat affect and an element of psychosis in the initial evaluation, risperidone started briefly, had an episode of catatonia, risperidone discontinued by psychiatry, currently being managed for major depression
denies any suicidal ideation-still poor intake of food
psych does not recommend any inpatient psych unit-PT OT recommended [id number] go back to his assisted living following that
Neurology consult appreciated-head CT and EEG was unremarkable, does not suspect any acute neurological issue/organic nervous system pathology
Continue Zoloft 100 mg
#Recurrent falls most likely secondary to vasovagal event
Orthostatic vitals positive
Abdominal binder, compressive therapy, midodrine with holding parameters
Fall precautions
PT/OT
# Recurrent urinary retention
Bladder scan and straight cath protocol
Urine culture no growth
# mild cognitive impairment
-MMSE score 25/30, appropriate and responsive-does not qualify for dementia at this time-psych consult appreciated-demented mild cognitive loss but not significant dementia
Other stable medical conditions
Essential hypertension
Hyperlipidemia
BPH
Lyo-lqnjxle-qtmfibsdx diabetes mellitus
GERD
Obesity
Carotid stenosis
Nonrheumatic aortic stenosis
CODE STATUS-DNR
DVT prophylaxis heparin
Dispo DC to [facility])
Time spent coordinating care, DC planning, review of DC plan of care with resident, transition of care, review of records, med rec/scripts sent electronically, consults, notes, d/w consultants, nursing, family, and CM� 32 mins
Original Note:
Today's Communication/Plan
-
Discharge to SNF
Assessment / Plan
Assessment / Plan
Impression
Patient is an 78-year-old man with history of cognitive decline who has been admitted to [facility] multiple times, last hospitalization for UTI/confusion and discharged to acute rehab at [facility]. Patient was nonresponsive and had a fall,
presented to the ER for further evaluation.
Discharged to [facility] for retirement.
Assessment/plan
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
Neurology consulted
EEG, CT head unremarkable
Psych consulted-recommended outpatient psychiatry follow-up
Patient had a history of major depression, was using Zoloft and risperidone at some point.
No suicidal ideation at this time.
Zoloft increased to 100 mg, continue
#Recurrent falls most likely secondary to vasovagal event
Orthostatic vitals positive
Abdominal binder, compressive therapy, midodrine as needed with holding parameters
Fall precautions
PT/OT�recommended SNF placement
# Recurrent urinary retention
Bladder scan and straight cath protocol
Urine culture no growth
# Dementia
-MMSE score 25/30, appropriate and responsive-does not qualify for dementia at this time-psych consult appreciated-demented mild cognitive loss but not significant dementia
#Other stable medical conditions
Essential hypertension
Hyperlipidemia
Nrb-wrndnvc-eykltlluo diabetes mellitus
GERD
Obesity
Carotid stenosis
Nonrheumatic aortic stenosis
CODE STATUS-DNR
DVT prophylaxis heparin
Anticipated Discharge: Today
Subjective/Interval History
-
Date of Service: October 11, 2024
Objective Data
-
Vital Signs:
Vital Signs
Temp Pulse Resp BP Pulse Ox
98.3 F 63 18 146/75 97
10/11/24 07:04 10/11/24 07:04 10/11/24 07:04 10/11/24 07:04 10/11/24 07:04
I&O
10/10/24 10/11/24 10/12/24
06:59 06:59 06:59
Intake Total 720 / 720 480 / 480
Balance 720 / 720 480 / 480
Physical Exam
-
General: Well Developed, Well Nourished and No Apparent Distress
HEENT: Normocephalic and Atraumatic
Respiratory: Clear to Auscultation
Cardiac: Regular Rhythm and S1/S2
GI: Soft, Nontender, Nondistended and Normal Bowel Sounds
Skin: Warm and Dry
Neuro: Awake and Alert
Psych: Calm and Other (Flat affect)
[2024-10-11] MEDS: VITAMIN D3 (cholecalciferol) 50 MCG PO (09:30)
[2024-10-11] MEDS: GLUCOPHAGE 500 MG PO (09:30)
[2024-10-11] MEDS: COREG 12.5 MG PO (09:30)
[2024-10-11] MEDS: ZOLOFT 100 MG PO (09:30)
[2024-10-11] MEDS: PROTONIX 40 MG PO (09:31)
[2024-10-11] MEDS: HEPARIN 5000 UNITS SC (09:31)
[2024-10-11] MEDS: ASPIR LOW (ENTERIC COATED) 81 MG PO (09:31)
--- NOTE | 2024-10-11 10:34 | CM ---
CM reviewed chart, auth approved to [facility], JAINYA faxed to Mackenzie darby. Patient scheduled for 3:30 p.m. ambulance transport, update to cristina darby left for Cathy BENITEZ, with transport time. CM will continue to follow for all
discharge planning needs.
Plan; [facility], 3:30 p.m. ambulance transport time
[facility]
Report: [phone]
[2024-10-11 15:29] VITALS: BP 127/61
--- NOTE | 2024-10-12 05:44 | W.DCSUMMARY ---
Addendum entered and electronically signed by Neo Dyer MD 10/12/24 21:11:
Read, reviewed, and agree. See same day progress note for additional details. DC to [facility]
Nayan Dyer MD
Original Note:
Documented by User: Gely Gutiérrez MD, Resident 10/12/24 18:48
Discharge Summary
Discharge Data
Date of Admission: 10/04/24
Date of Discharge: 10/11/24
-
Pending Results: No
Hospital Course
Discharging Physician : Dr. Dyer, Dr. Hong
Disposition : SNF
Principal Discharge diagnosis : Major depression with psychosis, delirium
Hospital Course : 78-year-old man with history of cognitive decline who has been admitted to [facility] multiple times, last hospitalization for UTI/confusion and discharged to acute rehab at [facility]. Patient was nonresponsive and had a
fall, presented to the ER for further evaluation. In the ED patient had repeated episodes of unresponsiveness. No evidence of infection contributing to his encephalopathy. Neurology was consulted. CT head and EEG unremarkable. Psychiatry was
consulted, was started on risperidone and Zoloft was continued for depression. Normal vitamin B12, TSH, vitamin D, folate. Patient had an episode of catatonia and risperidone was discontinued. His Zoloft has been increased to 100 mg daily.
Patient remained stable and doing well. Rest of his medical conditions have been taken care off as below. PT/OT consulted, recommended him to be discharged to [facility]. Throughout his hospital course all his vitals and labs are being
monitored. Patient is hemodynamically stable and in a good condition at the time of discharge. Psychiatry recommended his risperidone to be restarted at discharge.
Recurrent falls secondary to vasovagal event�abdominal binder, midodrine as needed, fall precautions PT/OT
Recurrent urinary retention�bladder scan, straight cath protocol
Essential hypertension�carvedilol
GERD�omeprazole
BPH�tamsulosin
Hyperlipidemia�atorvastatin
Important imaging findings :
CT head�10/04/2024� No acute intracranial abnormality.
Chest x-ray�10/04/2024� Hypoaerated lungs without consolidation.
Discharge Plan
-
Patient Disposition: Snf/SNF
Discharge Diagnosis/Procedures: Major depression with psychosis with possible superimposed delirium/recurrent falls
Condition: Fair
Diet: Regular
Activity: As tolerated
Driving Restrictions: As prior to admission
Bathing Restrictions: OK to Shower
Referrals:
Carmine Sarah MD [Family Provider] - in less than 1 week
Prescriptions:
New
risperidone 0.5 mg Tablet
0.5 mg PO BID 30 Days Qty: 60 0RF
sertraline 100 mg Tablet
100 mg PO DAILY Qty: 30 0RF
Continued
carvedilol 12.5 MG tablet
12.5 mg PO BID
aspirin 81 mg Tablet,Delayed Release (Dr/Ec)
81 mg PO DAILY 30 Days Qty: 30 0RF
cholecalciferol (vitamin D3) 50 mcg (2,000 unit) Tablet
50 mcg PO DAILY Qty: 30 0RF
omeprazole 20 mg Tablet,Delayed Release (Dr/Ec)
20 mg PO DAILY
metformin 500 mg Tablet
500 mg PO BID@0800,1700 Qty: 60 0RF
lorazepam 0.5 mg Tablet
0.5 mg PO BIDPRN PRN (Reason: Anxiety )
atorvastatin [Lipitor] 80 mg Tablet
80 mg PO HS
acetaminophen [Tylenol] 325 mg Tablet
650 mg PO Q6HPRN PRN (Reason: mild pain)
magnesium hydroxide [Milk of Magnesia] 400 mg/5 mL Suspension
2,400 mg PO DAILYPRN PRN (Reason: if no bm by 3rd day)
bisacodyl [Dulcolax (bisacodyl)] 10 mg Suppository
10 mg OK DAILYPRN PRN (Reason: if no bm aftr mom)
Fleet Enema 19-7 gram/118 mL Enema
118 ml OK DAILY
tamsulosin 0.4 mg capsule
0.4 mg PO HS
Discontinued
sertraline 50 mg Tablet
75 mg PO DAILY Qty: 30 0RF
risperidone 1 mg Tablet
1 mg PO HS Qty: 30 0RF
risperidone 0.5 mg Tablet
0.5 mg PO DAILY Qty: 30 0RF
amoxicillin-pot clavulanate [Augmentin] 500-125 mg tablet
1 tab PO BID 6 Days Qty: 12 0RF
Rx Instructions:
for 6 days starting 09/28/24
Discharge Orders:
Discharge Patient (As Directed); Ordered 10/11/24
Ordered By: Gely Gutiérrez
Discharge Date and Time
Discharge Date/Time: 10/11/24 15:50
Print Language: COMORAN

Documented by User: Neo Dyer MD 10/12/24 21:10
Discharge Summary
Discharge Data
Date of Admission: 10/04/24
Date of Discharge: 10/12/24
Discharge Plan
-
Patient Disposition: Snf/SNF
Discharge Diagnosis/Procedures: Major depression with psychosis with possible superimposed delirium/recurrent falls
Condition: Fair
Diet: Regular
Activity: As tolerated
Driving Restrictions: As prior to admission
Bathing Restrictions: OK to Shower
Referrals:
Carmine Sarah MD [Family Provider] - in less than 1 week
Prescriptions:
New
risperidone 0.5 mg Tablet
0.5 mg PO BID 30 Days Qty: 60 0RF
sertraline 100 mg Tablet
100 mg PO DAILY Qty: 30 0RF
Continued
carvedilol 12.5 MG tablet
12.5 mg PO BID
aspirin 81 mg Tablet,Delayed Release (Dr/Ec)
81 mg PO DAILY 30 Days Qty: 30 0RF
cholecalciferol (vitamin D3) 50 mcg (2,000 unit) Tablet
50 mcg PO DAILY Qty: 30 0RF
omeprazole 20 mg Tablet,Delayed Release (Dr/Ec)
20 mg PO DAILY
metformin 500 mg Tablet
500 mg PO BID@0800,1700 Qty: 60 0RF
lorazepam 0.5 mg Tablet
0.5 mg PO BIDPRN PRN (Reason: Anxiety )
atorvastatin [Lipitor] 80 mg Tablet
80 mg PO HS
acetaminophen [Tylenol] 325 mg Tablet
650 mg PO Q6HPRN PRN (Reason: mild pain)
magnesium hydroxide [Milk of Magnesia] 400 mg/5 mL Suspension
2,400 mg PO DAILYPRN PRN (Reason: if no bm by 3rd day)
bisacodyl [Dulcolax (bisacodyl)] 10 mg Suppository
10 mg OK DAILYPRN PRN (Reason: if no bm aftr mom)
Fleet Enema 19-7 gram/118 mL Enema
118 ml OK DAILY
tamsulosin 0.4 mg capsule
0.4 mg PO HS
Discontinued
sertraline 50 mg Tablet
75 mg PO DAILY Qty: 30 0RF
risperidone 1 mg Tablet
1 mg PO HS Qty: 30 0RF
risperidone 0.5 mg Tablet
0.5 mg PO DAILY Qty: 30 0RF
amoxicillin-pot clavulanate [Augmentin] 500-125 mg tablet
1 tab PO BID 6 Days Qty: 12 0RF
Rx Instructions:
for 6 days starting 09/28/24
Discharge Orders:
Discharge Patient (As Directed); Ordered 10/11/24
Ordered By: Gely Gutiérrez
Discharge Date and Time
Discharge Date/Time: 10/11/24 15:50
Print Language: COMORAN
== END 2024-10-11 15:50 ==
LOC: 4 WEST ACU 18:45
PROVIDERS: Physician Assistant; Student in an Organized Health Care Education/Training Program; ADMITTING PHYSICIAN Internal Medicine; ATTENDING PHYSICIAN Family Medicine; CONSULT PHYSICIAN Psychiatry & Neurology Neurology; CONSULT PHYSICIAN Psychiatry & Neurology Psychiatry; EMERGENCY PHYSICIAN Emergency Medicine; FAMILY PHYSICIAN Internal Medicine
DX: F03.93 Unspecified dementia, unspecified severity, with mood disturbance (principal); R41.82 Altered mental status, unspecified; Z87.891 Personal history of nicotine dependence; Z66 Do not resuscitate; Z02.2 Encounter for examination for admission to residential institution; I12.9 Hypertensive chronic kidney disease with stage 1 through stage 4 chronic kidney disease, or unspecified chronic kidney disease; N18.31 Chronic kidney disease, stage 3a; E78.00 Pure hypercholesterolemia, unspecified; R26.9 Unspecified abnormalities of gait and mobility; G93.40 Encephalopathy, unspecified; R06.00 Dyspnea, unspecified; I65.23 Occlusion and stenosis of bilateral carotid arteries; Z79.82 Long term (current) use of aspirin; R33.8 Other retention of urine; N40.1 Benign prostatic hyperplasia with lower urinary tract symptoms; F32.9 Major depressive disorder, single episode, unspecified; R29.6 Repeated falls; E11.22 Type 2 diabetes mellitus with diabetic chronic kidney disease; Z79.84 Long term (current) use of oral hypoglycemic drugs; K21.9 Gastro-esophageal reflux disease without esophagitis; E66.9 Obesity, unspecified; Z68.24 Body mass index [BMI] 24.0-24.9, adult; Z79.899 Other long term (current) drug therapy; F03.92 Unspecified dementia, unspecified severity, with psychotic disturbance
CPT/HCPCS: 70450; 71046; 80048; 80053; 81003; 81015; 82306; 82607; 82746; 82805; 82962; 83605; 83690; 83735; 84443; 84484; 85025; 85027; 87070; 87086; 92610; 93005; 95816; 97163; 97530; 99285; G0378